=== PATIENT | female | born 1970 | race Caucasian/White ===

== ENCOUNTER 2020-05-31 12:58 | Outpatient (REF) | payer OTHER, SELFPAY ==
[2020-06-01 21:26] LABS: Follicle Stimulating Hormone 100.7 mIU/mL
== END 2020-05-31 12:59 | disposition home or self-care (01) ==
LOC: HO.LAB 12:58
PROVIDERS: PCP Internal Medicine; Visit Provider Internal Medicine
DX: Z78.0 Asymptomatic menopausal state (principal)
CPT/HCPCS: 83001

== ENCOUNTER → 2020-06-08 11:24 | Outpatient (BNVA) | payer OTHER, SELFPAY | PROVIDERS: PCP Internal Medicine; Visit Provider Physician Assistant | DX: Z76.89 Persons encountering health services in other specified circumstances (principal) ==

== ENCOUNTER 2020-06-21 12:41 | Outpatient (REF) | payer OTHER, SELFPAY ==
[2020-06-21 13:01] LABS: COVID-19 Test Negative (Negative)
== END 2020-06-21 12:42 | disposition home or self-care (01) ==
LOC: HO.LAB 12:41
PROVIDERS: Visit Provider Internal Medicine
DX: Z20.828 Contact with and (suspected) exposure to other viral communicable diseases (principal)
CPT/HCPCS: 87635

== ENCOUNTER 2020-06-22 09:46 | Emergency (ER) | payer OTHER, SELFPAY ==
[2020-06-22 10:10] VITALS: BP 112/63; PULSE 68; RESP 16; TEMP 36.6; O2SAT 97; BMI 27.6
--- NOTE | 2020-06-22 10:29 | ECG_ITS ---
Test Reason : HEADACK Blood Pressure : / mmHG Vent. Rate : 069 BPM Atrial Rate : 069 BPM P-R Int : 128 ms QRS Dur : 076 ms QT Int : 392 ms P-R-T Axes : 063 053 043 degrees QTc Int : 420 ms Normal sinus rhythm Normal ECG No significant changes seen Referred By: Huan Goldsmith Electronically Signed By:ESTHER DIAZ MD
--- NOTE | 2020-06-22 10:29 | CT_ITS ---
EXAMINATION: CT HEAD WITHOUT CONTRAST CLINICAL INFORMATION: Severe headache. History migraines. COMPARISON: Radiographs sinuses 06/21/2019 TECHNIQUE: Contiguous axial imaging was performed from the skull base to vertex without intravenous administration of contrast. This CT examination was performed using dose optimization techniques as appropriate, variously including the following: *Automated exposure control *Adjustment of mA and/or kV according to patient size (this includes techniques or standardized protocols for targeted exams where dose is matched to indication/reason for exam; i.e. extremities or head) *Use of iterative reconstruction technique DLP: 572 mGy-cm FINDINGS: There is no intracranial hemorrhage, hematoma, or extra-axial fluid collection. The ventricles are normal in size. There is no hydrocephalus, edema, or mass effect. The vega-white matter differentiation appears symmetric. There is no visible acute territorial infarct or mass lesion. The calvarium appears intact. There is no pneumocephalus or orbital emphysema. The visualized sinuses and middle ears and mastoid air cells show no significant mucosal thickening. There are no air-fluid levels. CT/CT head/brain wo con IMPRESSION: Normal study.
--- NOTE | 2020-06-22 10:35 | ED.HA ---
HPI - Headache General Chief Complaint: Headache Stated Complaint: HEADACHE Time Seen by Provider: 06/22/20 09:53 Source: patient Mode of arrival: ambulatory Limitations: no limitations History of Present Illness HPI Narrative: Patient presents to ED for headache for the past 5 days. Patient denies any recent head trauma, fever, chills, night sweats, body aches, or neck stiffness. Patient denies any eye pain, change in vision, loss of vision, slurred speech, paralysis of extemiities, or facial droop. Sharad was seen 3 days ago by her PCP and was given some sumitriptan and zforan for migraine exacerbation. Patient does states history of migraine. Patient states she felt dizzy 2 days ago, but resolved on his own. Patient states no numbness, slurred speech, loss of vision, or paralysis of extremities. Presently patient denies any dizziness. Patient denies any eye pain. Patient states no shortness of breath or chest pain Related Data Home Medications Medication Instructions Recorded Confirmed calcium citrate 315 mg-vitamin D3 1 tab PO DAILY 06/08/20 06/08/20 5 mcg (200 unit) tablet etanercept 50 mg/mL (1 mL) 50 mg SUBCUT QWEEK 06/08/20 06/08/20 subcutaneous pen injector Previous Rx's Medication Instructions Recorded pantoprazole 40 mg tablet,delayed 40 mg PO DAILY #90 tab 06/13/20 release ondansetron 4 mg disintegrating 4 mg PO Q6H PRN #20 tab 06/20/20 tablet sumatriptan succinate 25 mg tablet 25 mg PO Q2-4H PRN #30 tab 06/20/20 bczstjfxxx-ksmeyfwsrvuke-pgut 1 cap PO Q6H PRN #20 cap 06/22/20 [Fioricet] Allergies Allergy/AdvReac Type Severity Reaction Status Date / Time Sulfa (Sulfonamide Allergy Mild Rash, Verified 06/20/20 09:20 Antibiotics) hives, rash [SULFA (SULFONAMIDE ANTIBIOTICS)] amoxicillin [AMOXICILLIN] Allergy Unknown ANAPHYLAXIS Verified 06/20/20 09:20 codeine [CODEINE] Allergy Unknown ANAPHYLAXIS Verified 06/20/20 09:20 Review of Systems Review of Systems: Yes all other systems are reviewed and are negative Constitutional: Constitutional: Reports as per HPI, Reports no additional constitutional complaints, Denies anorexia, Denies body ache(s), Denies chills, Denies daytime sleepiness, Denies fever(s), Denies frequent falls, Reports headache(s), Denies increased appetite and Denies lethargy Eyes: Eyes: Reports as per HPI, Reports no additional eye complaints, Denies blind spots, Denies blurry vision, Denies exophthalmos, Denies change in vision, Denies decreased night vision, Denies eye discharge, Denies dry eyes, Denies floaters, Denies irritation, Denies itchy eyes, Denies loss of peripheral vision, Denies loss of vision and Denies other visual disturbances ENT: Reports system reviewed and no additional complaints, except as documented, Reports as per HPI, Reports Normal hearing present, Denies dysphagia, Denies vertigo, Reports dizziness ( Resolved) and Reports headache(s) Cardiovascular: Cardiovascular: Reports as per HPI, Reports no additional cardiovascular complaints, Denies Abdominal Cramping after Meds, Denies chest pain, Denies chest pain at rest, Denies chest pain with activity, Denies pedal edema, Denies edema, Denies dyspnea, Denies dyspnea on exertion, Denies orthopnea and Denies paroxysmal nocturnal dyspnea Respiratory: Respiratory: Reports as per HPI, Reports no additional respiratory complaints, Denies change in phlegm color, Denies chest congestion, Denies cough, Denies hemoptysis, Denies excessive phlegm production, Denies pain on inspiration, Denies pain with cough, Denies dyspnea, Denies dyspnea on exertion, Denies stridor and Denies wheezing Gastrointestinal: Gastrointestinal: Reports as per HPI, Reports no additional gastrointestinal complaints, Denies abdominal pain, Denies belching, Denies bloating, Denies hematochezia, Denies tenesmus, Denies change in stool character, Denies coffee ground emesis, Denies constipation, Denies GI cramping, Denies dysphagia, Denies early satiety, Denies dyspepsia, Denies heartburn, Denies fecal incontinence and Denies diarrhea Genitourinary: Genitourinary: Reports no additional female genitourinary complaints, Reports as per HPI, Denies urinary frequency, Denies difficulty voiding, Denies dysmenorrhea, Denies dysuria, Denies urinary incontinence, Denies urinary hesitancy and Denies urinary urgency Musculoskeletal: Musculoskeletal: Reports no additional musculoskeletal complaints, Reports as per HPI, Denies abnormal gait and Denies numbness Neurologic: Reports system reviewed and no additional complaints, except as documented, Reports as per HPI, Reports Normal hearing present, Reports Abnormal speech present, Denies abnormal gait, Denies behavioral changes, Denies confusion, Denies vertigo, Reports dizziness ( Resolved), Denies frequent falls, Reports headache(s), Denies lack of coordination, Denies focal weakness, Denies loss of vision, Denies memory loss and Denies numbness Psychiatric: Psychiatric: Reports no additional psychiatric complaints, Reports as per HPI, Denies anxiety, Denies behavioral changes, Denies confusion, Denies depression and Denies memory loss Allergic/Immunologic: Allergic/Immunologic: Denies itchy eyes and Denies wheezing PMFSH Past Medical History Medical History (Updated 06/22/20 @ 13:43 by OZIEL Busby) Abnormal findings on esophagogastroduodenoscopy (EGD) Ankylosing spondylitis Asthma Cellulitis Concussion Diabetes mellitus GERD (gastroesophageal reflux disease) Menopause Morbid obesity with BMI of 40.0-44.9, adult Obstructive sleep apnea Tubal ligation evaluation Surgical History (Updated 06/08/20 @ 12:17 by Lea Guzman PA-C) Gastric bypass status for obesity H/O lumpectomy History of cholecystectomy History of Krystian-en-Y gastric bypass Hx laparoscopic cholecystectomy Hx of tubal ligation Family History Family History (Updated 06/08/20 @ 11:38 by Pramod Nicole [facility]) Father COPD (chronic obstructive pulmonary disease) DM (diabetes mellitus) Ankylosing spondylitis of site in spine Mother RA (rheumatoid arthritis) Son No problems noted. Social History Social History (Updated 06/08/20 @ 11:39 by Pramod Nicole CMA) Alcohol intake: current Alcohol intake frequency: holidays/special occasions only Smoking Status: Former smoker Smoked in Last 30 Days: No Use of substances other than those prescribed or required for medical reasons: No Advance Directives: No Advance Directives Information Provided: No Physical Exam Vital Signs: Vital Signs: Vital Signs Temp Pulse Resp BP Pulse Ox 06/22/20 10:10 97.8 F 68 16 112/63 97 Body Mass Index 27.6 Const: General: cooperative, healthy appearing, comfortable, no acute distress, well developed, alert, awake and Physically active; No confusion Orientation/consciousness: oriented to person, oriented to place, oriented to time, patient oriented x3 and No confusion HENMT: Head: Yes normal to inspection, Yes No palpable skull fracture present, No abrasion, No Duarte's sign, No contusion, No hematoma, No laceration, No palpable skull fracture, No raccoon eyes, No scalp lesion, No scalp tenderness, No Temporal artery tenderness present and No periorbital ecchymosis Ears: hearing grossly normal bilaterally, external ears normal and TM's normal bilaterally Face and sinus: Yes normal facial exam Mouth: Normal oral and palatal mucosa present Eyes: General: appearance normal, both eyes and all related structures Visual Sanchez: normal visual sanchez by confrontation Alignment and Position: alignment normal Eyelids: Yes eyelids normal Conjunctivae: conjunctivae normal Sclerae: sclerae normal Pupils: Equal, round and reactive pupils present EOM: EOMs intact bilaterally Neck: Neck: Yes normal visual inspection, Yes full ROM, Yes no lymphadenopathy, Yes no meningeal signs, No positive Brudzinski's sign and No positive Kernig's sign Chest: Chest palpation & inspection: normal inspection of the chest, normal palpation of entire chest wall and no localized rib tenderness Resp: Effort & Inspection: normal respiratory effort, able to speak in complete sentences, normal respiratory pattern, no audible wheezes, no cough, respiratory effort not decreased, no grunting, not labored, no nasal flaring, no paradoxical thoraco-abdom movements, no pursed lip breathing, no respiratory distress, no retractions, no segmental paradox chest wall movement, no stridor, not tachypneic, no tracheal deviation and no tripod positioning Auscultation: clear to auscultation bilaterally, no crackles, no rales, no rhonchi and no wheezes Cardio: Jugular venous distension: no JVD Heart sounds: S1 normal heart sound present and S2 normal heart sound present GI: Inspection: Yes normal to inspection, No abdominal wall ecchymosis and No Abdominal wall edema Palpation (GI): Soft to palpation, not firm, nontender and no guarding Percussion: Yes normal to percussion Auscultation: normal bowel sounds : General: No CVA tenderness and Yes no CVA tenderness Back/Spine/Pelvis: Back: no CVA tenderness, No CVA tenderness and No back tenderness Skin: General skin exam: no rashes or lesions noted Neuro: Other: cranial nerves intact. Negative pronator drift. Motor, neuro, and vascular exam of all extremities are intact and are equal. Cerebellar exam normal. Patient able to the zgazvu-oa-drch test and rapid hand movements. Negative nystagmus General: oriented to person, oriented to place, oriented to time, patient oriented x3, gait normal, no meningeal signs, CN's II-XI intact bilaterally and No confusion Cranial nerves: Yes CN's II-XII intact bilaterally, Yes Equal, round and reactive pupils present and Yes Normal hearing present Speech: Abnormal speech present Gait exam (Neuro): Normal gait present Course Course Course Narrative: History physical exam indicate migraine exacerbation. Patient will be sent for head CT due to her stating headache for 5 days. Patient will have at least 1 troponin EKG due to her stating dizziness 2 days ago with headache. Reevaluation(s) Reevaluation #1: patient's CT scan came back negative for bleed. EKG is normal. Patient's troponin negative after 5 days of headache. Patient states headache improved after receiving migraine cocktail. Patient will be discharged. Neuro exam is intact. Patient denies any orbital pain to indicate any glaucoma. patient already have Imitrex and zofran. patient will be discharged with fiorecet. CT scan negative for bleed and troponin negative after 5 days of headache. EKG is normal Time: 13:41 MDM - Headache MDM Narrative Medical decision making narrative: migraine exacerbation. History physical exam does not indicate meningitis or stroke. No focal deficit Lab Data Result diagrams: 06/22/20 10:53 06/22/20 10:53 Labs: Lab Results 06/22/20 06/22/20 06/22/20 Range/Units 10:53 10:53 10:53 WBC 5.0 (4.8-10.8) X10*3/uL RBC 3.98 L (4.20-5.50) X10*6/uL Hgb 11.5 L (12.0-16.0) g/dl Hct 35.7 L (37-47) % MCV 89.7 (80-98) fL MCH 28.9 (27.0-33.0) pg MCHC 32.2 (31.0-35.0) g/dl RDW 12.2 (11.0-16.0) % Plt Count 162 (160-400) X10*3/uL MPV 10.2 (9.4-12.3) fL Immature Gran % (Auto) 0.2 (0.0-0.4) % Neut % (Auto) 50.8 (45-73) % Lymph % (Auto) 39.0 (20-40) % [place] % (Auto) 8.2 (2-11) % Eos % (Auto) 1.4 (0-4) % Baso % (Auto) 0.4 (0-2) % Lymph # (Auto) 2.0 (1.2-4.9) X10*3/uL [place] # (Auto) 0.4 (0.1-1.2) X10*3/uL Eos # (Auto) 0.1 (0.0-0.4) X10*3/uL Baso # (Auto) 0.0 (0.0-0.2) X10*3/uL Abs Immat Gran (auto) 0.01 (0.00-0.03) X10*3/uL Absolute Neuts (auto) 2.6 (2.0-8.3) X10*3/uL Absolute Nucleated RBC 0.000 (0.0-0.012) X10*3/uL Nucleated RBC % (auto) 0.0 (0.0-0.2) /100WBC PT 12.4 (10.8-13.0) SEC INR 1.0 (0.9-1.1) APTT 33.8 (24.1-38.0) SEC Sodium 139 (135-145) mmol/L Potassium 4.3 (3.3-5.1) mmol/l Chloride 101 (96-108) mmol/L Carbon Dioxide 30 H (22-29) mmol/L Anion Gap 12 (12-20) BUN 11 (9-16) mg/dL Creatinine 0.77 (0.5-1.4) mg/dL Estim Creat Clear Calc 89.7 Estimated GFR > 60 Random Glucose 105 (60-115) mg/dL Calcium 8.9 (8.4-10.2) mg/dL Total Bilirubin 0.7 (0.0-1.0) mg/dL AST 26 (5-31) U/L ALT 20 (0-31) U/L Alkaline Phosphatase 78 (39-117) U/L Troponin I High Sens (<3.5-17.0) ng/L Total Protein 6.5 (6.5-8.0) g/dL Albumin 4.1 (3.5-5.0) g/dL 06/22/20 Range/Units 10:53 WBC (4.8-10.8) X10*3/uL RBC (4.20-5.50) X10*6/uL Hgb (12.0-16.0) g/dl Hct (37-47) % MCV (80-98) fL MCH (27.0-33.0) pg MCHC (31.0-35.0) g/dl RDW (11.0-16.0) % Plt Count (160-400) X10*3/uL MPV (9.4-12.3) fL Immature Gran % (Auto) (0.0-0.4) % Neut % (Auto) (45-73) % Lymph % (Auto) (20-40) % [place] % (Auto) (2-11) % Eos % (Auto) (0-4) % Baso % (Auto) (0-2) % Lymph # (Auto) (1.2-4.9) X10*3/uL [place] # (Auto) (0.1-1.2) X10*3/uL Eos # (Auto) (0.0-0.4) X10*3/uL Baso # (Auto) (0.0-0.2) X10*3/uL Abs Immat Gran (auto) (0.00-0.03) X10*3/uL Absolute Neuts (auto) (2.0-8.3) X10*3/uL Absolute Nucleated RBC (0.0-0.012) X10*3/uL Nucleated RBC % (auto) (0.0-0.2) /100WBC PT (10.8-13.0) SEC INR (0.9-1.1) APTT (24.1-38.0) SEC Sodium (135-145) mmol/L Potassium (3.3-5.1) mmol/l Chloride (96-108) mmol/L Carbon Dioxide (22-29) mmol/L Anion Gap (12-20) BUN (9-16) mg/dL Creatinine (0.5-1.4) mg/dL Estim Creat Clear Calc Estimated GFR Random Glucose (60-115) mg/dL Calcium (8.4-10.2) mg/dL Total Bilirubin (0.0-1.0) mg/dL AST (5-31) U/L ALT (0-31) U/L Alkaline Phosphatase (39-117) U/L Troponin I High Sens < 3.5 (<3.5-17.0) ng/L Total Protein (6.5-8.0) g/dL Albumin (3.5-5.0) g/dL ECG Data Interpretation: EKG normal sinus rhythm. Ventricular rate 69. Pr interval 128. Normal EKG. Negative STEMI Discharge Plan Discharge Clinical Impression: Migraine Patient Disposition: Home, Self-Care Instructions: Migraine Headache (ED) Prescriptions: New aoeutrsepo-dslxukrnhcpsl-qebc [Fioricet] 50-300-40 mg capsule 1 cap PO Q6H PRN (Reason: pain) Qty: 20 RF: 0 No Action pantoprazole 40 mg tablet,delayed release (DR/EC) 40 mg PO DAILY Qty: 90 RF: 3 ondansetron 4 mg tablet,disintegrating 4 mg PO Q6H PRN (Reason: nausea and vomiting) Qty: 20 RF: 0 sumatriptan succinate [Imitrex] 25 mg tablet 25 mg PO Q2-4H PRN (Reason: migraine headache) Qty: 30 RF: 0 Enbrel SureClick 50 mg/mL (1 mL) pen injector 50 mg subcut QWEEK RF: 0 calcium citrate-vitamin D3 [Calcium Citrate + D] 315 mg-5 mcg (200 unit) tablet 1 tab PO DAILY RF: 0 Referrals: Caitlyn Conte MD [Primary Care Provider] - 2 days ( migraine exacerbation. Referred to neurologist as necessary) Stand Alone Forms: Work/School Release Interventions: ED Discharge Assessment Last Done: 06/22/20 14:19 Discharge Date/Time: 06/22/20 14:21 Print Language: Slovak
[2020-06-22] MEDS: diphenhydrAMINE HCL 50 MG/ML VIAL IVPUSH (11:03)
[2020-06-22] MEDS: Metoclopramide HCl 10 MG/2 ML VIAL IVPUSH (11:03)
[2020-06-22] MEDS: 0.9 % Sodium Chloride 1,000 ML 999 ML IVCONT (11:03)
[2020-06-22 11:04] LABS: MANUAL DIFF FLAG NO
[2020-06-22 11:06] LABS: Basophils Percent Auto 0.4 % (0-2); Eosinophils Absolute Auto 0.1 X10*3/uL (0.0-0.4); Eosinophils Percent Auto 1.4 % (0-4); Hematocrit 35.7 % (37-47); Hemoglobin 11.5 g/dl (12.0-16.0); Imm Gran Abs Auto 0.01 X10*3/uL (0.00-0.03); Imm Gran Pct Auto 0.2 % (0.0-0.4); Mean Corpuscular HGB Conc 32.2 g/dl (31.0-35.0); Mean Corpuscular Hemoglobin 28.9 pg (27.0-33.0); Mean Corpuscular Volume 89.7 fL (80-98); Mean Platelet Volume 10.2 fL (9.4-12.3); Monocytes Absolute Auto 0.4 X10*3/uL (0.1-1.2); Monocytes Percent Auto 8.2 % (2-11); Neutrophils Absolute Auto 2.6 X10*3/uL (2.0-8.3); Neutrophils Percent Auto 50.8 % (45-73); Platelet Count 162 X10*3/uL (160-400); Red Blood Count 3.98 X10*6/uL (4.20-5.50); Red Cell Distribution Width 12.2 % (11.0-16.0)
--- NOTE | 2020-06-22 11:08 | PC.NURSE ---
iv inserted, labs drawn, pt medicated per order -float nurse
[2020-06-22 11:13] LABS: Prothrombin Time 12.4 SEC (10.8-13.0)
[2020-06-22 11:15] LABS: Partial Thromboplastin Time 33.8 SEC (24.1-38.0)
[2020-06-22 11:32] LABS: Alanine Aminotransferase 20 U/L (0-31); Albumin Level 4.1 g/dL (3.5-5.0); Alkaline Phosphatase 78 U/L (39-117); Anion Gap 12 (12-20); Aspartate Amino Transferase 26 U/L (5-31); Bilirubin Total 0.7 mg/dL (0.0-1.0); Blood Urea Nitrogen 11 mg/dL (9-16); Calcium 8.9 mg/dL (8.4-10.2); Carbon Dioxide 30 mmol/L (22-29); Chloride 101 mmol/L (96-108); Creatinine Clr Calc Pharmacy 89.7; Estimated Glomerular Filt Rate > 60; Glucose Random 105 mg/dL (60-115); Potassium 4.3 mmol/l (3.3-5.1); Sodium 139 mmol/L (135-145); Total Protein 6.5 g/dL (6.5-8.0)
[2020-06-22 11:39] LABS: Troponin-I High Sensitivity < 3.5 ng/L (<3.5-17.0)
[2020-06-22] MEDS: methylPREDNISolone Sod Succ/PF 125 MG/2 ML VIAL IVPUSH (13:26)
== END 2020-06-22 14:21 | disposition home or self-care (01) ==
PROVIDERS: Physician Assistant; Emergency Provider Emergency Medicine; PCP Internal Medicine
DX: G43.909 Migraine, unspecified, not intractable, without status migrainosus (principal); Z87.891 Personal history of nicotine dependence; R42 Dizziness and giddiness; Z79.899 Other long term (current) drug therapy; Z98.84 Bariatric surgery status
CPT/HCPCS: 36415; 70450; 80053; 84484; 85025; 85610; 85730; 93005; 96361; 96374; 96375; 99284; J1200; J2765; J2930

== ENCOUNTER → 2020-06-28 08:06 | Outpatient (BNVA) | payer OTHER, SELFPAY | PROVIDERS: PCP Internal Medicine; Referring Provider Internal Medicine; Visit Provider Student in an Organized Health Care Education/Training Program | DX: Z76.89 Persons encountering health services in other specified circumstances (principal) ==

== ENCOUNTER 2020-08-01 11:24 | Outpatient (REF) | payer OTHER, SELFPAY ==
[2020-08-01 13:52] LABS: MANUAL DIFF FLAG NO
[2020-08-01 13:57] LABS: Basophils Percent Auto 0.3 % (0-2); Eosinophils Absolute Auto 0.1 X10*3/uL (0.0-0.4); Eosinophils Percent Auto 1.2 % (0-4); Hematocrit 38.9 % (37-47); Hemoglobin 12.2 g/dl (12.0-16.0); Imm Gran Abs Auto 0.04 X10*3/uL (0.00-0.03); Imm Gran Pct Auto 0.6 % (0.0-0.4); Lymphocytes Absolute Auto 2.6 X10*3/uL (1.2-4.9); Lymphocytes Percent Auto 37.3 % (20-40); Mean Corpuscular HGB Conc 31.4 g/dl (31.0-35.0); Mean Corpuscular Hemoglobin 28.7 pg (27.0-33.0); Mean Corpuscular Volume 91.5 fL (80-98); Mean Platelet Volume 10.7 fL (9.4-12.3); Monocytes Absolute Auto 0.5 X10*3/uL (0.1-1.2); Monocytes Percent Auto 6.7 % (2-11); Neutrophils Absolute Auto 3.7 X10*3/uL (2.0-8.3); Neutrophils Percent Auto 53.9 % (45-73); Platelet Count 216 X10*3/uL (160-400); Red Blood Count 4.25 X10*6/uL (4.20-5.50); Red Cell Distribution Width 12.8 % (11.0-16.0); White Blood Count 6.9 X10*3/uL (4.8-10.8)
[2020-08-01 14:37] LABS: Alanine Aminotransferase 19 U/L (0-31); Albumin Level 4.3 g/dL (3.5-5.0); Alkaline Phosphatase 85 U/L (39-117); Anion Gap 13 (12-20); Aspartate Amino Transferase 26 U/L (5-31); Bilirubin Total 0.5 mg/dL (0.0-1.0); Blood Urea Nitrogen 18 mg/dL (9-16); Carbon Dioxide 30 mmol/L (22-29); Chloride 101 mmol/L (96-108); Estimated Glomerular Filt Rate > 60; Glucose Random 77 mg/dL (60-115); Potassium 4.1 mmol/l (3.3-5.1); Sodium 140 mmol/L (135-145)
[2020-08-01 14:53] LABS: Erythrocyte Sedimentation Rate 15 MM/HR (0-20)
== END 2020-08-01 11:25 | disposition home or self-care (01) ==
LOC: HO.HMGCLDS 11:24
PROVIDERS: PCP Family Medicine; Visit Provider Student in an Organized Health Care Education/Training Program
DX: M47.819 Spondylosis without myelopathy or radiculopathy, site unspecified (principal)
CPT/HCPCS: 36415; 80053; 85025; 85652; 86140

== ENCOUNTER 2020-08-07 08:26 | Outpatient (REF) | payer OTHER, SELFPAY ==
--- NOTE | 2020-08-07 08:30 | XR_ITS ---
EXAMINATION: XR CERVICAL SPINE XR THORACIC SPINE CLINICAL INFORMATION: Spondylosis. COMPARISON: Cervical spine 06/16/2017 TECHNIQUE: Cervical spine 3 views. Thoracic spine 3 views. FINDINGS: CERVICAL SPINE: No evidence of fracture or malalignment. No prevertebral soft tissue swelling. Vertebral body heights are maintained. Disc spaces are maintained. Lung apices are clear. Mild facet degeneration in the mid cervical spine. THORACIC SPINE: Normal alignment. Mild anterior vertebral body height loss of the upper thoracic vertebral body, probably T5, which appears chronic. No acute compression deformities identified otherwise. Multilevel yxfdcqkb-ao-chmnuz disc degenerative changes. Paraspinal soft tissue appears unremarkable. Visualized lungs are clear. Surgical clips in the upper abdomen. XR/XR cervical spine 2V IMPRESSION: CERVICAL SPINE: Mild facet degeneration in the mid cervical spine. No acute findings. THORACIC SPINE: 1. Obdxvpej-aq-axcksl thoracic spondylosis. 2. Mild anterior vertebral body height loss of the upper thoracic vertebral body, probably T5. This is suspected to be chronic. Please clinically correlate. Further evaluation with MRI as clinically warranted.
--- NOTE | 2020-08-07 08:30 | XR_ITS ---
EXAMINATION: XR CERVICAL SPINE XR THORACIC SPINE CLINICAL INFORMATION: Spondylosis. COMPARISON: Cervical spine 06/16/2017 TECHNIQUE: Cervical spine 3 views. Thoracic spine 3 views. FINDINGS: CERVICAL SPINE: No evidence of fracture or malalignment. No prevertebral soft tissue swelling. Vertebral body heights are maintained. Disc spaces are maintained. Lung apices are clear. Mild facet degeneration in the mid cervical spine. THORACIC SPINE: Normal alignment. Mild anterior vertebral body height loss of the upper thoracic vertebral body, probably T5, which appears chronic. No acute compression deformities identified otherwise. Multilevel muraiffw-um-uybumd disc degenerative changes. Paraspinal soft tissue appears unremarkable. Visualized lungs are clear. Surgical clips in the upper abdomen. XR/XR thoracic spine 2V IMPRESSION: CERVICAL SPINE: Mild facet degeneration in the mid cervical spine. No acute findings. THORACIC SPINE: 1. Zoifscsc-ql-weicct thoracic spondylosis. 2. Mild anterior vertebral body height loss of the upper thoracic vertebral body, probably T5. This is suspected to be chronic. Please clinically correlate. Further evaluation with MRI as clinically warranted.
== END 2020-08-07 08:27 | disposition home or self-care (01) ==
LOC: HO.XRAY 08:26
PROVIDERS: PCP Family Medicine; Visit Provider Student in an Organized Health Care Education/Training Program
DX: M47.819 Spondylosis without myelopathy or radiculopathy, site unspecified (principal)
CPT/HCPCS: 72040; 72070

== ENCOUNTER 2020-08-11 15:40 | Outpatient (REF) | payer OTHER, SELFPAY ==
--- NOTE | 2020-08-11 15:42 | MR_ITS ---
EXAMINATION: MR THORACIC SPINE WITHOUT CONTRAST CLINICAL INFORMATION: Degenerative disc disease. COMPARISON: Thoracic spine radiographs from 08/07/2020. TECHNIQUE: MRI of the thoracic spine was obtained using routine sequences without contrast. FINDINGS: Normal anatomic alignment. Normal, homogeneous marrow signal throughout. No suspicious marrow edema. Moderate to advanced degenerative disc disease from T4-T10. Degenerative loss of T7 and T8 vertebral body heights (approximately 15% and 30% loss of height respectively). The vertebral body heights are otherwise well-maintained. Moderate dorsal epidural lipomatous tissue from T1-T9 partially effacing the thecal sac. No significant abnormalities of the thoracic spinal cord. The conus medullaris terminates at L1-L2. No significant abnormalities of the paraspinal musculature. Limited evaluation of the intrathoracic structures without significant abnormalities. The descending thoracic aorta is of normal contour and caliber. AXIAL SPINAL LEVELS: Mild posterior disc herniations from T1-T4, from T5-T7, and at T11-T12. There is mild to moderate multilevel facet arthropathy, worse in the lower thoracic spine. There is no overt neural foraminal stenosis. There is no spinal canal stenosis. MR/MR thoracic spine wo con IMPRESSION: Moderate multilevel degenerative spondyloarthropathy of the thoracic spine as described in detail above. No suspicious marrow edema to suggest acute traumatic injury. Moderately prominent dorsal epidural lipomatous tissue partially effaces the thecal sac without overt spinal canal stenosis.
== END 2020-08-11 15:41 | disposition home or self-care (01) ==
LOC: HO.MRI 15:40
PROVIDERS: Visit Provider Student in an Organized Health Care Education/Training Program
DX: M51.34 Other intervertebral disc degeneration, thoracic region (principal); R29.890 Loss of height
CPT/HCPCS: 72146

== ENCOUNTER 2020-08-14 07:46 | Outpatient (REF) | payer OTHER, SELFPAY ==
--- NOTE | 2020-08-14 07:49 | CT_ITS ---
EXAMINATION: CT ANGIOGRAM BRAIN WITH CONTRAST CLINICAL INFORMATION: Cerebral aneurysm. COMPARISON: Head CT 06/22/2020. TECHNIQUE: Initial noncontrast head CT was performed. Test bolus sequences followed by intravenous administration 80 mL of Ultravist-370. Helical imaging was performed in the axial plane from the skull base to the skull vertex. Delayed postcontrast imaging of the head was also performed. The data was processed at the systems technologist workstation for generation of MIP sequences. Angled MIPs and volume rendered reformatted images were also generated at an offline 3D workstation. DLP: 1904 mGy-cm FINDINGS: Brain: There is no intracranial hemorrhage, extra-axial collection, mass effect, or territorial infarction. The ventricles are normal in size without evidence of hydrocephalus. On the postcontrast images, no abnormal enhancement is seen. The extracranial structures appear normal. Head CTA: The bilateral ICAs appear patent. The right A1 segment is dominant and supplies both A2 segments. The left A1 segment is hypoplastic. The ACAs are patent. The MCAs are patent with symmetric collaterals. The bilateral intradural vertebral arteries and basilar artery are patent. Both alum mixer are patent. No definite aneurysm is seen. CT/CT angio head IMPRESSION: No acute intracranial abnormality. No hemorrhage or infarct. Major intracranial arteries appear patent. No stenosis or definite aneurysm is seen.
[2020-08-14] MEDS: iohexoL 350 MG/ML 100 ML INFUS..BTL 80 ML IV (08:50)
== END 2020-08-14 07:47 | disposition home or self-care (01) ==
LOC: HO.CT 07:46
PROVIDERS: PCP Family Medicine; Visit Provider Psychiatry & Neurology Neurology
DX: I67.1 Cerebral aneurysm, nonruptured (principal)
CPT/HCPCS: 70496; Q9967

== ENCOUNTER → 2020-08-31 12:42 | Outpatient (BNVA) | payer OTHER, SELFPAY | PROVIDERS: PCP Family Medicine; Visit Provider Anesthesiology | DX: Z76.89 Persons encountering health services in other specified circumstances (principal) ==

== ENCOUNTER 2020-09-19 06:26 | Outpatient (REF) | payer OTHER, SELFPAY ==
--- NOTE | 2020-09-19 07:33 | FL_ITS ---
EXAMINATION: XR FLUOROSCOPY WITH IMAGES CLINICAL INFORMATION: M51.34 - Other intervertebral disc degeneration, thoracic region COMPARISON: MR thoracic spine 08/11/2020 TECHNIQUE: Fluoroscopy performed by Brigida Fleming NP. Fluoroscopy time: 0.7 minutes DAP: 5.51 Gycm2 Images: 6 FINDINGS: There is a left paraspinal needle and 2 right paraspinal needles in region of mid thoracic spine with some contrast in the paraspinal soft tissues. No vascular communication demonstrated. FL/FL guidance in treatment room IMPRESSION: Fluoroscopy for pain management procedure.
== END 2020-09-19 06:27 | disposition home or self-care (01) ==
LOC: HO.RADIR 06:26
PROVIDERS: Visit Provider Anesthesiology
DX: M51.34 Other intervertebral disc degeneration, thoracic region (principal); M45.9 Ankylosing spondylitis of unspecified sites in spine; M54.9 Dorsalgia, unspecified
CPT/HCPCS: 64490; 64491; J3300; Q9967

== ENCOUNTER → 2020-10-25 10:42 | Outpatient (BNVA) | payer OTHER, SELFPAY | PROVIDERS: PCP Family Medicine; Visit Provider Anesthesiology ==

== ENCOUNTER → 2020-10-31 09:19 | Outpatient (BNVA) | payer OTHER, SELFPAY | PROVIDERS: PCP Family Medicine; Visit Provider Dietitian, Registered ==

== ENCOUNTER 2020-11-01 11:10 | Outpatient (REF) | payer OTHER, SELFPAY ==
--- NOTE | ~2020-11-01 | US_ITS ---
EXAMINATION: US SOFT TISSUE OF THE NECK CLINICAL INFORMATION: Ankylosing spondylitis of unspecified sites in the spine. COMPARISON: None TECHNIQUE: Linear transducer grayscale and color Doppler examination of the anterior medial subclavicular area. FINDINGS: On ultrasound imaging there is a solid echogenic avascular lesion along the left anterior neck with echogenic shadowing with an appearance of a bony protuberance or bony spur, likely from the clavicle. No free fluid. US/US soft tiss head and/or neck IMPRESSION: Ultrasound reveals a solid bone-like echogenic and shadowing avascular lesion. This may be bony protuberance or enthesophyte of the clavicle. Correlate with x-ray or CT of the clavicle.
== END 2020-11-01 11:11 | disposition home or self-care (01) ==
LOC: HO.HMGCX 11:10
PROVIDERS: PCP Family Medicine; Visit Provider Student in an Organized Health Care Education/Training Program
DX: M54.9 Dorsalgia, unspecified (principal)
CPT/HCPCS: 76536

== ENCOUNTER 2020-11-06 16:50 | Outpatient (REF) | payer OTHER, SELFPAY ==
[2020-11-08 20:57] LABS: HPV mRNA E6/E7 Not Detected (Not Detected)
== END 2020-11-06 16:51 | disposition home or self-care (01) ==
LOC: HO.LNP 16:50
PROVIDERS: Visit Provider Nurse Practitioner Adult Health
DX: Z01.419 Encounter for gynecological examination (general) (routine) without abnormal findings (principal); Z11.51 Encounter for screening for human papillomavirus (HPV)
CPT/HCPCS: 87624; 88142

== ENCOUNTER 2020-11-21 08:16 | Outpatient (REF) | payer OTHER, SELFPAY ==
--- NOTE | ~2020-11-21 | CT_ITS ---
EXAMINATION: CT SOFT TISSUE NECK WITH CONTRAST CLINICAL INFORMATION: Localized swelling, mass and lump. COMPARISON: None TECHNIQUE: Following the intravenous administration of 100 mL of Omnipaque 350 intravenous contrast, helical imaging was performed in the axial plane with generation of coronal and sagittal reformatted images. This CT examination was performed using dose optimization techniques as appropriate, variously including the following: *Automated exposure control *Adjustment of mA and/or kV according to patient size (this includes techniques or standardized protocols for targeted exams where dose is matched to indication/reason for exam; i.e. extremities or head) *Use of iterative reconstruction technique DLP: 340 mGy-cm FINDINGS: A few scattered lymph nodes are seen in the right neck. The largest right neck level 2 lymph node measures 0.8 cm and less in short dimension. The parotid glands are homogeneous in attenuation. The submandibular glands are normal. No contour abnormality or pathologic enhancement is seen within the oral cavity or pharyngeal mucosal space. The laryngeal structures are normal. The parapharyngeal fat is preserved. The carotid sheath vasculature opacify normally. No extra mucosal soft tissue mass or fluid collection is seen. No retropharyngeal fluid collection is seen. There is normal enhancement in both thyroid lobes which are slightly irregular shaped but no focal lesion seen. There is no substernal extension. The superior mediastinum is unremarkable. The lung apices are clear. The mastoid air cells and visualized portions of the paranasal sinuses are well-aerated. The temporomandibular joints are normal. No periapical disease is identified. No osseous abnormalities are seen. The imaged portions of the brain parenchyma are unremarkable. CT/CT soft tissue neck w con IMPRESSION: No mass, abnormal lymphadenopathy or mass effect seen.
== END 2020-11-21 08:17 | disposition home or self-care (01) ==
LOC: HO.CT 08:16
PROVIDERS: Visit Provider Student in an Organized Health Care Education/Training Program
DX: R22.1 Localized swelling, mass and lump, neck (principal)
CPT/HCPCS: 70491; Q9967

== ENCOUNTER 2020-11-21 19:43 | Emergency (ER) | payer OTHER, SELFPAY ==
[2020-11-21 20:39] VITALS: BP 136/81; PULSE 84; RESP 16; TEMP 36.9; O2SAT 98; BMI 31.2
[2020-11-21] MEDS: diphenhydrAMINE HCL 50 MG/ML VIAL IVPUSH (21:20)
[2020-11-21] MEDS: Famotidine/PF 20 MG/2 ML VIAL IVPUSH (21:20)
[2020-11-21] MEDS: 0.9 % Sodium Chloride 1,000 ML 999 ML IVCONT (21:20)
[2020-11-21] MEDS: methylPREDNISolone Sod Succ 125 MG/2 ML VIAL IVPUSH (21:20)
[2020-11-21 22:00] VITALS: BP 121/65; PULSE 70; RESP 16; O2SAT 99
--- NOTE | 2020-11-21 22:15 | ED_ITS ---
HPI - Allergic Reaction General Chief complaint: Allergic Reaction Stated complaint: allergic reaction Time Seen by Provider: 11/21/20 20:43 Source: patient Mode of arrival: ambulatory Limitations: no limitations History of Present Illness HPI narrative: 50-year-old female with past medical history of asthma, ankylosing spondylosis, headaches, diabetes type 2, GERD, obesity with gastric bypass, obstructive sleep apnea presents with suspected allergic reaction. States that she has been itching all over her body, it is unknown which she was exposed to. She did have CT scan with IV contrast earlier today, states this is the 1st time she has had itching after procedure. Did not have any difficulty breathing, is able to manage secretions, does not have any change in voice. She denies chest pain or pressure, palpitations, shortness of breath, adventitious breath sounds, stridor, headaches, nausea, vomiting, abdominal pain, abdominal distention, dysuria, hematuria, or edema. MD complaint: allergic reaction and hives Onset (ago): hour(s) (Several hours prior to arrival) Exposure: unknown Symptoms: rash and itching Severity: moderate Treatment prior to arrival: none Previous Allergic Reaction History: prior ED visit(s) and anaphylaxis Related Data Home Medications Medication Instructions Recorded Confirmed calcium citrate 315 mg-vitamin D3 1 tab PO DAILY 06/08/20 06/08/20 5 mcg (200 unit) tablet etanercept 50 mg/mL (1 mL) 50 mg SUBCUT QWEEK 06/08/20 06/08/20 subcutaneous pen injector levonorgestrel 20 mcg/24 hours (6 INTRAUTERINE 06/28/20 yrs) 52 mg intrauterine device gabapentin 300 mg capsule 300 mg PO TID 09/25/20 Previous Rx's Medication Instructions Recorded pantoprazole 40 mg tablet,delayed 40 mg PO DAILY #90 tab 06/13/20 release sumatriptan succinate 25 mg tablet 25 mg PO Q2-4H PRN #30 tab 06/20/20 xxbvieggdu-hxnbrmhjmsrhp-sokh 1 cap PO Q6H PRN #20 cap 06/22/20 [Fioricet] diclofenac sodium 1 % topical gel 2 g TOPICAL BID #100 g 06/28/20 gabapentin 600 mg tablet 600 mg PO TID 30 Days #90 tab 08/31/20 epinephrine [EpiPen 2-Juan Luis] 0.3 mg IM Q10M PRN #2 ea 11/21/20 Allergies Allergy/AdvReac Type Severity Reaction Status Date / Time Sulfa (Sulfonamide Allergy Mild Rash, Verified 11/21/20 20:38 Antibiotics) hives, rash [SULFA (SULFONAMIDE ANTIBIOTICS)] amoxicillin [AMOXICILLIN] Allergy Unknown ANAPHYLAXIS Verified 11/21/20 20:38 codeine [CODEINE] Allergy Unknown ANAPHYLAXIS Verified 11/21/20 20:38 Review of Systems Review of Systems: Constitutional: No Fever, No Chills ENT/Mouth: positive facial redness without swelling, No Hoarseness, No Swallowing Difficulty Eyes: No Eye Pain, No Swelling, No Redness Cardiovascular: No Chest Pain, No SOB Respiratory: No Cough, No Sputum, No Wheezing, No Smoke Exposure, No Dyspnea Gastrointestinal: No Nausea, No Vomiting, No Diarrhea, No abdominal Pain Genitourinary: No Dysuria, No Urinary Frequency, No Hematuria Musculoskeletal: No joint pain, No Myalgias, No Joint Swelling Skin: No Skin Lesions, positive rash Neuro: No Weakness, No Numbness, No Headache Psych: No Anxiety/Panic, No Depression Heme/Lymph: No Bruising, No Lymphadenopathy Endocrine: No Polyuria, No Polydipsia Yes all other systems are reviewed and are negative [facility] Past Medical History Attestation statement: The following information was validated with the patient. Source: old records reviewed Medical History Abnormal findings on esophagogastroduodenoscopy (EGD) Ankylosing spondylitis Ankylosing spondylitis Asthma Cellulitis Chronic headaches Concussion Diabetes mellitus GERD (gastroesophageal reflux disease) Menopause Morbid obesity with BMI of 40.0-44.9, adult Obstructive sleep apnea Tubal ligation evaluation Surgical History Gastric bypass status for obesity H/O lumpectomy History of cholecystectomy History of Krystian-en-Y gastric bypass Hx laparoscopic cholecystectomy Hx of tubal ligation Family History Family History Father COPD (chronic obstructive pulmonary disease) DM (diabetes mellitus) Ankylosing spondylitis of site in spine Alzheimer disease Mother RA (rheumatoid arthritis) Son No problems noted. Social History Social History Alcohol intake: current Alcohol intake frequency: holidays/special occasions only Smoking Status: Former smoker Advance Directives: No Advance Directives Information Provided: Yes Physical Exam Vital Signs: Vital Signs: Last Vital Signs Temp 98.4 F 11/21/20 20:39 Pulse 70 11/21/20 22:00 Resp 16 11/21/20 22:00 BP 121/65 11/21/20 22:00 Pulse Ox 99 11/21/20 22:00 Body Mass Index 31.2 Appearance: Alert. Oriented X3. Mild distress. Head: Normal external exam. Normocephalic. Atraumatic. No Duarte signs noted. No raccoon eyes noted Eyes: PERRLA. EOMI. Conjunctiva and sclera normal. Eyelids normal. ENT: TM's Normal. Pharynx normal. Uvula midline. Moist mucous membranes. No trismus noted. No drooling noted. No muffled voice noted. Neck: Normal inspection. Neck supple. No adenopathy. Thyroid Normal. No meningeal signs. No neck mass noted. CVS: Normal heart rate and rhythm. Heart sound normal. No murmurs noted. Pulses equal to all extremities. Respiratory: No respiratory distress. Painless inspiration. Breath sounds normal. No wheezes/rales/rhonchi noted. Chest nontender. No accessory muscle usage noted or decreased air movement noted. Abdomen: Soft and nontender. Bowel sounds normal in all 4 quadrants. No distention noted. No organomegaly noted. No visible injury noted. Back: No CVA tenderness. Full range of motion noted. Skin: Redness to face, arms, chest and neck, Skin warm and dry. Normal skin color. Normal skin turgor. Extremities: No lower extremity edema. Extremities exhibit normal range of motion. Extremities nontender. Neuro: cranial nerves 2-12 intact, no focal neural deficits, strength 5/5 to all extremities, No motor deficit. No sensory deficit. Reflexes normal. Course Course Course Narrative: 50-year-old female presents with itching and redness to face arms neck and chest after an unknown exposure. She did have IV contrast earlier today. She does have a history of anaphylaxis. We will give IV Solu-Medrol, Benadryl, Pepcid and a L of fluid. We will monitor for approximately an hour. Patient is managing her secretions, no stridor, or adventitious lung sounds, no cough, abdominal pain, nausea or vomiting. O2 sats at 99% on room air, even unlabored respirations. Approximately an hour and half after medication administration, patient states to feel much better, no longer redness visible to her face neck and arms. States to have some mild itching but nothing like before. Patient is advised to take Benadryl 50 mg every 6 hours and Pepcid 20 mg twice a day for the next 3 days. She does understand these instructions and agrees to follow them. She does understand if symptoms get worse that she should return to the emergency department or utilized EpiPen if she has any airway involvement. At this time patient's vital signs are within normal limits and stable, lung sounds clear to auscultation all lobes, no focal neural deficits, no tracheal stridor, no difficulty managing secretions. MDM - Allergic Reaction Differential Diagnosis Differential diagnosis: Likely allergic reaction, adverse reaction to drug, viral enanthem and urticaria Medical Records Attestation: I reviewed the patient's medical records. Lab Data Attestation: I reviewed the patient's lab results. Discharge Plan Discharge Clinical Impression: Allergic reaction Patient Disposition: Home, Self-Care Instructions: General Allergic Reaction (ED) Additional Instructions: You were evaluated for allergic reaction to an unknown substance. We gave you IV Solu-Medrol, Benadryl, and Pepcid which seemed to alleviate her symptoms. Please continue to take Benadryl 50 mg every 6 hours for the next 3 days and Pepcid 20 mg twice a day for the next 3 days. I prescribed an EpiPen for you. Please follow-up with an machine shop repair technician testing Thank you for choosing this emergency department for evaluation. Please follow-up with primary care physician as needed. Return to the emergency department for any new, concerning, or worsening symptoms. Prescriptions: New epinephrine [EpiPen 2-Juan Luis] 0.3 mg/0.3 mL auto-injector 0.3 mg IM Q10M PRN (Reason: anaphylaxis) Qty: 2 RF: 0 No Action pantoprazole 40 mg tablet,delayed release (DR/EC) 40 mg PO DAILY Qty: 90 RF: 3 gabapentin 300 mg capsule 300 mg PO TID RF: 0 mnafutqtgv-encnrenehrwlv-uojt [Fioricet] 50-300-40 mg capsule 1 cap PO Q6H PRN (Reason: pain) Qty: 20 RF: 0 sumatriptan succinate [Imitrex] 25 mg tablet 25 mg PO Q2-4H PRN (Reason: migraine headache) Qty: 30 RF: 0 Mirena 20 mcg/24 hours (5 yrs) 52 mg intrauterine device intrauterine RF: 0 diclofenac sodium [Voltaren] 1 % gel 2 g topical BID Qty: 100 RF: 3 gabapentin 600 mg tablet 600 mg PO TID 30 Days Qty: 90 RF: 8 Enbrel SureClick 50 mg/mL (1 mL) pen injector 50 mg subcut QWEEK RF: 0 calcium citrate-vitamin D3 [Calcium Citrate + D] 315 mg-5 mcg (200 unit) tablet 1 tab PO DAILY RF: 0 Interventions: ED Discharge Assessment Last Done: 11/21/20 23:00 Discharge Date/Time: 11/21/20 23:01
== END 2020-11-21 23:01 | disposition home or self-care (01) ==
PROVIDERS: Emergency Provider Emergency Medicine Emergency Medical Services; PCP Family Medicine
DX: L50.0 Allergic urticaria (principal); Z87.891 Personal history of nicotine dependence; Z79.899 Other long term (current) drug therapy; Z98.84 Bariatric surgery status
CPT/HCPCS: 96365; 96375; 99284; J1200; J2930

== ENCOUNTER → 2020-12-07 13:44 | Outpatient (BNVA) | payer OTHER, SELFPAY | PROVIDERS: PCP Family Medicine; Visit Provider Physician Assistant ==

== ENCOUNTER → 2020-12-14 08:15 | Outpatient (BNVA) | payer OTHER, SELFPAY | PROVIDERS: PCP Family Medicine; Visit Provider Dietitian, Registered | DX: E66.9 Obesity, unspecified (principal); Z68.32 Body mass index [BMI] 32.0-32.9, adult | CPT/HCPCS: 97803 ==

== ENCOUNTER 2020-12-21 07:26 | Outpatient (REF) | payer OTHER, SELFPAY ==
[2020-12-21 11:15] LABS: MANUAL DIFF FLAG NO
[2020-12-21 12:05] LABS: Basophils Percent Auto 0.3 % (0-2); Eosinophils Absolute Auto 0.1 X10*3/uL (0.0-0.4); Eosinophils Percent Auto 1.5 % (0-4); Hematocrit 38.2 % (37-47); Imm Gran Abs Auto 0.01 X10*3/uL (0.00-0.03); Imm Gran Pct Auto 0.2 % (0.0-0.4); Lymphocytes Absolute Auto 2.8 X10*3/uL (1.2-4.9); Lymphocytes Percent Auto 43.4 % (20-40); Mean Corpuscular HGB Conc 31.4 g/dl (31.0-35.0); Mean Corpuscular Hemoglobin 27.8 pg (27.0-33.0); Mean Corpuscular Volume 88.6 fL (80-98); Mean Platelet Volume 11.5 fL (9.4-12.3); Monocytes Absolute Auto 0.4 X10*3/uL (0.1-1.2); Monocytes Percent Auto 6.8 % (2-11); Neutrophils Absolute Auto 3.1 X10*3/uL (2.0-8.3); Neutrophils Percent Auto 47.8 % (45-73); Platelet Count 214 X10*3/uL (160-400); Red Blood Count 4.31 X10*6/uL (4.20-5.50); Red Cell Distribution Width 12.8 % (11.0-16.0); White Blood Count 6.5 X10*3/uL (4.8-10.8)
[2020-12-21 12:16] LABS: Alanine Aminotransferase 16 U/L (0-31); Albumin Level 4.2 g/dL (3.5-5.0); Alkaline Phosphatase 105 U/L (39-117); Anion Gap 12 (12-20); Aspartate Amino Transferase 20 U/L (5-31); Bilirubin Total 0.6 mg/dL (0.0-1.0); Blood Urea Nitrogen 15 mg/dL (9-16); Calcium 9.3 mg/dL (8.4-10.2); Carbon Dioxide 28 mmol/L (22-29); Chloride 106 mmol/L (96-108); Cholesterol 152 mg/dL; Estimated Glomerular Filt Rate > 60; Glucose Fasting 110 mg/dL (60-99); HDL Cholesterol 59 mg/dL; LDL Cholesterol Calculated 79 mg/dl; Potassium 4.1 mmol/L (3.3-5.1); Sodium 142 mmol/L (135-145); Total Protein 6.8 g/dL (6.5-8.0); Triglycerides 71 mg/dL
[2020-12-21 12:31] LABS: TSH reflex Free T4 2.99 uIU/mL (0.32-4.0)
[2020-12-21 13:35] LABS: Erythrocyte Sedimentation Rate 22 MM/HR (0-20)
== END 2020-12-21 07:27 | disposition home or self-care (01) ==
LOC: HO.HMGCLDS 07:26
PROVIDERS: PCP Family Medicine; Visit Provider Student in an Organized Health Care Education/Training Program
DX: Z00.00 Encounter for general adult medical examination without abnormal findings (principal); M47.819 Spondylosis without myelopathy or radiculopathy, site unspecified
CPT/HCPCS: 36415; 80053; 80061; 84443; 85025; 85652; 86140

== ENCOUNTER → 2021-01-31 12:40 | Outpatient (BNVA) | payer OTHER, SELFPAY | PROVIDERS: PCP Family Medicine; Visit Provider Student in an Organized Health Care Education/Training Program ==

== ENCOUNTER 2021-03-02 06:07 | Day surgery (SDC) | payer OTHER, SELFPAY ==
--- NOTE | 2021-02-28 12:35 | HO.ANESPROP2 ---
Documented by User: Lauren Cavazosney 02/28/21 12:36 HPI - Anesthesia Eval Consult details Narrative: 50yo F for Spinal Cord Simulation Trial PMFSH Active Problems Active Problems: All Active Problems (Updated 12/29/20 @ 09:38 by Ron Morales MD) Screening for cervical cancer (Acute) Breast cancer screening by mammogram (Acute) Screening for colon cancer (Acute) Elevated fasting blood sugar (Acute) Annual physical exam (Acute) Obesity (BMI 30-39.9) (Acute) Laboratory examination ordered as part of a routine general medical examination (Acute) Allergic reaction (Acute) Binge eating disorder (Acute) Adjustment disorder, unspecified (Acute) Neck mass (Acute) Ankylosing spondylitis (Acute) Thoracic degenerative disc disease (Acute) Vertigo (Acute) Upper back pain (Acute) Cervicalgia (Acute) Chronic headaches (Acute) Tendinopathy of right rotator cuff (Acute) Tendinopathy of left rotator cuff (Acute) Chest pain (Acute) Spondyloarthropathy (Acute) Nausea (Acute) Migraine (Acute) Overweight (BMI 25.0-29.9) (Acute) Ankylosing spondylitis (Acute) Asthma (Acute) Menopause (Acute) Past Medical History Medical History (Updated 03/02/21 @ 07:43 by Monika Gaspar) Abnormal findings on esophagogastroduodenoscopy (EGD) Ankylosing spondylitis Asthma Cellulitis Chronic headaches Concussion Diabetes mellitus GERD (gastroesophageal reflux disease) Menopause Morbid obesity with BMI of 40.0-44.9, adult Obstructive sleep apnea Tubal ligation evaluation Family History Family History Father COPD (chronic obstructive pulmonary disease) DM (diabetes mellitus) Ankylosing spondylitis of site in spine Alzheimer disease Mother RA (rheumatoid arthritis) Son No problems noted. Surgical History Surgical History (Updated 03/02/21 @ 07:32 by Monika Gaspar) Gastric bypass status for obesity H/O lumpectomy History of cholecystectomy History of Krystian-en-Y gastric bypass Hx laparoscopic cholecystectomy Hx of tubal ligation Social History Social History Housing: House Alcohol intake: current Alcohol intake frequency: holidays/special occasions only Patient Tobacco Use Status: Former Tobacco user Tobacco use type: Cigarette Cigarettes Per Day: 10 Years Smoked: 1 e-Cigarette/Vaping Use: Never Used Second Hand Smoke Exposure: No Are you DNR?: No Advance Directives: No Advance Directives Information Provided: No Advance Directives on File: No Current occupational status: previously employed Meds Allergies Allergy/AdvReac Type Severity Reaction Status Date / Time amoxicillin [AMOXICILLIN] Allergy Severe ANAPHYLAXIS Verified 02/16/21 13:09 codeine [CODEINE] Allergy Severe ANAPHYLAXIS Verified 02/16/21 13:09 Sulfa (Sulfonamide Allergy Mild Rash, Verified 02/16/21 13:09 Antibiotics) hives, rash [SULFA (SULFONAMIDE ANTIBIOTICS)] Home Medications Medication Instructions Recorded Confirmed Last Taken Type calcium citrate 315 mg-vitamin D3 1 tab PO DAILY 06/08/20 01/31/21 Unknown History 5 mcg (200 unit) tablet etanercept 50 mg/mL (1 mL) 50 mg SUBCUT QWEEK 06/08/20 01/31/21 Unknown History subcutaneous pen injector levonorgestrel 20 mcg/24 hours (6 INTRAUTERINE 06/28/20 01/31/21 Unknown History yrs) 52 mg intrauterine device multivitamin combination no.55 tab PO 12/01/20 01/31/21 Unknown History Exam Exam Date and Time: February 28, 2021 1235 Pertinent Lab Results Pertinent Lab Results: Laboratory Tests 12/21/20 12/21/20 07:35 07:35 WBC 6.5 Hgb 12.0 Hct 38.2 Plt Count 214 Sodium 142 Potassium 4.1 Chloride 106 Carbon Dioxide 28 BUN 15 Creatinine 0.77 Narrative Narrative: EKG 05/2020 Vent. Rate : 069 BPM Atrial Rate : 069 BPM P-R Int : 128 ms QRS Dur : 076 ms QT Int : 392 ms P-R-T Axes : 063 053 043 degrees QTc Int : 420 ms Normal sinus rhythm Normal ECG No significant changes seen Assessment and Plan Assessment Anesthesia Assessment: Chart Reviewed Documented by User: Monika Gaspar 03/02/21 07:43 PMFSH Past Medical History Medical History (Updated 03/02/21 @ 07:43 by Monika Gaspar) Abnormal findings on esophagogastroduodenoscopy (EGD) Ankylosing spondylitis Asthma Cellulitis Chronic headaches Concussion Diabetes mellitus GERD (gastroesophageal reflux disease) Menopause Morbid obesity with BMI of 40.0-44.9, adult Obstructive sleep apnea Tubal ligation evaluation Family History Family History Father COPD (chronic obstructive pulmonary disease) DM (diabetes mellitus) Ankylosing spondylitis of site in spine Alzheimer disease Mother RA (rheumatoid arthritis) Son No problems noted. Surgical History Surgical History (Updated 03/02/21 @ 07:32 by Monika Gaspar) Gastric bypass status for obesity H/O lumpectomy History of cholecystectomy History of Krystian-en-Y gastric bypass Hx laparoscopic cholecystectomy Hx of tubal ligation Social History Social History Housing: House Alcohol intake: current Alcohol intake frequency: holidays/special occasions only Patient Tobacco Use Status: Former Tobacco user Tobacco use type: Cigarette Cigarettes Per Day: 10 Years Smoked: 1 e-Cigarette/Vaping Use: Never Used Second Hand Smoke Exposure: No Are you DNR?: No Advance Directives: No Advance Directives Information Provided: No Advance Directives on File: No Current occupational status: previously employed Meds Allergies Allergy/AdvReac Type Severity Reaction Status Date / Time amoxicillin [AMOXICILLIN] Allergy Severe ANAPHYLAXIS Verified 02/16/21 13:09 codeine [CODEINE] Allergy Severe ANAPHYLAXIS Verified 02/16/21 13:09 Sulfa (Sulfonamide Allergy Mild Rash, Verified 02/16/21 13:09 Antibiotics) hives, rash [SULFA (SULFONAMIDE ANTIBIOTICS)] Home Medications Medication Instructions Recorded Confirmed Last Taken Type calcium citrate 315 mg-vitamin D3 1 tab PO DAILY 06/08/20 01/31/21 Unknown History 5 mcg (200 unit) tablet etanercept 50 mg/mL (1 mL) 50 mg SUBCUT QWEEK 06/08/20 01/31/21 Unknown History subcutaneous pen injector levonorgestrel 20 mcg/24 hours (6 INTRAUTERINE 06/28/20 01/31/21 Unknown History yrs) 52 mg intrauterine device multivitamin combination no.55 tab PO 12/01/20 01/31/21 Unknown History Exam Height,Weight and Vital Signs: Vital Signs Temp Pulse Resp BP Pulse Ox 03/02/21 06:32 97.7 F 71 18 111/60 99 Airway Mallampati Class: III (Small mouth) TM Dist: >3cm Neck ROM: Limited Loose/Missing/Broken Teeth: Yes (Some missing) Heart: RRR Lungs: CTAB Assessment and Plan Assessment Anesthesia Assessment: Anesthesia Plan Discussed and Chart Reviewed Final Anesthetic Review NPO: Yes ASA Class: III Final Preanesthetic Review: No Changes in Pt Med Stat, Meds/Allgs Chart Reviewed, Consent Obtained/Reviewed and Anes Risks/Benef Reviewed Patient Risk: Intermediate Procedure Risk: Low Assessment/Block/Sedation in SS: Assess/Block/Sedation-SS Anesthetic Plan Anesthetic Plan: MAC: Disposition: Standard PACU
--- NOTE | ~2021-03-02 | FL_ITS ---
EXAMINATION: XR FLUOROSCOPY WITH IMAGES CLINICAL INFORMATION: Spinal stimulator trial. COMPARISON: Spinal stimulator trial TECHNIQUE: Fluoroscopy performed by Dr. Liam Rosario. Fluoroscopy time: 10 Minutes DAP: 51.6 mGycm2 Images: 2 FINDINGS: 2 lateral views of cervical and thoracic spine were obtained. There is a posterior stimulator in the cervical spine from C2 to C6 vertebra and a thoracic stimulator in the upper mid dorsal spine. The exact levels are not known. FL/FL guidance in OR IMPRESSION: Was provided to Dr. Rosario spinal stimulator insertion.
[2021-03-02 06:24] VITALS: BMI 32.9
[2021-03-02 06:32] VITALS: BP 111/60; PULSE 71; RESP 18; TEMP 36.5; O2SAT 99
[2021-03-02] MEDS: Clindamycin Phosphate/D5W 900 MG/50 ML PIGGYBACK 50 MG IV (06:42)
[2021-03-02] MEDS: Lactated Ringers 1,000 ML 100 ML IVCONT (06:42)
--- NOTE | 2021-03-02 07:21 | MHC.SHP ---
Pre-Procedural Eval Section A Date of Service: 03/02/21 The patient is an INPATIENT: No Changes since office visit: Yes Patient answered all questions The History & Physical has been completed within 30 days and I have reviewed it.: No Section B Chief Complaint: Ankylosing Spondyliyis, Degenerative disc disease Details of Present Illness: as above Relevant Family History (Specify if Yes): No Relevant Social History: None Present Medications: None Medical History: Significant History History of Previous Operations: No relevant previous surgery Allergies: Allergies Allergy/AdvReac Type Severity Reaction Status Date / Time amoxicillin [AMOXICILLIN] Allergy Severe ANAPHYLAXIS Verified 02/16/21 13:09 codeine [CODEINE] Allergy Severe ANAPHYLAXIS Verified 02/16/21 13:09 Sulfa (Sulfonamide Allergy Mild Rash, Verified 02/16/21 13:09 Antibiotics) hives, rash [SULFA (SULFONAMIDE ANTIBIOTICS)] Review of Systems Sugical H&P ROS: Negative: Constitution, Cardiovascular, Respiratory, Neurological, Psychiatric, Hem-Onc, Allergic/Immunologic, Gastrointestinal, Genitourinary, Integumentary, Endocrine and Eyes/Ears/Nose/Throat and Yes, Specify: Musculoskeletal (ankylosing spondylitis) Exam Surgical H&P Exam: Normal: HEENT, Normal: Heart, Normal: Lungs, Normal: Extremities, Normal: Abdomen, Normal: Skin and Normal: Neurological Plan Diagnosis/Plan: Unchanged I have reviewed the history and physical and performed a pertinent physical examination on my patient. No changes have occurred unless specified.
[2021-03-02 09:30] VITALS: BP 113/67; PULSE 70; RESP 12; TEMP 36.7; O2SAT 98
--- NOTE | 2021-03-02 09:33 | P.BOP_ITS ---
Brief Operative Note Date of Service: 03/02/21 Pre-op diagnosis: ankylosing spondylitis, cervicalgia, thoracic spine pain. Post-op diagnosis: same Procedure: Trial of Nevro spinal cord stimulator. Position of the leads cervical and upper thoracic spine. Implants: None permanent Surgeon: Liam Rosario MD Anesthesia: MAC Was an Custodial Maintenance Worker used for this Procedure?: No Estimated blood loss (mL): 2 Condition: stable Disposition: PACU
--- NOTE | 2021-03-02 09:35 | P.OP_ITS ---
Operative Note Operative Note Date of Service: 03/02/21 Narrative: Ms. Calderon is very pleasant 58 years old lady who came today into the operating room for trial of spinal cord stimulator for the treatment of Ankylosing spondylitis resulting in the cervical and thoracic pain. Preoperati vely patient received Clindamycin 900 mg approximately 20 minutes before the procedure. After obtaining informed consent patient was brought to the operating room, SHE was positioned supine on the stretcher [employer] monitors were applied and patient was administered with general endotracheal anesthesia. Time-out was performed delineating correct site, side, the nature of the procedure, patient's allergy, preoperative antibiotic if needed. All operating room staff was participating in OR time-out procedure. Patient's entire back was prepped with ChloraPrep twice and draped with full body fenestrated drape. Sterilely draped C-arm was brought over operating field and sqare picture of T11-T12 L1 L2 vertebrae as were demonstrated on the screen. Attention FIRST was concentrated on the T12-L1 epidural interspace. The location of the projection of the right pedicle center of the L2 vertebra was found on the skin using C-arm. This location was injected with mixture of lidocaine 2% and Marcaine 0.5% 5 cc. After that 11 blade was used to make a ruddy on the skin. Ten cm 14 gauge straight introducer epidural needle was inserted through the ruddy and advanced to T12-L1 epidural interspace. The advancement of the needle was performed on anterior posterior and lateral views. Guitar wire and loss of resistance technique were used to locate epidural space. When guitar wire was spread in the epidural fashion, epidural lead was inserted through the skin and it was advanced to C2 position slightly right to the midline. significant technical difficulties were encountered due to adhesions in the epidural space. In the middle of advancement the needle was withdrawn and blue sheath introducer was reinserted over the body of the epidural lead and was helping me to advance the epidural lead further into the cervical spine. The final point of location is between C2 and C3 vertebra. On the lateral view the lead appeared to be in the posterior epidural space. After that location of the projection of the LEFT pedicle center of the L2 vertebra was found on the skin using C-arm. This location was injected with mixture of lidocaine 2% and Marcaine 0.5% 5 cc. After that 11 blade was used to make a ruddy on the skin. Ten cm 14 gauge straight introducer epidural needle was inserted through the ruddy and advanced to T12-L1 epidural interspace. The advancement of the needle was performed on anterior posterior and lateral views. Guitar wire and loss of resistance technique were used to locate epidural space. When guitar wire was spread in the epidural fashion, epidural lead was inserted through the needle and advanced to the T1 level vertebra slightly left to the midline and certainly to to the left of the already inserted cervic al electrode. Again significant adhesions were felt with advancement and again blue sheath introducer was used to avoid bending of the epidural lead begins the adhesions. After satisfactory position of the leads were established the needles were withdrawn, the stylette wires were removed from the epidural leads. The anchoring devices were dislodged on the leads and advanced to the level of the skin. The anchoring devices were sutured with two 0-0 silk sutures to the skin of the patient. The leads were connected to testing device. Bacitracin ointment was applied to the entrance point of bilateral needles. Sterile dressing was applied to the patient's back. The testing device was also taped to the patient's back. The patient tolerated the procedure very well. She went to the PACU where she recovered uneventfully.
[2021-03-02 09:45] VITALS: BP 136/66; PULSE 65; RESP 16; O2SAT 98
[2021-03-02 10:00] VITALS: BP 132/72; PULSE 67; RESP 16; O2SAT 98
[2021-03-02 10:29] VITALS: BP 143/92; PULSE 76; RESP 16; TEMP 36.7; O2SAT 99
== END 2021-03-02 11:06 | disposition home or self-care (01) ==
PROVIDERS: PCP Family Medicine; Visit Provider Anesthesiology
PROC: (CPT 63650; principal; 2021-03-02 07:30)
DX: M47.813 Spondylosis without myelopathy or radiculopathy, cervicothoracic region (principal); M51.34 Other intervertebral disc degeneration, thoracic region; M54.9 Dorsalgia, unspecified; Z79.899 Other long term (current) drug therapy; Z88.0 Allergy status to penicillin; Z88.2 Allergy status to sulfonamides; Z88.8 Allergy status to other drugs, medicaments and biological substances; Z98.84 Bariatric surgery status; Z90.49 Acquired absence of other specified parts of digestive tract; Z87.891 Personal history of nicotine dependence
CPT/HCPCS: 63650 ×2; C1713; C1778; J2250; J3010

== ENCOUNTER → 2021-03-08 10:24 | Outpatient (BNVA) | payer OTHER, SELFPAY | PROVIDERS: PCP Family Medicine; Visit Provider Anesthesiology | DX: M45.9 Ankylosing spondylitis of unspecified sites in spine (principal); M54.9 Dorsalgia, unspecified; M51.35 Other intervertebral disc degeneration, thoracolumbar region; Z79.899 Other long term (current) drug therapy | CPT/HCPCS: 99212 ==

== ENCOUNTER 2021-05-21 10:19 | Outpatient (REF) | payer OTHER, SELFPAY ==
--- NOTE | ~2021-05-21 | XR_ITS ---
EXAMINATION: XR KNEE, RIGHT CLINICAL INFORMATION: Pain COMPARISON: None TECHNIQUE: Four views of the right knee. FINDINGS: Bone alignment is normal. No fracture or dislocation is seen. There are small osteophytes at the patellofemoral joint. Joint spaces are otherwise normal. There is a small osteophyte projecting off the inferior surface of the patella at the patellar tendon origin. There is a small joint effusion. XR/XR knee RT 4V IMPRESSION: Mild degenerative changes and small joint effusion.
[2021-05-21 11:17] LABS: MANUAL DIFF FLAG NO
[2021-05-21 11:29] LABS: Basophils Percent Auto 0.6 % (0-2); Eosinophils Absolute Auto 0.1 X10*3/uL (0.0-0.4); Eosinophils Percent Auto 1.3 % (0-4); Hematocrit 36.1 % (37-47); Hemoglobin 10.9 g/dl (12.0-16.0); Imm Gran Abs Auto 0.01 X10*3/uL (0.00-0.03); Imm Gran Pct Auto 0.2 % (0.0-0.4); Lymphocytes Absolute Auto 1.9 X10*3/uL (1.2-4.9); Lymphocytes Percent Auto 34.8 % (20-40); Mean Corpuscular HGB Conc 30.2 g/dl (31.0-35.0); Mean Corpuscular Hemoglobin 26.5 pg (27.0-33.0); Mean Corpuscular Volume 87.8 fL (80-98); Mean Platelet Volume 11.4 fL (9.4-12.3); Monocytes Absolute Auto 0.5 X10*3/uL (0.1-1.2); Monocytes Percent Auto 8.6 % (2-11); Neutrophils Absolute Auto 2.9 X10*3/uL (2.0-8.3); Neutrophils Percent Auto 54.5 % (45-73); Platelet Count 211 X10*3/uL (160-400); Red Blood Count 4.11 X10*6/uL (4.20-5.50); Red Cell Distribution Width 13.6 % (11.0-16.0); White Blood Count 5.4 X10*3/uL (4.8-10.8)
[2021-05-21 12:01] LABS: Alanine Aminotransferase 10 U/L (0-31); Albumin Level 3.8 g/dL (3.5-5.0); Alkaline Phosphatase 99 U/L (39-117); Anion Gap 10 (12-20); Aspartate Amino Transferase 18 U/L (5-31); Bilirubin Total 0.7 mg/dL (0.0-1.0); Blood Urea Nitrogen 9 mg/dL (9-16); C Reactive Protein 1.09 mg/dL (< or = 0.50); Calcium 8.8 mg/dL (8.4-10.2); Carbon Dioxide 28 mmol/L (22-29); Chloride 107 mmol/L (96-108); Estimated Glomerular Filt Rate > 60; Glucose Random 122 mg/dL (60-115); Potassium 4.5 mmol/L (3.3-5.1); Sodium 140 mmol/L (135-145); Total Protein 6.3 g/dL (6.5-8.0)
[2021-05-21 12:09] LABS: Erythrocyte Sedimentation Rate 20 MM/HR (0-20)
[2021-05-22 09:20] LABS: Iron 116 mcg/dL (30-160); Percent Iron Saturation 31 % (15-50); Total Iron Binding Capacity 375 mcg/dL (228-428); Unsaturated Iron Binding 259 ug/dL
[2021-05-22 09:39] LABS: Ferritin 8 ng/mL (10-250)
== END 2021-05-21 10:20 | disposition home or self-care (01) ==
LOC: HO.HMGCX 10:19
PROVIDERS: PCP Family Medicine; Referring Provider Student in an Organized Health Care Education/Training Program; Visit Provider Physician Assistant
DX: M25.561 Pain in right knee (principal); M54.9 Dorsalgia, unspecified
CPT/HCPCS: 36415; 73564; 80053; 82728; 83540; 85025; 85652; 86140

== ENCOUNTER → 2021-05-28 08:44 | Outpatient (BNVA) | payer OTHER, SELFPAY | PROVIDERS: PCP Family Medicine; Visit Provider Nurse Practitioner Family | DX: M45.9 Ankylosing spondylitis of unspecified sites in spine (principal); M47.819 Spondylosis without myelopathy or radiculopathy, site unspecified; D64.9 Anemia, unspecified | CPT/HCPCS: 99212 ==

== ENCOUNTER → 2021-05-30 08:15 | Outpatient (BNVA) | payer OTHER, SELFPAY | PROVIDERS: PCP Family Medicine; Referring Provider Family Medicine; Visit Provider Physician Assistant Surgical | DX: E66.9 Obesity, unspecified (principal); Z68.34 Body mass index [BMI] 34.0-34.9, adult | CPT/HCPCS: 99212 ==

== ENCOUNTER 2021-06-01 10:16 | Day surgery (SDC) | payer OTHER, SELFPAY ==
[2021-05-28 14:50] VITALS: BMI 33.9
--- NOTE | 2021-05-31 10:11 | HO.ANESPROP2 ---
Documented by User: Lauren Martinez NP 05/31/21 10:13 HPI - Anesthesia Eval Consult details Narrative: 51yo F for Cervical Spinal Cord Stimulation Implant s/p Trial 02/2021 with [facility] Active Problems Active Problems: All Active Problems (Updated 05/30/21 @ 09:13 by OZIEL Zamora) GERD (gastroesophageal reflux disease) (Acute) Obesity (BMI 30-39.9) (Acute) Overweight (BMI 25.0-29.9) (Acute) Migraine (Acute) Nausea (Acute) Spondyloarthropathy (Acute) Chest pain (Acute) Tendinopathy of left rotator cuff (Acute) Tendinopathy of right rotator cuff (Acute) Cervicalgia (Acute) Upper back pain (Acute) Vertigo (Acute) Thoracic degenerative disc disease (Acute) Ankylosing spondylitis (Acute) Neck mass (Acute) Adjustment disorder, unspecified (Acute) Binge eating disorder (Acute) Allergic reaction (Acute) Laboratory examination ordered as part of a routine general medical examination (Acute) Obesity (BMI 30-39.9) (Acute) Annual physical exam (Acute) Elevated fasting blood sugar (Acute) Screening for colon cancer (Acute) Breast cancer screening by mammogram (Acute) Screening for cervical cancer (Acute) Anemia (Acute) Knee pain, right (Acute) Chronic headaches (Acute) Ankylosing spondylitis (Acute) Asthma (Acute) Menopause (Acute) Past Medical History Medical History Abnormal findings on esophagogastroduodenoscopy (EGD) Ankylosing spondylitis Asthma Cellulitis Chronic headaches Concussion Diabetes mellitus GERD (gastroesophageal reflux disease) Knee pain, right Menopause Morbid obesity with BMI of 40.0-44.9, adult Obstructive sleep apnea Status post insertion of nerve stimulator Tubal ligation evaluation Family History Family History Father COPD (chronic obstructive pulmonary disease) DM (diabetes mellitus) Ankylosing spondylitis of site in spine Alzheimer disease Mother RA (rheumatoid arthritis) Son No problems noted. Surgical History Surgical History Gastric bypass status for obesity H/O lumpectomy History of cholecystectomy History of Krystian-en-Y gastric bypass Hx laparoscopic cholecystectomy Hx of tubal ligation Social History Social History Housing: House Alcohol intake: current Alcohol intake frequency: holidays/special occasions only Patient Tobacco Use Status: Former Tobacco user Quit Date: 2010 Tobacco use type: Cigarette and Cigar Cigarettes Per Day: 10 Years Smoked: 4 Smoked in Last 30 Days: No e-Cigarette/Vaping Use: Never Used Second Hand Smoke Exposure: No Use of substances other than those prescribed or required for medical reasons: No Are you DNR?: No Advance Directives: No Advance Directives Information Provided: Yes Current occupational status: previously employed Meds Allergies Allergy/AdvReac Type Severity Reaction Status Date / Time amoxicillin [AMOXICILLIN] Allergy Severe ANAPHYLAXIS Verified 06/01/21 10: codeine [CODEINE] Allergy Severe ANAPHYLAXIS Verified 06/01/21 10: Sulfa (Sulfonamide Allergy Mild Rash, Verified 06/01/21 10: Antibiotics) hives, rash [SULFA (SULFONAMIDE ANTIBIOTICS)] Home Medications Medication Instructions Recorded Confirmed Last Taken Type calcium citrate 315 mg-vitamin D3 1 tab PO DAILY 06/08/20 05/30/21 Unknown History 5 mcg (200 unit) tablet (Calcium Citrate + D) levonorgestrel 20 mcg/24 hours (7 INTRAUTERINE 06/28/20 05/30/21 Unknown History yrs) 52 mg intrauterine device (Mirena) multivitamin combination no.55 tab PO 12/01/20 05/30/21 Unknown History Exam Exam Date and Time: May 31, 2021 1011 Height,Weight and Vital Signs: Height 5 ft 5 in Weight 92.533 kg Pertinent Lab Results Pertinent Lab Results: Laboratory Tests 05/21/21 05/21/21 10:25 10:25 WBC 5.4 Hgb 10.9 L Hct 36.1 L Plt Count 211 Sodium 140 Potassium 4.5 Chloride 107 Carbon Dioxide 28 BUN 9 Creatinine 0.76 Narrative Narrative: ?EKG 05/2020 Vent. Rate : 069 BPM ? ? Atrial Rate : 069 BPM ?? P-R Int : 128 ms? QRS Dur : 076 ms ? ? QT Int : 392 ms ? ? ? P-R-T Axes : 063 053 043 degrees ?? QTc Int : 420 ms ? Normal sinus rhythm Normal ECG No significant changes seen Assessment and Plan Assessment Anesthesia Assessment: Chart Reviewed Documented by User: Misty Raphael MD 06/01/21 11:03 [facility] Past Medical History Medical History Abnormal findings on esophagogastroduodenoscopy (EGD) Ankylosing spondylitis Asthma Cellulitis Chronic headaches Concussion Diabetes mellitus GERD (gastroesophageal reflux disease) Knee pain, right Menopause Morbid obesity with BMI of 40.0-44.9, adult Obstructive sleep apnea Status post insertion of nerve stimulator Tubal ligation evaluation Family History Family History Father COPD (chronic obstructive pulmonary disease) DM (diabetes mellitus) Ankylosing spondylitis of site in spine Alzheimer disease Mother RA (rheumatoid arthritis) Son No problems noted. Family history of problems with anesthesia: No Surgical History Surgical History Gastric bypass status for obesity H/O lumpectomy History of cholecystectomy History of Krystian-en-Y gastric bypass Hx laparoscopic cholecystectomy Hx of tubal ligation History of Problems with Anesthesia: No Social History Social History Housing: House Alcohol intake: current Alcohol intake frequency: holidays/special occasions only Patient Tobacco Use Status: Former Tobacco user Quit Date: 2010 Tobacco use type: Cigarette and Cigar Cigarettes Per Day: 10 Years Smoked: 4 Smoked in Last 30 Days: No e-Cigarette/Vaping Use: Never Used Second Hand Smoke Exposure: No Use of substances other than those prescribed or required for medical reasons: No Are you DNR?: No Advance Directives: No Advance Directives Information Provided: Yes Current occupational status: previously employed Meds Allergies Allergy/AdvReac Type Severity Reaction Status Date / Time amoxicillin [AMOXICILLIN] Allergy Severe ANAPHYLAXIS Verified 06/01/21 10:21 codeine [CODEINE] Allergy Severe ANAPHYLAXIS Verified 06/01/21 10:21 Sulfa (Sulfonamide Allergy Mild Rash, Verified 06/01/21 10:21 Antibiotics) hives, rash [SULFA (SULFONAMIDE ANTIBIOTICS)] Home Medications Medication Instructions Recorded Confirmed Last Taken Type calcium citrate 315 mg-vitamin D3 1 tab PO DAILY 06/08/20 05/30/21 Unknown History 5 mcg (200 unit) tablet (Calcium Citrate + D) levonorgestrel 20 mcg/24 hours (7 INTRAUTERINE 06/28/20 05/30/21 Unknown History yrs) 52 mg intrauterine device (Mirena) multivitamin combination no.55 tab PO 12/01/20 05/30/21 Unknown History Exam Airway Mallampati Class: II TM Dist: >3cm Neck ROM: Full Assessment and Plan Assessment Anesthesia Assessment: Anesthesia Plan Discussed Final Anesthetic Review Family History of Problems with Anesthesia: No History of Problems with Anesthesia: No NPO: Yes ASA Class: III Final Preanesthetic Review: No Changes in Pt Med Stat, Meds/Allgs Chart Reviewed, Consent Obtained/Reviewed and Anes Risks/Benef Reviewed Patient Risk: Intermediate Procedure Risk: Low Assessment/Block/Sedation in SS: Assess/Block/Sedation-SS Anesthetic Plan Anesthetic Plan: MAC: Disposition: Standard PACU
--- NOTE | 2021-05-31 11:58 | P.OP_ITS ---
Operative Note Operative Note Date of Service: 06/01/21 Narrative: Cary is very pleasant 51 years old female who? came today into the operating room for implantation of spinal cord stimulator for the treatment of pain related to degenerative disc disease and spondylosis of the cervical sp ine. ? She had successful trial of spinal cord stimulation.? Preoperatively patient received?900 mg of gentamicin approximately 30 minutes before the procedure. After obtaining informed consent patient was brought to the operating room,? she was positioned prone on operating table, [place] [employer] monitors were applied and patient was deeply sedated. ?? Time-out was performed delineating correct site, side, the nature of the procedure, patient's allergy, preoperative antibiotic.? All operating room staff was participating in OR time-out procedure. Patient's posterior neck and upper back was prepped with DuraPrep twice and draped with full body drape including Ioban film.? Sterilely draped C-arm was brought over operating field and square picture of T10-T11 T12 vertebrae were demonstrated on the screen.? THE PROJECTION OF T10-T11 SPINAL PROCESSES TO THE SKIN WERE INFILTRATED WITH LIDOCAINE 2% MIXED WITH BUPIVACAINE 0.5%.? 7 CM LONG VERTICAL INCISION using 10 blade scalpel WAS PERFORMED IN STRICT MIDLINE VERTICAL FASHION.? THOROUGH HEMOSTASIS WAS PERFORMED using electrocautery.? ?Thorough tissue dissections was performed until prevertebral fascia was freed from overlying tissues.? Attention FIRST? was concentrated on the RIGHT? T12-T11 epidural interspace.? The location of the projection of the right pedicle center of the L1 vertebra was found on the prevertebral fascia using C-arm.? This location was injected with mixture of lidocaine 2% and Marcaine 0.5% 5 cc in approximate direction of needle advancement..? After that ? 10 cm 14 gauge curved introducer epidural needle was inserted through the fascia and advanced toward T12-T11 epidural interspace.? The advancement of the needle was performed on anterior posterior and lateral views.? Guitar wire and loss of resistance technique were used to locate epidural space.? When guitar wire was spread in the epidural fashion, epidural lead was inserted through needle and started to advance in posterior epidural space heights position in the cervical spine C2 position POSTERIOR EPIDURAL SPACE slightly left TO THE MIDLINE.? During the epidural lead advancement difficulty was encountered at navigating the epidural lead in the projection of upper thoracic epidural space. The epidural needle was withdrawn and blue sheath introducer was inserted replacing the needle. After that the advancement of the epidural lead went uneventful and reached above-mentioned position. After that location of the projection of the LEFT pedicle center of the?L1 vertebra was found -using C-arm.? This location was injected with mixture of lidocaine 2% and Marcaine 0.5% 5 cc.. .? I 10 cm 14 gauge curved introducer epidural needle was inserted through the fascia and advanced to T12-T11 epidural interspace.? The advancement was made using loss of resistance to air technique.? The advancement of the needle was performed on anterior posterior and lateral views.? Guitar wire and loss of resistance technique were used to locate epidural space.? When guitar wire was spread in the epidural fashion, epidural lead was inserted through the needle and advanced to the?mid T1 POSTERIOR EPIDURAL SPACE SLIGHTLY left TO THE MIDLINE.? THE LOCATION OF BOTH LEADS WAS VERIFIED ON ANTERIOR POSTERIOR AND LATERAL VIEWS. At this moment impedance was checked and it was found to be satisfactory. After satisfactory position of the leads were established the needles were withdrawn, the stylette wires were removed from the epidural leads.? The anchoring devices were dislodged on the leads and advanced to the level of the skin.? The anchoring devices were advanced along the epidural leads and dislodged and epidural leads at the level of prevertebral fascia.? They were sutured to prevertebral fascia with 2 separate? Tycron 1.0 sutures per each anchoring device.? anchoring screw was tight until 3 clicks were heard on each anchoring device.After that the wound was irrigated with copious amount of Vancomycin containing normal saline and packed with Vancomycin soaked 4 x 4. After that attention was concentrated on the right upper buttock of the patient where the patient had her battery to be implanted.? 6 cm long horizontal incision was performed 3 cm below the TOP right iliac crest.? Thorough hemostasis was obtained.? The wound was dissected caudally to create a pocket for the battery the depth of the wound was no more than 2 cm. The wound was irrigated with copious amount of Vancomycin contained normal saline.? Tunneling device was used to connect the 2 wounds and epidural leads were dislodged into side wound.? They were connected to the Nevro battery and locked with a locking screwdriver device. After that the anchoring sutures Tycron were applied in the most superior medial and most superior lateral corners of the wound.? After that they were connected to the anchoring holes on the body of the battery, the epidural leads were gathered? behind the body of the battery, the battery and the leads were inserted into the pocket wound and after that the anchoring 2 sutures were tied.? The wounds were irrigated again with Vancomycin containing normal saline, thorough hemostasis was checked, and after that the wounds were closed using 0 Vicryl.? After that the skin edges wore approximated using 2 0 Vicryl, cresencio were applied to the wounds at the level of the skin.? Bacitracin ointment was applies to the level of the cresencio and sterile dressings were applied to the staple lines. ? MediPort tape was used to hold the dressing to the patient's skin.? Abdominal binder to wear was provided to the patient.? At this moment patient was awaken and transferred to the bed.? SHE was recovering uneventfully in PACU.? ?
--- NOTE | ~2021-06-01 | FL_ITS ---
EXAMINATION: XR FLUOROSCOPY WITH IMAGES CLINICAL INFORMATION: Spinal implant COMPARISON: None. TECHNIQUE: Fluoroscopy performed by Dr. Liam Rosario. Fluoroscopy time: 5.5 minutes DAP: 36.8 mGycm2 Images: 3 FINDINGS: There are 2 spinal stimulators. The lower spinal stimulator is in upper dorsal epidural space and the higher stimulator in the upper cervical epidural space. FL/FL guidance in OR IMPRESSION: 2 spinal stimulators visualized in the upper cervical and upper dorsal spine. Fluoroscopy was provided to referring physician during stimulator implant.
[2021-06-01 10:29] VITALS: BMI 34.6
[2021-06-01 10:31] VITALS: BP 128/60; PULSE 68; RESP 16; TEMP 36.6; O2SAT 100
--- NOTE | 2021-06-01 10:35 | P.HPSUR_ITS ---
Pre-Procedural Eval Section A Date of Service: 06/01/21 Section B Chief Complaint: Ankylosing Spondylitis Details of Present Illness: as above Relevant Family History (Specify if Yes): No Relevant Social History: None Present Medications: see Short Stay Collaborative assessment Medical History: Significant History History of Previous Operations: No relevant previous surgery Allergies: Allergies Allergy/AdvReac Type Severity Reaction Status Date / Time amoxicillin [AMOXICILLIN] Allergy Severe ANAPHYLAXIS Verified 06/01/21 10:21 codeine [CODEINE] Allergy Severe ANAPHYLAXIS Verified 06/01/21 10:21 Sulfa (Sulfonamide Allergy Mild Rash, Verified 06/01/21 10:21 Antibiotics) hives, rash [SULFA (SULFONAMIDE ANTIBIOTICS)] Review of Systems Sugical H&P ROS: Negative: Constitution, Cardiovascular, Respiratory, Neurol ogical, Psychiatric, Hem-Onc, Allergic/Immunologic, Gastrointestinal, Genitourinary, Integumentary, Endocrine and Eyes/Ears/Nose/Throat and Yes, Specify: Musculoskeletal (Ankylosing spondylitis) Exam Surgical H&P Exam: Normal: HEENT, Normal: Heart, Normal: Lungs, Normal: Extremities, Normal: Abdomen, Normal: Skin and Normal: Neurological Plan Diagnosis/Plan: Unchanged I have reviewed the history and physical and performed a pertinent physical examination on my patient. No changes have occurred unless specified.
[2021-06-01] MEDS: Lactated Ringers 1,000 ML 100 ML IVCONT (10:40)
--- NOTE | 2021-06-01 14:23 | PM.OP ---
Brief Operative Note Date of Service: 06/01/21 Pre-op diagnosis: Ankylosing spondylitis, cervicalgia and dorsalgia Post-op diagnosis: same Procedure: Implantation of Nevro spinal cord stimulator cervical position Implants: Nevro spinal cord stimulator battery and 2 epidural leads. Surgeon: Liam Rosario MD Anesthesia: MAC Was an [employer] Polisher Operator used for this Procedure?: No Estimated blood loss (mL): 30 Pathology: none sent Condition: stable Disposition: PACU
[2021-06-01 14:25] VITALS: BP 116/54; PULSE 71; RESP 14; TEMP 36.4; O2SAT 100
[2021-06-01 14:40] VITALS: BP 122/64; PULSE 60; RESP 18; O2SAT 100
[2021-06-01 14:55] VITALS: BP 117/68; PULSE 60; RESP 18; O2SAT 99
== END 2021-06-01 15:45 | disposition home or self-care (01) ==
PROVIDERS: PCP Family Medicine; Visit Provider Anesthesiology
PROC: (CPT 63685; principal; 2021-06-01 11:30)
DX: M45.2 Ankylosing spondylitis of cervical region (principal); M47.812 Spondylosis without myelopathy or radiculopathy, cervical region; M50.30 Other cervical disc degeneration, unspecified cervical region; M54.2 Cervicalgia; M54.9 Dorsalgia, unspecified; M51.34 Other intervertebral disc degeneration, thoracic region; E11.9 Type 2 diabetes mellitus without complications; J45.909 Unspecified asthma, uncomplicated; Z88.0 Allergy status to penicillin; Z88.2 Allergy status to sulfonamides; Z88.5 Allergy status to narcotic agent
CPT/HCPCS: 63685; 63650 ×2; C1713; C1778; C1787; C1816; C1820; J2370; J3010; J3370

== ENCOUNTER → 2021-06-07 09:45 | Outpatient (BNVA) | payer OTHER, SELFPAY | PROVIDERS: PCP Family Medicine; Visit Provider Anesthesiology | DX: M45.9 Ankylosing spondylitis of unspecified sites in spine (principal); M51.34 Other intervertebral disc degeneration, thoracic region; M54.9 Dorsalgia, unspecified | CPT/HCPCS: 99212 ==

== ENCOUNTER → 2021-06-14 09:48 | Outpatient (BNVA) | payer OTHER, SELFPAY | PROVIDERS: PCP Family Medicine; Visit Provider Anesthesiology | DX: M45.9 Ankylosing spondylitis of unspecified sites in spine (principal); M51.34 Other intervertebral disc degeneration, thoracic region; M54.9 Dorsalgia, unspecified | CPT/HCPCS: 99212 ==

== ENCOUNTER 2021-07-03 10:35 | Outpatient (REF) | payer OTHER, SELFPAY ==
[2021-07-03 11:48] LABS: MANUAL DIFF FLAG NO
[2021-07-03 11:59] LABS: Basophils Percent Auto 0.7 % (0-2); Eosinophils Absolute Auto 0.2 X10*3/uL (0.0-0.4); Eosinophils Percent Auto 2.8 % (0-4); Hematocrit 36.3 % (37.0-47.0); Imm Gran Abs Auto 0.02 X10*3/uL (0.00-0.03); Imm Gran Pct Auto 0.3 % (0.0-0.4); Lymphocytes Absolute Auto 2.1 X10*3/uL (1.2-4.9); Lymphocytes Percent Auto 36.7 % (20-40); Mean Corpuscular HGB Conc 30.3 g/dl (31.0-35.0); Mean Corpuscular Hemoglobin 26.2 pg (27.0-33.0); Mean Corpuscular Volume 86.4 fL (80.0-98.0); Mean Platelet Volume 11.7 fL (9.4-12.3); Monocytes Absolute Auto 0.4 X10*3/uL (0.1-1.2); Monocytes Percent Auto 7.5 % (2-11); Platelet Count 191 X10*3/uL (160-400); Red Cell Distribution Width 13.6 % (11.0-16.0); White Blood Count 5.8 X10*3/uL (4.8-10.8)
[2021-07-03 12:13] LABS: Alanine Aminotransferase 15 U/L (0-31); Alkaline Phosphatase 95 U/L (39-117); Anion Gap 10 (12-20); Aspartate Amino Transferase 21 U/L (5-31); Bilirubin Total 0.5 mg/dL (0.0-1.0); Blood Urea Nitrogen 10 mg/dL (9-16); C Reactive Protein 0.96 mg/dL (< or = 0.50); Calcium 9.3 mg/dL (8.4-10.2); Carbon Dioxide 30 mmol/L (22-29); Chloride 105 mmol/L (96-108); Estimated Glomerular Filt Rate > 60; Glucose Random 105 mg/dL (60-115); Iron 66 mcg/dL (30-160); Percent Iron Saturation 16 % (15-50); Potassium 4.5 mmol/L (3.3-5.1); Sodium 140 mmol/L (135-145); Total Iron Binding Capacity 401 mcg/dL (228-428); Total Protein 6.5 g/dL (6.5-8.0); Unsaturated Iron Binding 335 ug/dL
[2021-07-03 12:30] LABS: Ferritin 9 ng/mL (10-250)
[2021-07-03 12:43] LABS: Erythrocyte Sedimentation Rate 19 MM/HR (0-20)
== END 2021-07-03 10:36 | disposition home or self-care (01) ==
LOC: HO.HMGCLDS 10:35
PROVIDERS: PCP Family Medicine; Referring Provider Nurse Practitioner Family; Visit Provider Student in an Organized Health Care Education/Training Program
DX: M45.9 Ankylosing spondylitis of unspecified sites in spine (principal)
CPT/HCPCS: 36415; 80053; 82728; 83540; 85025; 85652; 86140

== ENCOUNTER 2021-08-06 13:00 | Outpatient (REF) | payer OTHER, SELFPAY | END 2021-08-06 13:01 | disposition home or self-care (01) | LOC: HO.HMGCLDS 13:00 | PROVIDERS: PCP Family Medicine; Visit Provider Internal Medicine | DX: Z20.822 Contact with and (suspected) exposure to COVID-19 (principal) | CPT/HCPCS: C9803; U0003; U0005 ==

== ENCOUNTER 2021-09-12 06:57 | Outpatient (REF) | payer OTHER, SELFPAY ==
[2021-09-12 07:17] LABS: MANUAL DIFF FLAG NO
[2021-09-12 07:32] LABS: Basophils Percent Auto 0.5 % (0-2); Eosinophils Absolute Auto 0.2 X10*3/uL (0.0-0.4); Eosinophils Percent Auto 1.8 % (0-4); Hemoglobin 11.5 g/dl (12.0-16.0); Imm Gran Abs Auto 0.02 X10*3/uL (0.00-0.03); Imm Gran Pct Auto 0.2 % (0.0-0.4); Lymphocytes Absolute Auto 3.1 X10*3/uL (1.2-4.9); Lymphocytes Percent Auto 36.5 % (20-40); Mean Corpuscular HGB Conc 31.1 g/dl (31.0-35.0); Mean Corpuscular Hemoglobin 26.9 pg (27.0-33.0); Mean Corpuscular Volume 86.7 fL (80.0-98.0); Mean Platelet Volume 10.3 fL (9.4-12.3); Monocytes Absolute Auto 0.6 X10*3/uL (0.1-1.2); Monocytes Percent Auto 6.8 % (2-11); Neutrophils Absolute Auto 4.7 x10*3/uL (2.0-8.3); Neutrophils Percent Auto 54.2 % (45-73); Platelet Count 224 X10*3/uL (160-400); Red Blood Count 4.27 X10*6/uL (4.20-5.50); Red Cell Distribution Width 13.9 % (11.0-16.0); White Blood Count 8.6 X10*3/uL (4.8-10.8)
[2021-09-12 08:00] LABS: Alanine Aminotransferase 13 U/L (0-31); Alkaline Phosphatase 100 U/L (39-117); Anion Gap 12 (12-20); Aspartate Amino Transferase 20 U/L (5-31); Bilirubin Total 0.5 mg/dL (0.0-1.0); Blood Urea Nitrogen 9 mg/dL (9-16); C Reactive Protein 1.84 mg/dL (< or = 0.50); Calcium 9.5 mg/dL (8.4-10.2); Carbon Dioxide 30 mmol/L (22-29); Chloride 105 mmol/L (96-108); Cholesterol 176 mg/dL; Estimated Glomerular Filt Rate > 60; Glucose Fasting 125 mg/dL (60-99); HDL Cholesterol 66 mg/dL; LDL Cholesterol Calculated 96 mg/dl; Potassium 4.5 mmol/L (3.3-5.1); Sodium 142 mmol/L (135-145); Total Protein 6.8 g/dL (6.5-8.0); Triglycerides 71 mg/dL
[2021-09-12 08:15] LABS: Erythrocyte Sedimentation Rate 25 MM/HR (0-20)
[2021-09-12 08:21] LABS: TSH reflex Free T4 4.12 uIU/mL (0.32-4.0)
[2021-09-12 08:55] LABS: Free T4 (Free Thyroxine) 0.87 ng/dL (0.71-1.85)
== END 2021-09-12 06:58 | disposition home or self-care (01) ==
LOC: HO.LAB 06:57
PROVIDERS: Student in an Organized Health Care Education/Training Program; Absent Provider Nurse Practitioner Family; PCP Family Medicine; Visit Provider Family Medicine
DX: M47.819 Spondylosis without myelopathy or radiculopathy, site unspecified (principal); D64.9 Anemia, unspecified; M79.641 Pain in right hand; M79.642 Pain in left hand; M45.9 Ankylosing spondylitis of unspecified sites in spine
CPT/HCPCS: 36415; 80053; 80061; 84439; 84443; 85025; 85652; 86140; 99212

== ENCOUNTER 2021-09-13 13:43 | Outpatient (REF) | payer OTHER, SELFPAY ==
--- NOTE | ~2021-09-13 | XR_ITS ---
EXAMINATION: XR HAND, BILATERAL INDICATION: Pain. COMPARISON: 03/13/2017 TECHNIQUE: 3 views of the right hand. 3 views of the left hand FINDINGS: 3 views of the right hand does not demonstrate acute finding. No bony erosion or osteopenia. No significant degenerative changes. Some minimal early joint space loss in the DIP joints. 3 views of the left hand again show no significant degeneration. No bony erosion or osteopenia. No soft tissue calcification. Some mild early degenerative changes with joint space loss in the DIPs. XR/XR hand LT min 3V IMPRESSION: No acute finding. No significant degeneration.
--- NOTE | ~2021-09-13 | XR_ITS ---
EXAMINATION: XR HAND, BILATERAL INDICATION: Pain. COMPARISON: 03/13/2017 TECHNIQUE: 3 views of the right hand. 3 views of the left hand FINDINGS: 3 views of the right hand does not demonstrate acute finding. No bony erosion or osteopenia. No significant degenerative changes. Some minimal early joint space loss in the DIP joints. 3 views of the left hand again show no significant degeneration. No bony erosion or osteopenia. No soft tissue calcification. Some mild early degenerative changes with joint space loss in the DIPs. XR/XR hand RT min 3V IMPRESSION: No acute finding. No significant degeneration.
== END 2021-09-13 13:44 | disposition home or self-care (01) ==
LOC: HO.HMGCLDS 13:43
PROVIDERS: Visit Provider Nurse Practitioner Family
DX: M79.641 Pain in right hand (principal); M79.642 Pain in left hand
CPT/HCPCS: 73130

== ENCOUNTER 2021-10-03 11:00 | Outpatient (RCR) | payer OTHER, SELFPAY ==
--- NOTE | 2021-09-17 12:11 | MHC.OT.OEV ---
[address] [phone] F: [phone] Occupational Therapy Evaluation Diagnosis: B/L hand pain Date of Onset: 08/25/11 Attending Provider: RANDY Francois Prescribed Treatment: Eval and Treat History of Current Condition: 51 yo female presents w/ persistent pain in both hands, first noted pain about ten years ago. She has hx of arthritis in back and ankles and has spinal stiumaltor in c-spine for pain relief. She has been referred to OT for conservative management of OA. Hand x-rays 09/13/21 shows no significant acute finding Significant Medical History: ankle and back arthritis Patient Goals: Reduce pain, particularly when knocking on doors. Hand Dominance: Right Observations: left 4th digit edema QuickDASH Score: 20 Prior Level of Function and Occupation Self Care, Employment, Leisure: Ind with ADLs, IADLS, drives Living Situation, Family and/or Social Support: Lives with . 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 Difficulty opening jars, knocking on doors. Hurts with movement and gripping Sleep: Reports no trouble sleeping. Driving: No pain while driving. Pain Assessment Pain Score: 3 Pain Scale Used: Numeric (0 - 10) Pain Location and Description: B/L hand pain PIP and MCPS of D2-D4 Pain level at rest is 3/10 Pain level when knocking on doors or hit something 10/10 Aggravating Factors: Hard movements such as knocking or gripping. Pain worse in morning. Alleviating Factors: Has not tried specific relief techniques Skin and Soft Tissue Assessment Skin and Soft Tissue: Swelling Comments: Palpable nodules in DIPs B/L'ly Nerve assessment Ulnar Nerve: WNL Median Nerve: WNL Radial Nerve: WNL Sensory Assessment Light Touch: WNL Edema Assessment Upper Extremity: Left Impaired Lower Extremity: Comments: Left D4 edema between MCP and PIP. L edema 7cm R edema 6.3cm. Dexterity Assessment Dexterity: WNL AROM(PROM) Strength Cervical Cervical Flexion: Cervical Extension: Cervical Lateral Flexion: Cervical Rotation: Comments: Decreased end range with movement. Stimulater placed in cervical spine in May 2021. Shoulder Flexion: Extension: Abduction: Internal Rotation: External Rotation: Comments: WNL Flexion: Extension: Abduction: Internal Rotation: External Rotation: Comments: Elbow Flexion: Extension: Pronation: Supination: Comments: WFL Flexion: Extension: Pronation: Supination: Comments: Wrist Flexion: R 60 L 60 Extension: R 50 L 54 Ulnar Deviation: Radial Deviation: Comments: Flexion: Extension: Ulnar Deviation: Radial Deviation: Comments: Thumb Thumb CMC Flexion: Thumb MCP Flexion: Thumb IP Flexion: Radial Abduction: Palmar Abduction: [place] (Kapandji 0-10): Comments: WNL Digits Index MCP: PIP: DIP: Long MCP: PIP: DIP: Ring MCP: PIP: DIP: Small MCP: PIP: DIP: Comments: Dislocated R D5 about 20 years ago, with slight limited ROM, otherwise digits WFL Gross Grasp: R 43 lbs L 50lbs Lateral Pinch: R16 lbs L 13 lbs Two-Point Pinch: R 6 lbs L 1lb Three-Jaw Peter: R 9 lbs L 7lbs Comments: Patient Education Primary Language: [place] Stock Handler Required: No Current Knowledge: Understands information with skills for self-management Teaching Method: Demonstration Handouts Verbal Education Needs Identified on Evaluation: ADL's Disease Information Equipment Use Exercise Pain Safety How did patient/family demonstrate learning? Patient demonstrates Patient verbalizes Barriers to Learning: None Readiness for Learning: Accepting Who was educated? Patient Comments: Plan of Care Assessment: 51 yo female who presents with B/L hand pain, specifically D2-D4 PIPs/DIPs, and thumb MCP. PLF, pt ind with ADLs and IADLs. Currently, pt has difficulty opening jars, knocking on doors and gripping. Pt reports high level of pain during these aggravating tasks (10/10). At rest pt reports pain 3/10. Pt has good ROM in the hands and digits. Pt will benefit from OT services for pain management, activity modification and learn adaptive techniques. STG Duration: 3 week Short Term Goals: Pt will decrease pain to 1/10 resting and 4/10 with activity. Pt will demo/verbalize activity modifications. Pt will be Ind with use of hot and cold modalities for pain relief. Pt will be Ind with isometric hand exercises to support strength and stability in daily activities. LTG Duration: [facility] Goals: Same as Above Frequency and Duration: The patient will be seen 1-2x per week for 3 weeks Treatment Plan: Therapeutic Exercise Therapeutic Activity Home Exercise Program Patient Education Edema Control ADL Training Paraffin Fluidotherapy MHP Cold Packs Joint Mobilization Soft Tissue Mobilization Kinesiotaping Electronically Signed By: Catrina Lombardi OT/s Reviewed/agree with student documentation: Yes Therapist: Kelly Del Rio OTR/L Please sign and return to therapist, Thank you for your referral.
--- NOTE | 2021-10-03 11:33 | MHC.OT.DC ---
[address] [phone] F: [phone] Occupational Therapy Discharge Note Provider: RANDY Francois Diagnosis: B/L hand pain Date of Surgery: Date of Evaluation: 09/17/21 Date of Discharge: 10/03/2021 Treatments to Date: 5 Discharge Status: Achieved Goals Improved Function Independent with HEP Discharge Summary: Cary was seen for B/L hand pain relative to OA. She has made good progress with joint protection techniques and modifications. She has had good follow through with her HEP and functional ROM. Cary has met her goals and improved overall function. Electronically Signed By: Catrina Lombardi OT/s Reviewed/agree with student documentation: Yes Therapist: Kelly Del Rio OTR/L Please Sign and return to therapist, thank you for your referral.
== END 2021-10-11 14:17 | disposition home or self-care (01) ==
LOC: HO.OT 11:00
PROVIDERS: PCP Family Medicine; Visit Provider Nurse Practitioner Family
DX: M79.641 Pain in right hand (principal); M79.642 Pain in left hand
CPT/HCPCS: 97110; 97140; 97165

== ENCOUNTER 2021-12-13 07:45 | Outpatient (REF) | payer OTHER, SELFPAY ==
--- NOTE | ~2021-12-13 | MM_ITS ---
EXAMINATION: MM SCREENING DIGITAL BREAST TOMOSYNTHESIS, BILATERAL CLINICAL INFORMATION: Screening. Asymptomatic. The lifetime risk of breast cancer based on the Tyrer-Cuzick Model is 9.4%. COMPARISON: Mammography: March 25, 2018 and studies dating back to June 16, 2014 TECHNIQUE: Digital breast tomosynthesis is performed in both the craniocaudal and mediolateral oblique views along with computer-aided detection (CAD). Synthesized 2D images are generated from the tomosynthesis. FINDINGS: There are scattered areas of fibroglandular density (ACR BI-RADS breast composition Category b). There are no significant masses, abnormal calcifications, or other abnormalities. MM/MM tomosynthesis screening BI IMPRESSION: There are no significant changes from prior study. ASSESSMENT: BI-RADS 1: Negative RECOMMENDATION: Routine annual mammography screening. This patient's information was entered into a reminder system with a target due date for their next mammogram.
== END 2021-12-13 07:46 | disposition home or self-care (01) ==
LOC: HO.MAMMO 07:45
PROVIDERS: PCP Family Medicine; Visit Provider Family Medicine
DX: Z12.31 Encounter for screening mammogram for malignant neoplasm of breast (principal)
CPT/HCPCS: 77063; 77067

== ENCOUNTER 2021-12-24 10:36 | Outpatient (REF) | payer OTHER, SELFPAY ==
[2021-12-24 11:23] LABS: MANUAL DIFF FLAG NO
[2021-12-24 12:09] LABS: Alanine Aminotransferase 11 U/L (0-31); Albumin Level 3.9 g/dL (3.5-5.0); Alkaline Phosphatase 103 U/L (39-117); Anion Gap 12 (12-20); Aspartate Amino Transferase 19 U/L (5-31); Bilirubin Total 0.6 mg/dL (0.0-1.0); Blood Urea Nitrogen 9 mg/dL (9-16); C Reactive Protein 2.23 mg/dL (< or = 0.50); Calcium 9.2 mg/dL (8.4-10.2); Carbon Dioxide 26 mmol/L (22-29); Chloride 103 mmol/L (96-108); Estimated Glomerular Filt Rate > 60; Glucose Random 239 mg/dL (60-115); Potassium 4.4 mmol/L (3.3-5.1); Sodium 137 mmol/L (135-145); Total Protein 6.8 g/dL (6.5-8.0)
[2021-12-24 12:12] LABS: Basophils Percent Auto 0.6 % (0-2); Eosinophils Absolute Auto 0.1 X10*3/uL (0.0-0.4); Eosinophils Percent Auto 1.5 % (0-4); Hematocrit 35.8 % (37.0-47.0); Hemoglobin 10.8 g/dl (12.0-16.0); Imm Gran Abs Auto 0.03 X10*3/uL (0.00-0.03); Imm Gran Pct Auto 0.4 % (0.0-0.4); Lymphocytes Percent Auto 28.4 % (20-40); Mean Corpuscular HGB Conc 30.2 g/dl (31.0-35.0); Mean Corpuscular Hemoglobin 25.5 pg (27.0-33.0); Mean Corpuscular Volume 84.4 fL (80.0-98.0); Mean Platelet Volume 11.1 fL (9.4-12.3); Monocytes Absolute Auto 0.4 X10*3/uL (0.1-1.2); Monocytes Percent Auto 6.1 % (2-11); Neutrophils Absolute Auto 4.5 x10*3/uL (2.0-8.3); Platelet Count 225 X10*3/uL (160-400); Red Blood Count 4.24 X10*6/uL (4.20-5.50); Red Cell Distribution Width 13.8 % (11.0-16.0); White Blood Count 7.2 X10*3/uL (4.8-10.8)
[2021-12-24 12:53] LABS: Erythrocyte Sedimentation Rate 26 MM/HR (0-20)
== END 2021-12-24 10:37 | disposition home or self-care (01) ==
LOC: HO.HMGCLDS 10:36
PROVIDERS: PCP Family Medicine; Visit Provider Nurse Practitioner Family
DX: M45.9 Ankylosing spondylitis of unspecified sites in spine (principal)
CPT/HCPCS: 36415; 80053; 85025; 85652; 86140

== ENCOUNTER → 2021-12-25 09:50 | Outpatient (BNVA) | payer OTHER, SELFPAY | PROVIDERS: PCP Family Medicine; Visit Provider Nurse Practitioner Family | DX: M47.819 Spondylosis without myelopathy or radiculopathy, site unspecified (principal); D64.9 Anemia, unspecified | CPT/HCPCS: 99212 ==

== ENCOUNTER → 2022-01-17 09:13 | Outpatient (BNVA) | payer OTHER, SELFPAY | PROVIDERS: PCP Family Medicine; Visit Provider Surgery Vascular Surgery | DX: I83.11 Varicose veins of right lower extremity with inflammation (principal) | CPT/HCPCS: 99212 ==

== ENCOUNTER 2022-02-04 07:33 | Outpatient (REF) | payer OTHER, SELFPAY ==
[2022-02-04 12:46] LABS: MANUAL DIFF FLAG NO
[2022-02-04 12:59] LABS: Basophils Percent Auto 0.6 % (0-2); Eosinophils Absolute Auto 0.1 X10*3/uL (0.0-0.4); Eosinophils Percent Auto 1.8 % (0-4); Hematocrit 35.6 % (37.0-47.0); Hemoglobin 10.6 g/dl (12.0-16.0); Imm Gran Abs Auto 0.02 X10*3/uL (0.00-0.03); Imm Gran Pct Auto 0.3 % (0.0-0.4); Lymphocytes Absolute Auto 2.8 X10*3/uL (1.2-4.9); Mean Corpuscular HGB Conc 29.8 g/dl (31.0-35.0); Mean Corpuscular Hemoglobin 25.4 pg (27.0-33.0); Mean Corpuscular Volume 85.4 fL (80.0-98.0); Mean Platelet Volume 10.9 fL (9.4-12.3); Monocytes Absolute Auto 0.5 X10*3/uL (0.1-1.2); Monocytes Percent Auto 7.2 % (2-11); Neutrophils Absolute Auto 3.4 x10*3/uL (2.0-8.3); Neutrophils Percent Auto 49.1 % (45-73); Platelet Count 223 X10*3/uL (160-400); Red Blood Count 4.17 X10*6/uL (4.20-5.50); Red Cell Distribution Width 15.3 % (11.0-16.0); White Blood Count 6.8 X10*3/uL (4.8-10.8)
[2022-02-04 13:15] LABS: Alanine Aminotransferase 12 U/L (0-31); Albumin Level 3.8 g/dL (3.5-5.0); Alkaline Phosphatase 91 U/L (39-117); Anion Gap 12 (12-20); Aspartate Amino Transferase 15 U/L (5-31); Bilirubin Total 0.6 mg/dL (0.0-1.0); Blood Urea Nitrogen 8 mg/dL (9-16); C Reactive Protein 1.44 mg/dL (< or = 0.50); Carbon Dioxide 29 mmol/L (22-29); Chloride 104 mmol/L (96-108); Estimated Glomerular Filt Rate > 60; Glucose Fasting 116 mg/dL (60-99); Potassium 4.3 mmol/L (3.3-5.1); Sodium 141 mmol/L (135-145); Total Protein 6.4 g/dL (6.5-8.0)
[2022-02-04 13:16] LABS: Estimated Average Glucose 151 mg/dL; Hemoglobin A1C 152.4861 umol/L; Hemoglobin A1c % 6.9 %
[2022-02-04 14:31] LABS: Erythrocyte Sedimentation Rate 25 MM/HR (0-20)
== END 2022-02-04 07:34 | disposition home or self-care (01) ==
LOC: HO.HMGCLDS 07:33
PROVIDERS: PCP Family Medicine; Visit Provider Nurse Practitioner Family
DX: Z00.00 Encounter for general adult medical examination without abnormal findings (principal); R73.01 Impaired fasting glucose; M45.9 Ankylosing spondylitis of unspecified sites in spine
CPT/HCPCS: 36415; 80053; 83036; 84443; 85025; 85652; 86140

== ENCOUNTER 2022-02-28 07:46 | Outpatient (REF) | payer OTHER, SELFPAY ==
--- NOTE | ~2022-02-28 | US_ITS ---
EXAMINATION: US BILATERAL LOWER EXTREMITY VENOUS ULTRASOUND (REFLUX EXAM) CLINICAL INDICATION: Lower extremity varicose veins. COMPARISON: None TECHNIQUE: Color flow triplex imaging and compression Doppler was performed to evaluate both the deep and the superficial systems bilaterally. To evaluate the superficial system, the examination was performed in the upright position. Color-flow Doppler ultrasound and compression ultrasound were utilized. In addition, maneuvers were utilized to demonstrate reflux. FINDINGS: SUPERFICIAL ULTRASOUND WITH DOPPLER OF RIGHT LOWER EXTREMITY GREAT SAPHENOUS VEIN: Saphenofemoral junction: 8 mm Max diameter: 8 mm Min diameter: 1 mm Reflux: There is greater than 8 ms of reflux at the ankle. DUPLICATED MEDIAL GREAT SAPHENOUS VEIN: Max Diameter: None imaged. Reflux: NA DUPLICATED LATERAL GREAT SAPHENOUS VEIN: Diameter: 3 mm at the junction. Reflux: None SMALL SAPHENOUS VEIN: Proximal Calf: 4 mm Distal Calf: 1 mm Reflux: No evidence of reflux. VEIN OF GIACOMINI: None imaged. PERFORATORS: Location: Mid thigh, distal thigh and distal calf measuring between 2 and 3 mm. Reflux: None VARICOSITIES: Location: Proximal thigh measuring 3 mm. Reflux: None DEEP VENOUS ULTRASOUND OF THE RIGHT LOWER EXTREMITY: Common Femoral Vein: Compressible, normal respiratory variation and augmented flow. Femoral vein: Compressible, normal color flow and augmentation. Popliteal Vein: Compressible, normal augmentation. Deep Reflux: There is no evidence of reflux in the deep system in either the common femoral vein or the popliteal vein. Lazo's Cyst: There is no evidence of a Lazo's cyst. SUPERFICIAL ULTRASOUND WITH DOPPLER OF LEFT LOWER EXTREMITY GREAT SAPHENOUS VEIN: Saphenofemoral junction: 7 mm Max diameter: 7 mm Min diameter: 1 mm Reflux: No evidence of reflux. DUPLICATED MEDIAL GREAT SAPHENOUS VEIN: Max Diameter: None imaged. Reflux: NA DUPLICATED LATERAL GREAT SAPHENOUS VEIN: Diameter: 3 mm at the saphenofemoral junction. Reflux: None SMALL SAPHENOUS VEIN: Proximal Calf: 2 mm Distal Calf: 2 mm Reflux: No evidence of reflux. VEIN OF GIACOMINI: None Imaged. PERFORATORS: Location: Mid calf measuring 2 mm. Reflux: NA VARICOSITIES: Location: None imaged greater than 3 mm. Reflux: NA DEEP VENOUS ULTRASOUND OF THE LEFT LOWER EXTREMITY: Common Femoral Vein: Compressible, normal respiratory variation and augmented flow. Femoral vein: Compressible, normal color flow and augmentation. Popliteal Vein: Compressible, normal augmentation. Deep Reflux: There is no evidence of reflux in the deep system in either the common femoral vein or the popliteal vein. Lazo's Cyst: There is no evidence of a Lazo's cyst. US/US venous duplex LE BI IMPRESSION: 1. Segmental right great saphenous venous insufficiency at the ankle. 2. No evidence of left great saphenous venous insufficiency. 3. No evidence of DVT or deep venous insufficiency.
== END 2022-02-28 07:47 | disposition home or self-care (01) ==
LOC: HO.US 07:46
PROVIDERS: Visit Provider Surgery Vascular Surgery
DX: I83.11 Varicose veins of right lower extremity with inflammation (principal)
CPT/HCPCS: 93970

== ENCOUNTER → 2022-03-07 09:47 | Outpatient (BNVA) | payer OTHER, SELFPAY | PROVIDERS: PCP Family Medicine; Visit Provider Surgery Vascular Surgery | DX: I89.0 Lymphedema, not elsewhere classified (principal) | CPT/HCPCS: 99212 ==

== ENCOUNTER → 2022-03-25 16:03 | Outpatient (BNVA) | payer OTHER, SELFPAY | PROVIDERS: PCP Family Medicine; Visit Provider Anesthesiology | DX: M45.9 Ankylosing spondylitis of unspecified sites in spine (principal); M51.34 Other intervertebral disc degeneration, thoracic region; M54.9 Dorsalgia, unspecified; Z98.890 Other specified postprocedural states | CPT/HCPCS: 99212 ==

== ENCOUNTER → 2022-03-28 08:45 | Outpatient (BNVA) | payer OTHER, SELFPAY | PROVIDERS: PCP Family Medicine; Visit Provider Nurse Practitioner Family | DX: M47.819 Spondylosis without myelopathy or radiculopathy, site unspecified (principal); D64.9 Anemia, unspecified | CPT/HCPCS: 99212 ==

== ENCOUNTER 2022-05-22 08:02 | Day surgery (SDC) | payer BC, OTHER, SELFPAY ==
[2022-05-17 12:28] VITALS: BMI 36.6
--- NOTE | 2022-05-21 11:41 | HO.ANESPROP2 ---
Documented by User: Lauren Martinez NP 05/21/22 11:43 HPI - Anesthesia Eval Consult details Narrative: 52yo F for Upper Endoscopy and Colonoscopy Cervical spine nerve stim in situ (implanted 05/2021) PMF Active Problems Active Problems: All Active Problems (Updated 05/17/22 @ 12:24 by Danette Fonseca RN) Overweight (BMI 25.0-29.9) (Acute) Migraine (Acute) Nausea (Acute) Spondyloarthropathy (Acute) Chest pain (Acute) Tendinopathy of left rotator cuff (Acute) Tendinopathy of right rotator cuff (Acute) Cervicalgia (Acute) Upper back pain (Acute) Vertigo (Acute) Thoracic degenerative disc disease (Acute) Ankylosing spondylitis (Acute) Neck mass (Acute) Adjustment disorder, unspecified (Acute) Binge eating disorder (Acute) Allergic reaction (Acute) Laboratory examination ordered as part of a routine general medical examination (Acute) Obesity (BMI 30-39.9) (Acute) Annual physical exam (Acute) Elevated fasting blood sugar (Acute) Screening for colon cancer (Acute) Breast cancer screening by mammogram (Acute) Screening for cervical cancer (Acute) Anemia (Acute) Obesity (BMI 30-39.9) (Acute) Mild anemia (Acute) Elevated TSH (Acute) Elevated erythrocyte sedimentation rate (Acute) Right anterior knee pain (Acute) Fluid in right knee joint (Acute) Varicose veins of right lower extremity with inflammation (Acute) Lymphedema (Acute) Adult general medical exam (Acute) Diabetes (Acute) Anxiety (Acute) GERD (gastroesophageal reflux disease) (Acute) Knee pain, right (Acute) Chronic headaches (Acute) Ankylosing spondylitis (Acute) Asthma (Acute) Menopause (Acute) Past Medical History Medical History (Updated 05/17/22 @ 12:24 by Danette Fonseca RN) Abnormal findings on esophagogastroduodenoscopy (EGD) Ankylosing spondylitis Asthma Cellulitis Chronic headaches Concussion Diabetes mellitus GERD (gastroesophageal reflux disease) History of COVID-19 Knee pain, right Menopause Morbid obesity with BMI of 40.0-44.9, adult Obstructive sleep apnea Status post insertion of nerve stimulator Tubal ligation evaluation Family History Family History Father COPD (chronic obstructive pulmonary disease) DM (diabetes mellitus) Ankylosing spondylitis of site in spine Alzheimer disease Mother RA (rheumatoid arthritis) Son No problems noted. Family history of problems with anesthesia: No Surgical History Surgical History Gastric bypass status for obesity H/O lumpectomy History of cholecystectomy History of Krystian-en-Y gastric bypass Hx laparoscopic cholecystectomy Hx of tubal ligation History of Problems with Anesthesia: No Social History Social History Housing: House Alcohol intake: current Alcohol intake frequency: holidays/special occasions only Patient Tobacco Use Status: Former Tobacco user Quit Date: 1987 Tobacco use type: Cigarette and Cigar Cigarettes Per Day: 10 Years Smoked: 4 e-Cigarette/Vaping Use: Never Used Second Hand Smoke Exposure: No Use of substances other than those prescribed or required for medical reasons: No Are you DNR?: No Advance Directives: No Advance Directives Information Provided: Yes service: No Current occupational status: previously employed Current occupational exposures/hazards: No Cognitive needs: No Hearing needs: No Vision needs: No Meds Allergies Allergy/AdvReac Type Severity Reaction Status Date / Time amoxicillin [AMOXICILLIN] Allergy Severe ANAPHYLAXIS Verified 05/13/22 16:04 codeine [CODEINE] Allergy Severe ANAPHYLAXIS Verified 05/13/22 16:04 Sulfa (Sulfonamide Allergy Mild Rash, Verified 05/13/22 16:04 Antibiotics) hives, rash [SULFA (SULFONAMIDE ANTIBIOTICS)] Home Medications Medication Instructions Recorded Confirmed Last Taken Type calcium citrate 315 mg-vitamin D3 1 tab PO DAILY 06/08/20 12/03/21 Unknown History 5 mcg (200 unit) tablet (Calcium Citrate + D) levonorgestrel 20 mcg/24 hours (7 intrauterine 06/28/20 12/03/21 Unknown History yrs) 52 mg intrauterine device (Mirena) multivitamin combination no.55 tab PO 12/01/20 12/03/21 Unknown History diclofenac sodium 1 % topical gel 2 g topical QID PRN 03/28/22 Unknown History (Voltaren Arthritis Pain) Exam Exam Date and Time: May 21, 2022 1141 Height,Weight and Vital Signs: Height 5 ft 5 in Weight 99.79 kg Pertinent Lab Results Pertinent Lab Results: Laboratory Tests 02/04/22 02/04/22 07:41 07:41 WBC 6.8 Hgb 10.6 L Hct 35.6 L Plt Count 223 Sodium 141 Potassium 4.3 Chloride 104 Carbon Dioxide 29 BUN 8 L Creatinine 0.83 Assessment and Plan Assessment Anesthesia Assessment: Chart Reviewed Final Anesthetic Review Family History of Problems with Anesthesia: No History of Problems with Anesthesia: No Documented by User: Tayla Chamberlain MD 05/22/22 10:07 [facility] Past Medical History Medical History (Updated 05/17/22 @ 12:24 by Danette Fonseca RN) Abnormal findings on esophagogastroduodenoscopy (EGD) Ankylosing spondylitis Asthma Cellulitis Chronic headaches Concussion Diabetes mellitus GERD (gastroesophageal reflux disease) History of COVID-19 Knee pain, right Menopause Morbid obesity with BMI of 40.0-44.9, adult Obstructive sleep apnea Status post insertion of nerve stimulator Tubal ligation evaluation Family History Family History Father COPD (chronic obstructive pulmonary disease) DM (diabetes mellitus) Ankylosing spondylitis of site in spine Alzheimer disease Mother RA (rheumatoid arthritis) Son No problems noted. Surgical History Surgical History Gastric bypass status for obesity H/O lumpectomy History of cholecystectomy History of Krystian-en-Y gastric bypass Hx laparoscopic cholecystectomy Hx of tubal ligation Social History Social History Housing: House Alcohol intake: current Alcohol intake frequency: holidays/special occasions only Patient Tobacco Use Status: Former Tobacco user Quit Date: 1987 Tobacco use type: Cigarette and Cigar Cigarettes Per Day: 10 Years Smoked: 4 e-Cigarette/Vaping Use: Never Used Second Hand Smoke Exposure: No Use of substances other than those prescribed or required for medical reasons: No Are you DNR?: No Advance Directives: No Advance Directives Information Provided: Yes service: No Current occupational status: previously employed Current occupational exposures/hazards: No Cognitive needs: No Hearing needs: No Vision needs: No Meds Allergies Allergy/AdvReac Type Severity Reaction Status Date / Time amoxicillin [AMOXICILLIN] Allergy Severe ANAPHYLAXIS Verified 05/13/22 16:04 codeine [CODEINE] Allergy Severe ANAPHYLAXIS Verified 05/13/22 16:04 Sulfa (Sulfonamide Allergy Mild Rash, Verified 05/13/22 16:04 Antibiotics) hives, rash [SULFA (SULFONAMIDE ANTIBIOTICS)] Home Medications Medication Instructions Recorded Confirmed Last Taken Type calcium citrate 315 mg-vitamin D3 1 tab PO DAILY 06/08/20 12/03/21 Unknown History 5 mcg (200 unit) tablet (Calcium Citrate + D) levonorgestrel 20 mcg/24 hours (7 intrauterine 06/28/20 12/03/21 Unknown History yrs) 52 mg intrauterine device (Mirena) multivitamin combination no.55 tab PO 12/01/20 12/03/21 Unknown History diclofenac sodium 1 % topical gel 2 g topical QID PRN 03/28/22 Unknown History (Voltaren Arthritis Pain) Exam Airway Mallampati Class: III TM Dist: >3cm Neck ROM: Full Assessment and Plan Assessment Anesthesia Assessment: Anesthesia Plan Discussed Final Anesthetic Review NPO: Yes ASA Class: III Final Preanesthetic Review: No Changes in Pt Med Stat, Meds/Allgs Chart Reviewed, Consent Obtained/Reviewed and Anes Risks/Benef Reviewed Patient Risk: Intermediate Procedure Risk: Low Anesthetic Plan Anesthetic Plan: MAC: Disposition: Standard PACU
[2022-05-22 08:32] VITALS: BP 118/56; PULSE 78; RESP 18; TEMP 36.6; O2SAT 96
[2022-05-22] MEDS: Lactated Ringers 1,000 ML 100 ML IVCONT (08:57)
--- NOTE | 2022-05-22 09:04 | MHC.SHP ---
Pre-Procedural Eval Section A Date of Service: 05/22/22 Section B Chief Complaint: screening,reflux Relevant Family History (Specify if Yes): No Relevant Social History: None Present Medications: see Short Stay Collaborative assessment Medical History: Significant History (Abnormal findings on esophagogastroduodenoscopy (EGD) Ankylosing spondylitis Asthma Cellulitis Chronic headaches Concussion Diabetes mellitus GERD (gastroesophageal reflux disease) History of COVID-19 Knee pain, right Menopause Morbid obesity with BMI of 40.0-44.9, adult Obstructive sleep apnea Stat) History of Previous Operations: Relevant previous surgery/procedure and date(s) (Gastric bypass status for obesity H/O lumpectomy History of cholecystectomy History of Krystian-en-Y gastric bypass Hx laparoscopic cholecystectomy Hx of tubal ligation) Allergies: Allergies Allergy/AdvReac Type Severity Reaction Status Date / Time amoxicillin [AMOXICILLIN] Allergy Severe ANAPHYLAXIS Verified 05/13/22 16:04 codeine [CODEINE] Allergy Severe ANAPHYLAXIS Verified 05/13/22 16:04 Sulfa (Sulfonamide Allergy Mild Rash, Verified 05/13/22 16:04 Antibiotics) hives, rash [SULFA (SULFONAMIDE ANTIBIOTICS)] Review of Systems Sugical H&P ROS: Negative: Constitution, Cardiovascular, Respiratory, Neurological, Psychiatric, Hem-Onc, Allergic/Immunologic, Gastrointestinal, Genitourinary, Musculoskeletal, Integumentary, Endocrine and Eyes/Ears/Nose/Throat Exam Surgical H&P Exam: Normal: HEENT, Normal: Heart, Normal: Lungs, Normal: Extremities, Normal: Abdomen, Normal: Skin and Normal: Neurological Plan Diagnosis/Plan: Unchanged I have reviewed the history and physical and performed a pertinent physical examination on my patient. No changes have occurred unless specified.
--- NOTE | 2022-05-22 09:06 | W.PM.OPN ---
Operative Note Operative Note Date of Service: 05/22/22 Narrative: Operative Information Procedure Description: EGD, Colonoscopy Indication: epigastric pain and screening colonoscopy Anesthesia: MAC FLEXIBLE TRANSORAL UPPER GASTROINTESTINAL ENDOSCOPY AND COLONOSCOPY PROCEDURE NOTE UPPER ENDOSCOPY Consent: Indications for the procedure and potential complications of bleeding, perforation, reaction to medications and missed diagnosis were discussed with the patient and informed consent was obtained. Instrument: Olympus GIF H 190 J mid size upper endoscope Monitoring: Vital signs and clinical assessment, continuous EKG monitoring, Pulse oximetry, Carbon Dioxide monitoring and blood pressure monitoring were done throughout the procedure. Procedure: The patient was placed in the left lateral decubitis position and pre-procedure medications were administered and a bite block was placed. The endoscope was inserted into the mouth and advanced under direct vision to the third part of duodenum. A careful inspection was made as the upper endoscope was withdrawn including a retroflexed examination of the proximal stomach; Findings and interventions are described below. Findings: Larynx:normal Esophagus: GE junction at 34 cm, diaphragm hiatus at 36 cm, consistent with 2 cm sliding hiatal hernia. Partial schatzki ring seen, irregular Z line so bx taken from GEJ and distal esophagus Stomach pouch: Normal mucosa. Biopsies were obtained. Grade 2 flap valve on retroflexed examination of the cardia. bx taken, also few cresencio protruding out that were removed with forceps jejunum: bx taken, looks normal Intervention: Biopsies as noted above, removal of cresencio COLONOSCOPY Instrument: Olympus variable stiffness pediatric scope 190L Colonoscopy Monitoring: Vital signs and clinical assessment, continuous EKG monitoring, Pulse oximetry, Carbon Dioxide monitoring and blood pressure monitoring were done throughout the procedure. Colon withdrawal time was 15 minutes. Procedure: The patient was placed in the left lateral decubitis position and pre-procedure medications were administered. After a digital rectal examination of the ano-rectum, the video colonoscope was inserted into the rectum and advanced through the colon to the cecum/TI. The colonoscope was slowly withdrawn in a retrograde panoramic fashion and the colon mucosa was carefully examined including a retroflexed view of the rectum. Findings and interventions are described below. Procedure Difficulty: Findings: Terminal Ileum- few erosions noted, bx taken Cecum:normal Ascending Colon: normal random bx taken from right colon Transverse Colon -normal Descending Colon:normal Sigmoid Colon: normal Rectum: Retroflexion with small internal hemorrhoids, grade I Anorectum - normal Colon preparation: [place] Bowel Preparation Scale Right colon; 2 Transverse colon: 3 Left colon; 3 (0 = Unprepared colon segment with mucosa not seen due to solid stool that cannot be cleared. 1 = Portion of mucosa of the colon segment seen, but other areas of the colon segment not well seen due to staining, residual stool and/or opaque liquid. 2 = Minor amount of residual staining, small fragments of stool and/or opaque liquid, but mucosa of colon segment seen well. 3 = Entire mucosa of colon segment seen well with no residual staining, small fragments of stool or opaque liquid) Impression and Post Procedure Diagnosis: Endoscopy Findings: hiatal hernia schatzki ring foreign body removal Colonoscopy Findings: erosive ileitis internal hemorrhoids Plan: Await Pathology results Repeat Colonoscopy in 10 years or earlier if clinically indicated High fiber diet leaflet avoid straining at stool, epsom salts and sitz bath, anusol supps or cream check nsaid use may need CTe or capsule endoscopy Above findings were reviewed with the patient and relevant handouts were provided if indicated.
[2022-05-22 10:06] VITALS: BP 103/52; PULSE 75; RESP 16; TEMP 36.4; O2SAT 99
[2022-05-22 10:21] VITALS: BP 118/67; PULSE 65; RESP 14; TEMP 36.2; O2SAT 97
[2022-05-22 13:03] LABS: Glucose, Whole Blood 132 mg/dL (60-115)
== END 2022-05-22 10:52 ==
LOC: HO.SSS 08:02
PROVIDERS: PCP Family Medicine; Visit Provider Internal Medicine Gastroenterology
PROC: (CPT 45380; principal; 2022-05-22 12:40)
DX: Z12.11 Encounter for screening for malignant neoplasm of colon (principal); K64.0 First degree hemorrhoids; K52.89 Other specified noninfective gastroenteritis and colitis; K21.9 Gastro-esophageal reflux disease without esophagitis; R10.13 Epigastric pain; K22.2 Esophageal obstruction; Z18.89 Other specified retained foreign body fragments; K44.9 Diaphragmatic hernia without obstruction or gangrene; G47.33 Obstructive sleep apnea (adult) (pediatric); E11.9 Type 2 diabetes mellitus without complications; E66.01 Morbid (severe) obesity due to excess calories; Z68.41 Body mass index [BMI] 40.0-44.9, adult; J45.909 Unspecified asthma, uncomplicated; R51.9 Headache, unspecified; Z79.899 Other long term (current) drug therapy; Z88.1 Allergy status to other antibiotic agents; Z88.2 Allergy status to sulfonamides; Z88.8 Allergy status to other drugs, medicaments and biological substances; Z98.84 Bariatric surgery status; Z90.49 Acquired absence of other specified parts of digestive tract; Z87.891 Personal history of nicotine dependence; Z86.16 Personal history of COVID-19
CPT/HCPCS: 45380; 43247; 43239; 82947; 88305; 88342; J2250

== ENCOUNTER 2022-06-05 09:27 | Outpatient (REF) | payer BC, SELFPAY ==
[2022-06-05 11:19] LABS: MANUAL DIFF FLAG NO
[2022-06-05 11:25] LABS: Basophils Percent Auto 0.5 % (0-2); Eosinophils Absolute Auto 0.1 X10*3/uL (0.0-0.4); Eosinophils Percent Auto 1.2 % (0-4); Hematocrit 35.8 % (37.0-47.0); Hemoglobin 10.8 g/dl (12.0-16.0); Imm Gran Abs Auto 0.02 X10*3/uL (0.00-0.03); Imm Gran Pct Auto 0.3 % (0.0-0.4); Lymphocytes Absolute Auto 1.9 X10*3/uL (1.2-4.9); Lymphocytes Percent Auto 23.7 % (20-40); Mean Corpuscular HGB Conc 30.2 g/dl (31.0-35.0); Mean Corpuscular Hemoglobin 24.8 pg (27.0-33.0); Mean Corpuscular Volume 82.1 fL (80.0-98.0); Monocytes Absolute Auto 0.5 X10*3/uL (0.1-1.2); Monocytes Percent Auto 6.9 % (2-11); Neutrophils Absolute Auto 5.3 x10*3/uL (2.0-8.3); Neutrophils Percent Auto 67.4 % (45-73); Platelet Count 248 X10*3/uL (160-400); Red Blood Count 4.36 X10*6/uL (4.20-5.50); Red Cell Distribution Width 14.5 % (11.0-16.0); White Blood Count 7.8 X10*3/uL (4.8-10.8)
[2022-06-05 11:51] LABS: Alanine Aminotransferase 10 U/L (0-31); Albumin Level 4.1 g/dL (3.5-5.0); Alkaline Phosphatase 100 U/L (39-117); Anion Gap 14 (12-20); Aspartate Amino Transferase 17 U/L (5-31); Bilirubin Total 0.5 mg/dL (0.0-1.0); Blood Urea Nitrogen 11 mg/dL (9-16); C Reactive Protein 1.84 mg/dL (< or = 0.50); Calcium 9.4 mg/dL (8.4-10.2); Carbon Dioxide 27 mmol/L (22-29); Chloride 106 mmol/L (96-108); Estimated Glomerular Filt Rate > 60; Glucose Random 143 mg/dL (60-115); Iron 45 mcg/dL (30-160); Percent Iron Saturation 11 % (15-50); Potassium 4.6 mmol/L (3.3-5.1); Sodium 142 mmol/L (135-145); Total Iron Binding Capacity 406 mcg/dL (228-428); Total Protein 6.8 g/dL (6.5-8.0); Unsaturated Iron Binding 361 ug/dL
[2022-06-05 11:56] LABS: Ferritin 7 ng/mL (10-250)
[2022-06-05 12:18] LABS: Erythrocyte Sedimentation Rate 25 MM/HR (0-20)
== END 2022-06-05 09:28 | disposition home or self-care (01) ==
LOC: HO.HMGCLDS 09:27
PROVIDERS: PCP Family Medicine; Visit Provider Nurse Practitioner Family
DX: K21.9 Gastro-esophageal reflux disease without esophagitis (principal); K58.0 Irritable bowel syndrome with diarrhea; D64.9 Anemia, unspecified; M47.819 Spondylosis without myelopathy or radiculopathy, site unspecified; R10.10 Upper abdominal pain, unspecified; E55.9 Vitamin D deficiency, unspecified; R13.10 Dysphagia, unspecified; Z71.2 Person consulting for explanation of examination or test findings
CPT/HCPCS: 36415; 80053; 82728; 83540; 85025; 85652; 86140; 99212

== ENCOUNTER 2022-06-28 09:07 | Outpatient (REF) | payer BC, SELFPAY ==
[2022-06-28 12:51] LABS: Blood Urea Nitrogen 11 mg/dL (9-16); Estimated Glomerular Filt Rate > 60
[2022-07-01 21:02] LABS: Transglutaminase Ab IgG <1.0 U/mL; Transglutaminase IgA <1.0 U/mL
== END 2022-06-28 09:08 | disposition home or self-care (01) ==
LOC: HO.HMGCLDS 09:07
PROVIDERS: PCP Family Medicine; Visit Provider Nurse Practitioner Family
DX: R10.11 Right upper quadrant pain (principal)
CPT/HCPCS: 36415; 82565; 84520; 86364

== ENCOUNTER 2022-07-01 13:43 | Outpatient (REF) | payer BC, SELFPAY ==
--- NOTE | ~2022-07-01 | CT_ITS ---
EXAMINATION: CT ENTEROGRAPHY ABDOMEN AND PELVIS WITH CONTRAST CLINICAL INFORMATION: Abdominal pain COMPARISON: Previous CT of the abdomen and pelvis November 2017 TECHNIQUE: Study performed with oral VoLumen (1350 mL) and 480 mL of water to distend the abdomen. The patient was injected with 85 mL Omnipaque 350 intravenous contrast which was administered without adverse effect. Coronal and sagittal reformatted images were obtained at the technologist's workstation. This CT examination was performed using dose optimization techniques as appropriate, variously including the following: *Automated exposure control *Adjustment of mA and/or kV according to patient size (this includes techniques or standardized protocols for targeted exams where dose is matched to indication/reason for exam; i.e. extremities or head) *Use of iterative reconstruction technique DLP: 687 mGy-cm FINDINGS: GASTROINTESTINAL FINDINGS: Stomach: Postsurgical changes from gastric bypass, otherwise normal. Small Intestine: Postsurgical changes from gastric bypass with focal dilatation at the small bowel anastomosis. The small bowel is otherwise normal. Large Intestine: Well-distended. Question constipation. Otherwise normal in appearance. No perirectal changes demonstrated. The appendix is normal. Additional Findings: No abnormal enhancement of the vasa recta or significant mesenteric or retroperitoneal lymphadenopathy is seen. No abdominal abscess or fistulous tract demonstrated. ABDOMINAL AND PELVIC CT FINDINGS: Liver, Gallbladder, Biliary Tract: The liver is normal. The gallbladder has been removed. No biliary duct dilatation. Pancreas: Normal Spleen: Normal Adrenal Glands And Kidneys: Normal adrenal glands. Small stone in the lower pole of the right kidney. Small left renal cyst. No imaging follow-up needed. Ureters And Bladder: Normal Lymphovascular Structures: Normal Bones: Mild scoliosis and degenerative changes of the spine. Question T8 vertebral body old compression fracture versus a congenital variant. Spinal stimulator in the lower thoracic spinal canal. 8 mm lucent lesion in the T8 vertebral body. This is stable from 2018 exam and therefore probably benign. Lung Bases: Normal IUD in the uterus in satisfactory position. CT/CT enterography IMPRESSION: Postoperative changes from gastric bypass. Question constipation. Small right renal stone. Small left renal cyst. IUD in the uterus in satisfactory position.
[2022-07-01] MEDS: iohexoL 350 MG/ML 100 ML INFUS..BTL IV (15:55)
== END 2022-07-01 13:44 | disposition home or self-care (01) ==
LOC: HO.US 13:43
PROVIDERS: Visit Provider Nurse Practitioner Family
DX: R10.9 Unspecified abdominal pain (principal)
CPT/HCPCS: 74177; Q9967

== ENCOUNTER 2022-07-05 07:07 | Outpatient (REF) | payer BC, SELFPAY ==
[2022-07-14 21:42] LABS: Calprotectin, Fecal 94 mcg/g
== END 2022-07-05 07:08 | disposition home or self-care (01) ==
LOC: HO.HMGCLDS 07:07
PROVIDERS: PCP Family Medicine; Visit Provider Nurse Practitioner Family
DX: R10.9 Unspecified abdominal pain (principal)
CPT/HCPCS: 83993

== ENCOUNTER 2022-08-26 14:10 | Emergency (ER) | payer BC, SELFPAY ==
--- NOTE | ~2022-08-26 | XR_ITS ---
EXAMINATION: XR chest 2V CLINICAL INFORMATION: Reason for Exam cough.congestion COMPARISON: Prior chest x-ray 2019 TECHNIQUE: XR chest 2V Lungs and Josette: Both lungs are clear. Pleura: Normal. Costophrenic angles are sharp. No pneumothorax. Heart: The heart is normal in size. Mediastinum: The mediastinum is within normal limits.. Bones: Intrathecal catheter in the spinal central canal, skeletal structures otherwise intact. XR/XR chest 2V IMPRESSION: No radiographic evidence of acute cardiopulmonary disease.
--- NOTE | 2022-08-26 16:11 | ED_ITS ---
HPI - General Adult General Chief complaint: Upper Respiratory Symptoms Stated complaint: chest pain diff breathing Time Seen by Provider: 08/26/22 20:04 Source: patient Mode of arrival: ambulatory Limitations: no limitations History of Present Illness HPI narrative: 52yo presenting to the ED c c/o generalized fatigue/malaise, chills, nasal congestion, sweats, cough, chest congestion, SOB, fatigue since [place] worse today. 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 Denies recent travel. Denies any other symptoms complaints or concerns at this time. MD complaint: URI complaints Onset (ago): day(s) (9) Related Data Home Medications Medication Instructions Recorded Confirmed calcium citrate 315 mg-vitamin D3 1 tab PO DAILY 06/08/20 12/03/21 5 mcg (200 unit) tablet (Calcium Citrate + D) levonorgestrel 20 mcg/24 hours (8 intrauterine 06/28/20 12/03/21 yrs) 52 mg intrauterine device (Mirena) multivitamin combination no.55 tab PO 12/01/20 12/03/21 diclofenac sodium 1 % topical gel 2 g topical QID PRN 03/28/22 (Voltaren Arthritis Pain) Previous Rx's Medication Instructions Recorded epinephrine 0.3 mg/0.3 mL 0.3 mg (0.3 mL) IM Q10M PRN 11/21/20 injection, auto-injector (EpiPen anaphylaxis #2 ea 2-Juan Luis) pantoprazole 40 mg tablet,delayed 40 mg PO DAILY #90 tabs 02/08/22 release gabapentin 600 mg tablet 600 mg PO TID 30 days #90 tabs 03/27/22 etanercept 50 mg/mL (1 mL) 50 mg subcut QWEEK #4 mL 06/10/22 subcutaneous pen injector (Enbrel SureClick) cyclobenzaprine 10 mg tablet 10 mg PO BEDTIME #14 tabs 06/19/22 metformin 500 mg tablet,extended 250 mg PO DAILY 30 days #15 tabs 08/13/22 release 24 hr albuterol sulfate 90 mcg/actuation 1 inh inhalation QID PRN shortness 08/26/22 aerosol inhaler of breath or wheezing #8.5 grams azithromycin 250 mg tablet See Rx Instructions PO .COMPLEX #6 08/26/22 tabs prednisone 20 mg tablet 40 mg PO DAILY inflammation 5 days 08/26/22 #10 tabs Allergies Allergy/AdvReac Type Severity Reaction Status Date / Time amoxicillin [AMOXICILLIN] Allergy Severe ANAPHYLAXIS Verified 06/19/22 13:17 codeine [CODEINE] Allergy Severe ANAPHYLAXIS Verified 06/19/22 13:17 Sulfa (Sulfonamide Allergy Mild Rash, Verified 06/19/22 13:17 Antibiotics) hives, rash [SULFA (SULFONAMIDE ANTIBIOTICS)] Review of Systems Review of Systems: Constitutional : No Weight loss, No Fever, + Chills, + Night Sweats, + Fatigue, + Malaise ENT/Mouth : No Hearing loss, No Ear Pain, No Nasal Congestion, No Sinus Pain, No Hoarseness, No sore throat, + Rhinorrhea, No Swallowing Difficulty Eyes: No Eye Pain, No Swelling, No Redness, No Foreign Body, No Discharge, No Vision Changes Cardiovascular : + Chest Pain, + SOB, No Dyspnea on Exertion, No Orthopnea, No Edema, No Palpitations Respiratory : + Cough, + Sputum, No Wheezing, No Smoke Exposure, No Dyspnea Gastrointestinal : No Nausea, No Vomiting, No Diarrhea, No Constipation, No abdominal Pain, No Hematochezia, No Melena Genitourinary : no irregular bleeding, No Dysuria, No Urinary Frequency, No Hematuria, No Urinary Incontinence, No Urgency, No Flank Pain, No Urinary Flow Changes, No Hesitancy Musculoskeletal : No joint pain, + Myalgias, No Joint Swelling Skin : No Skin Lesions, No rash Neuro : No Weakness, No Numbness, No Paresthesias, No Loss of Consciousness, No Dizziness, No Headache Psych : No Anxiety/Panic, No Depression, No SI/HI/AH/VH, No Social Issues, Heme/Lymph: No Bruising, No Bleeding,No Lymphadenopathy Endocrine : No Polyuria, No Polydipsia, No Temperature Intolerance Yes all other systems are reviewed and are negative FOR[facility]LY [facility] Past Medical History Attestation statement: The following information was validated with the patient. Source: old records reviewed and nursing notes reviewed Medical History Abnormal findings on esophagogastroduodenoscopy (EGD) Ankylosing spondylitis Asthma Cellulitis Chronic headaches Concussion Diabetes mellitus GERD (gastroesophageal reflux disease) History of COVID-19 Knee pain, right Menopause Morbid obesity with BMI of 40.0-44.9, adult Obstructive sleep apnea Status post insertion of nerve stimulator Tubal ligation evaluation Surgical History Gastric bypass status for obesity H/O lumpectomy History of cholecystectomy History of esophagogastroduodenoscopy (EGD) History of Krystian-en-Y gastric bypass Hx laparoscopic cholecystectomy Hx of colonoscopy Hx of tubal ligation Family History Family History Father COPD (chronic obstructive pulmonary disease) DM (diabetes mellitus) Ankylosing spondylitis of site in spine Alzheimer disease Mother RA (rheumatoid arthritis) Son No problems noted. Social History Social History Housing: House Alcohol intake: current Alcohol intake frequency: holidays/special occasions only Patient Tobacco Use Status: Former Tobacco user Quit Date: 1987 Tobacco use type: Cigarette and Cigar Cigarettes Per Day: 10 Years Smoked: 4 e-Cigarette/Vaping Use: Never Used Second Hand Smoke Exposure: No Advance Directives: No Advance Directives Information Provided: No service: No Current occupational status: previously employed Current occupational exposures/hazards: No Cognitive needs: No Hearing needs: No Vision needs: No Physical Exam ED Vital Signs: Vital Signs - 24 hr 08/26/22 16:12 08/26/22 20:00 Temperature 97.7 F 98.6 F Pulse Rate 74 65 Respiratory Rate 18 18 Blood Pressure 158/90 H 140/72 H Pulse Oximetry 98 99 Oxygen Delivery Method Room Air Room Air BMI result Body Mass Index 38.2 vital signs have been reviewed as normal and appeared to be correct. Blood pressure 158/90. Heart rate normal. Respiration rate normal. Temperature normal. Oxygen saturation normal. Appearance: Alert. Oriented X3. No acute distress. Head: Normal external exam. Normocephalic. Atraumatic. Eyes: PERRLA. EOMI. Conjunctiva and sclera normal. Eyelids normal. ENT: EAC normal. TM's Normal. Pharynx normal. Uvula midline. Moist mucous membranes. No lesions/ulcerations or masses noted on the tongue. Normal voice. No trismus noted. No drooling noted. No muffled voice noted. Neck: Normal inspection. Neck supple. FROM. No adenopathy. Thyroid Normal. No tracheal deviation noted. No crepitus is noted. No meningeal signs. No neck mass noted. No signs of trauma noted. CVS: Normal heart rate and rhythm. Heart sound normal. Pulses normal throughout. No murmurs/rales/gallops. Respiratory: No respiratory distress. Painless inspiration. Breath sounds norm al. No wheezes/rales/rhonchi noted. Chest nontender. No crepitus is noted. No signs of trauma noted. No accessory muscle usage noted or decreased air movement noted. No signs of trauma. Abdomen: Soft and nontender. Bowel sounds normal in all 4 quadrants. No distention noted. No organomegaly noted. No visible injury noted. Back: No CVA tenderness. Full range of motion noted. Nontender. No signs of trauma. Patient neuro intact bilaterally and distally on all 4 extremities. Patient's reflexes intact bilaterally and distally on all 4 extremities. No rashes/lesion/induration/fluctuance or signs of infection noted. Skin: Skin warm and dry. Normal skin color. Normal skin turgor. No r ashes/lesions/lacerations noted. Extremities: No lower extremity edema. No calf tenderness is noted. Extremities exhibit normal range of motion and nontender. Neuro: Oriented X 3. No motor deficit. No sensory deficit. Reflexes normal. Normal steady gait. No focal neuro deficits noted. CN's II-XII intact bilaterally? Vascular: + radial pulses/+ 2 distal pedal pulses/+2 dorsalis pedis b/l. Normal cap refill. No cyanosis noted to upper extremity nails and lower extremity toes nails. Course Course Course Narrative: RME-16:12PM - 52yo presenting to the ED c c/o generalized fatigue/malaise, chills, nasal congestion, sweats, cough, chest congestion, SOB, fatigue since [place] worse today. 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 Denies recent travel. Denies any other symptoms complaints or concerns at this time. Plan: EKG, chest x-ray, COVID/RSV/flu swab. Patient is stable to go back to the waiting room to be evaluated in EM. Reevaluation(s) Reevaluation #1: Labs obtained and reviewed patient mild anemia with an H&H of 10.6/34.9. Which is similar compared to prior this is chronic BUN 6. Otherwise all other labs are within normal limits patient negative for COVID/RSV/flu. Chest x-ray within normal limits. Therefore at this time patient most likely bronchitis. Will DC home with antibiotics and symptomatic treatment instructions return if any new or worsening symptoms follow up with primary care provider. Patient understands agrees with this plan. Time: 21:47 Medical Decision Making Lab Data [facility] Lab Attestation statement: I reviewed the patient's lab results. Result Diagrams: 08/26/22 21:07 08/26/22 21:07 Labs: Lab Results 08/26/22 08/26/22 08/26/22 Range/Units 16:42 21:07 21:07 WBC 8.6 (4.8-10.8) X10*3/uL RBC 4.33 (4.20-5.50) X10*6/uL Hgb 10.6 L (12.0-16.0) g/dl Hct 34.9 L (37.0-47.0) % MCV 80.6 (80.0-98.0) fL MCH 24.5 L (27.0-33.0) pg MCHC 30.4 L (31.0-35.0) g/dl RDW 14.6 (11.0-16.0) % Plt Count 284 (160-400) X10*3/uL MPV 9.9 (9.4-12.3) fL Immature Gran % (Auto) 0.2 (0.0-0.4) % Neut % (Auto) 48.8 (45-73) % Lymph % (Auto) 40.7 H (20-40) % Spencer % (Auto) 8.7 (2-11) % Eos % (Auto) 1.0 (0-4) % Baso % (Auto) 0.6 (0-2) % Lymph # (Auto) 3.5 (1.2-4.9) X10*3/uL Spencer # (Auto) 0.8 (0.1-1.2) X10*3/uL Eos # (Auto) 0.1 (0.0-0.4) X10*3/uL Baso # (Auto) 0.1 (0.0-0.2) X10*3/uL Abs Immat Gran (auto) 0.02 (0.00-0.03) X10*3/uL Absolute Neuts (auto) 4.2 (2.0-8.3) x10*3/uL Absolute Nucleated RBC 0.000 (0.0-0.012) X10*3/uL Nucleated RBC % (auto) 0.0 (0.0-0.2) /100WBC PT 12.5 (10.0-13.1) SEC INR 1.1 (0.9-1.1) Sodium (135-145) mmol/L Potassium (3.3-5.1) mmol/L Chloride (96-108) mmol/L Carbon Dioxide (22-29) mmol/L Anion Gap (12-20) BUN (9-16) mg/dL Creatinine (0.5-1.4) mg/dL Estim Creat Clear Calc Estimated GFR Random Glucose (60-115) mg/dL Calcium (8.4-10.2) mg/dL Magnesium (1.6-2.6) mg/dL Total Bilirubin (0.0-1.0) mg/dL AST (5-31) U/L ALT (0-31) U/L Alkaline Phosphatase (39-117) U/L Troponin I High Sens (<3.5-17.0) ng/L B-Natriuretic Peptide (<100) pg/mL Total Protein (6.5-8.0) g/dL Albumin (3.5-5.0) g/dL Influenza Type A (PCR) NEGATIVE (Negative) Influenza Type B (PCR) NEGATIVE (Negative) RSV RNA Qual (PCR) NEGATIVE (Negative) SARS-CoV-2 RNA (RT-PCR) NEGATIVE (Negative) 08/26/22 08/26/22 08/26/22 Range/Units 21:07 21:07 21:07 WBC (4.8-10.8) X10*3/uL RBC (4.20-5.50) X10*6/uL Hgb (12.0-16.0) g/dl Hct (37.0-47.0) % MCV (80.0-98.0) fL MCH (27.0-33.0) pg MCHC (31.0-35.0) g/dl RDW (11.0-16.0) % Plt Count (160-400) X10*3/uL MPV (9.4-12.3) fL Immature Gran % (Auto) (0.0-0.4) % Neut % (Auto) (45-73) % Lymph % (Auto) (20-40) % Spencer % (Auto) (2-11) % Eos % (Auto) (0-4) % Baso % (Auto) (0-2) % Lymph # (Auto) (1.2-4.9) X10*3/uL Spencer # (Auto) (0.1-1.2) X10*3/uL Eos # (Auto) (0.0-0.4) X10*3/uL Baso # (Auto) (0.0-0.2) X10*3/uL Abs Immat Gran (auto) (0.00-0.03) X10*3/uL Absolute Neuts (auto) (2.0-8.3) x10*3/uL Absolute Nucleated RBC (0.0-0.012) X10*3/uL Nucleated RBC % (auto) (0.0-0.2) /100WBC PT (10.0-13.1) SEC INR (0.9-1.1) Sodium 141 (135-145) mmol/L Potassium 4.6 (3.3-5.1) mmol/L Chloride 102 (96-108) mmol/L Carbon Dioxide 29 (22-29) mmol/L Anion Gap 15 (12-20) BUN 6 L (9-16) mg/dL Creatinine 0.77 (0.5-1.4) mg/dL Estim Creat Clear Calc 103.5 Estimated GFR > 60 Random Glucose 114 (60-115) mg/dL Calcium 9.7 (8.4-10.2) mg/dL Magnesium 2.1 (1.6-2.6) mg/dL Total Bilirubin 0.5 (0.0-1.0) mg/dL AST 17 (5-31) U/L ALT 12 (0-31) U/L Alkaline Phosphatase 106 (39-117) U/L Troponin I High Sens < 3.5 (<3.5-17.0) ng/L B-Natriuretic Peptide 18 (<100) pg/mL Total Protein 7.0 (6.5-8.0) g/dL Albumin 4.2 (3.5-5.0) g/dL Influenza Type A (PCR) (Negative) Influenza Type B (PCR) (Negative) RSV RNA Qual (PCR) (Negative) SARS-CoV-2 RNA (RT-PCR) (Negative) Independent Interpretation I performed an independent interpretation of an: Plain X-Ray Interpretation: Chest x-ray TECHNIQUE: XR chest 2V Lungs and Josette: Both lungs are clear. Pleura: Normal. Costophrenic angles are sharp. No pneumothorax. Heart: The heart is normal in size. Mediastinum: The mediastinum is within normal limits.. Bones: Intrathecal catheter in the spinal central canal, skeletal structures otherwise intact. XR/XR chest 2V IMPRESSION: ? No radiographic evidence of acute cardiopulmonary disease. Radiology Impression Discussion of test interpretation with radiology: I have reviewed the radiologist's reading. Discharge Plan Discharge Clinical Impression: Bronchitis Patient Disposition: Home, Self-Care Instructions: Acute Bronchitis (ED) Prescriptions: New azithromycin 250 mg tablet See Rx Instructions .ROUTE .COMPLEX Qty: 6 0RF Rx Instructions: For 250 mg dose pack: take 500 mg today (day 1), then 250 mg for 4 days (days 2-5) albuterol sulfate 90 mcg/actuation HFA aerosol inhaler 1 inh inhalation QID PRN (Reason: shortness of breath or wheezing) Qty: 8.5 0RF prednisone 20 mg tablet 40 mg PO DAILY 5 Days Qty: 10 0RF No Action gabapentin 600 mg tablet 600 mg PO TID 30 Days Qty: 90 8RF Enbrel SureClick 50 mg/mL (1 mL) pen injector 50 mg subcut QWEEK Qty: 4 2RF metformin 500 mg tablet extended release 24 hr 250 mg PO DAILY 30 Days Qty: 15 0RF epinephrine [EpiPen 2-Juan Luis] 0.3 mg/0.3 mL auto-injector 0.3 mg IM Q10M PRN (Reason: anaphylaxis) Qty: 2 0RF Rx Instructions: for 2 doses multivitamin combination no.55 Tablet,Chewable PO cyclobenzaprine 10 mg tablet 10 mg PO BEDTIME Qty: 14 0RF Mirena 20 mcg/24 hours (5 yrs) 52 mg intrauterine device intrauterine calcium citrate-vitamin D3 [Calcium Citrate + D] 315 mg-5 mcg (200 unit) tablet 1 tab PO DAILY diclofenac sodium [Voltaren Arthritis Pain] 1 % gel 2 g topical QID PRN Rx Instructions: apply to single elbow, wrist or hand; for hand includes palm/fingers/back of hand pantoprazole 40 mg tablet,delayed release (DR/EC) 40 mg PO DAILY Qty: 90 3RF Referrals: Ron Morales MD [Primary Care Provider] - 2 days Print Language: Marshallese
[2022-08-26 16:12] VITALS: BP 158/90; PULSE 74; RESP 18; TEMP 36.5; O2SAT 98; BMI 38.2
--- NOTE | 2022-08-26 16:13 | ECG_ITS ---
Test Reason : cp Blood Pressure : / mmHG Vent. Rate : 061 BPM Atrial Rate : 061 BPM P-R Int : 132 ms QRS Dur : 072 ms QT Int : 396 ms P-R-T Axes : 039 026 009 degrees QTc Int : 398 ms Normal sinus rhythm Normal ECG When compared with ECG of 22-JUN-2020 10:49, No significant change was found Referred By: Annalisa Alcala Electronically Signed By:SHERRY LO
[2022-08-26 17:23] LABS: Influenza A PCR NEGATIVE (Negative); Influenza B PCR NEGATIVE (Negative); Resp Syncy Virus RNA Qual PCR NEGATIVE (Negative); SARS COV2 PCR INHOUSE NEGATIVE (Negative)
[2022-08-26 20:00] VITALS: BP 140/72; PULSE 65; RESP 18; TEMP 37; O2SAT 99
[2022-08-26 21:21] LABS: MANUAL DIFF FLAG NO
[2022-08-26 21:24] LABS: Basophils Absolute Auto 0.1 X10*3/uL (0.0-0.2); Basophils Percent Auto 0.6 % (0-2); Eosinophils Absolute Auto 0.1 X10*3/uL (0.0-0.4); Hematocrit 34.9 % (37.0-47.0); Hemoglobin 10.6 g/dl (12.0-16.0); Imm Gran Abs Auto 0.02 X10*3/uL (0.00-0.03); Imm Gran Pct Auto 0.2 % (0.0-0.4); Lymphocytes Absolute Auto 3.5 X10*3/uL (1.2-4.9); Lymphocytes Percent Auto 40.7 % (20-40); Mean Corpuscular HGB Conc 30.4 g/dl (31.0-35.0); Mean Corpuscular Hemoglobin 24.5 pg (27.0-33.0); Mean Corpuscular Volume 80.6 fL (80.0-98.0); Mean Platelet Volume 9.9 fL (9.4-12.3); Monocytes Absolute Auto 0.8 X10*3/uL (0.1-1.2); Monocytes Percent Auto 8.7 % (2-11); Neutrophils Absolute Auto 4.2 x10*3/uL (2.0-8.3); Neutrophils Percent Auto 48.8 % (45-73); Platelet Count 284 X10*3/uL (160-400); Red Blood Count 4.33 X10*6/uL (4.20-5.50); Red Cell Distribution Width 14.6 % (11.0-16.0); White Blood Count 8.6 X10*3/uL (4.8-10.8)
[2022-08-26 21:33] LABS: INTERNATIONAL NORM RATIO 1.1 (0.9-1.1); Prothrombin Time 12.5 SEC (10.0-13.1)
[2022-08-26 21:36] LABS: Alanine Aminotransferase 12 U/L (0-31); Albumin Level 4.2 g/dL (3.5-5.0); Alkaline Phosphatase 106 U/L (39-117); Anion Gap 15 (12-20); Aspartate Amino Transferase 17 U/L (5-31); Bilirubin Total 0.5 mg/dL (0.0-1.0); Blood Urea Nitrogen 6 mg/dL (9-16); Calcium 9.7 mg/dL (8.4-10.2); Carbon Dioxide 29 mmol/L (22-29); Chloride 102 mmol/L (96-108); Creatinine Clr Calc Pharmacy 103.5; Estimated Glomerular Filt Rate > 60; Glucose Random 114 mg/dL (60-115); Magnesium 2.1 mg/dL (1.6-2.6); Potassium 4.6 mmol/L (3.3-5.1); Sodium 141 mmol/L (135-145)
[2022-08-26 21:44] LABS: Troponin-I High Sensitivity < 3.5 ng/L (<3.5-17.0)
[2022-08-26 22:07] LABS: B Type Natriuretic Peptide 18 pg/mL (<100)
== END 2022-08-26 22:27 | disposition home or self-care (01) ==
PROVIDERS: Physician Assistant Medical; Emergency Provider Internal Medicine; PCP Family Medicine
DX: J40 Bronchitis, not specified as acute or chronic (principal); R06.02 Shortness of breath; Z20.828 Contact with and (suspected) exposure to other viral communicable diseases; E11.9 Type 2 diabetes mellitus without complications; E66.9 Obesity, unspecified; Z68.38 Body mass index [BMI] 38.0-38.9, adult; Z98.84 Bariatric surgery status; Z87.891 Personal history of nicotine dependence; Z79.84 Long term (current) use of oral hypoglycemic drugs; Z79.899 Other long term (current) drug therapy
CPT/HCPCS: 0241U; 36415; 71046; 80053; 83735; 83880; 84484; 85025; 85610; 93005; 99283

== ENCOUNTER 2022-09-04 07:50 | Outpatient (REF) | payer BC, SELFPAY ==
[2022-09-04 12:17] LABS: Iron 62 mcg/dL (30-160); Percent Iron Saturation 18 % (15-50); Total Iron Binding Capacity 343 mcg/dL (228-428); Unsaturated Iron Binding 281 ug/dL
[2022-09-04 12:23] LABS: Ferritin 16 ng/mL (10-250)
[2022-09-04 13:48] LABS: Folate 18.2 ng/mL (> or = 4.0); Vitamin B12 880 pg/mL (200-900)
[2022-09-09 07:53] LABS: Transglutaminase Ab IgG <1.0 U/mL; Transglutaminase IgA <1.0 U/mL
[2022-09-09 16:10] LABS: Vitamin D 25-OH, D2 <4 ng/mL; Vitamin D 25-OH, D3 35 ng/mL; Vitamin D 25-OH, Total 35 ng/mL (30-100)
== END 2022-09-04 07:51 | disposition home or self-care (01) ==
LOC: HO.HMGCLDS 07:50
PROVIDERS: PCP Family Medicine; Referring Provider Family Medicine; Visit Provider Nurse Practitioner Family
DX: K92.2 Gastrointestinal hemorrhage, unspecified (principal); R19.7 Diarrhea, unspecified; R74.8 Abnormal levels of other serum enzymes; R10.9 Unspecified abdominal pain; E55.9 Vitamin D deficiency, unspecified; D64.9 Anemia, unspecified; K21.9 Gastro-esophageal reflux disease without esophagitis; R10.13 Epigastric pain
CPT/HCPCS: 36415; 82306; 82607; 82728; 82746; 83540; 86364

== ENCOUNTER 2022-09-07 12:37 | Outpatient (REF) | payer BC, SELFPAY ==
[2022-09-14 17:23] LABS: Pancreatic Elastase-1 204 mcg/g
== END 2022-09-07 12:38 | disposition home or self-care (01) ==
LOC: HO.HMGCLNP 12:37
PROVIDERS: Visit Provider Nurse Practitioner Family
DX: R10.9 Unspecified abdominal pain (principal)
CPT/HCPCS: 82656

== ENCOUNTER → 2022-09-16 15:06 | Outpatient (BNV) | payer BC, OTHER, SELFPAY | PROVIDERS: Visit Provider Internal Medicine Medical Oncology | DX: D64.9 Anemia, unspecified (principal) | CPT/HCPCS: 99204; 99213 ==

== ENCOUNTER 2022-10-01 14:06 | Outpatient (REF) | payer BC, SELFPAY ==
[2022-10-01 15:07] LABS: Influenza A PCR NEGATIVE (Negative); Influenza B PCR NEGATIVE (Negative); Resp Syncy Virus RNA Qual PCR NEGATIVE (Negative); SARS COV2 PCR INHOUSE NEGATIVE (Negative)
== END 2022-10-01 14:07 | disposition home or self-care (01) ==
LOC: HO.LNP 14:06
PROVIDERS: Visit Provider Nurse Practitioner Family
DX: R09.89 Other specified symptoms and signs involving the circulatory and respiratory systems (principal); Z20.822 Contact with and (suspected) exposure to COVID-19
CPT/HCPCS: 0241U

== ENCOUNTER 2022-10-16 14:19 | Outpatient (REF) | payer BC, SELFPAY | END 2022-10-16 14:20 | disposition home or self-care (01) | LOC: HO.MDS 14:19 | PROVIDERS: Visit Provider Internal Medicine Medical Oncology | DX: D50.9 Iron deficiency anemia, unspecified (principal) | CPT/HCPCS: 96365; J1756 ==

== ENCOUNTER 2022-10-23 14:14 | Outpatient (REF) | payer BC, SELFPAY | END 2022-10-23 14:15 | disposition home or self-care (01) | LOC: HO.MDS 14:14 | PROVIDERS: Visit Provider Internal Medicine Medical Oncology | DX: D50.9 Iron deficiency anemia, unspecified (principal) | CPT/HCPCS: 96365; J1756 ==

== ENCOUNTER 2022-10-30 14:08 | Outpatient (REF) | payer BC, SELFPAY | END 2022-10-30 14:09 | disposition home or self-care (01) | LOC: HO.MDS 14:08 | PROVIDERS: Visit Provider Internal Medicine Medical Oncology | DX: D50.9 Iron deficiency anemia, unspecified (principal) | CPT/HCPCS: 96365; J1756 ==

== ENCOUNTER → 2022-10-31 15:32 | Outpatient (BNVA) | payer BC, SELFPAY | PROVIDERS: PCP Family Medicine; Visit Provider Nurse Practitioner Family | DX: Z13.89 Encounter for screening for other disorder (principal) ==

== ENCOUNTER 2022-11-06 14:15 | Outpatient (REF) | payer BC, SELFPAY ==
[2022-11-06 15:12] LABS: Basophils Absolute Auto 0.1 X10*3/uL (0.0-0.2); Basophils Percent Auto 0.7 % (0-2); Eosinophils Absolute Auto 0.1 X10*3/uL (0.0-0.4); Eosinophils Percent Auto 1.2 % (0-4); Hematocrit 34.4 % (37.0-47.0); Hemoglobin 10.7 g/dl (12.0-16.0); Imm Gran Abs Auto 0.03 X10*3/uL (0.00-0.03); Imm Gran Pct Auto 0.4 % (0.0-0.4); Lymphocytes Absolute Auto 3.3 X10*3/uL (1.2-4.9); MANUAL DIFF FLAG NO; Mean Corpuscular HGB Conc 31.1 g/dl (31.0-35.0); Mean Corpuscular Hemoglobin 26.2 pg (27.0-33.0); Mean Corpuscular Volume 84.1 fL (80.0-98.0); Mean Platelet Volume 10.6 fL (9.4-12.3); Monocytes Absolute Auto 0.6 X10*3/uL (0.1-1.2); Monocytes Percent Auto 6.6 % (2-11); Neutrophils Absolute Auto 4.4 x10*3/uL (2.0-8.3); Neutrophils Percent Auto 52.1 % (45-73); Platelet Count 213 X10*3/uL (160-400); Red Blood Count 4.09 X10*6/uL (4.20-5.50); Red Cell Distribution Width 17.3 % (11.0-16.0); White Blood Count 8.4 X10*3/uL (4.8-10.8)
== END 2022-11-06 14:16 | disposition home or self-care (01) ==
LOC: HO.MDS 14:15
PROVIDERS: Visit Provider Internal Medicine Medical Oncology
DX: D50.9 Iron deficiency anemia, unspecified (principal)
CPT/HCPCS: 36415; 85025; 96365; J1756

== ENCOUNTER 2022-11-13 14:09 | Outpatient (REF) | payer BC, SELFPAY | END 2022-11-13 14:10 | disposition home or self-care (01) | LOC: HO.MDS 14:09 | PROVIDERS: Visit Provider Internal Medicine Medical Oncology | DX: D50.9 Iron deficiency anemia, unspecified (principal) | CPT/HCPCS: 96365; J1756 ==

== ENCOUNTER 2022-11-22 14:18 | Outpatient (REF) | payer BC, SELFPAY | END 2022-11-22 14:19 | disposition home or self-care (01) | LOC: HO.MDS 14:18 | PROVIDERS: Visit Provider Internal Medicine Medical Oncology | DX: D50.9 Iron deficiency anemia, unspecified (principal) | CPT/HCPCS: 96365; J1756 ==

== ENCOUNTER 2022-11-27 14:19 | Outpatient (REF) | payer BC, SELFPAY | END 2022-11-27 14:20 | disposition home or self-care (01) | LOC: HO.MDS 14:19 | PROVIDERS: Visit Provider Internal Medicine Medical Oncology | DX: D50.9 Iron deficiency anemia, unspecified (principal) | CPT/HCPCS: 96365; J1756 ==

== ENCOUNTER 2022-12-04 14:16 | Outpatient (REF) | payer BC, SELFPAY ==
[2022-12-04 15:16] LABS: MANUAL DIFF FLAG NO
[2022-12-04 15:20] LABS: Basophils Percent Auto 0.4 % (0-2); Eosinophils Absolute Auto 0.1 X10*3/uL (0.0-0.4); Eosinophils Percent Auto 1.1 % (0-4); Hematocrit 37.2 % (37.0-47.0); Hemoglobin 11.9 g/dl (12.0-16.0); Imm Gran Abs Auto 0.03 X10*3/uL (0.00-0.03); Imm Gran Pct Auto 0.3 % (0.0-0.4); Lymphocytes Absolute Auto 3.5 X10*3/uL (1.2-4.9); Lymphocytes Percent Auto 38.7 % (20-40); Mean Corpuscular Hemoglobin 27.9 pg (27.0-33.0); Mean Corpuscular Volume 87.1 fL (80.0-98.0); Mean Platelet Volume 10.8 fL (9.4-12.3); Monocytes Absolute Auto 0.4 X10*3/uL (0.1-1.2); Monocytes Percent Auto 4.7 % (2-11); Neutrophils Absolute Auto 4.9 x10*3/uL (2.0-8.3); Neutrophils Percent Auto 54.8 % (45-73); Platelet Count 199 X10*3/uL (160-400); Red Blood Count 4.27 X10*6/uL (4.20-5.50); Red Cell Distribution Width 17.8 % (11.0-16.0)
== END 2022-12-04 14:17 | disposition home or self-care (01) ==
LOC: HO.MDS 14:16
PROVIDERS: Visit Provider Internal Medicine Medical Oncology
DX: D50.9 Iron deficiency anemia, unspecified (principal)
CPT/HCPCS: 36415; 85025; 96365; J1756

== ENCOUNTER 2022-12-27 10:17 | Emergency (ER) | payer BC, SELFPAY ==
--- NOTE | ~2022-12-27 | XR_ITS ---
EXAMINATION: XR CHEST CLINICAL INFORMATION: Right chest COMPARISON: 08/26/2022 TECHNIQUE: 2 views of the chest were obtained. FINDINGS: No significant abnormality is noted involving the heart, lungs, mediastinum, bony thorax or soft tissues. Intrathecal catheter is again evident. No rib fracture or pneumothorax is detected. XR/XR chest 2V IMPRESSION: No acute disease or interval change.
--- NOTE | 2022-12-27 10:20 | ECG_ITS ---
Test Reason : cp Blood Pressure : / mmHG Vent. Rate : 068 BPM Atrial Rate : 068 BPM P-R Int : 126 ms QRS Dur : 068 ms QT Int : 356 ms P-R-T Axes : 007 019 009 degrees QTc Int : 378 ms Normal sinus rhythm Normal ECG When compared with ECG of 26-AUG-2022 16:37, No significant change was found Referred By: Generic ED Physician Electronically Signed By:AMBER CABAN MD
[2022-12-27 10:22] VITALS: BP 150/74; PULSE 72; RESP 18; TEMP 36.7; O2SAT 98; BMI 36.6
--- NOTE | 2022-12-27 12:06 | ED_ITS ---
HPI - Chest Pain General Chief Complaint: Chest Pain Stated Complaint: r shoulder pain into chest around back Time Seen by Provider: 12/27/22 11:48 Source: patient Mode of arrival: ambulatory Limitations: no limitations History of Present Illness HPI narrative: This is 52 years old female with history of ankylosing spondylitis presented emergency department complaining of right-sided chest pain. She states she has been sick for about 4 weeks she had a course of a Z-Juan Luis then clindamycin by the urgent care day she came here because she has progressive right chest wall pain. MD complaint: chest pain Onset (ago): week(s) Timing of current episode: constant Pain location: right chest Pain radiation: back Severity: moderate Exacerbating factors: movement Risk Factors Coronary artery disease risk factors: none Related Data Home Medications Medication Instructions Recorded Confirmed calcium citrate 315 mg-vitamin D3 1 tab PO DAILY 06/08/20 12/19/22 5 mcg (200 unit) tablet (Calcium Citrate + D) levonorgestrel 21 mcg/24 hours (8 1 device intrauterine DAILY 06/28/20 12/19/22 yrs) 52 mg intrauterine device (Mirena) diclofenac sodium 1 % topical gel 2 g topical QID PRN Pain 03/28/22 12/19/22 (Voltaren Arthritis Pain) multivitamin 1 tab PO DAILY 09/16/22 12/19/22 Previous Rx's Medication Instructions Recorded epinephrine 0.3 mg/0.3 mL 0.3 mg (0.3 mL) IM Q10M PRN 11/21/20 injection, auto-injector (EpiPen anaphylaxis #2 ea 2-Juan Luis) gabapentin 600 mg tablet 600 mg PO TID 30 days #90 tabs 03/27/22 albuterol sulfate 90 mcg/actuation 1 inh inhalation QID PRN shortness 08/26/22 aerosol inhaler of breath or wheezing #8.5 grams polyethylene glycol 3350 17 17 g PO DAILY #510 grams 09/04/22 gram/dose oral powder (Miralax) omeprazole 40 mg capsule,delayed 40 mg PO DAILY #30 caps 10/17/22 release etanercept 50 mg/mL (1 mL) 50 mg subcut QWEEK #4 mL 10/22/22 subcutaneous pen injector (Enbrel SureHawkick) budesonide-formoterol HFA 160 1 puff inhalation BID 30 days 11/04/22 mcg-4.5 mcg/actuation aerosol #10.2 grams inhaler (Symbicort) metformin 500 mg tablet,extended 250 mg PO BID #90 tabs 12/17/22 release 24 hr clindamycin HCl 300 mg capsule 300 mg PO Q8H 7 days #21 caps 12/24/22 oxycodone 5 mg capsule 5 mg PO Q8H PRN pain #12 caps 12/27/22 Allergies Allergy/AdvReac Type Severity Reaction Status Date / Time amoxicillin [AMOXICILLIN] Allergy Severe ANAPHYLAXIS Verified 12/27/22 10:26 codeine [CODEINE] Allergy Severe ANAPHYLAXIS Verified 12/27/22 10:26 Sulfa (Sulfonamide Allergy Mild Rash, Verified 12/27/22 10:26 Antibiotics) hives, rash [SULFA (SULFONAMIDE ANTIBIOTICS)] Review of Systems Constitutional: Constitutional: Reports no additional constitutional complaints Eyes: Eyes: Reports no additional eye complaints Cardiovascular: Cardiovascular: Reports no additional cardiovascular complaints Gastrointestinal: Gastrointestinal: Reports no additional gastrointestinal complaints Neurologic: Reports system reviewed and no additional complaints, except as documented PMF Past Medical History Medical History Abnormal findings on esophagogastroduodenoscopy (EGD) Ankylosing spondylitis Asthma Bronchitis Cellulitis Chronic headaches Concussion Diabetes mellitus GERD (gastroesophageal reflux disease) History of COVID-19 Knee pain, right Menopause Morbid obesity with BMI of 40.0-44.9, adult Obstructive sleep apnea Tubal ligation evaluation Surgical History Gastric bypass status for obesity H/O lumpectomy History of cholecystectomy History of esophagogastroduodenoscopy (EGD) History of Krystian-en-Y gastric bypass Hx laparoscopic cholecystectomy Hx of colonoscopy Hx of tubal ligation Status post insertion of nerve stimulator Family History Family History Father Ankylosing spondylitis of site in spine DM (diabetes mellitus) Alzheimer disease COPD (chronic obstructive pulmonary disease) Skin cancer Mother RA (rheumatoid arthritis) Son No problems noted. Maternal Grandfather Prostate cancer Bone cancer Social History Social History Household Members: Spouse Housing: House Are you a primary intensive care unit nurse to a significant other at home: No Do you presently have visiting nurse or other home services: No Alcohol intake: current Alcohol intake frequency: holidays/special occasions only Patient Tobacco Use Status: Former Tobacco user Quit Date: 1987 Tobacco use type: Cigarette and Cigar Years Smoked: 4 e-Cigarette/Vaping Use: Never Used Second Hand Smoke Exposure: No Substance Use Type: Marijuana Advance Directives: No Advance Directives Information Provided: Yes service: No Current occupational status: employed Current occupational exposures/hazards: No Cognitive needs: No Hearing needs: No Vision needs: No Physical Exam Vital Signs: Vital Signs: Last Vital Signs Temp 98 F 12/27/22 15:12 Pulse 64 12/27/22 15:12 Resp 18 12/27/22 15:12 BP 114/68 12/27/22 15:12 Pulse Ox 98 12/27/22 15:12 O2 Del Method Room Air 12/27/22 15:12 BMI result Body Mass Index 36.6 Const: General: cooperative Nutritional Appearance: well nourished Orientation/consciousness: patient oriented x3 Limitations: no limitations HEENT: Head: Yes normal to inspection Face and sinus: Yes normal facial exam Mouth: Normal oral and palatal mucosa present Teeth and gingiva: dentition normal Neck: Neck: Yes normal visual inspection and Yes full ROM Chest: Chest palpation & inspection: normal inspection of the chest Breast/axilla inspection: normal inspection of the breasts Resp: Effort & Inspection: normal respiratory effort Auscultation: clear to auscultation bilaterally Cardio: Jugular venous distension: no JVD Rate: regular rate Rhythm: regular rhythm GI: Inspection: Yes normal to inspection Palpation (GI): Soft to palpation, not firm, nontender and no guarding Skin: General skin exam: no rashes or lesions noted Neuro: General: patient oriented x3 Course Reevaluation(s) Reevaluation #1: I re-examined the patient at 14:55 she is feeling better ; workup is negativive she had a normal chest x-ray, a negative D-dimer and normal troponin I antic ipate discharge, chest pain is not cardiac . Time: 15:00 Medical Decision Making Medical Decision Making MDM Narrative: Patient presented with right chest wall pain worse with movement, negative troponin negative D-dimer normal chest x-ray think she can be discharged home Differential Diagnosis Differential Diagnoses: The differential diagnosis associated with the presentation includes Pneumonia/pneumothorax/atypical chest pain Admission/Observation Consideration of admission/observation: Escalation of care including admission/observation considered Lab Data MDM Lab Attestation statement: I reviewed the patient's lab results. Normal labs including D-dimer and troponin 12/27/22 12:42 12/27/22 12:42 Labs: Lab Results 12/27/22 12/27/22 12/27/22 Range/Units 12:42 12:42 12:42 WBC 7.9 (4.8-10.8) X10*3/uL RBC 4.68 (4.20-5.50) X10*6/uL Hgb 13.3 (12.0-16.0) g/dl Hct 41.5 (37.0-47.0) % MCV 88.7 (80.0-98.0) fL MCH 28.4 (27.0-33.0) pg MCHC 32.0 (31.0-35.0) g/dl RDW 16.1 H (11.0-16.0) % Plt Count 200 (160-400) X10*3/uL MPV 10.5 (9.4-12.3) fL Immature Gran % (Auto) 0.3 (0.0-0.4) % Neut % (Auto) 55.2 (45-73) % Lymph % (Auto) 36.7 (20-40) % [place] % (Auto) 6.3 (2-11) % Eos % (Auto) 1.0 (0-4) % Baso % (Auto) 0.5 (0-2) % Lymph # (Auto) 2.9 (1.2-4.9) X10*3/uL [place] # (Auto) 0.5 (0.1-1.2) X10*3/uL Eos # (Auto) 0.1 (0.0-0.4) X10*3/uL Baso # (Auto) 0.0 (0.0-0.2) X10*3/uL Abs Immat Gran (auto) 0.02 (0.00-0.03) X10*3/uL Absolute Neuts (auto) 4.4 (2.0-8.3) x10*3/uL Absolute Nucleated RBC 0.000 (0.0-0.012) X10*3/uL Nucleated RBC % (auto) 0.0 (0.0-0.2) /100WBC D-Dimer High Sensitivty < 150 NG/ML Sodium 141 (135-145) mmol/L Potassium 4.6 (3.3-5.1) mmol/L Chloride 105 (96-108) mmol/L Carbon Dioxide 27 (22-29) mmol/L Anion Gap 14 (12-20) BUN 7 L (9-16) mg/dL Creatinine 0.76 (0.5-1.4) mg/dL Estim Creat Clear Calc 102.4 Estimated GFR > 60 Random Glucose 94 (60-115) mg/dL Calcium 9.6 (8.4-10.2) mg/dL Total Bilirubin 0.4 (0.0-1.0) mg/dL AST 23 (5-31) U/L ALT 19 (0-31) U/L Alkaline Phosphatase 88 (39-117) U/L Troponin I High Sens (<3.5-17.0) ng/L Total Protein 6.5 (6.5-8.0) g/dL Albumin 4.1 (3.5-5.0) g/dL /01/14 Range/Units 12:42 WBC (4.8-10.8) X10*3/uL RBC (4.20-5.50) X10*6/uL Hgb (12.0-16.0) g/dl Hct (37.0-47.0) % MCV (80.0-98.0) fL MCH (27.0-33.0) pg MCHC (31.0-35.0) g/dl RDW (11.0-16.0) % Plt Count (160-400) X10*3/uL MPV (9.4-12.3) fL Immature Gran % (Auto) (0.0-0.4) % Neut % (Auto) (45-73) % Lymph % (Auto) (20-40) % [place] % (Auto) (2-11) % Eos % (Auto) (0-4) % Baso % (Auto) (0-2) % Lymph # (Auto) (1.2-4.9) X10*3/uL [place] # (Auto) (0.1-1.2) X10*3/uL Eos # (Auto) (0.0-0.4) X10*3/uL Baso # (Auto) (0.0-0.2) X10*3/uL Abs Immat Gran (auto) (0.00-0.03) X10*3/uL Absolute Neuts (auto) (2.0-8.3) x10*3/uL Absolute Nucleated RBC (0.0-0.012) X10*3/uL Nucleated RBC % (auto) (0.0-0.2) /100WBC D-Dimer High Sensitivty NG/ML Sodium (135-145) mmol/L Potassium (3.3-5.1) mmol/L Chloride (96-108) mmol/L Carbon Dioxide (22-29) mmol/L Anion Gap (12-20) BUN (9-16) mg/dL Creatinine (0.5-1.4) mg/dL Estim Creat Clear Calc Estimated GFR Random Glucose (60-115) mg/dL Calcium (8.4-10.2) mg/dL Total Bilirubin (0.0-1.0) mg/dL AST (5-31) U/L ALT (0-31) U/L Alkaline Phosphatase (39-117) U/L Troponin I High Sens < 2.7 (<3.5-17.0) ng/L Total Protein (6.5-8.0) g/dL Albumin (3.5-5.0) g/dL Independent Interpretation I performed an independent interpretation of an: EKG and Plain X-Ray Interpretation: Normal chest,Ekg nsr no st-t changes Radiology Impression Discussion of test interpretation with radiology: I have reviewed the radiologist's reading. Radiologist Impression: CLINICAL INFORMATION: Right chest COMPARISON: 08/26/2022 TECHNIQUE: 2 views of the chest were obtained. FINDINGS: No significant abnormality is noted involving the heart, lungs, mediastinum, bony thorax or soft tissues. Intrathecal catheter is again evident. No rib fracture or pneumothorax is detected. XR/XR chest 2V IMPRESSION: No acute disease or interval change. Prescription Management I considered prescription management with: Pain Medication Discharge Plan Discharge Clinical Impression: Chest pain Patient Disposition: Home, Self-Care Instructions: Chest Pain (DC) Prescriptions: New oxycodone 5 mg capsule 5 mg PO Q8H PRN (Reason: pain) Qty: 12 0RF Rx Instructions: Partial Fill upon patient request. No Action gabapentin 600 mg tablet 600 mg PO TID 30 Days Qty: 90 8RF omeprazole 40 mg capsule,delayed release(DR/EC) 40 mg PO DAILY Qty: 30 3RF Enbrel SureClick 50 mg/mL (1 mL) pen injector 50 mg subcut QWEEK Qty: 4 2RF budesonide-formoterol [Symbicort] 160-4.5 mcg/actuation HFA aerosol inhaler 1 puff inhalation BID 30 Days Qty: 10.2 3RF metformin 500 mg tablet extended release 24 hr 250 mg PO BID Qty: 90 0RF epinephrine [EpiPen 2-Juan Luis] 0.3 mg/0.3 mL auto-injector 0.3 mg IM Q10M PRN (Reason: anaphylaxis) Qty: 2 0RF Rx Instructions: for 2 doses albuterol sulfate 90 mcg/actuation HFA aerosol inhaler 1 inh inhalation QID PRN (Reason: shortness of breath or wheezing) Qty: 8.5 0RF multivitamin Tablet 1 tab PO DAILY clindamycin HCl 300 mg capsule 300 mg PO Q8H 7 Days Qty: 21 0RF Mirena 20 mcg/24 hours (5 yrs) 52 mg intrauterine device 1 device intrauterine DAILY calcium citrate-vitamin D3 [Calcium Citrate + D] 315 mg-5 mcg (200 unit) tablet 1 tab PO DAILY polyethylene glycol 3350 [Miralax] 17 gram/dose powder 17 g PO DAILY Qty: 510 2RF diclofenac sodium [Voltaren Arthritis Pain] 1 % gel 2 g topical QID PRN (Reason: Pain) Rx Instructions: apply to single elbow, wrist or hand; for hand includes palm/fingers/back of hand Referrals: Ron Morales MD [Primary Care Provider] - 2 days Interventions: ED Discharge Assessment Last Done: 12/27/22 15:20
[2022-12-27 12:42] VITALS: BP 103/63; PULSE 63; RESP 18; TEMP 36.6; O2SAT 97
[2022-12-27 13:00] LABS: MANUAL DIFF FLAG NO
[2022-12-27 13:01] LABS: Basophils Percent Auto 0.5 % (0-2); Eosinophils Absolute Auto 0.1 X10*3/uL (0.0-0.4); Hematocrit 41.5 % (37.0-47.0); Hemoglobin 13.3 g/dl (12.0-16.0); Imm Gran Abs Auto 0.02 X10*3/uL (0.00-0.03); Imm Gran Pct Auto 0.3 % (0.0-0.4); Lymphocytes Absolute Auto 2.9 X10*3/uL (1.2-4.9); Lymphocytes Percent Auto 36.7 % (20-40); Mean Corpuscular Hemoglobin 28.4 pg (27.0-33.0); Mean Corpuscular Volume 88.7 fL (80.0-98.0); Mean Platelet Volume 10.5 fL (9.4-12.3); Monocytes Absolute Auto 0.5 X10*3/uL (0.1-1.2); Monocytes Percent Auto 6.3 % (2-11); Neutrophils Absolute Auto 4.4 x10*3/uL (2.0-8.3); Neutrophils Percent Auto 55.2 % (45-73); Platelet Count 200 X10*3/uL (160-400); Red Blood Count 4.68 X10*6/uL (4.20-5.50); Red Cell Distribution Width 16.1 % (11.0-16.0); White Blood Count 7.9 X10*3/uL (4.8-10.8)
[2022-12-27 13:26] VITALS: BP 112/61; PULSE 64; RESP 18; O2SAT 98
[2022-12-27 13:30] LABS: D Dimer High Sensitivity < 150 NG/ML
[2022-12-27 13:35] LABS: Alanine Aminotransferase 19 U/L (0-31); Albumin Level 4.1 g/dL (3.5-5.0); Alkaline Phosphatase 88 U/L (39-117); Anion Gap 14 (12-20); Aspartate Amino Transferase 23 U/L (5-31); Bilirubin Total 0.4 mg/dL (0.0-1.0); Blood Urea Nitrogen 7 mg/dL (9-16); Calcium 9.6 mg/dL (8.4-10.2); Carbon Dioxide 27 mmol/L (22-29); Chloride 105 mmol/L (96-108); Creatinine Clr Calc Pharmacy 102.4; Estimated Glomerular Filt Rate > 60; Glucose Random 94 mg/dL (60-115); Potassium 4.6 mmol/L (3.3-5.1); Sodium 141 mmol/L (135-145); Total Protein 6.5 g/dL (6.5-8.0)
[2022-12-27 13:58] LABS: Troponin-I High Sensitivity < 2.7 ng/L (<3.5-17.0)
[2022-12-27 15:12] VITALS: BP 114/68; PULSE 64; RESP 18; TEMP 36.6; O2SAT 98
== END 2022-12-27 15:21 | disposition home or self-care (01) ==
PROVIDERS: Emergency Provider Emergency Medicine; PCP Family Medicine
DX: R07.89 Other chest pain (principal); M25.511 Pain in right shoulder; Z87.891 Personal history of nicotine dependence; Z79.899 Other long term (current) drug therapy
CPT/HCPCS: 36415; 71046; 80053; 84484; 85025; 85379; 93005; 99283; 99284

== ENCOUNTER 2023-03-10 11:14 | Outpatient (AMB) | payer MEDICAID, SELFPAY ==
--- NOTE | 2023-03-10 11:21 | A.OFFVIS_ITS ---
Intake VS Expanded 03/10/23 11:22 Height 5 ft 5 in Weight 229 lb 6.4 oz BMI 38.2 BP 114/66 Blood Pressure Location Rt brachial Blood Pressure Position Sitting Pulse 70 Pulse Source Pulse Oximeter Temp 97.8 F Temperature Source Temporal Artery Scan Pulse Oximetry 97 Oxygen Delivery Method Room Air Body Fat 101.8 Body Fat Percentage 44.4 Free Fat Mass 127.4 Muscle Mass 90.6 Visceral Mass 13.0 Water Mass 90.6 BMR 1,780 Intake Visit Reasons: (OV) PO GBP 11/18/17 Allergies amoxicillin [AMOXICILLIN] Allergy (Severe, Verified 03/10/23 11:26) ANAPHYLAXIS codeine [CODEINE] Allergy (Severe, Verified 03/10/23 11:26) ANAPHYLAXIS Sulfa (Sulfonamide Antibiotics) [SULFA (SULFONAMIDE ANTIBIOTICS)] Allergy (Mild, Verified 03/10/23 11:26) Rash, hives, rash Medication List - Last Reconciled 03/10/23 by Lea Guzman PA-C albuterol sulfate 90 mcg/actuation 1 inh inhalation QID PRN budesonide-formoterol 160-4.5 mcg/actuation (Symbicort) 1 puff inhalation BID 30 days calcium citrate-vitamin D3 315 mg-5 mcg (200 unit) (Calcium Citrate + D) 1 tab PO DAILY diclofenac sodium 1% (Voltaren Arthritis Pain) 2 grams topical QID PRN epinephrine (EpiPen 2-Juan Luis) 0.3 mg (0.3 mL) IM Q10M PRN etanercept (Enbrel SureClick) 50 mg subcut QWEEK gabapentin 600 mg PO TID 30 days levonorgestrel (Mirena) 1 device intrauterine DAILY metformin ER 250 mg (1/2 x 500 mg) PO BID omeprazole 20 mg PO BID polyethylene glycol 3350 (Miralax) 17 grams PO DAILY HPI HPI Comments History of Present Illness Details Pt is now 5+ years from [place]. 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 States for a couple of years has had increased difficulty swallowing and epigastric after some meals. Notices may or may not have pain withcertain foods. No Emesis, diarrhea or constipation. 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 OR cereal bar 12 pm - light and fit [place] yogurt with 1/4 cup granola OR cc (1/2 - 3/4 cup) with berries 3pm - Ozery multi grain cracker, nut butter spread and 2-3 strawberries. 5:30 pm - 3 oz protein, 3-4 oz vegetables, 2 oz of brown rice or potatoes 8pm - cereal bar (180 calories and 4 g protien) with calcium Exercising - none Post op complications: had anastomatic uler in 2017 ALPESH: never DM on meds HTN:resolved Hyperlipidemia: never GERD: 9 How bad is the heartburn ?0 Heartburn while lying down ?0 Heartburn when standing up ?0 Heartburn after meals ?0 Does heartburn change your diet ?0 Does heartburn wake you up from sleep ?0 Do you have difficulty swallowing ?--5--4 Do you have pain with swallowing -? If you take medicine for your reflux, does this affect your daily life ?0 Satisfaction with present condition - Not satisfied [facility] Medical History Abnormal findings on esophagogastroduodenoscopy (EGD) Ankylosing spondylitis Asthma Bronchitis Cellulitis Chronic headaches Concussion Diabetes mellitus GERD (gastroesophageal reflux disease) History of COVID-19 Knee pain, right Menopause Morbid obesity with BMI of 40.0-44.9, adult Obstructive sleep apnea Tubal ligation evaluation Surgical History (Updated 03/10/23 @ 12:35 by Lea Guzman PA-C) Gastric bypass status for obesity H/O lumpectomy History of cholecystectomy History of esophagogastroduodenoscopy (EGD) History of Krystian-en-Y gastric bypass Hx laparoscopic cholecystectomy Hx of colonoscopy Hx of tubal ligation Status post insertion of nerve stimulator Family History Father Ankylosing spondylitis of site in spine DM (diabetes mellitus) Alzheimer disease COPD (chronic obstructive pulmonary disease) Skin cancer Mother RA (rheumatoid arthritis) Son No problems noted. Maternal Grandfather Prostate cancer Bone cancer Social History Household Members: Spouse Housing: House Are you a primary veterinarian laboratory animal care to a significant other at home: No Do you presently have visiting nurse or other home services: No Alcohol intake: current Alcohol intake frequency: holidays/special occasions only Patient Tobacco Use Status: Former Tobacco user Quit Date: 1987 Tobacco use type: Cigarette and Cigar Years Smoked: 4 e-Cigarette/Vaping Use: Never Used Second Hand Smoke Exposure: No Substance Use Type: Marijuana service: No Current occupational status: employed Current occupational exposures/hazards: No Cognitive needs: No Hearing needs: No Vision needs: No Physical Exam Vital Signs: Last Vital Signs Temp 97.8 F 03/10/23 11:22 Pulse 70 03/10/23 11:22 BP 114/66 03/10/23 11:22 Pulse Ox 97 03/10/23 11:22 Oxygen Delivery Method Room Air 03/10/23 11:22 BMI result Body Mass Index 38.2 GI Inspection: Yes scar (all well healed) Palpation (GI): Soft to palpation, nontender, no hernias and no masses Assessment & Plan Assessment & Plan (1) Obesity (BMI 30-39.9): Code(s): E66.9 - Obesity, unspecified Plan: Pt has returned after a few years and is having epigastric pain after eating - mostly dinner. No other GI symptoms, EGD done May 2022 - no ulcer (had one in past) but does have small sliding HH. Her meal plan is deficient in protien (less than 60 grams per day), she is eating and drinking at the same time, uses a straw and with her history of binge eating is feelinf very triggered by her weight regain and concerns about bingeing. We discussed addressing this in multiple ways. 1. Increase protein to 100 grams per sday 2.Carafate bid until symptoms improve 3. No using straws for next few weeks 4. Eating more slowly ( marlene now in 10 - 15 mintues) 5. appt 6. RD appt Meal plan: 8am 30 gram shake - over 45 minutes 9am -Iced coffee - with a few ounces of her shake 12pm- yogurt with 1/4 c homemade healthy granola 3pm - 20 gram snack. Protien bar? 6pm - 3 oz protein, 3oz veg and 2 oz fruit We did not discuss exercise at this meeting. Next appt with me in 1 month, will consider repeat EGD at that time prn. Patient is obese and is not considered stable at this time. I spent 40 minutes in total with patient reviewing/updating records, examining the patient and counseling the patient on weight management as detailed above. (2) Binge eating disorder: Code(s): F50.81 - Binge eating disorder (3) Gastric bypass status for obesity: Code(s): Z98.84 - Bariatric surgery status Orders: Orders Hemoglobin A1c Today Z98.890 - Other specified postprocedural states Vitamin B12 and Folate Today Z98.84 - Bariatric surgery status Lipid Panel Today E66.9 - Obesity, unspecified PTHI Today Z90.3 - Acquired absence of stomach [part of] TSH reflex Free T4 Today Z98.890 - Other specified postprocedural states Vitamin A Today Z98.84 - Bariatric surgery status Vitamin B1 Today Z98.84 - Bariatric surgery status Vitamin D 25-OH Total Today Z90.3 - Acquired absence of stomach [part of] Zinc Today Z98.84 - Bariatric surgery status Medications: New sucralfate (Carafate) 10 mL PO BID 420 mL 1RF Coding Level of Care Code Est Pt Level 5 (78892) Diagnoses Obesity (BMI 30-39.9) E66.9 Binge eating disorder F50.81 Gastric bypass status for obesity Z98.84
[2023-03-10 11:22] VITALS: BP 114/66; PULSE 70; TEMP 36.6; O2SAT 97; BMI 38.2
== END 2023-03-10 12:44 | disposition home or self-care (01) ==
PROVIDERS: PCP Family Medicine; Visit Provider Physician Assistant
DX: E66.9 Obesity, unspecified (principal); Z68.38 Body mass index [BMI] 38.0-38.9, adult; F50.81 Binge eating disorder; Z98.84 Bariatric surgery status
CPT/HCPCS: 99215

== ENCOUNTER 2023-03-10 11:14 | Outpatient (REF) | payer MEDICAID, SELFPAY ==
[2023-03-10 14:19] LABS: Estimated Average Glucose 128 mg/dL; Hemoglobin A1C 149.6948 umol/L; Hemoglobin A1c % 6.1 %
[2023-03-10 14:47] LABS: Cholesterol 177 mg/dL; HDL Cholesterol 56 mg/dL; LDL Cholesterol Calculated 99 mg/dl; Triglycerides 112 mg/dL
[2023-03-10 14:56] LABS: TSH reflex Free T4 2.66 uIU/mL (0.32-4.0)
[2023-03-10 15:20] LABS: Vitamin B12 622 pg/mL (200-900)
[2023-03-10 15:31] LABS: Vitamin D 25-OH Total 49.2 ng/mL (>30)
[2023-03-12 23:33] LABS: Calcium (PTHI) 9.5 mg/dL (8.6-10.4); PTHI 44 pg/mL (16-77)
[2023-03-13 15:34] LABS: Zinc 55 mcg/dL (60-130)
[2023-03-15 18:24] LABS: Vitamin A 45 mcg/dL (38-98)
[2023-03-16 04:38] LABS: Vitamin B1 88 nmol/L (8-30)
== END 2023-03-10 11:15 | disposition home or self-care (01) ==
LOC: HO.LAB 11:14
PROVIDERS: PCP Family Medicine; Visit Provider Physician Assistant
DX: F50.81 Binge eating disorder (principal); E66.9 Obesity, unspecified; Z98.84 Bariatric surgery status; Z98.890 Other specified postprocedural states; Z90.3 Acquired absence of stomach [part of]
CPT/HCPCS: 36415; 80061; 82306; 82607; 82746; 83036; 83970; 84425; 84443; 84590; 84630; 99215

== ENCOUNTER 2023-03-26 11:03 | Outpatient (AMB) | payer OTHER, SELFPAY ==
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
== END 2023-03-26 14:03 | disposition home or self-care (01) ==
PROVIDERS: PCP Family Medicine; Visit Provider Counselor Mental Health
DX: F50.81 Binge eating disorder (principal); E66.9 Obesity, unspecified; Z68.38 Body mass index [BMI] 38.0-38.9, adult
CPT/HCPCS: 90791

== ENCOUNTER → 2023-03-26 11:03 | Outpatient (BNVA) | payer OTHER, SELFPAY | PROVIDERS: PCP Family Medicine; Visit Provider Counselor Mental Health ==

== ENCOUNTER 2023-04-01 10:59 | Outpatient (REF) | payer OTHER, SELFPAY ==
[2023-04-01 13:47] LABS: MANUAL DIFF FLAG NO
[2023-04-01 13:59] LABS: Basophils Percent Auto 0.5 % (0-2); Eosinophils Absolute Auto 0.1 X10*3/uL (0.0-0.4); Eosinophils Percent Auto 0.9 % (0-4); Hematocrit 42.3 % (37.0-47.0); Hemoglobin 13.5 g/dl (12.0-16.0); Imm Gran Abs Auto 0.03 X10*3/uL (0.00-0.03); Imm Gran Pct Auto 0.3 % (0.0-0.4); Lymphocytes Absolute Auto 2.7 X10*3/uL (1.2-4.9); Lymphocytes Percent Auto 30.6 % (20-40); Mean Corpuscular HGB Conc 31.9 g/dl (31.0-35.0); Mean Corpuscular Hemoglobin 30.4 pg (27.0-33.0); Mean Corpuscular Volume 95.3 fL (80.0-98.0); Mean Platelet Volume 11.7 fL (9.4-12.3); Monocytes Absolute Auto 0.6 X10*3/uL (0.1-1.2); Monocytes Percent Auto 6.6 % (2-11); Neutrophils Absolute Auto 5.4 x10*3/uL (2.0-8.3); Neutrophils Percent Auto 61.1 % (45-73); Platelet Count 221 X10*3/uL (160-400); Red Blood Count 4.44 X10*6/uL (4.20-5.50); Red Cell Distribution Width 12.3 % (11.0-16.0); White Blood Count 8.8 X10*3/uL (4.8-10.8)
[2023-04-01 14:14] LABS: Alanine Aminotransferase 12 U/L (0-31); Albumin Level 4.3 g/dL (3.5-5.0); Alkaline Phosphatase 77 U/L (39-117); Anion Gap 12 (12-20); Aspartate Amino Transferase 19 U/L (5-31); Bilirubin Total 0.4 mg/dL (0.0-1.0); Blood Urea Nitrogen 17 mg/dL (9-16); C Reactive Protein 2.06 mg/dL (< or = 0.50); Calcium 9.7 mg/dL (8.4-10.2); Carbon Dioxide 29 mmol/L (22-29); Chloride 104 mmol/L (96-108); Estimated Glomerular Filt Rate > 60; Glucose Random 99 mg/dL (60-115); Potassium 4.1 mmol/L (3.3-5.1); Sodium 141 mmol/L (135-145); Total Protein 7.3 g/dL (6.5-8.0)
[2023-04-01 14:34] LABS: Erythrocyte Sedimentation Rate 17 MM/HR (0-20)
== END 2023-04-01 11:00 | disposition home or self-care (01) ==
LOC: HO.HMGCLDS 10:59
PROVIDERS: PCP Family Medicine; Visit Provider Nurse Practitioner Family
DX: M47.819 Spondylosis without myelopathy or radiculopathy, site unspecified (principal)
CPT/HCPCS: 36415; 80053; 85025; 85652; 86140

== ENCOUNTER 2023-04-04 13:24 | Outpatient (AMB) | payer OTHER, SELFPAY ==
--- NOTE | 2023-04-04 13:29 | A.OFFVIS_ITS ---
Intake Vital Signs 04/04/23 13:37 Height 5 ft 5 in Weight 226 lb 10.163 oz BMI 37.7 BP 138/78 Blood Pressure Location Rt brachial Position Sitting Pulse 78 Pulse Source Pulse Oximeter Temp 97.5 F Temp Source Skin Pulse Oximetry (%) 98 Oxygen Delivery Method Room Air Intake Visit Reasons: spondyloarthropathy Intake Note: Here for spondyloarthropathy c/o hand pain Allergies amoxicillin [AMOXICILLIN] Allergy (Severe, Verified 04/04/23 13:34) ANAPHYLAXIS codeine [CODEINE] Allergy (Severe, Verified 04/04/23 13:34) ANAPHYLAXIS Sulfa (Sulfonamide Antibiotics) [SULFA (SULFONAMIDE ANTIBIOTICS)] Allergy (Mild, Verified 04/04/23 13:34) Rash, hives, rash Medication List - Last Reconciled 04/04/23 by Renny Guzman MD albuterol sulfate 90 mcg/actuation 1 inh inhalation QID PRN budesonide-formoterol 160-4.5 mcg/actuation (Symbicort) 1 puff inhalation BID 30 days calcium citrate-vitamin D3 315 mg-5 mcg (200 unit) (Calcium Citrate + D) 1 tab PO DAILY diclofenac sodium 1% (Voltaren Arthritis Pain) 2 grams topical QID PRN epinephrine (EpiPen 2-Juan Luis) 0.3 mg (0.3 mL) IM Q10M PRN etanercept (Enbrel SureClick) 50 mg subcut QWEEK gabapentin 600 mg PO TID 30 days levonorgestrel (Mirena) 1 device intrauterine DAILY metformin ER 250 mg (1/2 x 500 mg) PO BID omeprazole 20 mg PO BID polyethylene glycol 3350 (Miralax) 17 grams PO DAILY sucralfate (Carafate) 10 mL PO BID zinc acetate (Galzin) 25 mg PO DAILY HPI HPI Comments History of Present Illness Details This is a 53-year-old female with non radiographic axSpA who presents for follow-up. Was last seen by Tonia Carlos 11/14. Doing well overall in terms of her joint pain and stiffness. She gets morning stiffness of her hands lasting about 1 hour. Occasionally takes Tylenol. She mentions that she has been getting GI upset recently and she went back to weight management and she was advised to start drinking protein shakes, avoiding carbohydrates. She has been having pain on the outside of her left hip. She also has numbness along the outer aspect of her right thigh, worse with walking and lying in bed at night. Better when sitting. FOR[facility]LY [facility] Medical History (Updated 04/04/23 @ 14:14 by Renny Guzman MD) Abnormal findings on esophagogastroduodenoscopy (EGD) Ankylosing spondylitis Asthma Bronchitis Cellulitis Chronic headaches Concussion Diabetes mellitus GERD (gastroesophageal reflux disease) History of COVID-19 Knee pain, right Menopause Morbid obesity with BMI of 40.0-44.9, adult Obstructive sleep apnea Tubal ligation evaluation Surgical History Gastric bypass status for obesity H/O lumpectomy History of cholecystectomy History of esophagogastroduodenoscopy (EGD) History of Krystian-en-Y gastric bypass Hx laparoscopic cholecystectomy Hx of colonoscopy Hx of tubal ligation Status post insertion of nerve stimulator Family History Father Ankylosing spondylitis of site in spine DM (diabetes mellitus) Alzheimer disease COPD (chronic obstructive pulmonary disease) Skin cancer RA (rheumatoid arthritis) Mother RA (rheumatoid arthritis) Son No problems noted. Maternal Grandfather Prostate cancer Bone cancer Social History Household Members: Spouse Housing: House Are you a primary home health care case manager to a significant other at home: No Do you presently have visiting nurse or other home services: No Alcohol intake: current Alcohol intake frequency: holidays/special occasions only Patient Tobacco Use Status: Former Tobacco user Quit Date: 1987 Tobacco use type: Cigarette and Cigar Years Smoked: 4 e-Cigarette/Vaping Use: Never Used Second Hand Smoke Exposure: No Substance Use Type: Marijuana service: No Current occupational status: employed Current occupational exposures/hazards: No Cognitive needs: No Hearing needs: No Vision needs: No Review of Systems Musc Reports back pain, Reports arthralgias, Reports numbness and Reports stiffness Neuro Reports numbness Physical Exam Vital Signs: Last Vital Signs Temp 97.5 F 04/04/23 13:37 Pulse 78 04/04/23 13:37 BP 138/78 04/04/23 13:37 Pulse Ox 98 04/04/23 13:37 Oxygen Delivery Method Room Air 04/04/23 13:37 BMI result Body Mass Index 37.7 Const General: cooperative, healthy appearing and comfortable Nutritional Appearance: obese morbidly obese Orientation/consciousness: patient oriented x3 Limitations: no limitations HEENT Head: Yes normocephalic and Yes atraumatic Resp Effort & Inspection: normal respiratory effort and able to speak in complete sentences Neuro General: patient oriented x3 Extrem Other: No active synovitis Mild osteoarthritic changes of both hands with early Zeke's nodes Mild deformity of her right little finger related to an old trauma Negative Fabere test bilaterally Left trochanteric bursa area tenderness Negative Scotty's test on the left Results Reviewed Results Reviewed: MRI pelvis 2017? Impression ?no acute osseous abnormality.?? No MRI evidence of sacroiliitis? Lumbar spondylosis? Rounded T2 hyperintense focus right lateral aspect body of the uterus appearing to be in continue T with endometrial stripe.? He is incompletely assessed on the current images.? Further assessment with dedicated contrast-enhanced MRI of the female pelvis or pelvic ultrasound recommend Assessment & Plan Assessment & Plan (1) Spondyloarthropathy: Comment: HLA B27 negative Enbrel: 12/2018- present Methotrexate: January 2021- January 2021 Gi upset after a few doses. Code(s): M47.819 - Spondylosis without myelopathy or radiculopathy, site unspecified Plan: Per previous notes: Patient has non radiographic spondyloarthropathy with inflammatory back pain and history of peripheral arthritis, enthesitis, elevated inflammatory markers which all improved after starting Enbrel . 53-year-old female with non radiographic axSpA returns for follow-up. Doing well overall. I do not see any active synovitis on exam. Continue Enbrel 50 mg once weekly Patient has chronically elevated CRP but it seems that it had normalized after she lost 160 lb after bariatric surgery. Her CRP went back up again after she gained 60 lb. It is possible that her elevated CRP is related to her weight. Labs before next visit in 4 months (2) Greater trochanteric pain syndrome of left lower extremity: Code(s): M25.552 - Pain in left hip Plan: I gave patient a printout of home exercises to do for greater trochanteric pain syndrome Plan I spent 26 minutes reviewing patient's chart, evaluating patient, ordering diagnostic workup, counseling patient and documenting in the chart Orders: Orders Comprehensive Met. Panel 4 Months M47.819 - Spondylosis without myelopathy or radiculopathy, site unspecified C Reactive Protein 4 Months M47.819 - Spondylosis without myelopathy or radiculopathy, site unspecified Complete Blood Count Auto Diff 4 Months M47.819 - Spondylosis without myelopathy or radiculopathy, site unspecified Erythrocyte Sedimentation Rate 4 Months M47.819 - Spondylosis without myelopathy or radiculopathy, site unspecified Hepatitis A,B,C Profile 4 Months Z11.59 - Encounter for screening for other viral diseases T Spot TB 4 Months Z11.7 - Encounter for testing for latent tuberculosis infection Coding Level of Care Code Est Pt Level 4 (73924) Diagnoses Spondyloarthropathy M47.819 Greater trochanteric pain syndrome of left lower extremity M25.552
[2023-04-04 13:37] VITALS: BP 138/78; PULSE 78; TEMP 36.4; O2SAT 98; BMI 37.7
== END 2023-04-04 14:06 | disposition home or self-care (01) ==
PROVIDERS: PCP Family Medicine; Visit Provider Student in an Organized Health Care Education/Training Program
DX: M47.819 Spondylosis without myelopathy or radiculopathy, site unspecified (principal); M25.552 Pain in left hip
CPT/HCPCS: 99214

== ENCOUNTER → 2023-04-04 13:24 | Outpatient (BNVA) | payer OTHER, SELFPAY | PROVIDERS: PCP Family Medicine; Visit Provider Student in an Organized Health Care Education/Training Program | DX: M45.9 Ankylosing spondylitis of unspecified sites in spine (principal); M47.816 Spondylosis without myelopathy or radiculopathy, lumbar region; M70.62 Trochanteric bursitis, left hip; Z90.49 Acquired absence of other specified parts of digestive tract; Z98.84 Bariatric surgery status; Z96.82 Presence of neurostimulator | CPT/HCPCS: 99212 ==

== ENCOUNTER 2023-04-09 10:46 | Outpatient (AMB) | payer OTHER, SELFPAY ==
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
== END 2023-04-09 11:50 | disposition home or self-care (01) ==
PROVIDERS: PCP Family Medicine; Visit Provider Counselor Mental Health
DX: F50.81 Binge eating disorder (principal); E66.9 Obesity, unspecified
CPT/HCPCS: 90834

== ENCOUNTER → 2023-04-09 10:46 | Outpatient (BNVA) | payer OTHER, SELFPAY | PROVIDERS: PCP Family Medicine; Visit Provider Counselor Mental Health ==

== ENCOUNTER → 2023-04-10 10:19 | Outpatient (BNVA) | payer OTHER, SELFPAY | PROVIDERS: PCP Family Medicine; Visit Provider Dietitian, Registered | DX: E66.9 Obesity, unspecified (principal) | CPT/HCPCS: 97803 ==

== ENCOUNTER 2023-04-17 08:00 | Outpatient (REF) | payer OTHER, SELFPAY | END 2023-04-17 08:01 | disposition home or self-care (01) | LOC: HO.MAMMO 08:00 | PROVIDERS: PCP Family Medicine; Visit Provider Family Medicine | DX: Z12.31 Encounter for screening mammogram for malignant neoplasm of breast (principal) | CPT/HCPCS: 77063; 77067 ==

== ENCOUNTER → 2023-04-17 08:15 | Outpatient (BNV) | payer OTHER, SELFPAY | PROVIDERS: PCP Family Medicine; Visit Provider Radiology Diagnostic Radiology | DX: Z12.31 Encounter for screening mammogram for malignant neoplasm of breast (principal) | CPT/HCPCS: 77063; 77067 ==

== ENCOUNTER 2023-04-24 14:43 | Outpatient (AMB) | payer OTHER, SELFPAY ==
[2023-04-24 14:45] VITALS: BP 121/57; PULSE 75; TEMP 36; O2SAT 97; BMI 36.4
--- NOTE | 2023-04-24 14:45 | MHC.OFFVISWM ---
Intake VS Expanded 04/24/23 14:45 Height 5 ft 5 in Weight 219 lb BMI 36.4 BP 121/57 L Blood Pressure Location Rt brachial Blood Pressure Position Sitting Pulse 75 Pulse Source Pulse Oximeter Temp 96.8 F Temperature Source Tympanic Pulse Oximetry 97 Oxygen Delivery Method Room Air Body Fat 92.6 Body Fat Percentage 42.3 Free Fat Mass 126.4 Muscle Mass 120.0 Visceral Mass 12.0 Water Mass 90.0 BMR 1,750 Intake Visit Reasons: (OV) PO GBP 11/18/17 Allergies amoxicillin [AMOXICILLIN] Allergy (Severe, Verified 04/24/23 14:51) ANAPHYLAXIS codeine [CODEINE] Allergy (Severe, Verified 04/24/23 14:51) ANAPHYLAXIS Sulfa (Sulfonamide Antibiotics) [SULFA (SULFONAMIDE ANTIBIOTICS)] Allergy (Mild, Verified 04/24/23 14:51) Rash, hives, rash HPI HPI Comments History of Present Illness Details pt is now 5+ years s/p GBP, had recent weight gain and epigastric pain. Was seen last month at 229.4 lbs and meal and exercise plans changes - has lost 10 lbs since then. She is feeling better and recognizing what food choices don't work for her. 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 8pm- built puff Exercise - started exercise hurt her knee and hopes to restart within a week or two. FOR[facility] Medical History (Updated 04/09/23 @ 11:50 by Bita Contreras) Abnormal findings on esophagogastroduodenoscopy (EGD) Ankylosing spondylitis Asthma Bronchitis Cellulitis Chronic headaches Concussion Diabetes mellitus GERD (gastroesophageal reflux disease) History of COVID-19 Knee pain, right Menopause Morbid obesity with BMI of 40.0-44.9, adult Obstructive sleep apnea Tubal ligation evaluation Surgical History (Reviewed 04/24/23 @ 14:53 by Riya Corbin [facility]) Gastric bypass status for obesity H/O lumpectomy History of cholecystectomy History of esophagogastroduodenoscopy (EGD) History of Krystian-en-Y gastric bypass Hx laparoscopic cholecystectomy Hx of colonoscopy Hx of tubal ligation Status post insertion of nerve stimulator Family History Father Ankylosing spondylitis of site in spine DM (diabetes mellitus) Alzheimer disease COPD (chronic obstructive pulmonary disease) Skin cancer RA (rheumatoid arthritis) Mother RA (rheumatoid arthritis) Son No problems noted. Maternal Grandfather Prostate cancer Bone cancer Social History Household Members: Spouse Housing: House Are you a primary day care assistant to a significant other at home: No Do you presently have visiting nurse or other home services: No Alcohol intake: current Alcohol intake frequency: holidays/special occasions only Patient Tobacco Use Status: Former Tobacco user Quit Date: 1987 Tobacco use type: Cigarette and Cigar Years Smoked: 4 e-Cigarette/Vaping Use: Never Used Second Hand Smoke Exposure: No Substance Use Type: Marijuana service: No Current occupational status: employed Current occupational exposures/hazards: No Cognitive needs: No Hearing needs: No Vision needs: No Physical Exam Vital Signs: Last Vital Signs Temp 96.8 F 04/24/23 14:45 Pulse 75 04/24/23 14:45 BP 121/57 L 04/24/23 14:45 Pulse Ox 97 04/24/23 14:45 Oxygen Delivery Method Room Air 04/24/23 14:45 BMI result Body Mass Index 36.4 Assessment & Plan Assessment & Plan (1) Obesity (BMI 30-39.9): Code(s): E66.9 - Obesity, unspecified Plan: Substitutions for built bars - 2 hb eggs or a yogurt, 2 TBL PB May add 1/4 c berries into 1 shake per day. Exericse - will restart walking outside, 2 mile in 30 minutes. 3d/ ST - TBP . Mayra Genco - 15 minute abd Carafate bid 1 more month, then stop and continue pantoprazole only for one month. Next appt 2.5 months with me Patient is obese and is not considered stable at this time. I spent 30 minutes in total with patient reviewing/updating records, examining the patient and counseling the patient on weight management as detailed above. (2) Gastric bypass status for obesity: Code(s): Z98.84 - Bariatric surgery status Medications: New pantoprazole 20 mg PO BID 60 tabs 1RF Coding Level of Care Code Est Pt Level 4 (26812) Diagnoses Obesity (BMI 30-39.9) E66.9 Gastric bypass status for obesity Z98.84
== END 2023-04-24 15:33 | disposition home or self-care (01) ==
PROVIDERS: PCP Family Medicine; Visit Provider Physician Assistant
DX: E66.9 Obesity, unspecified (principal); Z68.36 Body mass index [BMI] 36.0-36.9, adult; Z90.3 Acquired absence of stomach [part of]; Z98.84 Bariatric surgery status
CPT/HCPCS: 99214

== ENCOUNTER → 2023-04-24 14:43 | Outpatient (BNVA) | payer OTHER, SELFPAY | PROVIDERS: PCP Family Medicine; Visit Provider Physician Assistant | DX: E66.9 Obesity, unspecified (principal); Z68.36 Body mass index [BMI] 36.0-36.9, adult; Z98.84 Bariatric surgery status | CPT/HCPCS: 99212 ==

== ENCOUNTER 2023-07-29 09:28 | Outpatient (REF) | payer OTHER, SELFPAY ==
[2023-07-29 10:22] LABS: MANUAL DIFF FLAG NO
[2023-07-29 10:54] LABS: Basophils Percent Auto 0.5 % (0-2); Eosinophils Absolute Auto 0.1 X10*3/uL (0.0-0.4); Eosinophils Percent Auto 1.1 % (0-4); Hematocrit 40.3 % (37.0-47.0); Hemoglobin 13.2 g/dl (12.0-16.0); Imm Gran Abs Auto 0.02 X10*3/uL (0.00-0.03); Imm Gran Pct Auto 0.3 % (0.0-0.4); Lymphocytes Absolute Auto 2.2 X10*3/uL (1.2-4.9); Lymphocytes Percent Auto 32.9 % (20-40); Mean Corpuscular HGB Conc 32.8 g/dl (31.0-35.0); Mean Corpuscular Volume 91.6 fL (80.0-98.0); Mean Platelet Volume 11.6 fL (9.4-12.3); Monocytes Absolute Auto 0.4 X10*3/uL (0.1-1.2); Monocytes Percent Auto 6.4 % (2-11); Neutrophils Absolute Auto 3.9 x10*3/uL (2.0-8.3); Neutrophils Percent Auto 58.8 % (45-73); Platelet Count 198 X10*3/uL (160-400); Red Cell Distribution Width 12.6 % (11.0-16.0); White Blood Count 6.6 X10*3/uL (4.8-10.8)
[2023-07-29 11:31] LABS: Erythrocyte Sedimentation Rate 18 MM/HR (0-20)
[2023-07-29 12:34] LABS: Alanine Aminotransferase 13 U/L (0-31); Albumin Level 4.1 g/dL (3.5-5.0); Alkaline Phosphatase 81 U/L (39-117); Anion Gap 13 (12-20); Aspartate Amino Transferase 18 U/L (5-31); Bilirubin Total 0.5 mg/dL (0.0-1.0); Blood Urea Nitrogen 18 mg/dL (9-16); C Reactive Protein 1.02 mg/dL (< or = 0.50); Calcium 9.8 mg/dL (8.4-10.2); Carbon Dioxide 26 mmol/L (22-29); Chloride 106 mmol/L (96-108); Estimated Glomerular Filt Rate > 60; Glucose Random 98 mg/dL (60-115); Potassium 4.3 mmol/L (3.3-5.1); Sodium 141 mmol/L (135-145)
[2023-07-30 08:24] LABS: HBS Num1 5.12 mIU/mL (0-7.99); HBc Num1 0.07 S/CO (0.00-0.79); HBsAGNum1 0.34 S/CO (0.00-0.99); Hepatitis A Antibody IgM 0.11 Index (0-0.79); Hepatitis B Core Antibody Nonreactive (Nonreactive); Hepatitis B Surface Antigen Negative (Negative); ~HepC Num1 0.08 S/CO (0.00-0.79); ~Hepatitis A Antibody IgM Nonreactive (Nonreactive); ~Hepatitis B Surface Antibody NONREACTIVE (Nonreactive); ~Hepatitis C Antibody Nonreactive (Nonreactive)
[2023-07-31 16:19] LABS: TS Negative Control Passed; TS Panel A 0; TS Panel B 1; TS Positive Control Passed; TSpotTB Negative (Negative)
== END 2023-07-29 09:29 | disposition home or self-care (01) ==
LOC: HO.HMGCLDS 09:28
PROVIDERS: PCP Family Medicine; Visit Provider Student in an Organized Health Care Education/Training Program
DX: Z11.7 Encounter for testing for latent tuberculosis infection (principal); Z11.59 Encounter for screening for other viral diseases; M47.819 Spondylosis without myelopathy or radiculopathy, site unspecified
CPT/HCPCS: 36415; 80053; 85025; 85652; 86140; 86481; 86704; 86706; 86709; 86803; 87340

== ENCOUNTER 2023-07-31 15:36 | Outpatient (AMB) | payer OTHER, SELFPAY ==
--- NOTE | 2023-07-31 15:56 | MHC.OFFVIS ---
Intake Vital Signs 07/31/23 15:57 Height 5 ft 5 in Weight 209 lb 14.081 oz BMI 34.9 BP 110/72 Blood Pressure Location Rt brachial Position Sitting Pulse 82 Pulse Source Pulse Oximeter Temp 97 F Temp Source Skin Pulse Oximetry (%) 97 Oxygen Delivery Method Room Air Intake Visit Reasons: Intake Note: Pt last seen 04/04/23, presents today for follow up and test results. On enbrel weekly. Reports skin babcock after showering, has pictures. Also reports chest palpitations x 1 mo. 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: No Accompanied by: Self / Same As Patient Allergies amoxicillin [AMOXICILLIN] Allergy (Severe, Verified 07/31/23 15:56) ANAPHYLAXIS codeine [CODEINE] Allergy (Severe, Verified 07/31/23 15:56) ANAPHYLAXIS Sulfa (Sulfonamide Antibiotics) [SULFA (SULFONAMIDE ANTIBIOTICS)] Allergy (Mild, Verified 07/31/23 15:56) Rash, hives, rash Medication List - Last Reconciled 07/31/23 by Renny Guzman MD albuterol sulfate 90 mcg/actuation 1 inh inhalation QID PRN budesonide-formoterol 160-4.5 mcg/actuation (Symbicort) 1 puff inhalation BID 30 days calcium citrate-vitamin D3 315 mg-5 mcg (200 unit) (Calcium Citrate + D) 1 tab PO DAILY diclofenac sodium 1% (Voltaren Arthritis Pain) 2 grams topical QID PRN epinephrine (EpiPen 2-Juan Luis) 0.3 mg (0.3 mL) IM Q10M PRN etanercept (Enbrel SureClick) 50 mg subcut QWEEK gabapentin 600 mg PO TID 30 days levonorgestrel (Mirena) 1 device intrauterine DAILY metformin ER 250 mg (1/2 x 500 mg) PO BID pantoprazole 40 mg PO DAILY sucralfate (Carafate) 10 mL PO QIDACHS zinc acetate (Galzin) 25 mg PO DAILY HPI HPI Comments History of Present Illness Details 53-year-old female with non radiographic axial spa returns for follow-up. Last seen 03/2023. On Enbrel SureClick 50 mg once weekly. She states that sometimes she has problems with the mechanism of the Enbrel SureClick pens. She has been doing fairly well overall. She did some of the home exercises for left hip trochanteric bursitis and feels that her hip pain is less frequent. States that recently she has been having palpitation. She states that she has had palpitations before and was evaluated by worm raiser and was told that her evaluation was unremarkable. Initial history: This is a 53-year-old female with non radiographic axSpA who presents for follow-up. Was last seen by Tonia Carlos 11/14. Doing well overall in terms of her joint pain and stiffness. She gets morning stiffness of her hands lasting about 1 hour. Occasionally takes Tylenol. She mentions that she has been getting GI upset recently and she went back to weight management and she was advised to start drinking protein shakes, avoiding carbohydrates. She has been having pain on the outside of her left hip. She also has numbness along the outer aspect of her right thigh, worse with walking and lying in bed at night. Better when sitting. [facility]MERLY [facility], [facility] Medical History Ankylosing spondylitis Bronchitis History of COVID-19 Knee pain, right Chronic headaches Morbid obesity with BMI of 40.0-44.9, adult Abnormal findings on esophagogastroduodenoscopy (EGD) Tubal ligation evaluation Cellulitis Concussion Ankylosing spondylitis Obstructive sleep apnea Asthma GERD (gastroesophageal reflux disease) Diabetes mellitus Menopause Surgical History History of esophagogastroduodenoscopy (EGD) Hx of colonoscopy Status post insertion of nerve stimulator History of cholecystectomy Gastric bypass status for obesity H/O lumpectomy Hx of tubal ligation Hx laparoscopic cholecystectomy History of Krystian-en-Y gastric bypass Family History Father Ankylosing spondylitis of site in spine DM (diabetes mellitus) Alzheimer disease COPD (chronic obstructive pulmonary disease) Skin cancer RA (rheumatoid arthritis) Mother RA (rheumatoid arthritis) Son No problems noted. Maternal Grandfather Prostate cancer Bone cancer Social History Household Members: Spouse Housing: House Are you a primary manager urgent care to a significant other at home: No Do you presently have visiting nurse or other home services: No Alcohol intake: current Alcohol intake frequency: holidays/special occasions only Patient Tobacco Use Status: Former Tobacco user Quit Date: 1987 Tobacco use type: Cigarette and Cigar Years Smoked: 4 e-Cigarette/Vaping Use: Never Used Second Hand Smoke Exposure: No Substance Use Type: Marijuana service: No Current occupational status: employed Current occupational exposures/hazards: No Cognitive needs: No Hearing needs: No Vision needs: No Review of Systems Card Details: Palpitations Musc Reports arthralgias Physical Exam Vital Signs: Last Vital Signs Temp 97 F 07/31/23 15:57 Pulse 82 07/31/23 15:57 BP 110/72 07/31/23 15:57 Pulse Ox 97 07/31/23 15:57 Oxygen Delivery Method Room Air 07/31/23 15:57 BMI result Body Mass Index 34.9 Const General: cooperative, healthy appearing and comfortable Nutritional Appearance: obese morbidly obese Orientation/consciousness: patient oriented x3 Limitations: no limitations HEENT Head: Yes normocephalic and Yes atraumatic Resp Effort & Inspection: normal respiratory effort and able to speak in complete sentences Neuro General: patient oriented x3 Extrem Other: No active synovitis Mild osteoarthritic changes of both hands with early Zeke's nodes Mild deformity of her right little finger related to an old trauma Negative Fabere test bilaterally Minimal Left trochanteric bursa area tenderness Negative Scotty's test on the left Results Reviewed Results Reviewed: MRI pelvis 2017? Impression ?no acute osseous abnormality.?? No MRI evidence of sacroiliitis? Lumbar spondylosis? Rounded T2 hyperintense focus right lateral aspect body of the uterus appearing to be in continue T with endometrial stripe.? He is incompletely assessed on the current images.? Further assessment with dedicated contrast-enhanced MRI of the female pelvis or pelvic ultrasound recommend Assessment & Plan Assessment & Plan (1) Spondyloarthropathy: Comment: HLA B27 negative Enbrel: 12/2018- present effective Methotrexate: January 2021- January 2021 Gi upset after a few doses. Code(s): M47.819 - Spondylosis without myelopathy or radiculopathy, site unspecified Plan: Per previous notes: Patient has non radiographic spondyloarthropathy with inflammatory back pain and history of peripheral arthritis, enthesitis, elevated inflammatory markers which all improved after starting Enbrel . 53-year-old female with non radiographic axSpA returns for follow-up. Doing well overall. I do not see any active synovitis on exam. Patient has chronically elevated CRP but it seems that it had normalized after she lost 160 lb after bariatric surgery. Her CRP went back up again after she gained 60 lb. It is possible that her elevated CRP is related to her weight. ?She does mention that that she has some difficulties with the Enbrel SureClick pen mechanism. I would like her to continue with Enbrel 50 mg weekly. I would like to check whether Enbrel Mini cartridge with auto touch autoinjector with the authorized Labs before next visit in 4 months (2) Greater trochanteric pain syndrome of left lower extremity: Code(s): M25.552 - Pain in left hip Plan: Improved with home exercise (3) Palpitations: Code(s): R00.2 - Palpitations Plan: Follow-up with worm raiser or PCP Plan I spent 26 minutes reviewing patient's chart, evaluating patient, ordering diagnostic workup, counseling patient and documenting in the chart Coding Level of Care Code Est Pt Level 4 (19862) Diagnoses Spondyloarthropathy M47.819 Greater trochanteric pain syndrome of left lower extremity M25.552 Palpitations R00.2
[2023-07-31 15:57] VITALS: BP 110/72; PULSE 82; TEMP 36.1; O2SAT 97; BMI 34.9
== END 2023-07-31 16:27 | disposition home or self-care (01) ==
PROVIDERS: PCP Family Medicine; Visit Provider Student in an Organized Health Care Education/Training Program
DX: M47.819 Spondylosis without myelopathy or radiculopathy, site unspecified (principal); M25.552 Pain in left hip; R00.2 Palpitations
CPT/HCPCS: 99214

== ENCOUNTER → 2023-07-31 15:36 | Outpatient (BNVA) | payer OTHER, SELFPAY | PROVIDERS: PCP Family Medicine; Visit Provider Student in an Organized Health Care Education/Training Program | DX: M47.819 Spondylosis without myelopathy or radiculopathy, site unspecified (principal); M25.552 Pain in left hip; R00.2 Palpitations | CPT/HCPCS: 99212 ==

== ENCOUNTER 2023-08-08 08:42 | Outpatient (AMB) | payer OTHER, SELFPAY ==
--- NOTE | 2023-08-08 08:45 | A.OFFVIS_ITS ---
Intake VS Expanded 08/08/23 09:07 BP 114/55 L Blood Pressure Location Rt brachial Blood Pressure Position Sitting Pulse 83 Pulse Source Pulse Oximeter Temp 97.1 F Temperature Source Tympanic Pulse Oximetry 95 Oxygen Delivery Method Room Air Height 5 ft 5 in Weight 206 lb 12.8 oz BMI 34.4 Body Fat % 41.4 Body Fat Mass 86.2 Fat Free Mass 121.2 Visceral Fat Rating 11.0 Body Water % 41.7 Body Water Mass 86.2 Muscle Mass/Score 115.0 Basal Metabolic Rate/Score 1,674 Intake Visit Reasons: (OV) PO GBP 11/18/17 Allergies amoxicillin [AMOXICILLIN] Allergy (Severe, Verified 08/08/23 09:03) ANAPHYLAXIS codeine [CODEINE] Allergy (Severe, Verified 08/08/23 09:03) ANAPHYLAXIS Sulfa (Sulfonamide Antibiotics) [SULFA (SULFONAMIDE ANTIBIOTICS)] Allergy (Mild, Verified 08/08/23 09:03) Rash, hives, rash Medication List - Last Reconciled 08/08/23 by Lea Guzman PA-C albuterol sulfate 90 mcg/actuation 1 inh inhalation QID PRN budesonide-formoterol 160-4.5 mcg/actuation (Symbicort) 1 puff inhalation BID 30 days calcium citrate-vitamin D3 315 mg-5 mcg (200 unit) (Calcium Citrate + D) 1 tab PO DAILY diclofenac sodium 1% (Voltaren Arthritis Pain) 2 grams topical QID PRN Enbrel Mini (etanercept) 50 mg subcut QWEEK NS epinephrine (EpiPen 2-Juan Luis) 0.3 mg (0.3 mL) IM Q10M PRN gabapentin 600 mg PO TID 30 days levonorgestrel (Mirena) 1 device intrauterine DAILY metformin ER 250 mg (1/2 x 500 mg) PO BID brwdrbrtkkpv-mty-johq-FA-vit K 45 mg iron- 800 mcg-120 mcg (Bariatric Multivitamins) caps PO pantoprazole 40 mg PO DAILY sucralfate (Carafate) 10 mL PO QIDACHS HPI HPI Comments History of Present Illness Details Pt is now 5.5 years, has lost 13 lbs since March. Wakes at 6am Takes meds with carafate and pantoprazole 7am - Premier or Quest shakes RTD - firs t sips and has pain in LUQ, pauses drinking thne able to finish shake without pain 8am - regular [id number] oz coffee with paige gar free creamer over 1 hour - no pain carafate at 12:30pm 1 pm- Built bar over 30 minutes - no roopa n may have some flavored , salted almonds - 20 nuts 6pm - 3oz protein (cueva seared or roasted ) and 3 oz vegetable (steamed or roasted) - can't finish this because has the same pain or gets full. This pain is more severe and does not resolve. Normally finishes about 4 oz in total. Pain resolves once done eating. May have 4 oz of south [place] yogurt 5-6 raspberries with hungry Exercise - none, can't getmotivated to restart [facility] Medical History Ankylosing spondylitis Bronchitis History of COVID-19 Knee pain, right Chronic headaches Morbid obesity with BMI of 40.0-44.9, adult Abnormal findings on esophagogastroduodenoscopy (EGD) Tubal ligation evaluation Cellulitis Concussion Ankylosing spondylitis Obstructive sleep apnea Asthma GERD (gastroesophageal reflux disease) Diabetes mellitus Menopause Surgical History History of esophagogastroduodenoscopy (EGD) Hx of colonoscopy Status post insertion of nerve stimulator History of cholecystectomy Gastric bypass status for obesity H/O lumpectomy Hx of tubal ligation Hx laparoscopic cholecystectomy History of Krystian-en-Y gastric bypass Family History Father Ankylosing spondylitis of site in spine DM (diabetes mellitus) Alzheimer disease COPD (chronic obstructive pulmonary disease) Skin cancer RA (rheumatoid arthritis) Mother RA (rheumatoid arthritis) Son No problems noted. Maternal Grandfather Prostate cancer Bone cancer Social History Household Members: Spouse Housing: House Are you a primary home care and home health aides teacher to a significant other at home: No Do you presently have visiting nurse or other home services: No Alcohol intake: current Alcohol intake frequency: holidays/special occasions only Patient Tobacco Use Status: Former Tobacco user Quit Date: 1987 Tobacco use type: Cigarette and Cigar Years Smoked: 4 e-Cigarette/Vaping Use: Never Used Second Hand Smoke Exposure: No Substance Use Type: Marijuana service: No Current occupational status: employed Current occupational exposures/hazards: No Cognitive needs: No Hearing needs: No Vision needs: No Physical Exam Vital Signs: Last Vital Signs Temp 97.1 F 08/08/23 09:07 Pulse 83 08/08/23 09:07 BP 114/55 L 08/08/23 09:07 Pulse Ox 95 08/08/23 09:07 Oxygen Delivery Method Room Air 08/08/23 09:07 BMI result Body Mass Index 34.4 Assessment & Plan Assessment & Plan (1) Dysphagia: Code(s): R13.10 - Dysphagia, unspecified Plan: Pt is 5.5 years s/p GBP and has dysphagia, belching and early satiety to solid foods only. Has barium swallow at [facility] [place] 2023 - 4 cm hiatal hernia noted. Her symptoms have not changed despite PPI and carafate qid. Hgb 14 and stable. Gastric ulcer is not suspected at this time. Will order UGI to be done here to assess prescense of HH (rare after GBP). If present, will discuss with Dr Hong may need surgical repair. Decrease caffeine to 8 oz Decrease nuts to 10 Decrease carafate to bid Restart exericse - Pramod x 30 minutes> 4d/ week - is all patient agrees to. Next appt with me after UGI. Patient is morbidly obese and is not considered stable at this time. I spent 30 minutes in total with patient reviewing/updating records, examining the patient and counseling the patient on weight management as detailed above. (2) Obesity (BMI 30-39.9): Code(s): E66.9 - Obesity, unspecified (3) Belching: Code(s): R14.2 - Eructation Plan see above Coding Level of Care Code Est Pt Level 4 (07371) Diagnoses Dysphagia R13.10 Obesity (BMI 30-39.9) E66.9 Belching R14.2
[2023-08-08 09:07] VITALS: BP 114/55; PULSE 83; TEMP 36.2; O2SAT 95; BMI 34.4
== END 2023-08-08 09:40 | disposition home or self-care (01) ==
PROVIDERS: PCP Family Medicine; Visit Provider Physician Assistant
DX: E66.9 Obesity, unspecified (principal); Z68.34 Body mass index [BMI] 34.0-34.9, adult; R13.10 Dysphagia, unspecified; R14.2 Eructation
CPT/HCPCS: 99214

== ENCOUNTER → 2023-08-08 08:42 | Outpatient (BNVA) | payer OTHER, SELFPAY | PROVIDERS: PCP Family Medicine; Visit Provider Physician Assistant | DX: E66.9 Obesity, unspecified (principal); R13.10 Dysphagia, unspecified; R14.2 Eructation; Z68.34 Body mass index [BMI] 34.0-34.9, adult | CPT/HCPCS: 99212 ==

== ENCOUNTER 2023-08-08 16:23 | Outpatient (AMB) | payer OTHER, SELFPAY ==
[2023-08-08 16:29] VITALS: BP 112/66; PULSE 68; O2SAT 97; BMI 34.7
--- NOTE | 2023-08-08 16:29 | A.OFFPC_ITS ---
Vital Signs 08/08/23 16:29 Height 5 ft 5 in Weight 208 lb 6 oz BMI 34.7 BP 112/66 Blood Pressure Location Lt brachial Position Sitting Pulse 68 Pulse Source Pulse Oximeter Pulse Oximetry (%) 97 Oxygen Delivery Method Room Air Intake Visit Reasons: f/u diabetes Intake Note: Patient is here for follow up on diabetes, Allergies amoxicillin [AMOXICILLIN] Allergy (Severe, Verified 08/08/23 16:31) ANAPHYLAXIS codeine [CODEINE] Allergy (Severe, Verified 08/08/23 16:31) ANAPHYLAXIS Sulfa (Sulfonamide Antibiotics) [SULFA (SULFONAMIDE ANTIBIOTICS)] Allergy (Mild, Verified 08/08/23 16:31) Rash, hives, rash Medication List - Last Reconciled 08/08/23 by Ron Morales MD albuterol sulfate 90 mcg/actuation 1 inh inhalation QID PRN budesonide-formoterol 160-4.5 mcg/actuation (Symbicort) 1 puff inhalation BID 30 days calcium citrate-vitamin D3 315 mg-5 mcg (200 unit) (Calcium Citrate + D) 1 tab PO DAILY diclofenac sodium 1% (Voltaren Arthritis Pain) 2 grams topical QID PRN Enbrel Mini (etanercept) 50 mg subcut QWEEK NS epinephrine (EpiPen 2-Juan Luis) 0.3 mg (0.3 mL) IM Q10M PRN gabapentin 600 mg PO TID 30 days levonorgestrel (Mirena) 1 device intrauterine DAILY metformin ER 250 mg (1/2 x 500 mg) PO BID egkivfuetdwg-foi-gokt-FA-vit K 45 mg iron- 800 mcg-120 mcg (Bariatric Multivitamins) caps PO pantoprazole 40 mg PO DAILY sucralfate (Carafate) 10 mL PO QIDACHS Tobacco use date assessed: 08/08/23 Dental Screening Dental Screen Date: 08/08/23 Did you have a dental visit in the last 12 months?: No Did you have a dental problem in the last 6 months where you did not have access to dental care?: No Was dental information given to patient?: Patient has dentist HPI f/u diabetes HPI Details 53 y/o female presents to f/u diabetes. A1c today 08/08/23 5.7%. She is on metformin 250mg b.i.d. She reports she has gone back to weight management and has been eating a lot less. Up to date with diabetic eye exam. [facility] Medical History (Reviewed 08/08/23 @ 16:34 by Tawana Hillman [facility]) Ankylosing spondylitis Bronchitis History of COVID-19 Knee pain, right Chronic headaches Morbid obesity with BMI of 40.0-44.9, adult Abnormal findings on esophagogastroduodenoscopy (EGD) Tubal ligation evaluation Cellulitis Concussion Ankylosing spondylitis Obstructive sleep apnea Asthma GERD (gastroesophageal reflux disease) Diabetes mellitus Menopause Surgical History (Reviewed 08/08/23 @ 16:34 by Tawana Hillman [facility]) History of esophagogastroduodenoscopy (EGD) Hx of colonoscopy Status post insertion of nerve stimulator History of cholecystectomy Gastric bypass status for obesity H/O lumpectomy Hx of tubal ligation Hx laparoscopic cholecystectomy History of Krystian-en-Y gastric bypass Family History Father Ankylosing spondylitis of site in spine DM (diabetes mellitus) Alzheimer disease COPD (chronic obstructive pulmonary disease) Skin cancer RA (rheumatoid arthritis) Mother RA (rheumatoid arthritis) Son No problems noted. Maternal Grandfather Prostate cancer Bone cancer Social History (Reviewed 08/08/23 @ 16:34 by Tawana Hillman [facility]) Household Members: Spouse Housing: House Are you a primary family day care worker to a significant other at home: No Do you presently have visiting nurse or other home services: No Alcohol intake: current Alcohol intake frequency: holidays/special occasions only Patient Tobacco Use Status: Former Tobacco user Quit Date: 1987 Tobacco use type: Cigarette and Cigar Years Smoked: 4 e-Cigarette/Vaping Use: Never Used Second Hand Smoke Exposure: No Substance Use Type: Marijuana service: No Current occupational status: employed Current occupational exposures/hazards: No Cognitive needs: No Hearing needs: No Vision needs: No Questionnaire Thrive Questionnaire Date Thrive assessed: 09/13/21 JANE-7 AMB Questionnaire JANE-7 Date JANE - 7 assessed: 01/02/23 Source: Developed by Drs. Jose Delgado, Lu Corona, Jung Ruby and colleagues, with an educational wily from [employer]. Physical exam (Primary Care) Vital Signs: Last Vital Signs Pulse 68 08/08/23 16:29 BP 112/66 08/08/23 16:29 Pulse Ox 97 08/08/23 16:29 Oxygen Delivery Method Room Air 08/08/23 16:29 BMI result Body Mass Index 29.1 Tobacco/Smoking Status: Tobacco use Status Tobacco use date assessed 08/08/23 08/08/23 16:34 Patient Tobacco Use Status Former Tobacco user 08/08/23 16:34 Tobacco use type Cigarette,Cigar 08/08/23 16:34 e-Cigarette/Vaping Use Never Used 08/08/23 16:34 Thrive Assessment: Date of Thrive Assessment Date Thrive assessed 09/13/21 08/08/23 16:34 Assessment and Plan Assessment & Plan (1) Diabetes: Code(s): E11.9 - Type 2 diabetes mellitus without complications Plan: A1c?now?5.7%.??Good?control.??Goal?is?less?than?7.0% Continue?current?medication She?has?been?working?on?weight?loss?and?I?encouraged?her?to?continue?the Up-to-date?with?eye?exam?which?showed?no?diabetic?retinopathy (2) Back pain: Code(s): M54.9 - Dorsalgia, unspecified Plan: Controlled?with?spinal?stimulator Coding Level of Care Code Est Pt Level 3 (46789) Diagnoses Diabetes E11.9 Back pain M54.9
== END 2023-08-08 17:14 | disposition home or self-care (01) ==
PROVIDERS: PCP Family Medicine; Visit Provider Family Medicine
DX: E11.9 Type 2 diabetes mellitus without complications (principal); M54.9 Dorsalgia, unspecified
CPT/HCPCS: 83036; 99213

== ENCOUNTER → 2023-08-19 08:37 | Outpatient (BNV) | payer OTHER, SELFPAY | PROVIDERS: PCP Family Medicine; Visit Provider Radiology Diagnostic Radiology | DX: R13.10 Dysphagia, unspecified (principal) | CPT/HCPCS: 74246 ==

== ENCOUNTER → 2023-08-19 23:59 | Outpatient (REF) | payer OTHER, SELFPAY ==
--- NOTE | ~2023-08-19 | FL_ITS ---
EXAMINATION: XR FLUOROSCOPY UPPER GI WITH AIR CLINICAL INFORMATION: Dysphasia, a dynamic dysphasia with foods, things getting stuck distally , problems with solids only. COMPARISON: 03/05/2018 TECHNIQUE: Fluoroscopic air contrast upper GI examination was performed utilizing standard techniques with thin and thick barium and effervescent granules. Numerous spot images were obtained. Several fluoroscopic image hold cine sequences were also obtained. FINDINGS: Lateral cine images of the oropharynx and hypopharynx demonstrate normal swallow mechanism with normal epiglottic inversion and soft palate elevation. No tracheal penetration, glottic or subglottic aspiration identified. No nasopharyngeal reflux present. Hypopharyngeal structures appear normal without evidence of mass or diverticulum. There was no significant cricopharyngeal achalasia. Dual and single contrast images of the esophagus demonstrate normal caliber, contour, and mucosal pattern. Feline esophagus noted briefly. No evidence of stricture, mass, or ulcerations identified. Esophageal peristalsis was normal. There is a small type I sliding hiatus hernia. Just inferior to the hiatus hernia, there appears to be a benign moderate stricture which never fully opens on any view, just above the gastric pouch (RF #1-6, image 108 of 161). This is felt to possibly represent a benign stricture based upon reflux or surgery. Dual contrast and single contrast images of the stomach demonstrated a gastric pouch with a normal appearance, and normal appearance of a gastrojejunostomy. No strictures or dilatation. Normal appearance of the gastrojejunostomy. The imaged proximal jejunum has a normal fold pattern and caliber. There is both a thoracic and cervical spinal stimulator. There are cholecystectomy clips present. FLUOROSCOPY TIME: 4 minutes 28 seconds Number of Spot Images: 12 Number of cines obtained: 9 DOSE AREA PRODUCT: [id number] uGy-m2 (microgray-meter squared) FL/FL upper GI w air IMPRESSION: 1. Patient is status post gastric bypass. The gastric pouch, and gastrojejunostomy appear normal. 2. There is a small type I sliding hiatus hernia. There is mild gastroesophageal reflux. 3. Just below the hiatus hernia, there appears to be a moderate stricture, short segment, which never fully opens on this examination. Suspect a benign stricture either based upon the reflux or surgery. See above for details.
== END | disposition home or self-care (01) ==
LOC: HO.XRAY
PROVIDERS: PCP Family Medicine; Visit Provider Physician Assistant
DX: R13.10 Dysphagia, unspecified (principal); R14.2 Eructation; Z98.84 Bariatric surgery status
CPT/HCPCS: 74246

== ENCOUNTER 2023-09-03 13:03 | Day surgery (SDC) | payer MEDICARE, MEDICAID, SELFPAY ==
--- NOTE | 2023-08-29 23:52 | MHC.SHP ---
Pre-Procedural Eval Section A Date of Service: 08/29/23 The patient is an INPATIENT: No The History & Physical has been completed within 30 days and I have reviewed it.: Yes Section B Chief Complaint: Morbid (severe) obesity due to excess calories Details of Present Illness: Epigastric pain Relevant Family History (Specify if Yes): No Relevant Social History: None Present Medications: None Medical History: No relevant PMH History of Previous Operations: Relevant previous surgery/procedure and date(s) (laparoscopic gastric bypass) Allergies: Allergies Allergy/AdvReac Type Severity Reaction Status Date / Time amoxicillin [AMOXICILLIN] Allergy Severe ANAPHYLAXIS Verified 08/08/23 16:31 codeine [CODEINE] Allergy Severe ANAPHYLAXIS Verified 08/08/23 16:31 Sulfa (Sulfonamide Allergy Mild Rash, Verified 08/08/23 16:31 Antibiotics) hives, rash [SULFA (SULFONAMIDE ANTIBIOTICS)] Review of Systems Sugical H&P ROS: Negative: Constitution, Cardiovascular, Respiratory, Neurological, Psychiatric, Hem-Onc, Allergic/Immunologic, Genitourinary, Musculoskeletal, Integumentary, Endocrine and Eyes/Ears/Nose/Throat and Yes, Specify: Gastrointestinal (abdominal pain) Exam Surgical H&P Exam: Normal: HEENT, Normal: Heart, Normal: Lungs, Normal: Extremities, Normal: Abdomen, Normal: Skin and Normal: Neurological Plan Diagnosis/Plan: Unchanged (EGD to assess for anastomotic ulcer. Risks for perforation and bleeding were discussed with patient. She is in agreement with the plan) I have reviewed the history and physical and performed a pertinent physical examination on my patient. No changes have occurred unless specified. Time Spent With Patient Time: Total time managing care of this patient today ____ minutes.
--- NOTE | 2023-09-02 10:18 | P.CONAN_ITS ---
Documented by User: Lauren Martinez NP 09/02/23 10:19 HPI - Anesthesia Eval Consult details Narrative: 53yo F for Upper Endoscopy PMFSH Active Problems Active Problems: All Active Problems (Updated 08/08/23 @ 17:04 by Tucker Azul) Back pain (Acute) Belching (Acute) Dysphagia (Acute) Palpitations (Acute) Greater trochanteric pain syndrome of left lower extremity (Acute) Gastric bypass status for obesity (Acute) Fatigue (Acute) Pharyngitis (Acute) URI (upper respiratory infection) (Acute) Normochromic anemia (Acute) Bronchitis (Acute) Sprain of cervical neck (Acute) Overweight (BMI 25.0-29.9) (Acute) Migraine (Acute) Nausea (Acute) Spondyloarthropathy (Acute) Chest pain (Acute) Tendinopathy of left rotator cuff (Acute) Tendinopathy of right rotator cuff (Acute) Cervicalgia (Acute) Upper back pain (Acute) Vertigo (Acute) Thoracic degenerative disc disease (Acute) Neck mass (Acute) Adjustment disorder, unspecified (Acute) Binge eating disorder (Acute) Allergic reaction (Acute) Laboratory examination ordered as part of a routine general medical examination (Acute) Obesity (BMI 30-39.9) (Acute) Annual physical exam (Acute) Elevated fasting blood sugar (Acute) Screening for colon cancer (Acute) Breast cancer screening by mammogram (Acute) Screening for cervical cancer (Acute) Anemia (Acute) Obesity (BMI 30-39.9) (Acute) Mild anemia (Acute) Elevated TSH (Acute) Elevated erythrocyte sedimentation rate (Acute) Right anterior knee pain (Acute) Fluid in right knee joint (Acute) Varicose veins of right lower extremity with inflammation (Acute) Lymphedema (Acute) Adult general medical exam (Acute) Diabetes (Acute) Anxiety (Acute) GERD (gastroesophageal reflux disease) (Acute) Knee pain, right (Acute) Chronic headaches (Acute) Ankylosing spondylitis (Acute) Asthma (Acute) Menopause (Acute) Past Medical History Medical History Ankylosing spondylitis Bronchitis History of COVID-19 Knee pain, right Chronic headaches Morbid obesity with BMI of 40.0-44.9, adult Abnormal findings on esophagogastroduodenoscopy (EGD) Tubal ligation evaluation Cellulitis Concussion Ankylosing spondylitis Obstructive sleep apnea Asthma GERD (gastroesophageal reflux disease) Diabetes mellitus Menopause Family History Family History Father Ankylosing spondylitis of site in spine DM (diabetes mellitus) Alzheimer disease COPD (chronic obstructive pulmonary disease) Skin cancer RA (rheumatoid arthritis) Mother RA (rheumatoid arthritis) Son No problems noted. Maternal Grandfather Prostate cancer Bone cancer Family history of problems with anesthesia: No Surgical History Surgical History History of esophagogastroduodenoscopy (EGD) Hx of colonoscopy Status post insertion of nerve stimulator History of cholecystectomy Gastric bypass status for obesity H/O lumpectomy Hx of tubal ligation Hx laparoscopic cholecystectomy History of Krystian-en-Y gastric bypass History of Problems with Anesthesia: No Social History Social History Household Members: Spouse Housing: House Are you a primary career development coordinator/teacher to a significant other at home: No Do you presently have visiting nurse or other home services: No Alcohol intake: current Alcohol intake frequency: holidays/special occasions only Patient Tobacco Use Status: Former Tobacco user Quit Date: 1987 Tobacco use type: Cigarette and Cigar Years Smoked: 4 e-Cigarette/Vaping Use: Never Used Second Hand Smoke Exposure: No Use of substances other than those prescribed or required for medical reasons: No Substance Use Type: Marijuana Are you DNR?: No Advance Directives: No Advance Directives Information Provided: Yes service: No Current occupational status: employed Current occupational exposures/hazards: No Cognitive needs: No Hearing needs: No Vision needs: No Meds Allergies Allergy/AdvReac Type Severity Reaction Status Date / Time amoxicillin [AMOXICILLIN] Allergy Severe ANAPHYLAXIS Verified 09/03/23 13:38 codeine [CODEINE] Allergy Severe ANAPHYLAXIS Verified 09/03/23 13:38 Sulfa (Sulfonamide Allergy Mild Rash, Verified 09/03/23 13:38 Antibiotics) hives, rash [SULFA (SULFONAMIDE ANTIBIOTICS)] Home Medications Medication Instructions Recorded Confirmed Last Taken Type calcium citrate 315 mg-vitamin D3 1 tab PO DAILY 06/08/20 08/08/23 Unknown History 5 mcg (200 unit) tablet (Calcium Citrate + D) levonorgestrel 21 mcg/24 hours (8 1 device intrauterine DAILY 06/28/20 08/08/23 Unknown History yrs) 52 mg intrauterine device (Mirena) diclofenac sodium 1 % topical gel 2 g topical QID PRN Pain 03/28/22 08/08/23 Unknown History (Voltaren Arthritis Pain) pantoprazole 40 mg tablet,delayed 40 mg PO DAILY 07/31/23 09/03/23 09/03/23 History release lixjmjaj-[id number] 45 mg-folic cap PO 08/08/23 08/08/23 Unknown History acid 800 mcg-vit K 120 mcg capsule (Bariatric Multivitamins) Exam Pertinent Lab Results Pertinent Lab Results: Laboratory Tests 07/29/23 09:42 WBC 6.6 Hgb 13.2 Hct 40.3 Plt Count 198 Sodium 141 Potassium 4.3 Chloride 106 Carbon Dioxide 26 BUN 18 H Creatinine 0.75 Narrative Narrative: EKG 12/2022 Vent. Rate : 068 BPM Atrial Rate : 068 BPM P-R Int : 126 ms QRS Dur : 068 ms QT Int : 356 ms P-R-T Axes : 007 019 009 degrees QTc Int : 378 ms Normal sinus rhythm Normal ECG When compared with ECG of 26-AUG-2022 16:37, No significant change was found Assessment and Plan Assessment Anesthesia Assessment: Chart Reviewed Final Anesthetic Review Family History of Problems with Anesthesia: No History of Problems with Anesthesia: No Documented by User: Sofi Blackman MD 09/03/23 13:50 [facility] Past Medical History Medical History Ankylosing spondylitis Bronchitis History of COVID-19 Knee pain, right Chronic headaches Morbid obesity with BMI of 40.0-44.9, adult Abnormal findings on esophagogastroduodenoscopy (EGD) Tubal ligation evaluation Cellulitis Concussion Ankylosing spondylitis Obstructive sleep apnea Asthma GERD (gastroesophageal reflux disease) Diabetes mellitus Menopause Family History Family History Father Ankylosing spondylitis of site in spine DM (diabetes mellitus) Alzheimer disease COPD (chronic obstructive pulmonary disease) Skin cancer RA (rheumatoid arthritis) Mother RA (rheumatoid arthritis) Son No problems noted. Maternal Grandfather Prostate cancer Bone cancer Surgical History Surgical History History of esophagogastroduodenoscopy (EGD) Hx of colonoscopy Status post insertion of nerve stimulator History of cholecystectomy Gastric bypass status for obesity H/O lumpectomy Hx of tubal ligation Hx laparoscopic cholecystectomy History of Krystian-en-Y gastric bypass Social History Social History Household Members: Spouse Housing: House Are you a primary career development coordinator/teacher to a significant other at home: No Do you presently have visiting nurse or other home services: No Alcohol intake: current Alcohol intake frequency: holidays/special occasions only Patient Tobacco Use Status: Former Tobacco user Quit Date: 1987 Tobacco use type: Cigarette and Cigar Years Smoked: 4 e-Cigarette/Vaping Use: Never Used Second Hand Smoke Exposure: No Use of substances other than those prescribed or required for medical reasons: No Substance Use Type: Marijuana Are you DNR?: No Advance Directives: No Advance Directives Information Provided: Yes service: No Current occupational status: employed Current occupational exposures/hazards: No Cognitive needs: No Hearing needs: No Vision needs: No Meds Allergies Allergy/AdvReac Type Severity Reaction Status Date / Time amoxicillin [AMOXICILLIN] Allergy Severe ANAPHYLAXIS Verified 09/03/23 13:38 codeine [CODEINE] Allergy Severe ANAPHYLAXIS Verified 09/03/23 13:38 Sulfa (Sulfonamide Allergy Mild Rash, Verified 09/03/23 13:38 Antibiotics) hives, rash [SULFA (SULFONAMIDE ANTIBIOTICS)] Home Medications Medication Instructions Recorded Confirmed Last Taken Type calcium citrate 315 mg-vitamin D3 1 tab PO DAILY 06/08/20 08/08/23 Unknown History 5 mcg (200 unit) tablet (Calcium Citrate + D) levonorgestrel 21 mcg/24 hours (8 1 device intrauterine DAILY 06/28/20 08/08/23 Unknown History yrs) 52 mg intrauterine device (Mirena) diclofenac sodium 1 % topical gel 2 g topical QID PRN Pain 03/28/22 08/08/23 Unknown History (Voltaren Arthritis Pain) pantoprazole 40 mg tablet,delayed 40 mg PO DAILY 07/31/23 09/03/23 09/03/23 History release oxoezals-vwgpjbkx-jvzn 45 mg-folic cap PO 08/08/23 08/08/23 Unknown History acid 800 mcg-vit K 120 mcg capsule (Bariatric Multivitamins) Exam Airway Mallampati Class: II TM Dist: >3cm Neck ROM: Full Loose/Missing/Broken Teeth: No Heart: RRR Lungs: CTA Assessment and Plan Assessment Anesthesia Assessment: Anesthesia Plan Discussed Final Anesthetic Review NPO: Yes ASA Class: II Final Preanesthetic Review: Meds/Allgs Chart Reviewed, Consent Obtained/Reviewed and Anes Risks/Benef Reviewed Patient Risk: Low Procedure Risk: Intermediate Anesthetic Plan Anesthetic Plan: MAC: Disposition: Standard PACU
--- NOTE | 2023-09-03 12:33 | P.BOP_ITS ---
Brief Operative Note Date of Service: 09/03/23 Pre-op diagnosis: Epigastric abdominal pain, s/p gastric bypass Post-op diagnosis: same Procedure: PROCEDURE DATE: ?09/03/2023 PREOPERATIVE DIAGNOSIS: Epigastric abdominal pain, s/p gastric bypass POSTOPERATIVE DIAGNOSIS: ?Same as above. 1) Small to moderate diaphragmatic hernia PROCEDURE: [id number] Surgeon: ?Vaughn Vila M.D.. Ph.D. Ingot Caster: ?None ? Anesthesia: IV sedation Estimated blood loss: ?Minimal FINDINGS AND PROCEDURE: ? OPERATIVE INDICATIONS: ?The patient is a 53 year old female known to me who underwent a laparoscopic gastric bypass by me. The patient has been complaining for epigastric pain.? Based on this information I recommended an upper endoscopy to evaluate the patient's symptoms and rule out an anastomotic ulcer.? Risks and complications of the surgery were discussed with the patient in advance particularly the possibility of perforation or bleeding that may require surgical intervention. The patient understood the risks and was in agreement with the plan. ? PROCEDURE: After informed consent was obtained by the patient, the patient was ?transferred to the Operating Room and was placed in the supine position.? After successful induction of IV sedation, a mouth block was placed and the patient was placed in the left lateral decubitus position. An upper endoscopy was performed next, the oropharynx and esophagus appeared within the normal limits. There was a 3-4cm hiatal hernia.? The z-line was smooth. The small pouch was entered, appeared to be of normal size. There was no gastritis and the gastrojejunostomy was patent. There was no anastomotic ulcer.? At that point the scope was advanced into the proximal small intestine (proximal Krystian limb) which appeared to be normal as well. The Krystian limb and the pouch were decompressed and the scope was withdrawn from the patient's mouth. The patient was awaken and was transferred in stable condition to the Recovery Room for further care. I was present and performed all steps of the procedure. There were no residents to assist with this case. Vaughn Vila M.D., Ph.D. Surgeon: Bjorn Vila MD Anesthesia: MAC Was an Ingot Caster used for this Procedure?: No Estimated blood loss (mL): 0 IV fluids (mL): 400 Urine output (mL): 0 (No Frias to record output) Pathology: none sent Condition: stable Disposition: PACU
[2023-09-03 13:11] VITALS: BMI 32.8
[2023-09-03] MEDS: Lactated Ringers 1,000 ML 80 ML IVCONT (13:33)
[2023-09-03 13:37] VITALS: BP 111/60; PULSE 76; RESP 16; TEMP 36.3; O2SAT 95
[2023-09-03 13:39] LABS: Glucose, Whole Blood 102 mg/dL (60-115)
[2023-09-03 14:05] VITALS: BP 97/62; PULSE 79; RESP 12; TEMP 36.6; O2SAT 95
[2023-09-03 14:20] VITALS: BP 110/69; PULSE 75; RESP 14; O2SAT 96
[2023-09-03 14:35] VITALS: BP 114/67; PULSE 71; RESP 18; TEMP 36.3; O2SAT 97
== END 2023-09-03 15:20 | disposition home or self-care (01) ==
LOC: HO.SSS 13:04
PROVIDERS: PCP Family Medicine; Visit Provider Surgery
PROC: 0DJ08ZZ Inspection of Upper Intestinal Tract, Via Natural or Artificial Opening Endoscopic (ICD-10-PCS; CPT 43235; principal; 2023-09-03 14:30)
DX: R10.13 Epigastric pain (principal); K44.9 Diaphragmatic hernia without obstruction or gangrene; K21.9 Gastro-esophageal reflux disease without esophagitis; E66.01 Morbid (severe) obesity due to excess calories; Z68.34 Body mass index [BMI] 34.0-34.9, adult; Z98.84 Bariatric surgery status; M45.9 Ankylosing spondylitis of unspecified sites in spine; R51.9 Headache, unspecified; J45.909 Unspecified asthma, uncomplicated; E11.9 Type 2 diabetes mellitus without complications; G47.33 Obstructive sleep apnea (adult) (pediatric); Z79.84 Long term (current) use of oral hypoglycemic drugs; Z79.899 Other long term (current) drug therapy; Z96.82 Presence of neurostimulator; Z88.1 Allergy status to other antibiotic agents; Z88.2 Allergy status to sulfonamides; Z88.5 Allergy status to narcotic agent; Z90.49 Acquired absence of other specified parts of digestive tract; Z86.16 Personal history of COVID-19; Z87.891 Personal history of nicotine dependence
CPT/HCPCS: 43235; 82947; J1596; J2250; J2704

== ENCOUNTER → 2023-09-03 13:03 | Outpatient (BNV) | payer MEDICARE, SELFPAY | PROVIDERS: PCP Family Medicine; Visit Provider Surgery | DX: R10.13 Epigastric pain (principal) | CPT/HCPCS: 43235 ==

== ENCOUNTER 2023-09-14 18:07 | Emergency (ER) | payer MEDICARE, MEDICAID, SELFPAY ==
--- NOTE | ~2023-09-14 | CT_ITS ---
EXAMINATION: CT ABDOMEN AND PELVIS WITHOUT CONTRAST CLINICAL INFORMATION: Left-sided flank pain COMPARISON: CT enterography 07/01/2022 TECHNIQUE: Multidetector volumetric imaging was performed from the superior aspect of the liver through the pubic symphysis. Sagittal and coronal reformatted images were obtained on the technologist's workstation. This CT examination was performed using dose optimization techniques as appropriate, variously including the following: *Automated exposure control *Adjustment of mA and/or kV according to patient size (this includes techniques or standardized protocols for targeted exams where dose is matched to indication/reason for exam; i.e. extremities or head) *Use of iterative reconstruction technique DLP: 734 mGy-cm FINDINGS: LUNG BASES: The visualized lung bases are unremarkable. LIVER, GALLBLADDER, AND BILIARY TREE: The liver is normal in size, shape, and attenuation. No focal hepatic lesion or biliary ductal dilatation is present. Status post cholecystectomy. PANCREAS: Unremarkable. SPLEEN: Unremarkable. ADRENAL GLANDS: Unremarkable. KIDNEYS AND URETERS: The kidneys are normal in size, shape, and attenuation. There is a 3 mm nonobstructing right mid renal calculus. No left-sided calculi are present. No hydronephrosis, hydroureter, or ureteral calculi seen. No perinephric stranding. A benign left lower pole 1.0 cm Bosniak class I renal cyst is noted which requires no additional imaging or follow up. No solid renal masses are seen. BLADDER: Unremarkable. GASTROINTESTINAL TRACT: Status post gastric bypass. A small hiatal hernia is present. The small and large bowel are unremarkable. The appendix is unremarkable. ABDOMINAL WALL: No significant hernia is appreciated. Surgical cresencio are present in the left upper quadrant abutting the abdominal wall. A spinal stimulator is present with the generator in the right buttock. Leads are seen in the epidural space entering at T11-T12, beyond the [id number]. LYMPH NODES: No retroperitoneal lymphadenopathy. VASCULAR: Unremarkable. Circumaortic left renal vein. PELVIC VISCERA: The uterus and adnexa are unremarkable. And IUD is present within the uterus in good position OSSEOUS STRUCTURES: There is a scoliosis convex to left with degenerative changes present in the spine. No bony destructive lesions are seen. CT/CT abdomen pelvis wo IV con IMPRESSION: 1. A cause for the patient's left-sided flank pain has not been found. 2. Incidental note made of a 3 mm nonobstructing right renal calculus, cholecystectomy, gastric bypass, IUD and degenerative changes in the spine. Fleischner guidelines were followed.
[2023-09-14 18:22] VITALS: BP 124/65; PULSE 71; RESP 18; TEMP 36.1; O2SAT 97; BMI 34.8
[2023-09-14 18:40] LABS: Appearance Urine Clear; Color Urine Yellow; Glucose Urine UA Negative (Negative); Leukocyte Esterase Urine Trace (Negative); Nitrite Urine Negative (Negative); Specific Gravity - Urine <= 1.005 (1.005-1.025); UMIC TRIGGER UACC YES; Urine Blood Negative (Negative); Urine Ketones Negative (Negative); Urine Protein Negative (Neg-Trace)
[2023-09-14 18:44] LABS: Bacteria Urine None Seen (None Seen); Hyaline Casts Urine 0-2 /LPF (0-2); RBC Urine 0-2 /HPF (0-2); Squamous Epithelial Cell Urine 0-2 /HPF (0-2); WBC Urine 0-5 /HPF (0-5)
--- NOTE | 2023-09-14 19:09 | ED_ITS ---
HPI - Abdominal Pain General Chief Complaint: Back Pain/Injury Stated Complaint: abd/back pain on left side Time Seen by Provider: 09/14/23 18:35 Source: patient, family and old records reviewed Mode of arrival: ambulatory Limitations: no limitations History of Present Illness HPI narrative: 53 yo female with PMH of renal colic, danita en y gastric bypass 5 year ago at [facility], spinal stimulator thoracic/cervical, migraines, DM, GERD, anxiety, anemia here with c/o L flank pain starting abruptly today with mild nausea. Cannot get comfortable, no trauma, no fevers, no diarrhea. MD elicited complaint: abdominal pain and flank pain Pertinent past history: kidney stones Onset (ago): day(s) (few) Pain Consistency: constant Location: L flank Severity: severe Quality: stabbing Radiation: L flank Migration to: no migration Exacerbating factors: nothing Relieving factors: nothing Context: history of similar episodes Associated symptoms: nausea Related Data Home Medications Medication Instructions Recorded Confirmed calcium citrate 315 mg-vitamin D3 1 tab PO DAILY 06/08/20 08/08/23 5 mcg (200 unit) tablet (Calcium Citrate + D) levonorgestrel 21 mcg/24 hours (8 1 device intrauterine DAILY 06/28/20 08/08/23 yrs) 52 mg intrauterine device (Mirena) diclofenac sodium 1 % topical gel 2 g topical QID PRN Pain 03/28/22 08/08/23 (Voltaren Arthritis Pain) pantoprazole 40 mg tablet,delayed 40 mg PO DAILY 07/31/23 09/03/23 release ipzfpspf-spljrhan-soao 45 mg-folic cap PO 08/08/23 08/08/23 acid 800 mcg-vit K 120 mcg capsule (Bariatric Multivitamins) Previous Rx's Medication Instructions Recorded epinephrine 0.3 mg/0.3 mL 0.3 mg (0.3 mL) IM Q10M PRN 11/21/20 injection, auto-injector (EpiPen anaphylaxis #2 ea 2-Juan Luis) albuterol sulfate 90 mcg/actuation 1 inh inhalation QID PRN shortness 08/26/22 aerosol inhaler of breath or wheezing #8.5 grams budesonide-formoterol HFA 160 1 puff inhalation BID 30 days 11/04/22 mcg-4.5 mcg/actuation aerosol #10.2 grams inhaler (Symbicort) gabapentin 600 mg tablet 600 mg PO TID 30 days #90 tabs 01/29/23 sucralfate 100 mg/mL oral 10 ml PO QIDACHS #420 mL 07/14/23 suspension (Carafate) Enbrel Mini 50 mg/mL (1 mL) 50 mg subcut QWEEK #4 mL 08/05/23 subcutaneous cartridge (etanercept) metformin 500 mg tablet,extended 250 mg (1/2 x 500 mg) PO BID #90 09/09/23 release 24 hr tabs cyclobenzaprine 10 mg tablet 10 mg PO TID PRN muscle spasm #20 09/14/23 tabs lidocaine 5 % topical patch 1 patch topical DAILY #30 ea 09/14/23 Allergies Allergy/AdvReac Type Severity Reaction Status Date / Time amoxicillin [AMOXICILLIN] Allergy Severe ANAPHYLAXIS Verified 09/14/23 18:28 codeine [CODEINE] Allergy Severe ANAPHYLAXIS Verified 09/14/23 18:28 Sulfa (Sulfonamide Allergy Mild Rash, Verified 09/14/23 18:28 Antibiotics) hives, rash [SULFA (SULFONAMIDE ANTIBIOTICS)] Review of Systems Review of Systems Constitutional : No Weight loss, No Fever, No Chills ENT/Mouth : No sore throat, No Rhinorrhea Eyes: No Swelling, No Redness Cardiovascular : No Chest Pain, No SOB, NoEdema Respiratory : No Cough, No Sputum, No Wheezing Gastrointestinal : Positive Nausea, no Vomiting, no Diarrhea, positive abdominal Pain, No Hematochezia, No Melena Genitourinary : No Dysuria, No Urinary Frequency, No Hematuria, No Urgency Musculoskeletal : No joint pain, No Myalgias, No Joint Swelling Skin : No Skin Lesions, No rash Neuro : No Weakness, No Numbness, No Dizziness, No Headache Psych : No Anxiety/Panic, No Depression All other systems reviewed and are negative. [facility] Past Medical History Attestation statement: The following information was validated with the patient. Source: old records reviewed Onset Date is defined in the Problem List Problems that require an onset date and time if occurred within 24 hrs of arrival to the ED Aortic Dissection and Rupture; Neurologic impairment; Cardiopulmonary Arrest; Endotracheal Intubation; Insertion or Replacement of Mechanical Circulatory Assist Device Medical History Ankylosing spondylitis Bronchitis History of COVID-19 Knee pain, right Chronic headaches Morbid obesity with BMI of 40.0-44.9, adult Abnormal findings on esophagogastroduodenoscopy (EGD) Tubal ligation evaluation Cellulitis Concussion Ankylosing spondylitis Obstructive sleep apnea Asthma GERD (gastroesophageal reflux disease) Diabetes mellitus Menopause Surgical History History of esophagogastroduodenoscopy (EGD) Hx of colonoscopy Status post insertion of nerve stimulator History of cholecystectomy Gastric bypass status for obesity H/O lumpectomy Hx of tubal ligation Hx laparoscopic cholecystectomy History of Danita-en-Y gastric bypass Family History Family History Father Ankylosing spondylitis of site in spine DM (diabetes mellitus) Alzheimer disease COPD (chronic obstructive pulmonary disease) Skin cancer RA (rheumatoid arthritis) Mother RA (rheumatoid arthritis) Son No problems noted. Maternal Grandfather Prostate cancer Bone cancer Social History Social History Household Members: Spouse Housing: House Are you a primary urgent care physician to a significant other at home: No Do you presently have visiting nurse or other home services: No Alcohol intake: current Alcohol intake frequency: holidays/special occasions only Alcohol type: wine and hard liquor Patient Tobacco Use Status: Former Tobacco user Quit Date: 1987 Tobacco use type: Cigarette and Cigar Years Smoked: 4 e-Cigarette/Vaping Use: Never Used Second Hand Smoke Exposure: No Substance Use Type: Marijuana service: No Current occupational status: employed Current occupational exposures/hazards: No Cognitive needs: No Hearing needs: No Vision needs: No Physical Exam ED Vital Signs: Vital Signs - 24 hr 09/14/23 18:22 09/14/23 19:11 09/14/23 21:53 Temperature 97 F 98.1 F Pulse Rate 71 83 Respiratory Rate 18 17 16 Blood Pressure 124/65 120/71 Pulse Oximetry 97 97 Oxygen Delivery Method Room Air Room Air 09/14/23 22:01 Temperature 98.2 F Pulse Rate 84 Respiratory Rate 16 Blood Pressure 114/67 Pulse Oximetry 99 Oxygen Delivery Method Room Air BMI result Body Mass Index 34.8 Appearance: Alert. Oriented X3. Mild acute distress. Appears uncomfortable and in pain Eyes: Pupils equal, round and reactive to light. ENT: Pharynx normal. Neck: Normal inspection. Neck supple. CVS: Normal heart rate and rhythm. Pulses normal. Respiratory: No respiratory distress. Breath sounds normal. Abdomen: Soft and nontender. Has mild L CVA ttp Skin: Skin warm and dry. Normal skin color. Normal skin turgor. Extremities: No lower extremity edema. No calf ttp Neuro: Oriented X 3. No motor deficit. No sensory deficit. Medical Decision Making Medical Decision Making [facility] Narrative: 53 yo female with PMH of renal colic, danita en y gastric bypass 5 year ago at [facility], spinal stimulator thoracic/cervical, migraines, DM, GERD, anxiety, anemia here with abrupt onset L flank pain unsure if this reminds her of her prior renal colic at this time will obtain basic labs, IV morphine for pain, CT scan for renal colic, colitis, overall abdomen is benign so SBO or hernia seems unlikely and she is not having n/v or obstructive symptoms clinically. Differential Diagnosis Differential Diagnoses: The differential diagnosis associated with the presentation includes strain, renal colic, colitis Admission/Observation Consideration of admission/observation: Escalation of care including admission/observation considered pain improved, labs, UA and CT scan no acute findings is feeling better no hypoxia tachycardia to suggest VTE Lab Data [facility] Lab Attestation statement: I reviewed the patient's lab results. 09/14/23 19:07 09/14/23 19:07 Labs: Lab Results 09/14/23 09/14/23 Range/Units 18:32 19:07 WBC 8.1 (4.8-10.8) X10*3/uL RBC 4.29 (4.20-5.50) X10*6/uL Hgb 13.0 (12.0-16.0) g/dl Hct 38.5 (37.0-47.0) % MCV 89.7 (80.0-98.0) fL MCH 30.3 (27.0-33.0) pg MCHC 33.8 (31.0-35.0) g/dl RDW 12.5 (11.0-16.0) % Plt Count 187 (160-400) X10*3/uL MPV 10.7 (9.4-12.3) fL Immature Gran % (Auto) 0.1 (0.0-0.4) % Neut % (Auto) 46.7 (45-73) % Lymph % (Auto) 44.0 H (20-40) % [place] % (Auto) 7.0 (2-11) % Eos % (Auto) 1.7 (0-4) % Baso % (Auto) 0.5 (0-2) % Lymph # (Auto) 3.5 (1.2-4.9) X10*3/uL [place] # (Auto) 0.6 (0.1-1.2) X10*3/uL Eos # (Auto) 0.1 (0.0-0.4) X10*3/uL Baso # (Auto) 0.0 (0.0-0.2) X10*3/uL Abs Immat Gran (auto) 0.01 (0.00-0.03) X10*3/uL Absolute Neuts (auto) 3.8 (2.0-8.3) x10*3/uL Absolute Nucleated RBC 0.000 (0.0-0.012) X10*3/uL Nucleated RBC % (auto) 0.0 (0.0-0.2) /100WBC Sodium 140 (135-145) mmol/L Potassium 4.9 (3.3-5.1) mmol/L Chloride 105 (96-108) mmol/L Carbon Dioxide 30 H (22-29) mmol/L Anion Gap 10 L (12-20) BUN 18 H (9-16) mg/dL Creatinine 0.81 (0.5-1.4) mg/dL Estim Creat Clear Calc 92.6 Estimated GFR > 60 Random Glucose 120 H (60-115) mg/dL Calcium 9.3 (8.4-10.2) mg/dL Magnesium 2.1 (1.6-2.6) mg/dL Total Bilirubin 0.3 (0.0-1.0) mg/dL Direct Bilirubin 0.1 (0.0-0.5) mg/dL AST 23 (5-31) U/L ALT 12 (0-31) U/L Alkaline Phosphatase 74 (39-117) U/L Total Protein 7.1 (6.5-8.0) g/dL Albumin 4.1 (3.5-5.0) g/dL Lipase 16 (8-78) U/L Urine Color Yellow Urine Appearance Clear Urine pH 6.0 (5.0-9.0) Ur Specific [place] <= 1.005 (1.005-1.025) Urine Protein Negative (Neg-Trace) mg/dL Urine Glucose (UA) Negative (Negative) mg/dL Urine Ketones Negative (Negative) mg/dL Urine Blood Negative (Negative) Urine Nitrite Negative (Negative) Ur Leukocyte Esterase Trace H (Negative) Urine RBC 0-2 (0-2) /HPF Urine WBC 0-5 (0-5) /HPF Ur Squamous Epith Cells 0-2 (0-2) /HPF Urine Bacteria None Seen (None Seen) Hyaline Casts 0-2 (0-2) /LPF Independent Interpretation I performed an independent interpretation of an: CT Scan (no acute findings) Radiology Impression Discussion of test interpretation with radiology: I have reviewed the radiologist's reading. External Record Review External record reviewed: Inpatient record Prescription Management I considered prescription management with: Pain Medication and Other Medications Administered Discontinued Medications Generic Name Dose Route Start Last Admin Trade Name Ricardoq PRN Reason Stop Dose Admin Cyclobenzaprine HCl 10 mg 09/14/23 21:33 09/14/23 21:49 Cyclobenzaprine Hcl 10 Mg Tablet PO 09/14/23 21:34 10 mg ONCE ONE Administration Sodium Chloride 1,000 mls @ 999 mls/hr 09/14/23 19:45 09/14/23 20:46 Ns IV 09/14/23 20:45 Infused .Q1H1M KANDICE Infusion Lidocaine 1 patch 09/14/23 21:33 09/14/23 21:49 Lidocaine 4 % Patch Adh..Patch TRANSDERMA 09/14/23 21:34 1 patch ONCE ONE Administration Protocol Morphine Sulfate 4 mg 09/14/23 18:55 09/14/23 19:11 Morphine Sulfate 4 Mg/Ml Cartridge IVPUSH 09/14/23 18:56 4 mg ONCE ONE Administration Protocol Ondansetron HCl 4 mg 09/14/23 18:55 09/14/23 19:11 Ondansetron Hcl 4 Mg/2 Ml Vial IVPUSH 09/14/23 18:56 4 mg ONCE ONE Administration Critical Care Time Critical Care Time Critical Care Time: Yes Total Critical Care Time: 35 Attestation: pain improved with IV Morphine, repeat pain assessment I attest to this time spent taking care of the patient Discharge Plan Discharge Clinical Impression: Acute left flank pain Patient Disposition: Home, Self-Care Instructions: Flank Pain (ED) Additional Instructions: labs reassuring, urine no infection CT scan no acute cause of pain. return for fevers, vomiting, worsening pain, rash or any other concern CT/CT abdomen pelvis wo IV con IMPRESSION: 1. A cause for the patient's left-sided flank pain has not been found. 2. Incidental note made of a 3 mm nonobstructing right renal calculus, cholecystectomy, gastric bypass, IUD and degenerative changes in the spine. Fleischner guidelines were followed. Prescriptions: New cyclobenzaprine 10 mg tablet 10 mg PO TID PRN (Reason: muscle spasm) Qty: 20 0RF lidocaine 5 % adhesive patch,medicated 1 patch topical DAILY Qty: 30 0RF Rx Instructions: leave on most painful area for up to 12 hrs No Action budesonide-formoterol [Symbicort] 160-4.5 mcg/actuation HFA aerosol inhaler 1 puff inhalation BID 30 Days Qty: 10.2 3RF gabapentin 600 mg tablet 600 mg PO TID 30 Days Qty: 90 8RF sucralfate [Carafate] 100 mg/mL suspension 10 ml PO QIDACHS Qty: 420 2RF Enbrel Mini 50 mg/mL (1 mL) cartridge 50 mg subcut QWEEK Qty: 4 2RF metformin 500 mg tablet extended release 24 hr 250 mg PO BID Qty: 90 0RF epinephrine [EpiPen 2-Juan Luis] 0.3 mg/0.3 mL auto-injector 0.3 mg IM Q10M PRN (Reason: anaphylaxis) Qty: 2 0RF Rx Instructions: for 2 doses albuterol sulfate 90 mcg/actuation HFA aerosol inhaler 1 inh inhalation QID PRN (Reason: shortness of breath or wheezing) Qty: 8.5 0RF Mirena 20 mcg/24 hours (5 yrs) 52 mg intrauterine device 1 device intrauterine DAILY calcium citrate-vitamin D3 [Calcium Citrate + D] 315 mg-5 mcg (200 unit) tablet 1 tab PO DAILY diclofenac sodium [Voltaren Arthritis Pain] 1 % gel 2 g topical QID PRN (Reason: Pain) Rx Instructions: apply to single elbow, wrist or hand; for hand includes palm/fingers/back of hand Bariatric Multivitamins 45 mg iron- 800 mcg-120 mcg capsule PO pantoprazole 40 mg tablet,delayed release (DR/EC) 40 mg PO DAILY Interventions: ED Discharge Assessment Last Done: 09/14/23 22:12 Discharge Date/Time: 09/14/23 22:13
[2023-09-14 19:11] VITALS: RESP 17
[2023-09-14 19:11] LABS: MANUAL DIFF FLAG NO
[2023-09-14] MEDS: Morphine Sulfate 4 MG/ML CARTRIDGE IVPUSH (19:11)
[2023-09-14] MEDS: ondansetron HCL 4 MG/2 ML VIAL IVPUSH (19:11)
[2023-09-14 19:12] LABS: Basophils Percent Auto 0.5 % (0-2); Eosinophils Absolute Auto 0.1 X10*3/uL (0.0-0.4); Eosinophils Percent Auto 1.7 % (0-4); Hematocrit 38.5 % (37.0-47.0); Imm Gran Abs Auto 0.01 X10*3/uL (0.00-0.03); Imm Gran Pct Auto 0.1 % (0.0-0.4); Lymphocytes Absolute Auto 3.5 X10*3/uL (1.2-4.9); Mean Corpuscular HGB Conc 33.8 g/dl (31.0-35.0); Mean Corpuscular Hemoglobin 30.3 pg (27.0-33.0); Mean Corpuscular Volume 89.7 fL (80.0-98.0); Mean Platelet Volume 10.7 fL (9.4-12.3); Monocytes Absolute Auto 0.6 X10*3/uL (0.1-1.2); Neutrophils Absolute Auto 3.8 x10*3/uL (2.0-8.3); Neutrophils Percent Auto 46.7 % (45-73); Platelet Count 187 X10*3/uL (160-400); Red Blood Count 4.29 X10*6/uL (4.20-5.50); Red Cell Distribution Width 12.5 % (11.0-16.0); White Blood Count 8.1 X10*3/uL (4.8-10.8)
[2023-09-14 19:31] LABS: Alanine Aminotransferase 12 U/L (0-31); Albumin Level 4.1 g/dL (3.5-5.0); Alkaline Phosphatase 74 U/L (39-117); Anion Gap 10 (12-20); Aspartate Amino Transferase 23 U/L (5-31); Bilirubin Direct 0.1 mg/dL (0.0-0.5); Bilirubin Total 0.3 mg/dL (0.0-1.0); Blood Urea Nitrogen 18 mg/dL (9-16); Calcium 9.3 mg/dL (8.4-10.2); Carbon Dioxide 30 mmol/L (22-29); Chloride 105 mmol/L (96-108); Creatinine Clr Calc Pharmacy 92.6; Estimated Glomerular Filt Rate > 60; Glucose Random 120 mg/dL (60-115); Lipase 16 U/L (8-78); Magnesium 2.1 mg/dL (1.6-2.6); Potassium 4.9 mmol/L (3.3-5.1); Sodium 140 mmol/L (135-145); Total Protein 7.1 g/dL (6.5-8.0)
[2023-09-14] MEDS: 0.9 % Sodium Chloride 1,000 ML 999 ML IV (19:45)
[2023-09-14] MEDS: Cyclobenzaprine HCl 10 MG TABLET PO (21:49)
[2023-09-14] MEDS: Lidocaine 4 % Patch ADH..PATCH 1 PATCH TRANSDERMA (21:49)
[2023-09-14 21:53] VITALS: BP 120/71; PULSE 83; RESP 16; TEMP 36.7; O2SAT 97
[2023-09-14 22:01] VITALS: BP 114/67; PULSE 84; RESP 16; TEMP 36.8; O2SAT 99
== END 2023-09-14 22:13 | disposition home or self-care (01) ==
PROVIDERS: Emergency Provider Emergency Medicine; PCP Family Medicine
DX: R10.9 Unspecified abdominal pain (principal); M54.50 Low back pain, unspecified; R11.0 Nausea; Z98.84 Bariatric surgery status; Z79.899 Other long term (current) drug therapy
CPT/HCPCS: 36415; 74176; 80048; 80076; 81001; 83690; 83735; 85025; 96361; 96374; 96375; 99284; 99285; J2270; J2405

== ENCOUNTER 2023-09-16 13:26 | Outpatient (AMB) | payer MEDICARE, SELFPAY ==
--- NOTE | 2023-09-16 12:32 | A.OFFPC_ITS ---
Vital Signs 3 09/16/23 13:35 Height 5 ft 5 in Weight 210 lb 4 oz BMI 35.0 BP 119/59 L Blood Pressure Location Rt brachial Position Sitting Respiration 12 Pulse 69 Pulse Source Pulse Oximeter Temp 97.2 F Temp Source Temporal Artery Scan Pulse Oximetry (%) 97 Oxygen Delivery Method Room Air Intake Visit Reasons: [facility], abdominal pain, still in pain Intake Note: Patient reports she is here for her hospital discharge follow up and she is still experiencing L abdominal pain. Supervisor Finish End Required: No Accompanied by: Self / Same As Patient Allergies amoxicillin [AMOXICILLIN] Allergy (Severe, Verified 09/16/23 13:48) ANAPHYLAXIS codeine [CODEINE] Allergy (Severe, Verified 09/16/23 13:48) ANAPHYLAXIS Sulfa (Sulfonamide Antibiotics) [SULFA (SULFONAMIDE ANTIBIOTICS)] Allergy (Mild, Verified 09/16/23 13:48) Rash, hives, rash Medication List - Last Reconciled 09/16/23 by Sommer Cross, PIERCER OPERATOR- albuterol sulfate 90 mcg/actuation 1 inh inhalation QID PRN budesonide-formoterol 160-4.5 mcg/actuation (Symbicort) 1 puff inhalation BID 30 days calcium citrate-vitamin D3 315 mg-5 mcg (200 unit) (Calcium Citrate + D) 1 tab PO DAILY cyclobenzaprine 10 mg PO TID PRN diclofenac sodium 1% (Voltaren Arthritis Pain) 2 grams topical QID PRN Enbrel Mini (etanercept) 50 mg subcut QWEEK NS epinephrine (EpiPen 2-Juan Luis) 0.3 mg (0.3 mL) IM Q10M PRN gabapentin 600 mg PO TID 30 days levonorgestrel (Mirena) 1 device intrauterine DAILY lidocaine 5% 1 patch topical DAILY metformin ER 250 mg (1/2 x 500 mg) PO BID [id number]-ksv-qjei-FA-vit K 45 mg iron- 800 mcg-120 mcg (Bariatric Multivitamins) caps PO pantoprazole 40 mg PO DAILY Tobacco use date assessed: 09/16/23 HPI HPI Comments 2 History of Present Illness0 Details CT scan and labs from ED visit 09/14/23 reviewed by me: CT/CT abdomen pelvis wo IV con IMPRESSION: 1. A cause for the patient's left-sided flank pain has not been found. 2. Incidental note made of a 3 mm nonob structing right renal calculus, cholecystectomy, gastric bypass, IUD and degenerative changes in the spine. Here today for hospital discharge follow-up. Patient was seen at [facility] Emergency room 09/14/2023. Her chief complaint was left flank pain. Documentation reviewed. CT imaging done along with labs. No cause found. Today she reports that she continues to have pain her left flank Did take muscle relaxer last night - admits to decreased pain and able to sleep. However, today the pain is there. It doesnt feel muscular. It is still there but not as bad. Does have an implant on L side - placed about 2.5 years ago. No routine f/u at this time [facility] Denies fever, chills, n/v/d/ reports normal appetite and bowel movements. Reports that she was given a script for lidocaine 5% patches while she was at the ED but insurance requires prior authorization. Had an EGD done 2 weeks ago. This was done for abdominal pain. Reports normal pathology. This is not available to me to review. [facility] Medical History Ankylosing spondylitis Bronchitis History of COVID-19 Knee pain, right Chronic headaches Morbid obesity with BMI of 40.0-44.9, adult Abnormal findings on esophagogastroduodenoscopy (EGD) Tubal ligation evaluation Cellulitis Concussion Ankylosing spondylitis Obstructive sleep apnea Asthma GERD (gastroesophageal reflux disease) Diabetes mellitus Menopause Surgical History History of esophagogastroduodenoscopy (EGD) Hx of colonoscopy Status post insertion of nerve stimulator History of cholecystectomy Gastric bypass status for obesity H/O lumpectomy Hx of tubal ligation Hx laparoscopic cholecystectomy History of Krystian-en-Y gastric bypass Family History Father Ankylosing spondylitis of site in spine DM (diabetes mellitus) Alzheimer disease COPD (chronic obstructive pulmonary disease) Skin cancer RA (rheumatoid arthritis) Mother RA (rheumatoid arthritis) Son No problems noted. Maternal Grandfather Prostate cancer Bone cancer Social History Household Members: Spouse Housing: House Are you a primary md do resident urgent care to a significant other at home: No Do you presently have visiting nurse or other home services: No Alcohol intake: current Alcohol intake frequency: holidays/special occasions only Alcohol type: wine and hard liquor Patient Tobacco Use Status: Former Tobacco user Quit Date: 1987 Tobacco use type: Cigarette and Cigar Years Smoked: 4 e-Cigarette/Vaping Use: Never Used Second Hand Smoke Exposure: No Substance Use Type: Marijuana service: No Current occupational status: employed Current occupational exposures/hazards: No Cognitive needs: No Hearing needs: No Vision needs: No Questionnaire Thrive Questionnaire Date Thrive assessed: 09/13/21 JANE-7 AMB Questionnaire JANE-7 Date JANE - 7 assessed: 01/02/23 Source: Developed by Drs. Jose Delgado, Lu Corona, Jung Ruby and colleagues, with an educational wily from [employer]. Review of Systems Const All systems reviewed & are unremarkable except as noted in HPI and below Physical exam (Primary Care) Vital Signs: Last Vital Signs Temp 97.2 F 09/16/23 13:35 Pulse 69 09/16/23 13:35 Resp 12 09/16/23 13:35 BP 119/59 L 09/16/23 13:35 Pulse Ox 97 09/16/23 13:35 Oxygen Delivery Method Room Air 09/16/23 13:35 BMI result Body Mass Index 35.0 Tobacco/Smoking Status: Tobacco use Status Tobacco use date assessed 09/16/23 09/16/23 13:38 Patient Tobacco Use Status Former Tobacco user 09/16/23 13:38 Tobacco use type Cigarette,Cigar 09/16/23 13:38 e-Cigarette/Vaping Use Never Used 09/16/23 12:33 Thrive Assessment: Date of Thrive Assessment Date Thrive assessed 09/13/21 09/16/23 12:33 Const Other: awake alert NAD MMM RRR LS CTAB Abd soft BS WNL x 4 quads. Tender w/ deep palpation over LUQ, over rib cage/costochondral area. No rebound or hepatosplenomegaly. No peritoneal signs. No CVAT bilat. GI Abdomen image: 2 1. pain w deep palp Assessment and Plan Assessment & Plan (1) Hospital discharge follow-up: Code(s): Z09 - Encounter for follow-up examination after completed treatment for conditions other than malignant neoplasm (2) Left flank pain: Code(s): R10.9 - Unspecified abdominal pain Plan really does not appear to be flank pain. Rather more superficial. As she did have some benefit from the muscle relaxer, it could be MS in nature. Also the fact it occured while performing a deep stretch. Labs and imaging reassuring. The only other thing that may be causing this - perhaps is her implantable device ... however this has been there for > 2 years, so unlikely. as this time, will have her take muscle relaxer and try lidocaine patch. new rx sent to pharmacy as previous required PA. I will try to touch base w/ Pain MD or PCP to see if they have any other ideas for the cause of her pain. At this time, unknown etiology. Total time spent caring for the patient today was 60 minutes. This includes time spent before the visit reviewing the chart, time spent during the visit, and time spent after the visit on documentation Medications: New 2 lidocaine 5% leave on most painful area for up to 12 hrs 1 patch topical DAILY 30 days 30 ea 0RF Coding Level of Care Code Est Pt Level 5 (73501) Diagnoses Hospital discharge follow-up Z09 Left flank pain R10.9
[2023-09-16 13:35] VITALS: BP 119/59; PULSE 69; RESP 12; TEMP 36.2; O2SAT 97; BMI 35.0
== END 2023-09-16 15:03 | disposition home or self-care (01) ==
PROVIDERS: PCP Family Medicine; Visit Provider Nurse Practitioner Family
DX: R10.9 Unspecified abdominal pain (principal); Z09 Encounter for follow-up examination after completed treatment for conditions other than malignant neoplasm
CPT/HCPCS: 99215

== ENCOUNTER 2023-09-25 14:00 | Outpatient (AMB) | payer MEDICARE, SELFPAY ==
--- NOTE | 2023-09-25 14:03 | A.OFFVIS_ITS ---
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 Intake Note: NPV Curriculum Counselor Required: No Accompanied by: Self / Same As Patient Allergies amoxicillin [AMOXICILLIN] Allergy (Severe, Verified 09/25/23 14:05) ANAPHYLAXIS codeine [CODEINE] Allergy (Severe, Verified 09/25/23 14:05) ANAPHYLAXIS Sulfa (Sulfonamide Antibiotics) [SULFA (SULFONAMIDE ANTIBIOTICS)] Allergy (Mild, Verified 09/25/23 14:05) Rash, hives, rash Medication List - Last Reconciled 09/25/23 by Desmond Casey MD albuterol sulfate 90 mcg/actuation 1 inh inhalation QID PRN calcium citrate-vitamin D3 315 mg-5 mcg (200 unit) (Calcium Citrate + D) 1 tab PO DAILY cyclobenzaprine 10 mg PO TID PRN diclofenac sodium 1% (Voltaren Arthritis Pain) 2 grams topical QID PRN Enbrel Mini (etanercept) 50 mg subcut QWEEK NS epinephrine (EpiPen 2-Juan Luis) 0.3 mg (0.3 mL) IM Q10M PRN gabapentin 600 mg PO TID 30 days levonorgestrel (Mirena) 1 device intrauterine DAILY lidocaine 5% 1 patch topical DAILY lidocaine 5% 1 patch topical DAILY 30 days metformin ER 250 mg (1/2 x 500 mg) PO BID vlpquyggndje-keh-omsf-FA-vit K 45 mg iron- 800 mcg-120 mcg (Bariatric Multivitamins) caps PO pantoprazole 40 mg PO DAILY HPI HPI Comments History of Present Illness Details Cary is here for evaluation of palpitations. She was last seen in . At that time, she had atypical chest pain and some palpitations and workup was rather unremarkable. She states that these days the palpitations are quite bothersome. They can happen any time. On most weeks, she gets some many times. Can last for few seconds to few minutes. Nothing prolonged beyond that. Otherwise, no clear-cut anginal-type chest pains. With activity, she may feel some shortness of breath but she feels it is because of her weight and possibly some deconditioning. Otherwise, no documented coronary disease or myocardial infarction or cardiomyopathy. [facility] Medical History Ankylosing spondylitis Bronchitis History of COVID-19 Knee pain, right Chronic headaches Morbid obesity with BMI of 40.0-44.9, adult Abnormal findings on esophagogastroduodenoscopy (EGD) Tubal ligation evaluation Cellulitis Concussion Ankylosing spondylitis Obstructive sleep apnea Asthma GERD (gastroesophageal reflux disease) Diabetes mellitus Menopause Surgical History History of esophagogastroduodenoscopy (EGD) Hx of colonoscopy Status post insertion of nerve stimulator History of cholecystectomy Gastric bypass status for obesity H/O lumpectomy Hx of tubal ligation Hx laparoscopic cholecystectomy History of Krystian-en-Y gastric bypass Family History Father Ankylosing spondylitis of site in spine DM (diabetes mellitus) Alzheimer disease COPD (chronic obstructive pulmonary disease) Skin cancer RA (rheumatoid arthritis) Mother RA (rheumatoid arthritis) Son No problems noted. Maternal Grandfather Prostate cancer Bone cancer Social History Household Members: Spouse Housing: House Are you a primary career resource technician to a significant other at home: No Do you presently have visiting nurse or other home services: No Alcohol intake: current Alcohol intake frequency: holidays/special occasions only Alcohol type: wine and hard liquor Patient Tobacco Use Status: Former Tobacco user Quit Date: 1987 Tobacco use type: Cigarette and Cigar Years Smoked: 4 e-Cigarette/Vaping Use: Never Used Second Hand Smoke Exposure: No Substance Use Type: Marijuana service: No Current occupational status: employed Current occupational exposures/hazards: No Cognitive needs: No Hearing needs: No Vision needs: No Review of Systems Const Denies chills, Denies daytime sleepiness, Denies fatigue, Denies fever(s), Denies frequent falls, Denies night sweats, Denies snoring, Denies weakness, Denies weight gain and Denies weight loss Eyes Denies loss of vision ENT Denies dizziness and Denies hearing loss Card Denies chest pain, Denies chest pain with activity, Denies syncope, Denies rapid heart rate, Denies edema, Denies claudication, Denies leg edema, Denies lightheadedness, Denies dyspnea, Denies dyspnea on exertion and Denies orthopnea Resp Denies cough, Denies excessive phlegm production, Denies dyspnea, Denies dyspnea on exertion, Denies snoring and Denies wheezing GI Denies abdominal pain, Denies hematochezia, Denies change in bowel habits, Denies change in stool character, Denies heartburn, Denies nausea and Denies vomiting Denies hematuria, Denies urinary frequency and Denies dysuria Musc Denies arthralgias, Denies muscle weakness, Denies numbness and Denies tingling Skin/Breast Denies nail changes and Denies rash Neuro Denies Abnormal speech present, Denies dizziness, Denies syncope, Denies frequent falls, Denies loss of vision, Denies memory loss, Denies numbness, Denies tingling and Denies weakness Psych Denies depression and Denies memory loss Endo Denies fatigue Aller/Immun Denies wheezing Physical Exam Vital Signs: Last Vital Signs Pulse 68 09/25/23 14:04 BP 106/70 09/25/23 14:04 BMI result Body Mass Index 34.5 Const General: comfortable and no acute distress Orientation/consciousness: patient oriented x3 HEENT Other: Unremarkable Head: Yes normal to inspection Neck Neck: Yes normal visual inspection Chest Chest palpation & inspection: normal inspection of the chest Resp Auscultation: clear to auscultation bilaterally Cardio Palpation: normal PMI Heart sounds: S1 normal heart sound present, S2 normal heart sound present, no gallops, no murmurs and no rubs GI Palpation (GI): Soft to palpation Back/Spine/Pelvis Other: unremarkable Skin General skin exam: no rashes or lesions noted Neuro General: patient oriented x3 Speech: No Abnormal speech present Extrem General: Yes normal to inspection Psych Mental Status: mental status grossly normal Assessment & Plan Assessment & Plan (1) Palpitations: Code(s): R00.2 - Palpitations Plan EKG from last year shows underlying sinus rhythm at 68/Min; no significant ST-T changes and otherwise unremarkable. Normal [place] and corrected QT. Symptoms of frequent palpitations. Workup in the past was unremarkable. We will get another echocardiogram and 7 day Holter for further evaluation. Follow-up after this. Otherwise, mainly reassurance. Orders: Orders ECG 7 day holter monitor Today R00.2 - Palpitations CA echo transthoracic complete Today R00.2 - Palpitations Medications: Changed From cyclobenzaprine 10 mg PO TID PRN 20 tabs 0RF muscle spasm To cyclobenzaprine 10 mg PO TID PRN Coding Level of Care Code New Pt Level 3 (52672) Diagnoses Palpitations R00.2
[2023-09-25 14:04] VITALS: BP 106/70; PULSE 68; BMI 34.5
== END 2023-09-25 14:22 | disposition home or self-care (01) ==
PROVIDERS: PCP Family Medicine; Visit Provider Internal Medicine
DX: R00.2 Palpitations (principal)
CPT/HCPCS: 99203

== ENCOUNTER → 2023-09-25 14:00 | Outpatient (BNVA) | payer MEDICARE, OTHER, SELFPAY | PROVIDERS: PCP Family Medicine; Visit Provider Internal Medicine | DX: R00.2 Palpitations (principal) | CPT/HCPCS: 99202 ==

== ENCOUNTER 2023-09-30 08:26 | Outpatient (AMB) | payer OTHER, SELFPAY ==
--- NOTE | 2023-09-30 08:34 | A.OFFVIS_ITS ---
Intake Vital Signs 09/30/23 08:40 Height 5 ft 5 in Weight 204 lb BMI 33.9 BP 103/58 L Blood Pressure Location Lt brachial Position Sitting Pulse 88 Intake Visit Reasons: Abdominal pain Intake Note: Patient new problem abdominal pain consult. Patient cc: nauseas, stabbing left flank abdominal pain is worse after eating radiating to her groins, gassy and some diarrhea. 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 She is unable to take oral iron. Patient states that she no longer has. She has IUD. No other source of bleeding. Will send her to see hematology for questioning iron infusion. Iron study and ferritin ordered. GERD (gastroesophageal reflux disease) Continue avoiding dietary triggers and late night snacking. Continue pantoprazole 40 mg half an hour before breakfast. I will add low-dose H2 rox at bedtime. Patient was encouraged to eat smaller meals. Postprandial epigastric pain Postprandial epigastric pain occasionally. Patient reports that she still might get epigastric pain after eating certain food, however she has not noted is that is any food in particular. Discussed with patient eating smaller meals and more often. We also will work on getting to move her bowels better. I will send a script for MiraLax to help her eliminate bowels better. Patient was encouraged to going get her blood work done. I were ordered lab work in January. Patient forgot to get it done. I will also add pancreatic elastase to rule out pancreatic insufficiency. I will see her in 3 months, sooner on as needed basis. Patient is agreeable to this plan and verbalizes understanding of instructions. She was given the opportunity to ask questions and all questions answered. ? Thank you for allowing me to participate in her care Plan Orders Orders Pancreatic Elastase-1 Today R10.9 Vitamin B12 and Folate Today R19.7 Vitamin D 25-OH (D2 and D3) Today E55.9 Transglutaminase IgA Today R10.9 Transglutaminase Ab IgG Today R10.9 Ferritin Today R74.8 IRON PROFILE Today K92.2 Referrals Hematology & Oncology Referral D64.9 Medications New famotidine (Pepcid) 20 mg PO BEDTIME 30 tabs 3RF K21.9 polyethylene glycol 3350 (Miralax) 17 grams PO DAILY 510 grams 2RF Refilled pantoprazole 40 mg PO DAILY 90 tabs 3RF TODAY'S VISIT Patient is here today for requested visit. Two weeks ago patient was seen in the ER for left lumbar and flank pain. CT scan done and did not show any acute processes. Patient had no leukocytosis. Patient continues to have left abdominal pain. Patient reports occasional postprandial loose stools. Patient denies melena, hematochezia, unintentional weight loss or ribbon like stools. Last colonoscopy was done and showed no diverticulosis and no polyps. Calprotectin was done and was negative. Patient had elevated CRP, diagnosed with osteoarthritis. Patient reports that the pain does not radiate anywhere, feels like spasm in the left upper quadrant. Patient reports that the pain is worse after eating although she experience the pain there all the time. Even today when patient is sitting she is holding her left side, feeling crampy. Patient is not on any particular diet at this time. Currently taking pantopra zole every morning. Her symptoms of acid reflux are suppressed. Patient no longer is having epigastric pain, dysphagia. Patient denies odynophagia or dyspepsia. [facility] Medical History Ankylosing spondylitis Bronchitis History of COVID-19 Knee pain, right Chronic headaches Morbid obesity with BMI of 40.0-44.9, adult Abnormal findings on esophagogastroduodenoscopy (EGD) Tubal ligation evaluation Cellulitis Concussion Ankylosing spondylitis Obstructive sleep apnea Asthma GERD (gastroesophageal reflux disease) Diabetes mellitus Menopause Surgical History History of esophagogastroduodenoscopy (EGD) Hx of colonoscopy Status post insertion of nerve stimulator History of cholecystectomy Gastric bypass status for obesity H/O lumpectomy Hx of tubal ligation Hx laparoscopic cholecystectomy History of Krystian-en-Y gastric bypass Family History Father Ankylosing spondylitis of site in spine DM (diabetes mellitus) Alzheimer disease COPD (chronic obstructive pulmonary disease) Skin cancer RA (rheumatoid arthritis) Mother RA (rheumatoid arthritis) Son No problems noted. Maternal Grandfather Prostate cancer Bone cancer Social History Household Members: Spouse Housing: House Are you a primary primary care nurse practitioner to a significant other at home: No Do you presently have visiting nurse or other home services: No Alcohol intake: current Alcohol intake frequency: holidays/special occasions only Alcohol type: wine and hard liquor Patient Tobacco Use Status: Former Tobacco user Quit Date: 1987 Tobacco use type: Cigarette and Cigar Years Smoked: 4 e-Cigarette/Vaping Use: Never Used Second Hand Smoke Exposure: No Substance Use Type: Marijuana service: No Current occupational status: employed Current occupational exposures/hazards: No Cognitive needs: No Hearing needs: No Vision needs: No Review of Systems Const Denies weight gain and Denies weight loss ENT Reports no additional complaints, Denies dysphagia and Denies odynophagia Card Reports no additional complaints Resp Reports no additional complaints GI Reports abdominal pain (LUQ, left lumbar), Denies belching, Denies melena, Reports bloating, Denies change in bowel habits, Reports GI cramping, Denies dysphagia, Denies excessive flatus, Denies dyspepsia, Denies heartburn, Denies diarrhea, Reports loose stools, Denies nausea, Denies odynophagia and Denies vomiting Reports no additional complaints Musc Reports no additional complaints Neuro Reports no additional complaints Psych Reports no additional complaints Endo Reports no additional complaints Physical Exam Vital Signs: Last Vital Signs Pulse 88 09/30/23 08:40 BP 103/58 L 09/30/23 08:40 BMI result Body Mass Index 33.9 Const General: healthy appearing, no acute distress and well developed Nutritional Appearance: obese Orientation/consciousness: patient oriented x3 Resp Effort & Inspection: normal respiratory effort, able to speak in complete sentences, no tracheal deviation and symmetric chest movement Auscultation: clear to auscultation bilaterally Cardio Rate: regular rate GI Inspection: Yes normal to inspection, No distended and Yes obesity Palpation (GI): Soft to palpation, not firm, nontender and No hepatosplenomegaly present Auscultation: normal bowel sounds General: Yes no CVA tenderness Back/Spine/Pelvis Back: no CVA tenderness Skin General skin exam: elasticity normal, turgor normal and dry skin Neuro General: patient oriented x3 Psych Appearance: grossly normal Mental Status: mental status grossly normal Assessment & Plan Assessment & Plan (1) LUQ cramping: Code(s): R10.12 - Left upper quadrant pain (2) Postprandial diarrhea: Code(s): K52.9 - Noninfective gastroenteritis and colitis, unspecified Plan Patient previously had normal fecal calprotectin, however that was couple years ago and we will retest again. Her symptoms are worse, patient has postprandial loose stools. Will order CT enterography. Will rule out colitis, diverticulitis, ileitis versus pain caused by diverticuli. Colonoscopy in April of [address] did not mention diverticulosis. CT enterography was done in June of 2022 showed constipation and no other abnormalities. Patient can take Citrucel to help her bulk stools as well as to stool softeners every evening. Patient can take dicyclomine to help with cramps up to 3 times a day. However patient was educated to call the office if she will be constipated. Patient is aware that she needs to prep before going for CT enterography. Discussed with patient low FODMAP diet. List of food recommended as well as list of food to avoid given to patient. I will see patient in 4 weeks, sooner on as needed basis. Patient is agreeable to this plan and verbalizes understanding of instructions. She was given the opportunity to ask questions and all questions answered. Thank you for allowing me to participate in her care Orders: Orders CT enterography Today K52.9 - Noninfective gastroenteritis and colitis, unspecified, R10.12 - Left upper quadrant pain Calprotectin, Fecal Today R15.9 - Full incontinence of feces Medications: New polyethylene glycol 3350 (Miralax) As directed by gastroenterology department at [facility] 238 grams PO ONCE 238 grams 0RF Z12.11 - Encounter for screening for malignant neoplasm of colon dicyclomine 10 mg PO BID PRN 90 caps 2RF abdominal discomfort K58.9 - Irritable bowel syndrome without diarrhea bisacodyl (Dulcolax (bisacodyl)) take 2 tabs at noon the day before your colonoscopy 10 mg (2 x 5 mg) PO ONCE 1 day 2 tabs 0RF Z12.11 - Encounter for screening for malignant neoplasm of colon docusate sodium 200 mg (2 x 100 mg) PO BEDTIME 180 caps 3RF K59.00 - Constipation, unspecified methylcellulose (laxative) (Citrucel) 500 mg PO DAILY 30 tabs 2RF K59.00 - Constipation, unspecified Coding Level of Care Code Est Pt Level 4 (34793) Diagnoses LUQ cramping R10.12 Postprandial diarrhea K52.9 Time Spent (min) 40 Comment 20 minutes spent with patient and additional 15 minutes spent reviewing her records
[2023-09-30 08:40] VITALS: BP 103/58; PULSE 88; BMI 33.9
== END 2023-09-30 09:04 | disposition home or self-care (01) ==
PROVIDERS: PCP Family Medicine; Visit Provider Nurse Practitioner Family
DX: R10.12 Left upper quadrant pain (principal); K52.9 Noninfective gastroenteritis and colitis, unspecified
CPT/HCPCS: 99214

== ENCOUNTER → 2023-09-30 08:26 | Outpatient (BNVA) | payer OTHER, SELFPAY | PROVIDERS: PCP Family Medicine; Visit Provider Nurse Practitioner Family ==

== ENCOUNTER 2023-10-15 08:17 | Outpatient (AMB) | payer OTHER, SELFPAY ==
--- NOTE | 2023-10-15 08:18 | MHC.OFFVIS ---
Intake Vital Signs 10/15/23 08:24 Height 5 ft 5 in Weight 209 lb BMI 34.8 BP 108/58 L Blood Pressure Location Lt brachial Position Sitting Respiration 16 Pulse 70 Pulse Source Pulse Oximeter Pulse Oximetry (%) 97 Oxygen Delivery Method Room Air Intake Visit Reasons: Medication Discussion - Confirmed Intake Note: Patient came in for medication discussion. Reports pain 11/01. Allergies amoxicillin [AMOXICILLIN] Allergy (Severe, Verified 10/15/23 08:24) ANAPHYLAXIS codeine [CODEINE] Allergy (Severe, Verified 10/15/23 08:24) ANAPHYLAXIS Sulfa (Sulfonamide Antibiotics) [SULFA (SULFONAMIDE ANTIBIOTICS)] Allergy (Mild, Verified 10/15/23 08:24) Rash, hives, rash HPI HPI Comments History of Present Illness Details Cary is back in my office with request to change the doses of her gabapentin. She previously was on gabapentin 600 mg 3 times a day however she admits that during the daytime she forgets to take her mid day dose. I offered her to change her prescription to 600 mg twice a day. She reports that she can easily get overstimulated, she believes that when the battery charge is stronger she receives stronger stimulation. I recommended her to get into contact with Cindy a new rep of [employer]. I recommended her nevertheless to keep charging the battery regularly. Otherwise she is doing very well she reports very minimal pain good activities of daily living and good social interactions. Prior: very pleasant 50 years old female who presents in my office with complains on the pain in thoracic spine.? Previously she was seen in this office in [address] Glass for cervical pain and lower back pain.? She was treated in [facility] for cervicalgia and received what appears to be by her reports intra-articular facet joint injections in the cervical spine with no effect. ? She went for the implant of of spinal cord stimulator [employer] and Reported better mobility, better activities of daily living, better social interactions.? Her spinal cord stimulator was implanted in the cervical area C2-C3 interspace and she used mostly the top position electrode and never used the bottom 1 although there might be reasons to use the bottom electrode in the future to stimulate her lower cervical spine to alleviate her pain in bilateral shoulders. She reports that her pain sometimes is getting aggravated due to over stimulation and she would need to adjust the stimulation with [employer] patient access representative. [facility] Medical History Ankylosing spondylitis Bronchitis History of COVID-19 Knee pain, right Chronic headaches Morbid obesity with BMI of 40.0-44.9, adult Abnormal findings on esophagogastroduodenoscopy (EGD) Tubal ligation evaluation Cellulitis Concussion Ankylosing spondylitis Obstructive sleep apnea Asthma GERD (gastroesophageal reflux disease) Diabetes mellitus Menopause Surgical History History of esophagogastroduodenoscopy (EGD) Hx of colonoscopy Status post insertion of nerve stimulator History of cholecystectomy Gastric bypass status for obesity H/O lumpectomy Hx of tubal ligation Hx laparoscopic cholecystectomy History of Krystian-en-Y gastric bypass Family History Father Ankylosing spondylitis of site in spine DM (diabetes mellitus) Alzheimer disease COPD (chronic obstructive pulmonary disease) Skin cancer RA (rheumatoid arthritis) Mother RA (rheumatoid arthritis) Son No problems noted. Maternal Grandfather Prostate cancer Bone cancer Social History Household Members: Spouse Housing: House Are you a primary child care director to a significant other at home: No Do you presently have visiting nurse or other home services: No Alcohol intake: current Alcohol intake frequency: holidays/special occasions only Alcohol type: wine and hard liquor Patient Tobacco Use Status: Former Tobacco user Quit Date: 1987 Tobacco use type: Cigarette and Cigar Years Smoked: 4 e-Cigarette/Vaping Use: Never Used Second Hand Smoke Exposure: No Substance Use Type: Marijuana service: No Current occupational status: employed Current occupational exposures/hazards: No Cognitive needs: No Hearing needs: No Vision needs: No Review of Systems Const All systems reviewed & are unremarkable except as noted in HPI and below ENT Reports Normal hearing present Neuro Reports Normal hearing present and Denies Sensory deficit (Neuro) Physical Exam Eyes Pupils: Equal, round and reactive pupils present EOM: EOMs intact bilaterally Chest Chest palpation & inspection: normal inspection of the chest Resp Effort & Inspection: normal respiratory effort, able to speak in complete sentences, normal respiratory pattern, no audible wheezes and no cough Cardio Jugular venous distension: no JVD Back/Spine/Pelvis Other: tenderness on palpation in paraspinal spinal region in thoracic spine. Loading test is positive. She denies Valsalva maneuver positive for pain increase. She denies incontinence with bowel or bladder. She denies urinary retention. Neuro Cranial nerves: Yes Equal, round and reactive pupils present and Yes Normal hearing present Sensory Exam: No Sensory deficit (Neuro) Psych Speech and movement: Normal speech and movement present Affect: normal affect Attitude: cooperative Results Reviewed Results Reviewed: On the MRI of the thoracic spine normal anatomic alignment normal home motion is marrow signal throughout no suspicious marrow edema moderate to advanced degenerative disc disease from T4-T10. Degenerative loss of T8 and T7 vertebra 30 % and 15% respectively. Vertebral body heights are otherwise well maintained. Moderate dorsal epidural lipomatosis tissues from T1-T9 partially effacing the thecal sac. No significant 0 abnormalities of the thoracic spinal cord. The conus medullaris terminates at L1-L2. No significant abnormalities of the paraspinal musculature. Limited evaluation of intrathoracic structures without significant abnormalities. The descending thoracic aorta is of normal contour and caliber. Axial spinal level: Mild posterior disc herniation from T1-T4 from T5-T7 and at T11-T12. There is a [id number] multilevel facet arthropathy worse on the lower thoracic spine. There is no overt neural foraminal stenosis there is no spinal canal stenosis. Assessment & Plan Assessment & Plan (1) Ankylosing spondylitis: Code(s): M45.9 - Ankylosing spondylitis of unspecified sites in spine (2) Thoracic degenerative disc disease: Code(s): M51.34 - Other intervertebral disc degeneration, thoracic region (3) Upper back pain: Code(s): M54.9 - Dorsalgia, unspecified Plan History of implant of spinal cord stimulator [employer] which demonstrated excellent results. She has sometimes feel pain increase due to over stimulation. The spinal cord stimulator is than adjusted to with lower numbers. Cindy number is provided to the patient just in case she needs to get into contact with [employer] patient access representative. I will change the prescription of gabapentin for her from 300 mg t.i.d. to 600 mg b.i.d.. I will do so with 11 refills. Next appointment as needed. Medications: Changed From gabapentin 600 mg PO TID 30 days 90 tabs 8RF To gabapentin 600 mg PO BID 30 days 60 tabs 11RF Coding Level of Care Code Est Pt Level 3 (45760) Diagnoses Ankylosing spondylitis M45.9 Thoracic degenerative disc disease M51.34 Upper back pain M54.9
[2023-10-15 08:24] VITALS: BP 108/58; PULSE 70; RESP 16; O2SAT 97; BMI 34.8
== END 2023-10-15 08:29 | disposition home or self-care (01) ==
PROVIDERS: PCP Family Medicine; Visit Provider Anesthesiology
DX: M45.9 Ankylosing spondylitis of unspecified sites in spine (principal); M51.34 Other intervertebral disc degeneration, thoracic region; M54.9 Dorsalgia, unspecified
CPT/HCPCS: 99213

== ENCOUNTER → 2023-10-15 08:17 | Outpatient (BNVA) | payer MEDICARE, SELFPAY | PROVIDERS: PCP Family Medicine; Visit Provider Anesthesiology ==

== ENCOUNTER → 2023-10-21 08:42 | Outpatient (REF) | payer MEDICARE, SELFPAY ==
--- NOTE | 2023-10-21 08:47 | HM_ITS ---
* Total monitoring time 7 days. * Underlying rhythm is sinus with an average rate of 75/Min. * Rare supraventricular ectopy. * Rare ventricular ectopy. * No significant pauses or AV blocks. * Palpitations in patient diary correlates with supraventricular, ventricular ectopy, mild sinus tachycardia. MTDD
--- NOTE | 2023-10-21 08:47 | CA_ITS ---
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 The calculated ejection fraction is 60% by biplane method. - No obvious valvular pathology seen on this study. Findings Left Ventricle Normal left ventricular cavity size. There is normal left ventricular wall thickness. The left ventricular systolic function is normal. The calculated ejection fraction is 60% by biplane method. There is no evidence of regional wall motion abnormalities. Diastolic function is normal for age. LV peak GLS -18.3%. Right Ventricle Normal right ventricular cavity size and systolic function. Atria Both atria are normal in size. Aortic Valve There is a normal trileaflet aortic valve. There is no aortic valve stenosis. There is no aortic valve regurgitation. Mitral Valve The mitral valve appears normal. There is no mitral valve regurgitation. There is no mitral valve stenosis. Pulmonic Valve The pulmonic valve is likely normal. Tricuspid Valve Normal tricuspid valve structure. There is mild tricuspid valve regurgitation. There is no evidence of pulmonary hypertension. Great Vessels The asc aorta is normal in size. Venous The inferior vena cava is normal in size and collapses greater than 50% with inspiration. Pericardium/Pleural There is no evidence of pericardial effusion. Prior Study Comparison No significant change compared to prior study dated: 07/02/2018. Recommendations, Care & Conclusions No obvious valvular pathology seen on this study. Measurements 2D Linear Measurements IVSd: 1.00 0.6-0.9/0.6-1.0 cm LVIDd: 4.28 3.9-5.3/4.2-5.9 cm LVIDd Index: 2.14 2.4-3.2/2.2-3.1 cm/m2 LVIDs: 2.84 2.0-3.6 cm LVPWd: 0.79 0.7-1.1 cm LA Diam: 3.40 2.7-3.8/3.0-4.0 cm LAIDs Index: 1.70 1.5-2.3 cm/m2 LV Mass: 151.52 67-162/88-224 g LV Mass Index: 75.76 43-95/49-115 g/m2 LVOT Diam: 2.00 3.0+(-)1.3 cm 2D Systolic Function EF 4C: 60.20 >55% EF 2C: 58.50 >55% EF BiP: 60.40 >55% Mitral Valve MV Pk E: 0.74 MV PK A: 0.43 MV Decel Time: 261.00 E/A: 1.70 E'Lateral: 9.90 E'Medial: 6.96 E/E' Med: 10.60 E/E' Lat: 7.40 PHT: 76.00 MVA PHT: 2.89 Decel Addison: 2.82 Aortic Valve AoV Pk Octavio: 1.39 AoV Mn Octavio: 0.97 AoV VTI: 0.30 AoV Pk Grad: 8.00 Aov Mn Grad: 4.00 COLTON Cont.VTI: 2.76 LVOT LVOT Pk Octavio: 1.27 LVOT Mn Octavio: 0.78 LVOT VTI: 0.27 LVOT Pk Grad: 6.00 LVOT Mn Grad: 3.00 LVOT Diam: 2.00 LVOT Area: 3.14 Diastolic Function MV Pk E: 0.74 MV Pk A: 0.43 E/A: 1.70 E'Medial: 6.96 E/E' Med: 10.60 E' Laterial: 9.90 E/E' Lat: 7.40 Right Ventricle TAPSE (mm): 23.60 TVS' Octavio: 10.80 Tricuspid Valve TR Pk Octavio: 2.02 TR Pk Grad: 16.00 RA Press: 8.00 RVSP: 24.00 Great Vessels Aorta Sinus of Valsalva: 2.88 2.0-3.[address] [place]: 2.58 1.7-3.4 cm Ao Asc: 3.40 2.1-3.4 cm Updated in Other Vendor System with Status of Final Desmond Casey MD electronically signed on 10/22/2023 9:35:05 AM with status of Final
== END ==
LOC: HO.CARD 08:42
PROVIDERS: PCP Family Medicine; Visit Provider Internal Medicine
DX: R00.2 Palpitations (principal)
CPT/HCPCS: 93242; 93306; 93356

== ENCOUNTER → 2023-10-21 08:47 | Outpatient (BNV) | payer MEDICARE, SELFPAY | PROVIDERS: PCP Family Medicine; Visit Provider Internal Medicine | DX: I47.10 Supraventricular tachycardia, unspecified (principal) | CPT/HCPCS: 93244; 93306 ==

== ENCOUNTER 2023-11-04 08:24 | Outpatient (REF) | payer MEDICARE, SELFPAY ==
[2023-11-04 09:01] LABS: MANUAL DIFF FLAG NO
[2023-11-04 09:19] LABS: Basophils Percent Auto 0.6 % (0-2); Eosinophils Absolute Auto 0.1 X10*3/uL (0.0-0.4); Eosinophils Percent Auto 1.3 % (0-4); Hematocrit 41.1 % (37.0-47.0); Hemoglobin 13.7 g/dl (12.0-16.0); Imm Gran Abs Auto 0.01 X10*3/uL (0.00-0.03); Imm Gran Pct Auto 0.1 % (0.0-0.4); Lymphocytes Absolute Auto 2.6 X10*3/uL (1.2-4.9); Lymphocytes Percent Auto 39.3 % (20-40); Mean Corpuscular HGB Conc 33.3 g/dl (31.0-35.0); Mean Corpuscular Hemoglobin 30.5 pg (27.0-33.0); Mean Corpuscular Volume 91.5 fL (80.0-98.0); Mean Platelet Volume 10.4 fL (9.4-12.3); Monocytes Absolute Auto 0.5 X10*3/uL (0.1-1.2); Monocytes Percent Auto 6.8 % (2-11); Neutrophils Absolute Auto 3.5 x10*3/uL (2.0-8.3); Neutrophils Percent Auto 51.9 % (45-73); Platelet Count 202 X10*3/uL (160-400); Red Blood Count 4.49 X10*6/uL (4.20-5.50); Red Cell Distribution Width 12.4 % (11.0-16.0); White Blood Count 6.7 X10*3/uL (4.8-10.8)
[2023-11-04 10:07] LABS: Alanine Aminotransferase 11 U/L (0-31); Albumin Level 4.1 g/dL (3.5-5.0); Alkaline Phosphatase 85 U/L (39-117); Anion Gap 10 (12-20); Aspartate Amino Transferase 19 U/L (5-31); Bilirubin Total 0.5 mg/dL (0.0-1.0); Blood Urea Nitrogen 9 mg/dL (9-16); Calcium 9.4 mg/dL (8.4-10.2); Carbon Dioxide 27 mmol/L (22-29); Chloride 109 mmol/L (96-108); Cholesterol 181 mg/dL (<200); Estimated Glomerular Filt Rate > 60; Glucose Fasting 126 mg/dL (60-99); HDL Cholesterol 60 mg/dL (>40); LDL Cholesterol Calculated 103 mg/dL (<100); Potassium 4.2 mmol/L (3.3-5.1); Sodium 142 mmol/L (135-145); Triglycerides 94 mg/dL (<150)
== END 2023-11-04 08:25 | disposition home or self-care (01) ==
LOC: HO.LAB 08:24
PROVIDERS: PCP Family Medicine; Visit Provider Nurse Practitioner Family
DX: Z00.00 Encounter for general adult medical examination without abnormal findings (principal); Z13.6 Encounter for screening for cardiovascular disorders
CPT/HCPCS: 36415; 80053; 80061; 84443; 85025

== ENCOUNTER 2023-11-04 09:46 | Outpatient (REF) | payer MEDICARE, SELFPAY ==
[2023-11-04 16:17] LABS: Appearance Urine Turbid; Color Urine Dark Yellow; Glucose Urine UA Negative (Negative); Leukocyte Esterase Urine Moderate (2+) (Negative); Nitrite Urine Negative (Negative); PH 5.5 (5.0-9.0); Specific Gravity - Urine >= 1.030 (1.005-1.025); UMIC TRIGGER UA YES; Urine Blood Negative (Negative); Urine Ketones Negative (Negative); Urine Protein Negative (Neg-Trace)
[2023-11-04 16:57] LABS: Bacteria Urine 4+ (None Seen); Calcium Oxalate Crystals Urine Present; Hyaline Casts Urine 0-2 /LPF (0-2); RBC Urine 0-2 /HPF (0-2); Squamous Epithelial Cell Urine >20 /HPF (0-2); WBC Urine 21-50 /HPF (0-5)
[2023-11-04 17:33] LABS: Microalbum/Creatinine Ratio Ur 4.8 ug/mg cr (<30)
== END 2023-11-04 09:47 | disposition home or self-care (01) ==
LOC: HO.HMGCLNP 09:46
PROVIDERS: Visit Provider Family Medicine
DX: I10 Essential (primary) hypertension (principal)
CPT/HCPCS: 81001; 82043; 82570

== ENCOUNTER 2023-11-10 08:13 | Outpatient (REF) | payer MEDICARE, SELFPAY ==
--- NOTE | ~2023-11-10 | CT_ITS ---
EXAMINATION: CT ENTEROGRAPHY ABDOMEN AND PELVIS WITH CONTRAST CLINICAL INFORMATION: Left upper quadrant pain COMPARISON: 02/13/2024 TECHNIQUE: Study performed with oral VoLumen (1350 mL) and 480 mL of water to distend the abdomen. The patient was injected with 85 mL Omnipaque 350 intravenous contrast which was administered without adverse effect. Coronal and sagittal reformatted images were obtained at the technologist's workstation. This CT examination was performed using dose optimization techniques as appropriate, variously including the following: *Automated exposure control *Adjustment of mA and/or kV according to patient size (this includes techniques or standardized protocols for targeted exams where dose is matched to indication/reason for exam; i.e. extremities or head) *Use of iterative reconstruction technique DLP: 610 mGy-cm FINDINGS: GASTROINTESTINAL FINDINGS: Stomach: Patient is status post gastric bypass surgery with well-functioning anastomosis and limited distention of the gastric pouch. There is no wall thickening. There is small hiatal hernia. Small intestine: Jejunojejunal anastomosis in the left lower abdomen related to gastric bypass surgery and is well functioning. There is no obstruction. The rest of small bowel loops are unremarkable. Large intestine: Well-distended and normal in appearance. No perirectal changes demonstrated. The appendix is unremarkable. Additional findings: No abnormal enhancement of the vasa recta or significant mesenteric or retroperitoneal lymphadenopathy is seen. No abdominal abscess or fistulous tract demonstrated. ABDOMINAL AND PELVIC CT FINDINGS: Liver, gallbladder, biliary tract: Liver is homogeneous without masses or ductal dilatation. Gallbladder is surgically absent. CBD is not dilated. Pancreas: Unremarkable Spleen: Spleen is not enlarged, unremarkable Adrenal glands and kidneys: Adrenal glands reveals no nodularity or masses. Both kidneys are normal without hydronephrosis, but with stable punctate right nephrolithiasis and there are no masses. There is an exophytic 1 cm cyst in the lower pole of left kidney Ureters and bladder: Ureters are not dilated and urinary bladder is well distended without masses or stones. Lymphovascular structures: There is no evidence of lymphadenopathy. The abdominal aorta is not dilated and IVC is unremarkable. Bones: There are multilevel degenerative changes with narrowing cough L3-L4, L5-S1 intervertebral disc spaces with vacuum phenomenon. There is levoscoliosis of lumbar spine. Lung bases: Unremarkable CT/CT enterography IMPRESSION: 1. Status post gastric bypass surgery without evidence of complications. 2. Status post cholecystectomy. 3. Right nephrolithiasis. 4. Small left renal cyst. 5. 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
[2023-11-10] MEDS: iohexoL 350 MG/ML 100 ML INFUS..BTL 85 ML IV (10:39)
[2023-11-10] MEDS: Sorbitol/Mannit/Xanth Imaging 500 ML LIQUID 1500 ML PO (10:42)
== END 2023-11-10 08:14 | disposition home or self-care (01) ==
LOC: HO.CT 08:13
PROVIDERS: PCP Family Medicine; Visit Provider Nurse Practitioner Family
DX: R10.12 Left upper quadrant pain (principal); K52.9 Noninfective gastroenteritis and colitis, unspecified
CPT/HCPCS: 74177; Q9967

== ENCOUNTER 2023-11-17 08:02 | Outpatient (AMB) | payer OTHER, SELFPAY ==
--- NOTE | 2023-11-17 08:11 | A.OFFVIS_ITS ---
Intake Vital Signs 11/17/23 08:18 Height 5 ft 5 in Weight 209 lb BMI 34.8 BP 126/59 L Blood Pressure Location Lt brachial Position Sitting Pulse 88 Pulse Source Pulse Oximeter Pulse Oximetry (%) 99 Oxygen Delivery Method Room Air Intake Visit Reasons: 4 week follow up Intake Note: Pt here for 4 weeks follow up, Cary reported abdominal pain, diarrhea 2- 3 times every morning and nausea. 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 Her symptoms are worse, patient has postprandial loose stools. Will order CT enterography. Will rule out colitis, diverticulitis, ileitis versus pain caused by diverticuli. Colonoscopy in April of 2022 did not mention diverticulosis. CT enterography was done in June of 2022 showed constipation and no other abnormalities. Patient can take Citrucel to help her bulk stools as well as to stool softeners every evening. Patient can take dicyclomine to help with cramps up to 3 times a day. However patient was educated to call the office if she will be constipated. Patient is aware that she needs to prep before going for CT enterography. Discussed with patient low FODMAP diet. List of food recommended as well as list of food to avoid given to patient. I will see patient in 4 weeks, sooner on as needed basis. Patient is agreeable to this plan and verbalizes understanding of instructions. She was given the opportunity to ask questions and all questions answered. ? Thank you for allowing me to participate in her care Orders Orders CT enterography Today K52.9, R10.12 Calprotectin, Fecal Today R15.9 Medications New polyethylene glycol 3350 (Miralax) As directed by gastroenterology department at [facility] 238 grams PO ONCE 238 grams 0RF Z12.11 dicyclomine 10 mg PO BID PRN 90 caps 2RF abdominal d iscomfort K58.9 bisacodyl (Dulcolax (bisacodyl)) take 2 tabs at noon the day before your colonoscopy 10 mg (2 x 5 mg) PO ONCE 1 day 2 tabs 0R F Z12.11 docusate sodium 200 mg (2 x 100 mg) PO BEDTIME 180 caps 3RF K59.00 methylcellulose (laxative) (Citrucel) 500 mg PO DAILY 30 tabs 2RF K59.00 TODAY'S VISIT: Patient is here today for follow-up and to discuss CT enterography results. Patient had normal study. Started taking Linzess reports to have several bowel movements in the morning. Patient states that she is having loose stools, sometimes unable to make it to the bathroom on time. Patient also reports left upper quadrant discomfort. Patient reports epigastric discomfort as willing and dyspepsia symptoms worse when patient wakes up in the morning. Patient currently is taking pantoprazole every morning before breakfast. Patient denies melena, hematochezia, unintentional weight loss or ribbon like stools. So far all the studies were negative. We ruled out IBD, pancreatic insufficiency. Most likely IBS, malabsorption due to bariatric surgery. [facility] Medical History Ankylosing spondylitis Bronchitis History of COVID-19 Knee pain, right Chronic headaches Morbid obesity with BMI of 40.0-44.9, adult Abnormal findings on esophagogastroduodenoscopy (EGD) Tubal ligation evaluation Cellulitis Concussion Ankylosing spondylitis Obstructive sleep apnea Asthma GERD (gastroesophageal reflux disease) Diabetes mellitus Menopause Surgical History History of esophagogastroduodenoscopy (EGD) Hx of colonoscopy Status post insertion of nerve stimulator History of cholecystectomy Gastric bypass status for obesity H/O lumpectomy Hx of tubal ligation Hx laparoscopic cholecystectomy History of Krystian-en-Y gastric bypass Family History Father Ankylosing spondylitis of site in spine DM (diabetes mellitus) Alzheimer disease COPD (chronic obstructive pulmonary disease) Skin cancer RA (rheumatoid arthritis) Mother RA (rheumatoid arthritis) Son No problems noted. Maternal Grandfather Prostate cancer Bone cancer Social History Household Members: Spouse Housing: House Are you a primary team primary care physician to a significant other at home: No Do you presently have visiting nurse or other home services: No Alcohol intake: current Alcohol intake frequency: holidays/special occasions only Alcohol type: wine and hard liquor Patient Tobacco Use Status: Former Tobacco user Quit Date: 1987 Tobacco use type: Cigarette and Cigar Years Smoked: 4 e-Cigarette/Vaping Use: Never Used Second Hand Smoke Exposure: No Substance Use Type: Marijuana service: No Current occupational status: employed Current occupational exposures/hazards: No Cognitive needs: No Hearing needs: No Vision needs: No Review of Systems Const Denies weight gain and Denies weight loss ENT Reports no additional complaints, Denies dysphagia and Denies odynophagia Card Reports no additional complaints Resp Reports no additional complaints GI Reports abdominal pain (LUQ), Denies belching, Denies melena, Reports bloating, Denies change in bowel habits, Denies dysphagia, Denies excessive flatus, Denies dyspepsia, Denies heartburn, Denies diarrhea, Reports loose stools, Denies nausea, Denies odynophagia and Denies vomiting Reports no additional complaints Musc Reports no additional complaints Neuro Reports no additional complaints Psych Reports no additional complaints Endo Reports no additional complaints Physical Exam Vital Signs: Last Vital Signs Pulse 88 11/17/23 08:18 BP 126/59 L 11/17/23 08:18 Pulse Ox 99 11/17/23 08:18 Oxygen Delivery Method Room Air 11/17/23 08:18 BMI result Body Mass Index 34.8 Const General: healthy appearing, no acute distress and well developed Nutritional Appearance: obese Orientation/consciousness: patient oriented x3 Resp Effort & Inspection: normal respiratory effort, able to speak in complete sentences, no tracheal deviation and symmetric chest movement Auscultation: clear to auscultation bilaterally Cardio Rate: regular rate GI Inspection: Yes normal to inspection, No distended and Yes obesity Palpation (GI): Soft to palpation, not firm, nontender and No hepatosplenomegaly present Auscultation: normal bowel sounds General: Yes no CVA tenderness Back/Spine/Pelvis Back: no CVA tenderness Skin General skin exam: elasticity normal, turgor normal and dry skin Neuro General: patient oriented x3 Psych Appearance: grossly normal Mental Status: mental status grossly normal Results Reviewed Results Reviewed: CT ENTEROGRAPHY FINDINGS: GASTROINTESTINAL FINDINGS: Stomach: Patient is status post gastric bypass surgery with well-functioning anastomosis and limited distention of the gastric pouch. There is no wall thickening. There is small hiatal hernia. Small intestine: Jejunojejunal anastomosis in the left lower abdomen related to gastric bypass surgery and is well functioning. There is no obstruction. The rest of small bowel loops are unremarkable. Large intestine: Well-distended and normal in appearance. No perirectal changes demonstrated. The appendix is unremarkable. Additional findings: No abnormal enhancement of the vasa recta or significant mesenteric or retroperitoneal lymphadenopathy is seen. No abdominal abscess or fistulous tract demonstrated. ABDOMINAL AND PELVIC CT FINDINGS: Liver, gallbladder, biliary tract: Liver is homogeneous without masses or ductal dilatation. Gallbladder is surgically absent. CBD is not dilated. Pancreas: Unremarkable Spleen: Spleen is not enlarged, unremarkable Adrenal glands and kidneys: Adrenal glands reveals no nodularity or masses. Both kidneys are normal without hydronephrosis, but with stable punctate right nephrolithiasis and there are no masses. There is an exophytic 1 cm cyst in the lower pole of left kidney Ureters and bladder: Ureters are not dilated and urinary bladder is well distended without masses or stones. Lymphovascular structures: There is no evidence of lymphadenopathy. The abdominal aorta is not dilated and IVC is unremarkable. Bones: There are multilevel degenerative changes with narrowing cough L3-L4, L5-S1 intervertebral disc spaces with vacuum phenomenon. There is levoscoliosis of lumbar spine. Lung bases: Unremarkable CT/CT enterography IMPRESSION: 1. Status post gastric bypass surgery without evidence of complications. 2. Status post cholecystectomy. 3. Right nephrolithiasis. 4. Small left renal cyst. 5. 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 Assessment & Plan Assessment & Plan (1) GERD (gastroesophageal reflux disease): Code(s): K21.9 - Gastro-esophageal reflux disease without esophagitis Qualifiers: Esophagitis presence: without esophagitis Qualified Code(s): K21.9 - Gastro-esophageal reflux disease without esophagitis (2) LUQ cramping: Code(s): R10.12 - Left upper quadrant pain (3) Postprandial abdominal bloating: Code(s): R14.0 - Abdominal distension (gaseous) Plan Patient will stop taking Linzess as it is making her symptoms worse. Patient can start taking sucralfate at bedtime. Avoid food high in fat. Patient is status post cholecystectomy and is aware that she needs to avoid certain foods. Continue pantoprazole daily. If patient continues with symptoms we can always try cholestyramine with meals. Patient was instructed to making sure that she empties her bowels completely when she does go to the bathroom. Negative exam. Normal enterography. Patient will return in the office in 3 months, sooner on as needed basis. Patient is agreeable to this plan and verbalizes understanding of instructions. She was given the opportunity to ask questions and all questions answered. Thank you for allowing me to participate in her care Medications: New sucralfate 10 mL PO BEDTIME 400 mL 3RF K21.9 - Gastro-esophageal reflux disease without esophagitis Discontinued linaclotide (Linzess) Discontinued Reason: Doctor's Order 145 mcg PO DAILY 30 caps 2RF Coding Level of Care Code Est Pt Level 4 (64605) Diagnoses Gastroesophageal reflux disease without esophagitis K21.9 Esophagitis presence: without esophagitis LUQ cramping R10.12 Postprandial abdominal bloating R14.0 Time Spent (min) 35 Comment 20 minutes spent with patient and additional 15 minutes spent reviewing her records
[2023-11-17 08:18] VITALS: BP 126/59; PULSE 88; O2SAT 99; BMI 34.8
== END 2023-11-17 08:38 | disposition home or self-care (01) ==
PROVIDERS: PCP Family Medicine; Visit Provider Nurse Practitioner Family
DX: K21.9 Gastro-esophageal reflux disease without esophagitis (principal); R10.12 Left upper quadrant pain; R14.0 Abdominal distension (gaseous)
CPT/HCPCS: 99214

== ENCOUNTER → 2023-11-17 08:02 | Outpatient (BNVA) | payer OTHER, SELFPAY | PROVIDERS: PCP Family Medicine; Visit Provider Nurse Practitioner Family ==

== ENCOUNTER 2023-11-18 07:39 | Outpatient (REF) | payer OTHER, SELFPAY ==
[2023-11-24 17:19] LABS: Calprotectin, Fecal 62 mcg/g
== END 2023-11-18 07:40 | disposition home or self-care (01) ==
LOC: HO.HMGCLNP 07:39
PROVIDERS: Nurse Practitioner Family; PCP Family Medicine; Visit Provider Family Medicine
DX: R15.9 Full incontinence of feces (principal)
CPT/HCPCS: 83993

== ENCOUNTER 2023-11-25 07:53 | Outpatient (AMB) | payer MEDICARE, SELFPAY ==
[2023-11-25 08:03] VITALS: BP 114/66; PULSE 95; RESP 13; TEMP 36.6; O2SAT 99; BMI 35.6
--- NOTE | 2023-11-25 08:03 | A.OFFPC_ITS ---
Vital Signs 11/25/23 08:03 Height 5 ft 5 in Weight 214 lb 4 oz BMI 35.6 BP 114/66 Blood Pressure Location Rt brachial Position Sitting Respiration 13 Pulse 95 Pulse Source Pulse Oximeter Temp 97.8 F Temp Source Temporal Artery Scan Pulse Oximetry (%) 99 Oxygen Delivery Method Room Air Intake Visit Reasons: Extended exam with f/u labs and health maint. [employer] Supervisor Required: No Accompanied by: Self / Same As Patient Allergies amoxicillin [AMOXICILLIN] Allergy (Severe, Verified 11/25/23 08:18) ANAPHYLAXIS codeine [CODEINE] Allergy (Severe, Verified 11/25/23 08:18) ANAPHYLAXIS Sulfa (Sulfonamide Antibiotics) [SULFA (SULFONAMIDE ANTIBIOTICS)] Allergy (Mild, Verified 11/25/23 08:18) Rash, hives, rash Medication List - Last Reconciled 11/25/23 by Renny Yu CNP albuterol sulfate 90 mcg/actuation 1 inh inhalation QID PRN bisacodyl (Dulcolax (bisacodyl)) 10 mg (2 x 5 mg) PO ONCE 1 day calcium citrate-vitamin D3 315 mg-5 mcg (200 unit) (Calcium Citrate + D) 1 tab PO DAILY cyclobenzaprine 10 mg PO TID PRN diclofenac sodium 1% (Voltaren Arthritis Pain) 2 grams topical QID PRN dicyclomine 10 mg PO BID PRN docusate sodium 200 mg (2 x 100 mg) PO BEDTIME Enbrel Mini (etanercept) 50 mg subcut QWEEK NS epinephrine (EpiPen 2-Juan Luis) 0.3 mg (0.3 mL) IM Q10M PRN gabapentin 600 mg PO BID 30 days levonorgestrel (Mirena) 1 device intrauterine DAILY lidocaine 5% 1 patch topical DAILY lidocaine 5% 1 patch topical DAILY 30 days metformin ER 250 mg (1/2 x 500 mg) PO BID cdsrupngjiah-bcf-torq-FA-vit K 45 mg iron- 800 mcg-120 mcg (Bariatric Multivitamins) caps PO nitrofurantoin monohyd/m-cryst 100 mg (Macrobid) 100 mg PO BID 7 days pantoprazole 40 mg PO DAILY 90 days polyethylene glycol 3350 (Miralax) 238 grams PO ONCE sucralfate 10 mL PO BEDTIME Tobacco use date assessed: 09/16/23 Dental Screening Dental Screen Date: 11/25/23 Did you have a dental visit in the last 12 months?: No Did you have a dental problem in the last 6 months where you did not have access to dental care?: No Was dental information given to patient?: Yes HPI HPI Comments History of Present Illness Details 53-year-old female presents for an [facility] physical exam and review of recent lab results She has history of obesity, asthma, diabetes, GERD, ankylosing spondylitis She admits to taking her medications as prescribed without adverse reactions She has been making Healthy dietary choices and occasionally go for short walks. She notes history of binge eating which has been controlled. She was followed by [facility] [place] [facility] and intends to reconnect with them She offers no complaints and denies acute symptoms at this time She is followed by [facility] [place] Last colonoscopy: 05/22/2022: No malignancy Last mammogram: 11/15/2022: No malignancy, due for another scan Last Pap smear test: A year ago with [facility], due for another test She notes that she is up-to-date on the flu and shingles vaccines She has not seen a dentist in over an year and plans on scheduling an appointment [facility] Medical History Ankylosing spondylitis Bronchitis History of COVID-19 Knee pain, right Chronic headaches Morbid obesity with BMI of 40.0-44.9, adult Abnormal findings on esophagogastroduodenoscopy (EGD) Tubal ligation evaluation Cellulitis Concussion Ankylosing spondylitis Obstructive sleep apnea Asthma GERD (gastroesophageal reflux disease) Diabetes mellitus Menopause Surgical History History of esophagogastroduodenoscopy (EGD) Hx of colonoscopy Status post insertion of nerve stimulator History of cholecystectomy Gastric bypass status for obesity H/O lumpectomy Hx of tubal ligation Hx laparoscopic cholecystectomy History of Krystian-en-Y gastric bypass Family History (Updated 11/25/23 @ 08:09 by PORSHA Pena) Father Ankylosing spondylitis of site in spine DM (diabetes mellitus) Alzheimer disease COPD (chronic obstructive pulmonary disease) Skin cancer RA (rheumatoid arthritis) Mother RA (rheumatoid arthritis) Son No problems noted. Maternal Grandfather Prostate cancer Bone cancer Social History Household Members: Spouse Housing: House Are you a primary animal caretaker supervisor to a significant other at home: No Do you presently have visiting nurse or other home services: No Alcohol intake: current Alcohol intake frequency: holidays/special occasions only Alcohol type: wine and hard liquor Patient Tobacco Use Status: Former Tobacco user Quit Date: 1987 Tobacco use type: Cigarette and Cigar Years Smoked: 4 e-Cigarette/Vaping Use: Never Used Second Hand Smoke Exposure: No Substance Use Type: Marijuana service: No Current occupational status: student Current occupational exposures/hazards: No Cognitive needs: No Hearing needs: No Vision needs: No Questionnaire PHQ-9 Over the last 2 weeks, how often have you been bothered by any of the following problems? 1. Little interest or pleasure in doing things: not at all 2. Feeling down, depressed, or hopeless: several days 3. Trouble falling or staying asleep, or sleeping too much: not at all 4. Feeling tired or having little energy: not at all 5. Poor appetite or overeating: several days 6. Feeling bad about yourself - or that you are a failure or have let yourself or your family down: not at all 7. Trouble concentrating on things, such as reading the newspaper or watching television: not at all 8. Moving or speaking so slowly that other people could have noticed. Or the opposite - being so fidgety or restless that you have been moving around a lot more than usual: not at all 9. Thoughts that you would be better off or of hurting yourself in some way: not at all Total score: 2 Depression Screening Interpretation: Negative Depression Screening Done: Yes 16302 - PHQ-9 Billing: Yes Source: Developed by Drs. Jose Delgado, Lu Corona, Jung Ruby and colleagues, with an educational wily from [employer]. Thrive Questionnaire Date Thrive assessed: 11/25/23 I am a: Patient What is your living situation today?: I have a steady place to live Within the past 12 months, did the food you bought not last and you didn't have the money to get more?: Never true Within the past 12 months, did you worry whether your food would run out before you got money to buy more?: Never true Do you have trouble paying for medicines?: No Do you have trouble getting transportation to medical appointments?: No Do you have trouble paying your heating and electricity bill?: No Do you have trouble taking care of your child, family member or friend?: No Do you have trouble with day-to-day activities such as bathing, preparing meals, shopping, managing finances, etc.?: No Are you currently unemployed and looking for a job?: No Are you interested in more education?: No Please select the resources that you would like help with: None Currently or been in a relationship where the following occur: no concerns reported THRIVE Score: 0 AUDIT C Alcohol Use Questionnaire (AUDIT-C) 1. How often do you have a drink containing alcohol?: Monthly or less 2. How many drinks containing alcohol do you have on a typical day when you are drinking?: 1 or 2 3. How often do you have six or more drinks on one occasion?: Never Total Score: 1 JANE-7 AMB Questionnaire JANE-7 Date JANE - 7 assessed: 11/25/23 Feeling nervous, anxious, or on edge: 1 = Several days Not being able to stop or control worryin = Not at all Worrying too much about different things: 1 = Several days Trouble relaxin = Not at all Being so restless that it is hard to sit still: 0 = Not at all Becoming easily annoyed or irritable: 1 = Several days Feeling afraid as if something awful might happen: 0 = Not at all Total JANE-7 score (0-4 normal; 5-9 mild; 10-14 moderate; 15-21 severe): 3 Source: Developed by Drs. Jose Delgado, Lu Corona, Jung Ruby and colleagues, with an educational wily from [employer]. JANE-7 Assessment Billing JANE-7 Assessment Tool: JANE-7 Assessment 42924 ACT Questionnaire In the past 4 weeks, how much of the time did your asthma keep you from getting as much done at work, school or at home?: None of the time During the past 4 weeks, how often have you had shortness of breath?: Not at all During the past 4 weeks, how often did your asthma symptoms wake you up at night or earlier than usual in the morning?: Not at all During the past 4 weeks, how often have you had to use your rescue inhaler or nebulizer medication?: Not at all How would you rate your asthma control during the past 4 weeks?: Completely controlled ACT Interpretation: Negative Score: 25 Review of Systems Const Details: Denies chills, Denies fatigue, Denies fever(s), Denies headache(s) and Denies weakness HEENT Denies change in vision, Denies dizziness, Denies headache(s), Denies hearing loss, Denies nasal congestion, Denies sinus pain, Denies sinus pressure and Denies sore throat Card Denies chest pain, Denies lightheadedness, Denies dyspnea and Denies other (palpitations) Resp Denies cough, Denies dyspnea and Denies wheezing GI Denies abdominal pain, Denies melena, Denies hematochezia, Denies change in bowel habits, Denies dyspepsia and Denies nausea Denies hematuria and Denies dysuria Musc Denies abnormal gait, Denies myalgias, Denies arthralgias, Denies numbness and Denies tingling Skin/Breast Denies rash, Denies unusual bruising and Denies wounds Neuro Denies abnormal gait, Denies dizziness, Denies headache(s), Denies memory loss, Denies numbness, Denies Sensory deficit (Neuro), Denies tingling and Denies weakness Psych Denies anxiety, Denies depression and Denies memory loss Endo Denies cold intolerance, Denies fatigue, Denies heat intolerance, Denies polydipsia and Denies polyuria Ray/Lymph Denies easy bleeding and Denies easy bruising Aller/Immun Denies wheezing Physical exam (Primary Care) Vital Signs: Last Vital Signs Temp 97.8 F 11/25/23 08:03 Pulse 95 11/25/23 08:03 Resp 13 11/25/23 08:03 BP 114/66 11/25/23 08:03 Pulse Ox 99 11/25/23 08:03 Oxygen Delivery Method Room Air 11/25/23 08:03 BMI result Body Mass Index 35.6 Tobacco/Smoking Status: Tobacco use Status Tobacco use date assessed 09/16/23 11/25/23 08:11 Patient Tobacco Use Status Former Tobacco user 11/25/23 08:11 Tobacco use type Cigarette,Cigar 11/25/23 08:11 e-Cigarette/Vaping Use Never Used 11/25/23 08:11 PHQ-9: PHQ-9 Score PHQ-9: Total score 2 11/25/23 08:45 Depression Screening Interpretation: Negative Thrive Assessment: Date of Thrive Assessment Date Thrive assessed 11/25/23 11/25/23 08:11 Currently or been in a relationship where the following occur: no concerns reported Const Other: General: no acute distress, well developed, alert and awake Nutritional Appearance: well nourished Orientation/consciousness: patient oriented x3 HENMT Head: Yes normocephalic and Yes atraumatic Ears: hearing grossly normal bilaterally and TM's normal bilaterally General nose exam: Normal external nose present and Normal nares present Mouth: Normal oral and palatal mucosa present and moist mucous membranes Teeth and gingiva: dentition normal Throat: Yes oropharynx normal Eyes Pupils: Equal, round and reactive pupils present and Pupil accommodation reflex normal EOM: EOMs intact bilaterally Neck Neck: Yes normal visual inspection, Yes no lymphadenopathy and Yes trachea midline Thyroid: Thyroid normal Carotids: no bruits Lymphatic: no lymphadenopathy noted Chest Chest palpation & inspection: normal inspection of the chest Resp Effort & Inspection: normal respiratory effort Auscultation: clear to auscultation bilaterally Cardio Rate: regular rate Rhythm: regular rhythm Heart sounds: S1 normal heart sound present, S2 normal heart sound present, no gallops, no murmurs and no rubs Bruits: no abdominal aortic bruits and no carotid bruits GI Palpation (GI): No Abdominal aortic bruit present, Soft to palpation, nontender, No hepatosplenomegaly present and No Rebound tenderness present Auscultation: normal bowel sounds General: Yes no CVA tenderness Back/Spine/Pelvis Back: no CVA tenderness Cervical Spine: cervical ROM normal and No Cervical spine tenderness Thoracic/Lumbar Spine: thoraco-lumbar ROM normal, No pain with thoraco-lumbar ROM, No thoracic spinal tenderness and No lumbar spinal tenderness Skin General: warm and dry. Normal skin color. Normal skin turgor Lesions: no lesions Rashes: no rashes Trauma: no lacerations or abrasions Wounds: no wounds Nails: normal Neuro General: patient oriented x3, gait normal and CN's II-XI intact bilaterally Cranial nerves: Yes Equal, round and reactive pupils present Cognition (Neuro): normal cognition Gait exam (Neuro): Normal gait present Motor exam (neuro): 5/5 motor strength present throughout Sensory Exam: No Sensory deficit (Neuro) Deep tendon reflexes (DTR's): Right patellar reflex intensity grade: 2+ and Left patellar reflex intensity grade: 2+ Extrem General: Yes normal to inspection, No edema and No calf tenderness Psych Appearance: grossly normal Affect: normal affect Attitude: cooperative Thought process: Normal thought process present Results AMB Hemoglobin A1c AMB Hemoglobin A1c 6.9 % Last Edit by Jane Callahan CMA on 11/25/23 08:47 Assessment and Plan Assessment & Plan (1) Annual physical exam: Code(s): Z00.00 - Encounter for general adult medical examination without abnormal findings Plan: Normal physical exam of a 53-year-old female No significant physical restrictions or limitations noted Recent labs reviewed with the patient, unremarkable findings except for elevated fasting glucose, 126 and LDL of 103, LDL goal is less that 70. Urinalysis was positive for UTI; she was treated Healthy diet and routine exercise encouraged Follow-up with PCP in 3 months for diabetes Return sooner with symptoms or concerns Verbalized understanding and agreed with treatment plan (2) Diabetes: Code(s): E11.9 - Type 2 diabetes mellitus without complications Plan: A1c today is 6.9%, within goal of less than 7.0%. Previous A1c was 5.7% Continue current treatment regimen ADA diet and routine exercise encouraged Follow-up with PCP in 3 months Verbalized understanding and agreed with the treatment plan (3) Elevated LDL cholesterol level: Code(s): E78.00 - Pure hypercholesterolemia, unspecified Plan: Ran LDL level is 103, above goal of less than 70 Advised to limit foods high in saturated fat and avoid foods high in trans fat Routine exercise encouraged Verbalized understanding and agreed with the plan Orders: Orders AMB Hemoglobin A1c Today E11.9 - Type 2 diabetes mellitus without complications Medications: Discontinued nitrofurantoin monohyd/m-cryst 100 mg (Macrobid) must administer with a meal/food Discontinued Reason: Patient no longer taking 100 mg PO BID 7 days 14 caps 0RF polyethylene glycol 3350 (Miralax) As directed by gastroenterology department at [facility] Discontinued Reason: Patient no longer taking 238 grams PO ONCE 238 grams 0RF Z12.11 - Encounter for screening for malignant neoplasm of colon dicyclomine Discontinued Reason: Patient no longer taking 10 mg PO BID PRN 90 caps 2RF abdominal discomfort K58.9 - Irritable bowel syndrome without diarrhea bisacodyl (Dulcolax (bisacodyl)) take 2 tabs at noon the day before your colonoscopy Discontinued Reason: Patient no longer taking 10 mg (2 x 5 mg) PO ONCE 1 day 2 tabs 0RF Z12.11 - Encounter for screening for malignant neoplasm of colon docusate sodium Discontinued Reason: Patient no longer taking 200 mg (2 x 100 mg) PO BEDTIME 180 caps 3RF K59.00 - Constipation, unspecified Coding Level of Care Code Est Pt Prev Care 40-64y(52790) Diagnoses Annual physical exam Z00.00 Diabetes E11.9 Elevated LDL cholesterol level E78.00 Additional Codes JANE-7 Assessment Billing - JANE-7 Assessment Tool: JANE-7 Assessment 13834 ([id number])
== END 2023-11-25 08:51 | disposition home or self-care (01) ==
PROVIDERS: PCP Family Medicine; Visit Provider Nurse Practitioner Family
DX: Z00.00 Encounter for general adult medical examination without abnormal findings (principal); E11.9 Type 2 diabetes mellitus without complications; E78.00 Pure hypercholesterolemia, unspecified
CPT/HCPCS: 83036; 99396

== ENCOUNTER 2023-12-01 09:32 | Outpatient (REF) | payer OTHER, SELFPAY ==
[2023-12-01 10:17] LABS: MANUAL DIFF FLAG NO
[2023-12-01 10:28] LABS: Basophils Absolute Auto 0.1 X10*3/uL (0.0-0.2); Basophils Percent Auto 0.9 % (0-2); Eosinophils Absolute Auto 0.1 X10*3/uL (0.0-0.4); Eosinophils Percent Auto 1.3 % (0-4); Hematocrit 39.5 % (37.0-47.0); Hemoglobin 12.9 g/dl (12.0-16.0); Imm Gran Abs Auto 0.01 X10*3/uL (0.00-0.03); Imm Gran Pct Auto 0.2 % (0.0-0.4); Lymphocytes Absolute Auto 2.4 X10*3/uL (1.2-4.9); Lymphocytes Percent Auto 44.9 % (20-40); Mean Corpuscular HGB Conc 32.7 g/dl (31.0-35.0); Mean Corpuscular Hemoglobin 30.2 pg (27.0-33.0); Mean Corpuscular Volume 92.5 fL (80.0-98.0); Mean Platelet Volume 10.5 fL (9.4-12.3); Monocytes Absolute Auto 0.4 X10*3/uL (0.1-1.2); Monocytes Percent Auto 6.7 % (2-11); Neutrophils Absolute Auto 2.5 x10*3/uL (2.0-8.3); Platelet Count 192 X10*3/uL (160-400); Red Blood Count 4.27 X10*6/uL (4.20-5.50); Red Cell Distribution Width 12.2 % (11.0-16.0); White Blood Count 5.4 X10*3/uL (4.8-10.8)
[2023-12-01 11:26] LABS: Erythrocyte Sedimentation Rate 11 MM/HR (0-20)
[2023-12-01 11:29] LABS: Alanine Aminotransferase 10 U/L (0-31); Albumin Level 4.1 g/dL (3.5-5.0); Alkaline Phosphatase 83 U/L (39-117); Anion Gap 9 (12-20); Aspartate Amino Transferase 15 U/L (5-31); Bilirubin Total 0.5 mg/dL (0.0-1.0); Blood Urea Nitrogen 7 mg/dL (9-16); C Reactive Protein 0.41 mg/dL (< or = 0.50); Calcium 9.6 mg/dL (8.4-10.2); Carbon Dioxide 30 mmol/L (22-29); Chloride 108 mmol/L (96-108); Estimated Glomerular Filt Rate > 60; Glucose Random 97 mg/dL (60-115); Potassium 4.2 mmol/L (3.3-5.1); Sodium 143 mmol/L (135-145); Total Protein 6.7 g/dL (6.5-8.0)
== END 2023-12-01 09:33 | disposition home or self-care (01) ==
LOC: HO.HMGCLDS 09:32
PROVIDERS: PCP Family Medicine; Visit Provider Student in an Organized Health Care Education/Training Program
DX: M47.819 Spondylosis without myelopathy or radiculopathy, site unspecified (principal)
CPT/HCPCS: 36415; 80053; 85025; 85652; 86140

== ENCOUNTER 2023-12-02 13:32 | Outpatient (AMB) | payer OTHER, SELFPAY ==
--- NOTE | 2023-12-02 13:37 | A.OFFVIS_ITS ---
Intake Vital Signs 12/02/23 13:40 Height 5 ft 5 in BMI Reason not done Patient refused/unable BP 108/58 L Blood Pressure Location Rt brachial Position Sitting Pulse 57 Pulse Source Pulse Oximeter Pulse Oximetry (%) 94 Oxygen Delivery Method Room Air Comment Pt declined scale, states weight is 214lbs Intake Visit Reasons: /cm Intake Note: Patient last seen 07/31/23 presents today for follow up and test results. Chief Controller Station Required: No Accompanied by: Self / Same As Patient Allergies amoxicillin [AMOXICILLIN] Allergy (Severe, Verified 12/02/23 13:41) ANAPHYLAXIS codeine [CODEINE] Allergy (Severe, Verified 12/02/23 13:41) ANAPHYLAXIS Sulfa (Sulfonamide Antibiotics) [SULFA (SULFONAMIDE ANTIBIOTICS)] Allergy (Mild, Verified 12/02/23 13:41) Rash, hives, rash Medication List - Last Reconciled 12/02/23 by Renny Guzman MD albuterol sulfate 90 mcg/actuation 1 inh inhalation QID PRN calcium citrate-vitamin D3 315 mg-5 mcg (200 unit) (Calcium Citrate + D) 1 tab PO DAILY cyclobenzaprine 10 mg PO TID PRN Enbrel Mini (etanercept) 50 mg subcut QWEEK NS epinephrine (EpiPen 2-Juan Luis) 0.3 mg (0.3 mL) IM Q10M PRN gabapentin 600 mg PO BID 30 days levonorgestrel (Mirena) 1 device intrauterine DAILY lidocaine 5% 1 patch topical DAILY lidocaine 5% 1 patch topical DAILY 30 days metformin ER 250 mg (1/2 x 500 mg) PO BID vgasgnnagipp-zmd-rgot-FA-vit K 45 mg iron- 800 mcg-120 mcg (Bariatric Multivitamins) caps PO pantoprazole 40 mg PO DAILY 90 days sucralfate 10 mL PO BEDTIME HPI HPI Comments History of Present Illness Details 53-year-old female with non radiographic axial spa returns for follow- up. Last seen 07/2023. Last visit Enbrel SureClick was switched to Enbrel mini cartilage. She states that these work a little better for her. She feels well overall. States that she gets intermittent right knee pain. Over the last 2 years she was told that she has a torn meniscus in the right knee and received a couple of steroid injections which did provide some relief. Last injection was about a year ago. She states that she continues to have intermittent right knee pain but not severe. She would ice it and apply Voltaren gel. Voltaren gel does help. Initial history: This is a 53-year-old female with non radiographic axSpA who presents for follow-up. Was last seen by Tonia Carlos 11/14. Doing well overall in terms of her joint pain and stiffness. She gets morning stiffness of her hands lasting about 1 hour. Occasionally takes Tylenol. She mentions that she has been getting GI upset recently and she went back to weight management and she was advised to start drinking protein shakes, avoiding carbohydrates. She has been having pain on the outside of her left hip. She also has numbness along the outer aspect of her right thigh, worse with walking and lying in bed at night. Better when sitting. [facility] Medical History (Updated 12/02/23 @ 14:07 by Renny Guzman MD) Elevated erythrocyte sedimentation rate Ankylosing spondylitis Bronchitis History of COVID-19 Knee pain, right Chronic headaches Morbid obesity with BMI of 40.0-44.9, adult Abnormal findings on esophagogastroduodenoscopy (EGD) Tubal ligation evaluation Cellulitis Concussion Ankylosing spondylitis Obstructive sleep apnea Asthma GERD (gastroesophageal reflux disease) Diabetes mellitus Menopause Surgical History History of esophagogastroduodenoscopy (EGD) Hx of colonoscopy Status post insertion of nerve stimulator History of cholecystectomy Gastric bypass status for obesity H/O lumpectomy Hx of tubal ligation Hx laparoscopic cholecystectomy History of Krystian-en-Y gastric bypass Family History Father Ankylosing spondylitis of site in spine DM (diabetes mellitus) Alzheimer disease COPD (chronic obstructive pulmonary disease) Skin cancer RA (rheumatoid arthritis) Mother RA (rheumatoid arthritis) Son No problems noted. Maternal Grandfather Prostate cancer Bone cancer Social History Household Members: Spouse Housing: House Are you a primary critical care unit manager to a significant other at home: No Do you presently have visiting nurse or other home services: No Alcohol intake: current Alcohol intake frequency: holidays/special occasions only Alcohol type: wine and hard liquor Patient Tobacco Use Status: Former Tobacco user Quit Date: 1987 Tobacco use type: Cigarette and Cigar Years Smoked: 4 e-Cigarette/Vaping Use: Never Used Second Hand Smoke Exposure: No Substance Use Type: Marijuana service: No Current occupational status: student Current occupational exposures/hazards: No Cognitive needs: No Hearing needs: No Vision needs: No Review of Systems Musc Reports arthralgias Physical Exam Vital Signs: Last Vital Signs Pulse 57 12/02/23 13:40 BP 108/58 L 12/02/23 13:40 Pulse Ox 94 12/02/23 13:40 Oxygen Delivery Method Room Air 12/02/23 13:40 Const General: cooperative, healthy appearing and comfortable Nutritional Appearance: obese morbidly obese Orientation/consciousness: patient oriented x3 Limitations: no limitations HEENT Head: Yes normocephalic and Yes atraumatic Mouth: moist mucous membranes Resp Effort & Inspection: normal respiratory effort and able to speak in complete sentences Auscultation: clear to auscultation bilaterally Cardio Rate: regular rate Rhythm: regular rhythm Skin General skin exam: no rashes or lesions noted Neuro General: patient oriented x3 Extrem Other: No active synovitis Mild osteoarthritic changes of both hands with early Zeke's nodes Mild deformity of her right little finger related to an old trauma Minimal right knee warmth and pain with full extension Negative straight leg raise test bilaterally Negative Fabere test bilaterally Results Reviewed Results Reviewed: MRI pelvis 2017? Impression ?no acute osseous abnormality.?? No MRI evidence of sacroiliitis? Lumbar spondylosis? Rounded T2 hyperintense focus right lateral aspect body of the uterus appearing to be in continue T with endometrial stripe.? He is incompletely assessed on the current images.? Further assessment with dedicated contrast-enhanced MRI of the female pelvis or pelvic ultrasound recommend Assessment & Plan Assessment & Plan (1) Spondyloarthropathy: Comment: HLA B27 negative Enbrel: 12/2018- present effective. Switched from SureClick to cartilage Mini (due difficulty with mechanism) 07/2023 Methotrexate: January 2021- January 2021 Gi upset after a few doses. Code(s): M47.819 - Spondylosis without myelopathy or radiculopathy, site unspecified Plan: Per previous notes: Patient has non radiographic spondyloarthropathy with inflammatory back pain and history of peripheral arthritis, enthesitis, elevated inflammatory markers which all improved after starting Enbrel . 53-year-old female with non radiographic axSpA returns for follow-up. Doing well overall. I do not see any active synovitis on exam. Continue Enbrel 50 mg weekly Labs before next visit in 4 months (2) Osteoarthritis of right knee: Code(s): M17.11 - Unilateral primary osteoarthritis, right knee Qualifiers: Osteoarthritis type: primary Qualified Code(s): M17.11 - Unilateral primary osteoarthritis, right knee Plan: Patient was told that she has a torn meniscus over the last 2 years and she received a couple of cortisone injections which do help. Last injection was about a year ago. She continues to have intermittent right knee pain. She has used Voltaren gel in the past and it has helped. Advised patient to use Voltaren gel as needed (3) High risk medication use: Code(s): Z79.899 - Other buttermaker continuous churn (current) drug therapy Plan: Advised patient to seek medical care [facility] if patient has an infection and advised patient to stop the medication until the infection is resolved. Plan I spent 26 minutes reviewing patient's chart, evaluating patient, ordering diagnostic workup, counseling patient and documenting in the chart Orders: Orders Complete Blood Count Auto Diff 4 Months M47.819 - Spondylosis without myelopathy or radiculopathy, site unspecified C Reactive Protein 4 Months M47.819 - Spondylosis without myelopathy or radiculopathy, site unspecified Erythrocyte Sedimentation Rate 4 Months M47.819 - Spondylosis without myelopathy or radiculopathy, site unspecified Comprehensive Met. Panel 4 Months M47.819 - Spondylosis without myelopathy or radiculopathy, site unspecified Coding Level of Care Code Est Pt Level 4 (74192) Diagnoses Spondyloarthropathy M47.819 Primary osteoarthritis of right knee M17.11 Osteoarthritis type: primary High risk medication use Z79.899
[2023-12-02 13:40] VITALS: BP 108/58; PULSE 57; O2SAT 94
== END 2023-12-02 14:04 | disposition home or self-care (01) ==
PROVIDERS: PCP Family Medicine; Visit Provider Student in an Organized Health Care Education/Training Program
DX: M47.819 Spondylosis without myelopathy or radiculopathy, site unspecified (principal); M17.11 Unilateral primary osteoarthritis, right knee; Z79.899 Other long term (current) drug therapy
CPT/HCPCS: 99214

== ENCOUNTER → 2023-12-02 13:32 | Outpatient (BNVA) | payer OTHER, SELFPAY | PROVIDERS: PCP Family Medicine; Visit Provider Student in an Organized Health Care Education/Training Program ==

== ENCOUNTER 2023-12-16 12:56 | Outpatient (AMB) | payer OTHER, SELFPAY ==
[2023-12-16 13:15] VITALS: BP 135/63; PULSE 75; O2SAT 97; BMI 35.6
--- NOTE | 2023-12-16 13:15 | A.OFFVIS_ITS ---
Vital Signs 12/16/23 13:15 Height 5 ft 5 in Weight 214 lb BMI 35.6 BP 135/63 Blood Pressure Location Lt brachial Pulse 75 Pulse Source Pulse Oximeter Pulse Oximetry (%) 97 Oxygen Delivery Method Room Air Intake Visit Reasons: fu after echo & 7 day holter Intake Note: follow up after echo and holter pt feels good Allergies amoxicillin [AMOXICILLIN] Allergy (Severe, Verified 12/02/23 13:41) ANAPHYLAXIS codeine [CODEINE] Allergy (Severe, Verified 12/02/23 13:41) ANAPHYLAXIS Sulfa (Sulfonamide Antibiotics) [SULFA (SULFONAMIDE ANTIBIOTICS)] Allergy (Mild, Verified 12/02/23 13:41) Rash, hives, rash HPI Comments Details: 53-year-old female presents today for a follow-up after testing. She reports she has been doing well. She still gets palpitations. They started back in 2017 and have been increasing recently. They last seconds sometimes up to minutes. 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 [facility] Medical History Elevated erythrocyte sedimentation rate Ankylosing spondylitis Bronchitis History of COVID-19 Knee pain, right Chronic headaches Morbid obesity with BMI of 40.0-44.9, adult Abnormal findings on esophagogastroduodenoscopy (EGD) Tubal ligation evaluation Cellulitis Concussion Ankylosing spondylitis Obstructive sleep apnea Asthma GERD (gastroesophageal reflux disease) Diabetes mellitus Menopause Surgical History History of esophagogastroduodenoscopy (EGD) Hx of colonoscopy Status post insertion of nerve stimulator History of cholecystectomy Gastric bypass status for obesity H/O lumpectomy Hx of tubal ligation Hx laparoscopic cholecystectomy History of Krystian-en-Y gastric bypass Family History Father Ankylosing spondylitis of site in spine DM (diabetes mellitus) Alzheimer disease COPD (chronic obstructive pulmonary disease) Skin cancer RA (rheumatoid arthritis) Mother RA (rheumatoid arthritis) Son No problems noted. Maternal Grandfather Prostate cancer Bone cancer Social History Household Members: Spouse Housing: House Are you a primary intensive care specialist to a significant other at home: No Do you presently have visiting nurse or other home services: No Alcohol intake: current Alcohol intake frequency: holidays/special occasions only Alcohol type: wine and hard liquor Patient Tobacco Use Status: Former Tobacco user Quit Date: 1987 Tobacco use type: Cigarette and Cigar Years Smoked: 4 e-Cigarette/Vaping Use: Never Used Second Hand Smoke Exposure: No Substance Use Type: Marijuana service: No Current occupational status: student Current occupational exposures/hazards: No Cognitive needs: No Hearing needs: No Vision needs: No Review of Systems Const Denies weakness ENT Denies dizziness Card Denies chest pain, Denies chest pain with activity, Denies syncope, Denies rapid heart rate, Denies pedal edema, Denies edema, Denies leg edema, Denies lightheadedness, Denies palpitations, Denies dyspnea, Denies dyspnea on exertion and Denies orthopnea Resp Denies cough, Denies dyspnea and Denies dyspnea on exertion GI Denies hematochezia and Denies change in stool character Musc Denies abnormal gait, Denies muscle cramps, Denies muscle weakness, Denies numbness, Denies radiating pain into limb and Denies tingling Neuro Denies abnormal gait, Denies dizziness, Denies syncope, Denies numbness, Denies tingling and Denies weakness Endo Denies palpitations Physical Exam Vital Signs: Last Vital Signs Pulse 75 12/16/23 13:15 BP 135/63 12/16/23 13:15 Pulse Ox 97 12/16/23 13:15 Oxygen Delivery Method Room Air 12/16/23 13:15 BMI result Body Mass Index 35.6 Results Reviewed Results Reviewed: Holter * Total monitoring time 7 days. * Underlying rhythm is sinus with an average rate of 75/Min. * Rare supraventricular ectopy. * Rare ventricular ectopy. * No significant pauses or AV blocks. * Palpitations in patient diary correlates with supraventricular, ventricular ectopy, mild sinus tachycardia. Echo Conclusions: - The left ventricular systolic function is normal. The calculated ejection fraction is 60% by biplane method. - No obvious valvular pathology seen on this study. Assessment & Plan Assessment & Plan (1) Palpitations: Code(s): R00.2 - Palpitations Category: Medical Plan Echocardiogram showing 60% ejection fraction with no obvious valvular pathology seen. Holter showed rare ectopy. Reduction of caffeine and stress mitigation di scussed as she would like to avoid additional medications if needed. Patient is going to inform us if these do not decrease in frequency or become worse. Coding Level of Care Code Est Pt Level 3 (45785) Diagnoses Palpitations R00.2
== END 2023-12-16 13:55 | disposition home or self-care (01) ==
PROVIDERS: PCP Family Medicine; Visit Provider Nurse Practitioner
DX: R00.2 Palpitations (principal)
CPT/HCPCS: 93010; 99213

== ENCOUNTER → 2023-12-16 12:56 | Outpatient (BNVA) | payer OTHER, SELFPAY | PROVIDERS: PCP Family Medicine; Visit Provider Nurse Practitioner | DX: R00.2 Palpitations (principal) | CPT/HCPCS: 93005 ==

== ENCOUNTER 2024-02-11 15:55 | Outpatient (AMB) | payer OTHER, SELFPAY ==
--- NOTE | 2024-02-11 16:05 | MHC.OFFWIV ---
Intake Vital Signs 02/11/24 16:06 Height 5 ft 5 in Weight 218 lb BMI 36.3 BP 110/66 Blood Pressure Location Rt brachial Position Sitting Pulse 68 Pulse Source Pulse Oximeter Temp 98.3 F Temp Source Oral Pulse Oximetry (%) 98 Oxygen Delivery Method Room Air Intake Visit Reasons: EP muscle spasm back Intake Note: pt is here c/o muscle spasm in back. Started earlier today getting up from a sofa Patient Tobacco Use Status: Former Tobacco user Allergies amoxicillin [AMOXICILLIN] Allergy (Severe, Verified 02/11/24 16:05) ANAPHYLAXIS codeine [CODEINE] Allergy (Severe, Verified 02/11/24 16:05) ANAPHYLAXIS Sulfa (Sulfonamide Antibiotics) [SULFA (SULFONAMIDE ANTIBIOTICS)] Allergy (Mild, Verified 02/11/24 16:05) Rash, hives, rash Do you need a note to return to daycare/school/sports/work: No HPI HPI Comments History of Present Illness Details Patient is a 53-year-old female complaining of right-sided low back pain with movement. She states she did not experience any kind of trauma or fall but states she was sitting on a couch she was unfamiliar with, she said she was sitting at the edge of the couch for a long period of time and when she went to stand up, her back was very stiff and in pain. She denies any loss of her bladder or bowels. [facility] Medical History Elevated erythrocyte sedimentation rate Ankylosing spondylitis Bronchitis History of COVID-19 Knee pain, right Chronic headaches Morbid obesity with BMI of 40.0-44.9, adult Abnormal findings on esophagogastroduodenoscopy (EGD) Tubal ligation evaluation Cellulitis Concussion Ankylosing spondylitis Obstructive sleep apnea Asthma GERD (gastroesophageal reflux disease) Diabetes mellitus Menopause Surgical History History of esophagogastroduodenoscopy (EGD) Hx of colonoscopy Status post insertion of nerve stimulator History of cholecystectomy Gastric bypass status for obesity H/O lumpectomy Hx of tubal ligation Hx laparoscopic cholecystectomy History of Krystian-en-Y gastric bypass Family History Father Ankylosing spondylitis of site in spine DM (diabetes mellitus) Alzheimer disease COPD (chronic obstructive pulmonary disease) Skin cancer RA (rheumatoid arthritis) Mother RA (rheumatoid arthritis) Son No problems noted. Maternal Grandfather Prostate cancer Bone cancer Social History Household Members: Spouse Housing: House Are you a primary tree care foreman to a significant other at home: No Do you presently have visiting nurse or other home services: No Alcohol intake: current Alcohol intake frequency: holidays/special occasions only Alcohol type: wine and hard liquor Patient Tobacco Use Status: Former Tobacco user Tobacco use type: Cigarette and Cigar Years Smoked: 4 e-Cigarette/Vaping Use: Never Used Second Hand Smoke Exposure: No Substance Use Type: Marijuana service: No Current occupational status: student Current occupational exposures/hazards: No Cognitive needs: No Hearing needs: No Vision needs: No Review of Systems Const All systems reviewed & are unremarkable except as noted in HPI and below Physical Exam Vital Signs: Last Vital Signs Temp 98.3 F 02/11/24 16:06 Pulse 68 02/11/24 16:06 BP 110/66 02/11/24 16:06 Pulse Ox 98 02/11/24 16:06 Oxygen Delivery Method Room Air 02/11/24 16:06 BMI result Body Mass Index 36.3 Const General: cooperative, healthy appearing and in distress (looks uncomfortable) mild Orientation/consciousness: patient oriented x3 Limitations: no limitations Eyes General: appearance normal, both eyes and all related structures Neck Neck: Yes normal visual inspection Back/Spine/Pelvis Back: No back tenderness Cervical Spine: cervical ROM normal and No Cervical spine tenderness Thoracic/Lumbar Spine: thoracic and lumbar spine normal to inspection, pain with thoraco-lumbar ROM, paraspinal muscle tenderness on the right in the upper lumbar and in the mid lumbar, No thoracic spinal tenderness and No lumbar spinal tenderness Neuro General: patient oriented x3 Extrem General: Yes normal to inspection Assessment & Plan Assessment & Plan (1) Spasm of muscle of lower back: Code(s): M62.830 - Muscle spasm of back Plan: Recommended taking a muscle relaxer, educated patient on not drinking alcohol or driving a car when taking this medication. Recommended taking it before bed and only using it during the day if absolutely needed. Recommended using with Aleve, if no improvement she can follow-up with her PCP. Also advised if any loss of control of her bladder or bowels, she should go to the emergency department as soon as possible. Plan See above Medications: New cyclobenzaprine 5 mg PO TID PRN 15 tabs 0RF muscle spasm Coding Level of Care Code Est Pt Level 3 (08537) Diagnoses Spasm of muscle of lower back M62.830
[2024-02-11 16:06] VITALS: BP 110/66; PULSE 68; TEMP 36.8; O2SAT 98; BMI 36.3
== END 2024-02-11 16:51 | disposition home or self-care (01) ==
PROVIDERS: PCP Family Medicine; Visit Provider Physician Assistant
DX: M62.830 Muscle spasm of back (principal)
CPT/HCPCS: 99213

== ENCOUNTER 2024-06-12 10:16 | Outpatient (REF) | payer OTHER, SELFPAY ==
[2024-06-12 11:46] LABS: MANUAL DIFF FLAG NO
[2024-06-12 11:47] LABS: Basophils Percent Auto 0.6 % (0-2); Eosinophils Absolute Auto 0.1 X10*3/uL (0.0-0.4); Eosinophils Percent Auto 1.8 % (0-4); Hematocrit 41.4 % (37.0-47.0); Hemoglobin 13.6 g/dl (12.0-16.0); Imm Gran Abs Auto 0.01 X10*3/uL (0.00-0.03); Imm Gran Pct Auto 0.2 % (0.0-0.4); Lymphocytes Absolute Auto 2.3 X10*3/uL (1.2-4.9); Lymphocytes Percent Auto 34.8 % (20-40); Mean Corpuscular HGB Conc 32.9 g/dl (31.0-35.0); Mean Corpuscular Hemoglobin 30.1 pg (27.0-33.0); Mean Corpuscular Volume 91.6 fL (80.0-98.0); Mean Platelet Volume 11.1 fL (9.4-12.3); Monocytes Absolute Auto 0.4 X10*3/uL (0.1-1.2); Monocytes Percent Auto 5.9 % (2-11); Neutrophils Absolute Auto 3.8 x10*3/uL (2.0-8.3); Neutrophils Percent Auto 56.7 % (45-73); Platelet Count 225 X10*3/uL (160-400); Red Blood Count 4.52 X10*6/uL (4.20-5.50); Red Cell Distribution Width 12.1 % (11.0-16.0); White Blood Count 6.6 X10*3/uL (4.8-10.8)
[2024-06-12 11:56] LABS: Appearance Urine Clear; Color Urine Dark Yellow; Glucose Urine UA Negative (Negative); Leukocyte Esterase Urine Trace (Negative); Nitrite Urine Negative (Negative); PH 5.5 (5.0-9.0); Specific Gravity - Urine 1.025 (1.005-1.025); UMIC TRIGGER UA YES; Urine Blood Trace (Negative); Urine Ketones Trace mg/dL (Negative); Urine Protein Trace mg/dL (Neg-Trace)
[2024-06-12 12:07] LABS: Alanine Aminotransferase 10 U/L (0-31); Albumin Level 4.2 g/dL (3.5-5.0); Alkaline Phosphatase 107 U/L (39-117); Anion Gap 12 (12-20); Aspartate Amino Transferase 16 U/L (5-31); Bilirubin Total 0.5 mg/dL (0.0-1.0); Blood Urea Nitrogen 7 mg/dL (9-16); C Reactive Protein 1.45 mg/dL (< or = 0.50); Calcium 9.5 mg/dL (8.4-10.2); Carbon Dioxide 27 mmol/L (22-29); Chloride 106 mmol/L (96-108); Estimated Glomerular Filt Rate > 60; Glucose Random 132 mg/dL (60-115); Sodium 141 mmol/L (135-145); Total Protein 7.2 g/dL (6.5-8.0)
[2024-06-12 12:16] LABS: Bacteria Urine None Seen (None Seen); WBC Urine 0-5 /HPF (0-5)
[2024-06-12 12:23] LABS: Erythrocyte Sedimentation Rate 16 MM/HR (0-20)
== END 2024-06-12 10:17 | disposition home or self-care (01) ==
LOC: HO.HMGCLDS 10:16
PROVIDERS: PCP Family Medicine; Visit Provider Student in an Organized Health Care Education/Training Program
DX: M47.819 Spondylosis without myelopathy or radiculopathy, site unspecified (principal)
CPT/HCPCS: 36415; 80053; 81001; 81003; 85025; 85652; 86140

== ENCOUNTER 2024-06-15 11:45 | Outpatient (AMB) | payer OTHER, SELFPAY ==
[2024-06-15 11:47] VITALS: BP 124/70; PULSE 71; O2SAT 98; BMI 39.3
--- NOTE | 2024-06-15 11:47 | MHC.OFFWIV ---
Intake Vital Signs 06/15/24 11:47 Height 5 ft 5 in Weight 236 lb 2 oz BMI 39.3 BP 124/70 Blood Pressure Location Rt brachial Position Sitting Pulse 71 Pulse Source Pulse Oximeter Pulse Oximetry (%) 98 Oxygen Delivery Method Room Air Intake Visit Reasons: EP ? UTI Patient Tobacco Use Status: Former Tobacco user Allergies amoxicillin [AMOXICILLIN] Allergy (Severe, Verified 06/15/24 11:47) ANAPHYLAXIS codeine [CODEINE] Allergy (Severe, Verified 06/15/24 11:47) ANAPHYLAXIS Sulfa (Sulfonamide Antibiotics) [SULFA (SULFONAMIDE ANTIBIOTICS)] Allergy (Mild, Verified 06/15/24 11:47) Rash, hives, rash Medication List - Last Reconciled 06/15/[address] MD albuterol sulfate 90 mcg/actuation 1 inh inhalation QID PRN calcium citrate-vitamin D3 315 mg-5 mcg (200 unit) (Calcium Citrate + D) 1 tab PO DAILY Enbrel Mini (etanercept) 50 mg subcut QWEEK NS epinephrine (EpiPen 2-Juan Luis) 0.3 mg (0.3 mL) IM Q10M PRN gabapentin 600 mg PO BID 30 days levonorgestrel (Mirena) 1 device intrauterine DAILY metformin ER 250 mg (1/2 x 500 mg) PO BID 90 days ibxowjxanmiv-glp-dzcg-FA-vit K 45 mg iron- 800 mcg-120 mcg (Bariatric Multivitamins) 45 caps PO DAILY pantoprazole 40 mg PO DAILY 90 days Do you need a note to return to daycare/school/sports/work: No HPI EP ? UTI HPI Details Patient is a 54-year-old female came in today to be evaluated for possible urinary tract infection Patient says that couple of weeks ago she was seen in a different urgent care where she was found to have a urinary tract infection She was given antibiotic which caused diarrhea so she only took 2 doses She is having pressure-like sensation suprapubic There is no fever no chills no nausea no vomiting no back pain UA shows slight amount of blood Patient also have IUD for the past 8 years and has not been able to make appointment with OBGYN As she is having difficulty getting in with her primary care for referral I have placed a referral for the patient I have also sent Levaquin 250 mg to be taken once a day for 5 days with food. PFSH Medical History Elevated erythrocyte sedimentation rate Ankylosing spondylitis Bronchitis History of COVID-19 Knee pain, right Chronic headaches Morbid obesity with BMI of 40.0-44.9, adult Abnormal findings on esophagogastroduodenoscopy (EGD) Tubal ligation evaluation Cellulitis Concussion Ankylosing spondylitis Obstructive sleep apnea Asthma GERD (gastroesophageal reflux disease) Diabetes mellitus Menopause Surgical History History of esophagogastroduodenoscopy (EGD) Hx of colonoscopy Status post insertion of nerve stimulator History of cholecystectomy Gastric bypass status for obesity H/O lumpectomy Hx of tubal ligation Hx laparoscopic cholecystectomy History of Krystian-en-Y gastric bypass Family History Father Ankylosing spondylitis of site in spine DM (diabetes mellitus) Alzheimer disease COPD (chronic obstructive pulmonary disease) Skin cancer RA (rheumatoid arthritis) Mother RA (rheumatoid arthritis) Son No problems noted. Maternal Grandfather Prostate cancer Bone cancer Social History Household Members: Spouse Housing: House Are you a primary care management assistant to a significant other at home: No Do you presently have visiting nurse or other home services: No Alcohol intake: current Alcohol intake frequency: holidays/special occasions only Alcohol type: wine and hard liquor Patient Tobacco Use Status: Former Tobacco user Tobacco use type: Cigarette and Cigar Years Smoked: 4 e-Cigarette/Vaping Use: Never Used Second Hand Smoke Exposure: No Substance Use Type: Marijuana service: No Current occupational status: student Current occupational exposures/hazards: No Cognitive needs: No Hearing needs: No Vision needs: No Review of Systems Const All systems reviewed & are unremarkable except as noted in HPI and below Physical Exam Vital Signs: Last Vital Signs Pulse 71 06/15/24 11:47 BP 124/70 06/15/24 11:47 Pulse Ox 98 06/15/24 11:47 Oxygen Delivery Method Room Air 06/15/24 11:47 BMI result Body Mass Index 39.3 Const General: no acute distress Orientation/consciousness: patient oriented x3 Eyes General: appearance normal, both eyes and all related structures Resp Effort & Inspection: normal respiratory effort and able to speak in complete sentences GI Other: Mild suprapubic discomfort with pressure, no CVAT Neuro General: patient oriented x3 Psych Mental Status: mental status grossly normal Assessment & Plan Assessment & Plan (1) Hematuria: Code(s): R31.9 - Hematuria, unspecified Qualifiers: Hematuria type: other microscopic Qualified Code(s): R31.29 - Other microscopic hematuria Plan Patient is a 54-year-old female came in today to be evaluated for possible urinary tract infection Patient says that couple of weeks ago she was seen in a different urgent care where she was found to have a urinary tract infection She was given antibiotic which caused diarrhea so she only took 2 doses She is having pressure-like sensation suprapubic There is no fever no chills no nausea no vomiting no back pain UA shows slight amount of blood Patient also have IUD for the past 8 years and has not been able to make appointment with OBGYN As she is having difficulty getting in with her primary care for referral I have placed a referral for the patient Orders: Referrals [employer] Referral Z30.431 - Encounter for routine checking of intrauterine contraceptive device Medications: New levofloxacin 250 mg PO DAILY 5 tabs 0RF 5 days Coding Level of Care Code Est Pt Level 3 (94914) Diagnoses Other microscopic hematuria R31.29 Hematuria type: other microscopic
== END 2024-06-15 12:48 | disposition home or self-care (01) ==
PROVIDERS: PCP Family Medicine; Visit Provider Internal Medicine
DX: R31.29 Other microscopic hematuria (principal)

== ENCOUNTER → 2024-06-15 11:45 | Outpatient (BNVA) | payer OTHER, SELFPAY | PROVIDERS: PCP Family Medicine; Visit Provider Internal Medicine ==

== ENCOUNTER 2024-07-12 11:09 | Outpatient (AMB) | payer MEDICARE, SELFPAY ==
--- NOTE | 2024-07-12 12:02 | AM.OFFWIN_ITS ---
Intake Vital Signs 07/12/24 12:03 Height 5 ft 5 in Weight 244 lb BMI 40.6 BP 122/72 Blood Pressure Location Lt brachial Position Sitting Pulse 66 Pulse Source Pulse Oximeter Pulse Oximetry (%) 98 Oxygen Delivery Method Room Air Intake Visit Reasons: EP-rash rt underlid Intake Note: Patient here for rash under right side of lip that started yesterday morning. Patient Tobacco Use Status: Former Tobacco user Allergies amoxicillin [AMOXICILLIN] Allergy (Severe, Verified 07/12/24 12:03) ANAPHYLAXIS codeine [CODEINE] Allergy (Severe, Verified 07/12/24 12:03) ANAPHYLAXIS Sulfa (Sulfonamide Antibiotics) [SULFA (SULFONAMIDE ANTIBIOTICS)] Allergy (Mild, Verified 07/12/24 12:03) Rash, hives, rash Do you need a note to return to daycare/school/sports/work: No HPI EP-rash rt underlid HPI Details This note is constructed using voice recognition software. While every effort has been made to ensure accuracy, shoulder boner errors may have been included. The patient is a 54 year old female who presents to the clinic today with rash beneath her right lip since yesterday. She notes that she has had something similar a few years ago which was impetigo. She reports the area to be slightly itchy. She denies fever, chills cough, shortness of breath, or other URI symptoms. [facility] Medical History Elevated erythrocyte sedimentation rate Ankylosing spondylitis Bronchitis History of COVID-19 Knee pain, right Chronic headaches Morbid obesity with BMI of 40.0-44.9, adult Abnormal findings on esophagogastroduodenoscopy (EGD) Tubal ligation evaluation Cellulitis Concussion Ankylosing spondylitis Obstructive sleep apnea Asthma GERD (gastroesophageal reflux disease) Diabetes mellitus Menopause Surgical History History of esophagogastroduodenoscopy (EGD) Hx of colonoscopy Status post insertion of nerve stimulator History of cholecystectomy Gastric bypass status for obesity H/O lumpectomy Hx of tubal ligation Hx laparoscopic cholecystectomy History of Krystian-en-Y gastric bypass Family History Father Ankylosing spondylitis of site in spine DM (diabetes mellitus) Alzheimer disease COPD (chronic obstructive pulmonary disease) Skin cancer RA (rheumatoid arthritis) Mother RA (rheumatoid arthritis) Son No problems noted. Maternal Grandfather Prostate cancer Bone cancer Social History Household Members: Spouse Housing: House Are you a primary primary care provider to a significant other at home: No Do you presently have visiting nurse or other home services: No Alcohol intake: current Alcohol intake frequency: holidays/special occasions only Alcohol type: wine and hard liquor Patient Tobacco Use Status: Former Tobacco user Tobacco use type: Cigarette and Cigar Years Smoked: 4 e-Cigarette/Vaping Use: Never Used Second Hand Smoke Exposure: No Substance Use Type: Marijuana service: No Current occupational status: student Current occupational exposures/hazards: No Cognitive needs: No Hearing needs: No Vision needs: No Review of Systems Const All systems reviewed & are unremarkable except as noted in HPI and below Physical Exam Vital Signs: Last Vital Signs Pulse 66 07/12/24 12:03 BP 122/72 07/12/24 12:03 Pulse Ox 98 07/12/24 12:03 Oxygen Delivery Method Room Air 07/12/24 12:03 BMI result Body Mass Index 40.6 Const General: cooperative, healthy appearing, comfortable, no acute distress and well developed Orientation/consciousness: patient oriented x3 Limitations: no limitations Resp Effort & Inspection: normal respiratory effort and able to speak in complete sentences Skin Other: 1 x 1 cm area beneath right lip papules with erythematous base. No discharge, warmth. Neuro General: patient oriented x3 Assessment & Plan Assessment & Plan (1) Impetigo: Code(s): L01.00 - Impetigo, unspecified Plan: Mupirocin prescribed due to limited effected area. Advised follow up with worsening symptoms or failure to resolve. Plan See above for full details and plan. Medications: New mupirocin 2% 1 appl topical BID 5 days 15 grams 0RF Coding Level of Care Code Est Pt Level 3 (26322) Diagnoses Impetigo L01.00
[2024-07-12 12:03] VITALS: BP 122/72; PULSE 66; O2SAT 98; BMI 40.6
== END 2024-07-12 13:18 | disposition home or self-care (01) ==
PROVIDERS: PCP Family Medicine; Visit Provider Registered Nurse
DX: L01.00 Impetigo, unspecified (principal)

== ENCOUNTER → 2024-07-12 11:09 | Outpatient (BNVA) | payer MEDICARE, SELFPAY | PROVIDERS: PCP Family Medicine; Visit Provider Registered Nurse | DX: L01.00 Impetigo, unspecified (principal) | CPT/HCPCS: 99212 ==

== ENCOUNTER 2024-07-29 09:14 | Outpatient (AMB) | payer OTHER, SELFPAY ==
[2024-07-29 09:22] VITALS: BP 116/70
--- NOTE | 2024-07-29 09:22 | MHC.OFFVIS ---
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 Allergies amoxicillin [AMOXICILLIN] Allergy (Severe, Verified 07/29/24 09:23) ANAPHYLAXIS codeine [CODEINE] Allergy (Severe, Verified 07/29/24 09:23) ANAPHYLAXIS Sulfa (Sulfonamide Antibiotics) [SULFA (SULFONAMIDE ANTIBIOTICS)] Allergy (Mild, Verified 07/29/24 09:23) Rash, hives, rash Medication List - Last Reconciled 07/29/24 by Beronica Vizcaino CNM albuterol sulfate 90 mcg/actuation 1 inh inhalation QID PRN calcium citrate-vitamin D3 315 mg-5 mcg (200 unit) (Calcium Citrate + D) 1 tab PO DAILY Enbrel Mini (etanercept) 50 mg subcut QWEEK NS epinephrine (EpiPen 2-Juan Luis) 0.3 mg (0.3 mL) IM Q10M PRN gabapentin 600 mg PO BID 30 days levonorgestrel (Mirena) 1 device intrauterine DAILY metformin ER 250 mg (1/2 x 500 mg) PO BID 90 days hrphhizczkso-ecm-expo-FA-vit K 45 mg iron- 800 mcg-120 mcg (Bariatric Multivitamins) 45 caps PO DAILY mupirocin 2% 1 appl topical BID 5 days pantoprazole 40 mg PO DAILY 90 days Is last menstrual period known: No (IUD) HPI HPI 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 It has been well-controlled by the IUDs. 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 She has a 2 month standing complaint of lots more pelvic pressure sensation of pressure her labia she has had exams and has been treated for UTI though I do not see cultures in the system she was treated with various antibiotics with very degrees of ability to finish the medication according to the note of the last for urgent care visit. She had hematuria noted. The IUD in and of itself is not giving her any difficulty but she is not sure where this sensation is coming from. She feels she voids when she needs to void though she does have some urgency when she needs to void and she feels she voids completely and does not hold onto any residual. She does not feel she needs an exam today but she would like to get some answers She is diabetic she is on metformin she is working hard to try to eat healthier and incorporate exercise in her life.. [facility] Medical History Elevated erythrocyte sedimentation rate Ankylosing spondylitis Bronchitis History of COVID-19 Knee pain, right Chronic headaches Morbid obesity with BMI of 40.0-44.9, adult Abnormal findings on esophagogastroduodenoscopy (EGD) Tubal ligation evaluation Cellulitis Concussion Ankylosing spondylitis Obstructive sleep apnea Asthma GERD (gastroesophageal reflux disease) Diabetes mellitus Menopause Surgical History History of esophagogastroduodenoscopy (EGD) Hx of colonoscopy Status post insertion of nerve stimulator History of cholecystectomy Gastric bypass status for obesity H/O lumpectomy Hx of tubal ligation Hx laparoscopic cholecystectomy History of Krystian-en-Y gastric bypass Family History Father Ankylosing spondylitis of site in spine DM (diabetes mellitus) Alzheimer disease COPD (chronic obstructive pulmonary disease) Skin cancer RA (rheumatoid arthritis) Mother RA (rheumatoid arthritis) Son No problems noted. Maternal Grandfather Prostate cancer Bone cancer Social History Household Members: Spouse Housing: House Are you a primary critical care nurse practitioner to a significant other at home: No Do you presently have visiting nurse or other home services: No Alcohol intake: current Alcohol intake frequency: holidays/special occasions only Alcohol type: wine and hard liquor Patient Tobacco Use Status: Former Tobacco user Tobacco use type: Cigarette and Cigar Years Smoked: 4 e-Cigarette/Vaping Use: Never Used Second Hand Smoke Exposure: No Substance Use Type: Marijuana service: No Current occupational status: student Current occupational exposures/hazards: No Cognitive needs: No Hearing needs: No Vision needs: No Female Reproductive History Menstrual Age of Menarche: 12 Duration of menses: other control method: progestin IUCD (6 yrs ago) and permanent sterilization Total pregnancies: 1 Full term: 1 Date of last pap smear: 01/27/22 (negative,2020,negative) History of abnormal pap smear: Yes (hx abn.pap) Date of Mammogram: 04/17/23 (negative) Physical Exam Vital Signs: Last Vital Signs BP 116/70 07/29/24 09:22 Assessment & Plan Assessment & Plan (1) IUD check up: Code(s): Z30.431 - Encounter for routine checking of intrauterine contraceptive device Category: Medical (2) Hematuria: Code(s): R31.9 - Hematuria, unspecified Category: Medical Qualifiers: Hematuria type: other microscopic Qualified Code(s): R31.29 - Other microscopic hematuria (3) Pelvic pressure in female: Code(s): R10.2 - Pelvic and perineal pain Category: Medical (4) Menopause: Code(s): Z78.0 - Asymptomatic menopausal state Category: Medical (5) Screening for cervical cancer: Code(s): Z12.4 - Encounter for screening for malignant neoplasm of cervix Category: Medical Plan See HPI for full discussion. Patient is here is a new cons'ult to discuss taking out her IUD she believes it was placed in 2019 her 3rd for treatment of menorrhagia. It has been well-controlled by the IUDs. 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 She has a 2 month standing complaint of lots more pelvic pressure sensation of pressure her labia she has had exams and has been treated for UTI though I do not see cultures in the system she was treated with various antibiotics with very degrees of ability to finish the medication according to the note of the last for urgent care visit. She had hematuria noted. The IUD in and of itself is not giving her any difficulty but she is not sure where this sensation is coming from. She feels she voids when she needs to void though she does have some urgency when she needs to void and she feels she voids completely and does not hold onto any residual. She does not feel she needs an exam today but she would like to get some answers She is diabetic she is on metformin she is working hard to try to eat healthier and incorporate exercise in her life..' Discussed all of the above with the patient will repeat FSH as well as the TSH as her last 1 was elevated her last CBC was within normal limits I am ordering a clean-catch urine which can be done at the lab to more fully assess for UTI which she has been treated for. I am ordering a pelvic ultrasound and I am ordering it urgently so that we can assess if there is any issue going on with the IUD that requires it to be removed more urgently. We will have a full exam at her next visit and we will review the ultrasound findings and if need be remove the the IUD.. Orders: Orders Follicle Stimulating Hormone Today R10.2 - Pelvic and perineal pain, R31.29 - Other microscopic hematuria, Z30.431 - Encounter for routine checking of intrauterine contraceptive device, Z78.0 - Asymptomatic menopausal state Urine Culture Today R10.2 - Pelvic and perineal pain, R31.29 - Other microscopic hematuria, Z12.4 - Encounter for screening for malignant neoplasm of cervix, Z78.0 - Asymptomatic menopausal state US pelvic and transvaginal Today R10.2 - Pelvic and perineal pain, R31.29 - Other microscopic hematuria, Z30.431 - Encounter for routine checking of intrauterine contraceptive device TSH reflex Free T4 Today R10.2 - Pelvic and perineal pain, R31.29 - Other microscopic hematuria, Z30.431 - Encounter for routine checking of intrauterine contraceptive device, Z78.0 - Asymptomatic menopausal state Coding Level of Care Code New Pt Level 3 (77118) Diagnoses IUD check up Z30.431 Other microscopic hematuria R31.29 Hematuria type: other microscopic Pelvic pressure in female R10.2 Menopause Z78.0 Screening for cervical cancer Z12.4 Time Spent (min) 45 Comment 2 cr/35 speaking w pt/8charting/ordering
== END 2024-07-29 10:54 | disposition home or self-care (01) ==
LOC: HO.HWSM 09:14
PROVIDERS: PCP Family Medicine; Visit Provider Advanced Practice Midwife
DX: Z30.431 Encounter for routine checking of intrauterine contraceptive device (principal); R31.29 Other microscopic hematuria; R10.2 Pelvic and perineal pain; Z78.0 Asymptomatic menopausal state
CPT/HCPCS: 99203

== ENCOUNTER 2024-08-04 15:44 | Outpatient (REF) | payer OTHER, SELFPAY ==
--- NOTE | ~2024-08-04 | US_ITS ---
EXAMINATION: US PELVIS CLINICAL INFORMATION: IUD check, hematuria. COMPARISON: CT abdomen/pelvis 09/14/2023, CT enterography 11/10/2023. TECHNIQUE: Ultrasound of the pelvis is performed using both transabdominal and transvaginal transducers along with Doppler. Transvaginal imaging is performed due to inadequate visualization transabdominally. FINDINGS: Uterus: The uterus is retroverted and retroflexed measuring 5.4 x 2.0 x 3.2 cm. The double wall endometrial thickness is 3 mm. The uterus is smooth in contour and has normal myometrial echogenicity with the exception of an echogenic rounded mass measuring 2.1 x 1.1 x 1.8 cm which is likely a fibroid. In retrospect, a small mass measuring about this size can be seen on both the prior CT abdomen and pelvis and CT enterography. An IUD is present in the endometrial canal in good position. Some calcifications are seen in the cervix. Adnexa: Neither ovary could be seen. No free fluid is present in the pelvis. US/US pelvic and transvaginal IMPRESSION: 1. IUD in good position. 2. 2.1 cm uterine fibroid. 3. Neither ovary could be seen. Electronically signed by: Hossein Mariee MD 08/05/2024 10:39 AM [facility]
== END 2024-08-04 15:45 | disposition home or self-care (01) ==
LOC: HO.US 15:44
PROVIDERS: PCP Family Medicine; Visit Provider Advanced Practice Midwife
DX: Z30.431 Encounter for routine checking of intrauterine contraceptive device (principal); R10.2 Pelvic and perineal pain; R31.29 Other microscopic hematuria
CPT/HCPCS: 76830; 76856

== ENCOUNTER 2024-08-21 10:14 | Outpatient (REF) | payer OTHER, SELFPAY ==
[2024-08-21 12:25] LABS: TSH reflex Free T4 2.87 uIU/mL (0.32-4.0)
[2024-08-22 11:09] LABS: Follicle Stimulating Hormone 70.5 mIU/mL
== END 2024-08-21 10:15 | disposition home or self-care (01) ==
LOC: HO.HMGCLDS 10:14
PROVIDERS: PCP Family Medicine; Visit Provider Advanced Practice Midwife
DX: Z30.431 Encounter for routine checking of intrauterine contraceptive device (principal); R31.29 Other microscopic hematuria; R10.2 Pelvic and perineal pain; Z78.0 Asymptomatic menopausal state
CPT/HCPCS: 36415; 83001; 84443

== ENCOUNTER 2024-08-27 10:06 | Outpatient (AMB) | payer OTHER, SELFPAY ==
[2024-08-27 10:25] VITALS: BP 124/70; BMI 40.6
--- NOTE | 2024-08-27 10:25 | A.OFFVIS_ITS ---
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 (Annetta) Accompanied by: Self / Same As Patient Allergies amoxicillin [AMOXICILLIN] Allergy (Severe, Verified 08/27/24 10:31) ANAPHYLAXIS codeine [CODEINE] Allergy (Severe, Verified 08/27/24 10:31) ANAPHYLAXIS Sulfa (Sulfonamide Antibiotics) [SULFA (SULFONAMIDE ANTIBIOTICS)] Allergy (Mild, Verified 08/27/24 10:31) Rash, hives, rash Medication List - Last Reconciled 08/27/24 by Beronica Vizcaino CNM albuterol sulfate 90 mcg/actuation 1 inh inhalation QID PRN calcium citrate-vitamin D3 315 mg-5 mcg (200 unit) (Calcium Citrate + D) 1 tab PO DAILY Enbrel Mini (etanercept) 50 mg subcut QWEEK NS epinephrine (EpiPen 2-Juan Luis) 0.3 mg (0.3 mL) IM Q10M PRN gabapentin 600 mg PO BID 30 days levonorgestrel (Mirena) 1 device intrauterine DAILY metformin ER 250 mg (1/2 x 500 mg) PO BID 90 days geheytbyhmjo-lup-mnut-FA-vit K 45 mg iron- 800 mcg-120 mcg (Bariatric Multivitamins) 45 caps PO DAILY mupirocin 2% 1 appl topical BID 5 days pantoprazole 40 mg PO DAILY 90 days HPI HPI US follow up: Details: Patient is here for a review of her ultrasound she was given a separate appointment for her annual exam and pelvic exam which is coming this coming Friday. She says she still feels the pelvic pressure. 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 [facility] Medical History Elevated erythrocyte sedimentation rate Ankylosing spondylitis Bronchitis History of COVID-19 Knee pain, right Chronic headaches Morbid obesity with BMI of 40.0-44.9, adult Abnormal findings on esophagogastroduodenoscopy (EGD) Tubal ligation evaluation Cellulitis Concussion Ankylosing spondylitis Obstructive sleep apnea Asthma GERD (gastroesophageal reflux disease) Diabetes mellitus Menopause Surgical History History of esophagogastroduodenoscopy (EGD) Hx of colonoscopy Status post insertion of nerve stimulator History of cholecystectomy Gastric bypass status for obesity H/O lumpectomy Hx of tubal ligation Hx laparoscopic cholecystectomy History of Krystian-en-Y gastric bypass Family History Father Ankylosing spondylitis of site in spine DM (diabetes mellitus) Alzheimer disease COPD (chronic obstructive pulmonary disease) Skin cancer RA (rheumatoid arthritis) Mother RA (rheumatoid arthritis) Son No problems noted. Maternal Grandfather Prostate cancer Bone cancer Social History Household Members: Spouse Housing: House Are you a primary respiratory care technician to a significant other at home: No Do you presently have visiting nurse or other home services: No Alcohol intake: current Alcohol intake frequency: holidays/special occasions only Alcohol type: wine and hard liquor Patient Tobacco Use Status: Former Tobacco user Tobacco use type: Cigarette and Cigar Years Smoked: 4 e-Cigarette/Vaping Use: Never Used Second Hand Smoke Exposure: No Substance Use Type: Marijuana service: No Current occupational status: student Current occupational exposures/hazards: No Cognitive needs: No Hearing needs: No Vision needs: No Female Reproductive History Menstrual Age of Menarche: 12 Physical Exam Vital Signs: Last Vital Signs BP 124/70 08/27/24 10:25 BMI result Body Mass Index 40.6 Results Reviewed Results Reviewed: Patient: Cary Burgess MR#: [id number] : 1970 Acct:[id number] Age/Sex: 54 / F ADM Date: 08/04/24 Loc: HO.US Attending Dr: Beronica Vizcaino CNM Ordering Physician: Beronica Vizcaino CNM Date of Service: 08/04/24 Procedure(s): US pelvic and transvaginal Accession Number(s): [id number] cc: Ron Morales MD; Beronica Vizcaino CNM~ EXAMINATION: US PELVIS CLINICAL INFORMATION: IUD check, hematuria. COMPARISON: CT abdomen/pelvis 09/14/2023, CT enterography 11/10/2023. TECHNIQUE: Ultrasound of the pelvis is performed using both transabdominal and transvaginal transducers along with Doppler. Transvaginal imaging is performed due to inadequate visualization transabdominally. FINDINGS: Uterus: The uterus is retroverted and retroflexed measuring 5.4 x 2.0 x 3.2 cm. The double wall endometrial thickness is 3 mm. The uterus is smooth in contour and has normal myometrial echogenicity with the exception of an echogenic rounded mass measuring 2.1 x 1.1 x 1.8 cm which is likely a fibroid. In retrospect, a small mass measuring about this size can be seen on both the prior CT abdomen and pelvis and CT enterography. An IUD is present in the endometrial canal in good position. Some calcifications are seen in the cervix. Adnexa: Neither ovary could be seen. No free fluid is present in the pelvis. US/US pelvic and transvaginal IMPRESSION: 1. IUD in good position. 2. 2.1 cm uterine fibroid. 3. Neither ovary could be seen. Electronically signed by: Hossein Mariee MD 08/05/2024 10:39 AM [facility] Dictated By: Hossein Mariee MD Signed By: <Electronically signed by Hossein Mariee MD in OV> 08/05/24 1039 DD/ 1604 TD/TT: 08/04/24 1621 Dietary Assistant: Assessment & Plan Assessment & Plan (1) Menopause: Code(s): Z78.0 - Asymptomatic menopausal state Category: Medical (2) Pelvic pressure in female: Code(s): R10.2 - Pelvic and perineal pain Category: Medical (3) IUD (intrauterine device) in place: Code(s): Z97.5 - Presence of (intrauterine) contraceptive device Category: Medical Plan Day we reviewed the ultrasound and reviewed her symptoms and her history with the IUD. It is in the proper place and we reviewed possibility of removing it next week when we do her pelvic exam with her annual. I am going to leave that decision up to her at this point she thinks it has been in for about 6 years and was placed as a replacement for 1 to manage abnormal bleeding patterns. By her FSH she would be in the menopausal range though she notes that the FSH this time was lower than it had been previously and she has further into her menopausal years theoretically at this time. Reviewed the findings of the ultrasound in great detail and also correlated them with her previous CT scans that she had done to workup left abdominal pain last year. We will see her Friday for full pelvic exam. And during that time no also be either removing her IUD or leaving it alone for another year so. Also be paying attention to her pelvic floor musculature to see if that could account for her sensation of pressure. we did discuss Kegel's which she does. Coding Level of Care Code Est Pt Level 3 (09257) Diagnoses Menopause Z78.0 Pelvic pressure in female R10.2 IUD (intrauterine device) in place Z97.5
== END 2024-08-27 11:20 | disposition home or self-care (01) ==
PROVIDERS: PCP Family Medicine; Visit Provider Advanced Practice Midwife
DX: Z78.0 Asymptomatic menopausal state (principal); R10.2 Pelvic and perineal pain; Z97.5 Presence of (intrauterine) contraceptive device
CPT/HCPCS: 99213

== ENCOUNTER → 2024-08-27 10:06 | Outpatient (BNVA) | payer OTHER, SELFPAY | PROVIDERS: PCP Family Medicine; Visit Provider Advanced Practice Midwife ==

== ENCOUNTER 2024-08-30 11:16 | Outpatient (AMB) | payer OTHER, SELFPAY ==
[2024-08-30 11:19] VITALS: BP 120/70; BMI 40.6
--- NOTE | 2024-08-30 11:19 | MHC.OFFVIS ---
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 Student Development Advisor Required: No Student Development Advisor Services: Student Development Advisor Present Information Interpreted: clinical only Child Life Therapist: Child Life Therapist Present Allergies amoxicillin [AMOXICILLIN] Allergy (Severe, Verified 08/30/24 11:21) ANAPHYLAXIS codeine [CODEINE] Allergy (Severe, Verified 08/30/24 11:21) ANAPHYLAXIS Sulfa (Sulfonamide Antibiotics) [SULFA (SULFONAMIDE ANTIBIOTICS)] Allergy (Mild, Verified 08/30/24 11:21) Rash, hives, rash Medication List - Last Reconciled 08/30/24 by Beronica Vizcaino CNM albuterol sulfate 90 mcg/actuation 1 inh inhalation QID PRN calcium citrate-vitamin D3 315 mg-5 mcg (200 unit) (Calcium Citrate + D) 1 tab PO DAILY Enbrel Mini (etanercept) 50 mg subcut QWEEK NS epinephrine (EpiPen 2-Juan Luis) 0.3 mg (0.3 mL) IM Q10M PRN gabapentin 600 mg PO BID 30 days levonorgestrel (Mirena) 1 device intrauterine DAILY metformin ER 250 mg (1/2 x 500 mg) PO BID 90 days obcqpzcydkwz-mip-nkpb-FA-vit K 45 mg iron- 800 mcg-120 mcg (Bariatric Multivitamins) 45 caps PO DAILY mupirocin 2% 1 appl topical BID 5 days pantoprazole 40 mg PO DAILY 90 days Is last menstrual period known: No (IUD) HPI 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 She remembers perhaps about 5 or 6 years ago and last Pap in 2020 was negative negative HPV.. She was seen here recently for issues of pelvic pressure pelvic ultrasound was ordered and we reviewed it last week at her visit it showed as small 2 cm fibroid and the IUD that she has had for menorrhagia was in place. Additionally she has had 2 FSH is in the last couple of years those in the menopausal range including last fall. After discussion of everything she has decided today that she would like to remove the Mirena IUD that she has had this 1 is her 3rd and hope that she does not resume issues with bleeding. We have previously discussed that if she did that would need to be evaluated and worked up separately. She diabetic she is going to be making appointment with her primary care provider there have been discussions of the additional meds she is reluctant for some of the GLP products secondary to side effects. Her preferred method of exercise when she can is dancing Pramod. She has bad knees and that is challenging she does see a courier as well she has not had a mammogram in a while and is due. Plan today is to also re-evaluate her pelvic floor tone see if that might be a contributing factor with her pelvic pressure. [facility] Medical History (Updated 08/30/24 @ 12:11 by Beronica Vizcaino CNM) Elevated erythrocyte sedimentation rate Ankylosing spondylitis Bronchitis History of COVID-19 Knee pain, right Chronic headaches Morbid obesity with BMI of 40.0-44.9, adult Abnormal findings on esophagogastroduodenoscopy (EGD) Tubal ligation evaluation Cellulitis Concussion Ankylosing spondylitis Obstructive sleep apnea Asthma GERD (gastroesophageal reflux disease) Diabetes mellitus Menopause Surgical History History of esophagogastroduodenoscopy (EGD) Hx of colonoscopy Status post insertion of nerve stimulator History of cholecystectomy Gastric bypass status for obesity H/O lumpectomy Hx of tubal ligation Hx laparoscopic cholecystectomy History of Krystian-en-Y gastric bypass Family History Father Ankylosing spondylitis of site in spine DM (diabetes mellitus) Alzheimer disease COPD (chronic obstructive pulmonary disease) Skin cancer RA (rheumatoid arthritis) Mother RA (rheumatoid arthritis) Son No problems noted. Maternal Grandfather Prostate cancer Bone cancer Social History Household Members: Spouse Housing: House Are you a primary child care supervisor to a significant other at home: No Do you presently have visiting nurse or other home services: No Alcohol intake: current Alcohol intake frequency: holidays/special occasions only Alcohol type: wine and hard liquor Patient Tobacco Use Status: Former Tobacco user Tobacco use type: Cigarette and Cigar Years Smoked: 4 e-Cigarette/Vaping Use: Never Used Second Hand Smoke Exposure: No Substance Use Type: Marijuana service: No Current occupational status: student Current occupational exposures/hazards: No Cognitive needs: No Hearing needs: No Vision needs: No Female Reproductive History Menstrual Age of Menarche: 12 control method: progestin IUCD Total pregnancies: 1 Full term: 1 Date of last pap smear: 11/07/20 (negative) History of abnormal pap smear: Yes (hx abn.pap) Date of Mammogram: 04/17/23 (negative) Physical Exam Vital Signs: Last Vital Signs BP 120/70 08/30/24 11:19 BMI result Body Mass Index 40.6 Const Other: Some lower limb edema noted which patient says is connected with her lymphedema.. General: healthy appearing, comfortable, no acute distress, well developed and alert Nutritional Appearance: average body habitus and obese Orientation/consciousness: patient oriented x3 Limitations: no limitations HEENT Head: Yes normocephalic Neck Neck: Yes normal visual inspection Chest Chest palpation & inspection: normal inspection of the chest Breast/axilla inspection: normal inspection of the breasts and normal inspection of the axillae Breast/axilla palpation: normal palpation of the breasts and normal palpation of the axillae Resp Effort & Inspection: normal respiratory effort GI Inspection: Yes normal to inspection, No Abdominal wall edema and No distended Palpation (GI): Soft to palpation and nontender Other: Normal external exam vagina is pink and moist with normal healthy appearing clear mucus cervix appears nulliparous pink smooth closed with Mirena strings easily visible. Pap smear and testing done for gonorrhea chlamydia trichomoniasis bacterial vaginosis and yeast. At patient request and after full discussion of pros and cons and other potential issues patient confirmed she wanted the Mirena to be removed. This strings were grasped with a ring forceps and while the patient gave a cough the IUD was easily removed with no difficulty scant spotting resulted. Bimanual exam cervix nulliparous feeling the patient is multiparous small mobile nontender uterus difficult to palpate but nontender not enlarged adnexa nontender nonenlarged patient was able to do a couple of Kegel's with slightly increasing strength the 2nd time her overall moderate tone. She is going to endeavor to try to do more of these.. General: Yes bladder normal to palpation External Female Exam: normal external appearance and normal appearance of the urethra Speculum Exam - Vagina: normal appearance of the vagina, normal palpation and normal vaginal discharge Speculum Exam - Cervix: normal appearance of the cervix, normal palpation and nontender Bimanual exam- vagina & uterus: normal bimanual exam, normal palpation, uterine size normal, bladder normal to palpation, consistency normal, normal palpation, uterine mobility normal, uterine shape normal, No Cervical tenderness present, non-tender and no cervical motion tenderness Bimanual Exam- Adnexa, other: normal adnexae, no masses, normal and No adnexal tenderness Neuro General: patient oriented x3 Results Reviewed Results Reviewed: Name: Cary Burgess Age/Sex: 54/F : 1970 Unit#: [id number] Attend Dr: Beronica Vizcaino CNM Re08/21/24 Status: DEP REF Location: [facility] Disch: SPEC : [id number] SHAYNA: 08/21/24-1020 STATUS: COMP REQ : [id number] RECD: 08/21/24-[address]: Beronica Vizcaino CNM COMP: 08/22/24-110 ENTERED: 08/21/24-[address]: Ron Morales MD ORDERED: FSH Test Result Flag Reference FSH 70.5 mIU/mL Reference Range Follicular Phase 2.5-10.2 Mid-cycle Peak 3.1-17.7 Luteal Phase 1.5- 9.1 Postmenopausal 23.0-116.3 THIS TEST WAS PERFORMED AT: [facility] [address] [place] [id number] CHELSY MANCILLA MD Patient: Cary Burgess MMR#: [id number]: 1970Acct:[id number]/Sex: 54 / FADM Date: 08/04/24Loc: USAttending Dr: Beronica Vizcaino CNM Ordering Physician: Beronica Vizcaino CNM Date of Service: 08/04/24 Procedure(s): US pelvic and transvaginal Accession Number(s): [id number] cc: Ron Morales MD; Beronica Vizcaino CNM~ EXAMINATION: US PELVIS CLINICAL INFORMATION: IUD check, hematuria. COMPARISON: CT abdomen/pelvis 09/14/2023, CT enterography 11/10/2023. TECHNIQUE: Ultrasound of the pelvis is performed using both transabdominal and transvaginal transducers along with Doppler. Transvaginal imaging is performed due to inadequate visualization transabdominally. FINDINGS: Uterus: The uterus is retroverted and retroflexed measuring 5.4 x 2.0 x 3.2 cm. The double wall endometrial thickness is 3 mm. The uterus is smooth in contour and has normal myometrial echogenicity with the exception of an echogenic rounded mass measuring 2.1 x 1.1 x 1.8 cm which is likely a fibroid. In retrospect, a small mass measuring about this size can be seen on both the prior CT abdomen and pelvis and CT enterography. An IUD is present in the endometrial canal in good position. Some calcifications are seen in the cervix. Adnexa: Neither ovary could be seen. No free fluid is present in the pelvis. US/US pelvic and transvaginal IMPRESSION: 1. IUD in good position. 2. 2.1 cm uterine fibroid. 3. Neither ovary could be seen. Electronically signed by: Hossein Mariee MD 08/05/2024 10:39 AM EST Dictated By:Hossein Mariee MDSigned By:<Electronically signed by Hossein Mariee MD in OV>08/05/24 1039 DD/ 1604TD/TT: 08/04/24 1621Transcriptionist: SS Assessment & Plan Assessment & Plan (1) Menopause: Code(s): Z78.0 - Asymptomatic menopausal state Category: Medical (2) Diabetes mellitus: Code(s): E11.9 - Type 2 diabetes mellitus without complications Category: Medical (3) Screening for cervical cancer: Comment: History of HPV x1, ?2019;-Pap with negative HPV 2020 per patient. 08/30/2024 Pap done. Code(s): Z12.4 - Encounter for screening for malignant neoplasm of cervix Category: Medical (4) IUD check up: Comment: Removed her 3rd Mirena today 08/30/2024. Code(s): Z30.431 - Encounter for routine checking of intrauterine contraceptive device Category: Medical (5) Pelvic pressure in female: Comment: Moderate tone with Kegel patient is going to try to do prolonged Kegel's more often and also void before bladder is over full and if she continues to have feelings of pelvic pressure to seek referral for pelvic floor therapy. Weight loss also discussed. Code(s): R10.2 - Pelvic and perineal pain Category: Medical (6) Breast cancer screening: Code(s): Z12.39 - Encounter for other screening for malignant neoplasm of breast Category: Medical (7) Encounter for IUD removal: Comment: IUD removed 08/30/2024. Code(s): Z30.432 - Encounter for removal of intrauterine contraceptive device Category: Medical (8) Morbid obesity with BMI of 40.0-44.9, adult: Code(s): E66.01 - Morbid (severe) obesity due to excess calories; Z68.41 - Body mass index [BMI] 40.0-44.9, adult Category: Medical Plan -----Discussed in this visit the following: healthy balanced diet, regular and consistent exercise, getting recommended health screens, doing the best she can for her particular health concerns, kegel exercises, pap smear screening and followup recommendations, mammography screening and SBE, normal changes in cycles in her life stage--- . Reviewed her past experience reviewed her menopausal status and the labs and the ultrasound as before we had previously discussed that it would be her choice as to whether not she removed the Mirena IUD today for left it in for a little while longer for its full usefulness life. Given that she has most likely menopausal hopefully she will not have any future issues with abnormal bleeding so she made the decision to remove the Mirena today and see what happens. This was her 3rd and they were placed to manage abnormal bleeding pattern at her previous practice. Pap smear was done with HPV code testing testing for other infectious agents was done and discussed both normal and abnormal finding that could occur Discussed the challenges of managing weight especially with diabetes and she is going to be thinking about things as well as trying to be more active she likes Pramod and dancing but her knees do not. I am ordering a mammogram for her as she has not had 1 in a while. She will be following up with her primary care provider's. If all as well we will see her in 1 year. Orders: Orders Bacterial Vaginosis Panel Today N89.8 - Other specified noninflammatory disorders of vagina MM tomosynthesis screening BI Today E11.9 - Type 2 diabetes mellitus without complications, R10.2 - Pelvic and perineal pain, Z12.31 - Encounter for screening mammogram for malignant neoplasm of breast, Z12.39 - Encounter for other screening for malignant neoplasm of breast, Z12.4 - Encounter for screening for malignant neoplasm of cervix, Z30.431 - Encounter for routine checking of intrauterine contraceptive device, Z30.432 - Encounter for removal of intrauterine contraceptive device, Z78.0 - Asymptomatic menopausal state CT NG by PCR Today N89.8 - Other specified noninflammatory disorders of vagina Pap Smear Today Z01.419 - Encounter for gynecological examination (general) (routine) without abnormal findings Coding Level of Care Code Est Pt Prev Care 40-64y(64447) Diagnoses Menopause Z78.0 Diabetes mellitus E11.9 Screening for cervical cancer Z12.4 IUD check up Z30.431 Pelvic pressure in female R10.2 Breast cancer screening Z12.39 Encounter for IUD removal Z30.432 Morbid obesity with BMI of 40.0-44.9, adult E66.01; Z68.41
== END 2024-08-30 12:52 | disposition home or self-care (01) ==
LOC: HO.HWSM 11:16
PROVIDERS: PCP Family Medicine; Visit Provider Advanced Practice Midwife
DX: Z01.419 Encounter for gynecological examination (general) (routine) without abnormal findings (principal); E66.01 Morbid (severe) obesity due to excess calories; Z68.41 Body mass index [BMI] 40.0-44.9, adult; Z78.0 Asymptomatic menopausal state
CPT/HCPCS: 99396; 99459

== ENCOUNTER 2024-08-30 11:16 | Outpatient (REF) | payer OTHER, SELFPAY | END 2024-08-30 11:17 | disposition home or self-care (01) | LOC: HO.LAB 11:16 | PROVIDERS: PCP Family Medicine; Visit Provider Advanced Practice Midwife | DX: Z13.89 Encounter for screening for other disorder (principal) ==

== ENCOUNTER 2024-08-30 11:50 | Outpatient (REF) | payer OTHER, SELFPAY ==
[2024-08-31 10:37] LABS: HPV 16,18/45 See PAP report
[2024-08-31 13:30] LABS: Bacterial Vaginosis PCR NEGATIVE (Negative); Candida Group PCR NOT DETECTED (Not Detect); Candida glab krusei PCR NOT DETECTED (Not Detect); Trichomonas vaginalis PCR NOT DETECTED (Not Detect)
[2024-08-31 14:06] LABS: CT PCR NOT DETECTED (Not Detect.); NG PCR NOT DETECTED (Not Detect.)
== END 2024-08-30 11:51 | disposition home or self-care (01) ==
LOC: HO.LNP 11:50
PROVIDERS: Visit Provider Advanced Practice Midwife
DX: Z01.419 Encounter for gynecological examination (general) (routine) without abnormal findings (principal); N89.8 Other specified noninflammatory disorders of vagina
CPT/HCPCS: 81515; 87491; 87591; 87626; 88175

== ENCOUNTER 2024-09-06 07:11 | Outpatient (REF) | payer OTHER, SELFPAY | END 2024-09-06 07:12 | disposition home or self-care (01) | LOC: HO.MAMMO 07:11 | PROVIDERS: PCP Family Medicine; Visit Provider Advanced Practice Midwife | DX: Z12.31 Encounter for screening mammogram for malignant neoplasm of breast (principal) | CPT/HCPCS: 77063; 77067 ==

== ENCOUNTER → 2024-09-06 07:30 | Outpatient (BNV) | payer OTHER, SELFPAY | PROVIDERS: PCP Family Medicine; Visit Provider Internal Medicine | DX: Z12.31 Encounter for screening mammogram for malignant neoplasm of breast (principal) | CPT/HCPCS: 77063; 77067 ==

== ENCOUNTER 2024-09-06 14:52 | Outpatient (AMB) | payer OTHER, SELFPAY ==
--- NOTE | 2024-09-06 15:02 | A.OFFVIS_ITS ---
Vital Signs 09/06/24 15:03 Height 5 ft 5 in Weight 235 lb 14.314 oz BMI 39.3 BP 118/74 Blood Pressure Location Lt brachial Position Sitting Pulse 71 Pulse Source Pulse Oximeter Pulse Oximetry (%) 97 Oxygen Delivery Method Room Air Intake Visit Reasons: Intake Note: Patient last seen by Doctor Renny Guzman on 12/02/23. Presents today for follow up and test results. Patient would like refill of Enbrel mini. Allergies amoxicillin [AMOXICILLIN] Allergy (Severe, Verified 09/06/24 15:04) ANAPHYLAXIS codeine [CODEINE] Allergy (Severe, Verified 09/06/24 15:04) ANAPHYLAXIS Sulfa (Sulfonamide Antibiotics) [SULFA (SULFONAMIDE ANTIBIOTICS)] Allergy (Mild, Verified 09/06/24 15:04) Rash, hives, rash Medication List - Last Reconciled 09/06/24 by Renny Guzman MD albuterol sulfate 90 mcg/actuation 1 inh inhalation QID PRN calcium citrate-vitamin D3 315 mg-5 mcg (200 unit) (Calcium Citrate + D) 1 tab PO DAILY cetirizine (Allergy Relief (cetirizine)) 10 mg PO DAILY PRN Enbrel Mini (etanercept) 50 mg subcut QWEEK NS epinephrine (EpiPen 2-Juan Luis) 0.3 mg (0.3 mL) IM Q10M PRN gabapentin 600 mg PO BID 30 days levonorgestrel (Mirena) 1 device intrauterine DAILY metformin ER 250 mg (1/2 x 500 mg) PO BID 90 days klvpqbrdhift-znm-mfda-FA-vit K 45 mg iron- 800 mcg-120 mcg (Bariatric Multivitamins) 45 caps PO DAILY mupirocin 2% 1 appl topical BID 5 days pantoprazole 40 mg PO DAILY 90 days HPI Comments Details: 54-year-old female with non radiographic axial spa returns for follow-up. Last seen 11/2023. On Enbrel injections. she states that she feels about the same overall. She continues to have intermittent achy joints in her hands that she attributes to osteoarthritis. Denies any recent infections. Got the flu vaccine this season Initial history: This is a 53-year-old female with non radiographic axSpA who presents for follow-up. Was last seen by Tonia Carlos 11/14. Doing well overall in terms of her joint pain and stiffness. She gets morning stiffness of her hands lasting about 1 hour. Occasionally takes Tylenol. She mentions that she has been getting GI upset recently and she went back to weight management and she was advised to start drinking protein shakes, avoiding carbohydrates. She has been having pain on the outside of her left hip. She also has numbness along the outer aspect of her right thigh, worse with walking and lying in bed at night. Better when sitting. [facility] Medical History Elevated erythrocyte sedimentation rate Ankylosing spondylitis Bronchitis History of COVID-19 Knee pain, right Chronic headaches Morbid obesity with BMI of 40.0-44.9, adult Abnormal findings on esophagogastroduodenoscopy (EGD) Tubal ligation evaluation Cellulitis Concussion Ankylosing spondylitis Obstructive sleep apnea Asthma GERD (gastroesophageal reflux disease) Diabetes mellitus Menopause Surgical History History of esophagogastroduodenoscopy (EGD) Hx of colonoscopy Status post insertion of nerve stimulator History of cholecystectomy Gastric bypass status for obesity H/O lumpectomy Hx of tubal ligation Hx laparoscopic cholecystectomy History of Krystian-en-Y gastric bypass Family History Father Ankylosing spondylitis of site in spine DM (diabetes mellitus) Alzheimer disease COPD (chronic obstructive pulmonary disease) Skin cancer RA (rheumatoid arthritis) Mother RA (rheumatoid arthritis) Son No problems noted. Maternal Grandfather Prostate cancer Bone cancer Social History Household Members: Spouse Housing: House Are you a primary child care nurse to a significant other at home: No Do you presently have visiting nurse or other home services: No Alcohol intake: current Alcohol intake frequency: holidays/special occasions only Alcohol type: wine and hard liquor Patient Tobacco Use Status: Former Tobacco user Tobacco use type: Cigarette and Cigar Years Smoked: 4 e-Cigarette/Vaping Use: Never Used Second Hand Smoke Exposure: No Substance Use Type: Marijuana service: No Current occupational status: student Current occupational exposures/hazards: No Cognitive needs: No Hearing needs: No Vision needs: No Female Reproductive History Menstrual Age of Menarche: 12 Total pregnancies: 1 Full term: 1 Review of Systems Musc Reports arthralgias Physical Exam Vital Signs: Last Vital Signs Pulse 71 09/06/24 15:03 BP 118/74 09/06/24 15:03 Pulse Ox 97 09/06/24 15:03 Oxygen Delivery Method Room Air 09/06/24 15:03 BMI result Body Mass Index 39.3 Const General: cooperative, healthy appearing and comfortable Nutritional Appearance: obese morbidly obese Orientation/consciousness: patient oriented x3 Limitations: no limitations HEENT Head: Yes normocephalic and Yes atraumatic Mouth: moist mucous membranes Resp Effort & Inspection: normal respiratory effort and able to speak in complete sentences Auscultation: clear to auscultation bilaterally Cardio Rate: regular rate Rhythm: regular rhythm Skin General skin exam: no rashes or lesions noted Neuro General: patient oriented x3 Extrem Other: No wrist, swelling, tenderness or pain with full flexion-extension bilaterally Subtle puffiness of her fingers Mild osteoarthritic changes of both hands with early Zeke's nodes None that are tender Mild deformity of her right little finger related to an old trauma Negative straight leg raise test bilaterally Negative Fabere test bilaterally Assessment & Plan Assessment & Plan (1) Spondyloarthropathy: Comment: HLA B27 negative Enbrel: 12/2018- present effective. Switched from SureClick to cartilage Mini (due difficulty with mechanism) 07/2023 Methotrexate: January 2021- January 2021 Gi upset after a few doses. Code(s): M47.819 - Spondylosis without myelopathy or radiculopathy, site unspecified Category: Medical Plan: Per previous notes: Patient has non radiographic spondyloarthropathy with inflammatory back pain and history of peripheral arthritis, enthesitis, elevated inflammatory markers which all improved after starting Enbrel . 54-year-old female with non radiographic axSpA returns for follow-up. Doing well overall. I do not see any active synovitis on exam. Continue Enbrel 50 mg weekly Labs before next visit in 6 months (2) High risk medication use: Code(s): Z79.899 - Other nursing home (current) drug therapy Category: Medical Plan: Side effects of Enbrel were discussed with the patient in detail including increased risk of infection, demyelinating disease, reactivation of latent TB, possible increased risk of solid and skin tumors. Patient fully aware. Advised patient to seek medical care KJ if patient has an infection and advised patient to stop the medication until the infection is resolved. Plan I spent 26 minutes reviewing patient's chart, evaluating patient, ordering diagnostic workup, counseling patient and documenting in the chart Orders: Orders Complete Blood Count Auto Diff 6 Months M47.819 - Spondylosis without myelopathy or radiculopathy, site unspecified Comprehensive Met. Panel 6 Months M47.819 - Spondylosis without myelopathy or radiculopathy, site unspecified Erythrocyte Sedimentation Rate 6 Months M47.819 - Spondylosis without myelopathy or radiculopathy, site unspecified T Spot TB 6 Months Z11.7 - Encounter for testing for latent tuberculosis infection C Reactive Protein 6 Months M47.819 - Spondylosis without myelopathy or radiculopathy, site unspecified Hepatitis A,B,C Profile 6 Months Z11.59 - Encounter for screening for other viral diseases Medications: Refilled Enbrel Mini (etanercept) 50 mg subcut QWEEK 4 mL 5RF NS M45.A0 - Non- radiographic axial spondyloarthritis of unspecified sites in spine Coding Level of Care Code Est Pt Level 4 (43543) Diagnoses Spondyloarthropathy M47.819 High risk medication use Z79.899
[2024-09-06 15:03] VITALS: BP 118/74; PULSE 71; O2SAT 97; BMI 39.3
== END 2024-09-06 15:40 | disposition home or self-care (01) ==
PROVIDERS: PCP Family Medicine; Visit Provider Student in an Organized Health Care Education/Training Program
DX: M47.819 Spondylosis without myelopathy or radiculopathy, site unspecified (principal); Z79.899 Other long term (current) drug therapy
CPT/HCPCS: 99214

== ENCOUNTER 2024-09-15 15:31 | Outpatient (AMB) | payer OTHER, SELFPAY ==
--- NOTE | 2024-09-15 15:35 | MHC.OFFVIS ---
Vital Signs 09/15/24 15:36 Height 5 ft 5 in Weight 236 lb BMI 39.3 BP 138/78 Blood Pressure Location Lt brachial Position Sitting Respiration 16 Pulse 82 Pulse Source Pulse Oximeter Pulse Oximetry (%) 99 Oxygen Delivery Method Room Air Intake Visit Reasons: Medication Discussion Allergies amoxicillin [AMOXICILLIN] Allergy (Severe, Verified 09/06/24 15:04) ANAPHYLAXIS codeine [CODEINE] Allergy (Severe, Verified 09/06/24 15:04) ANAPHYLAXIS Sulfa (Sulfonamide Antibiotics) [SULFA (SULFONAMIDE ANTIBIOTICS)] Allergy (Mild, Verified 09/06/24 15:04) Rash, hives, rash HPI Comments Details: Cary is back in my office to request to refill gabapentin for her. She continues to take gabapentin 600 mg b.i.d.. She denies side effects of the medication. She denies suicidal ideations. I will refill gabapentin as previously was written for her. She reports very good results of the spinal cord stimulator Nevro. she is doing very well she reports very minimal pain good activities of daily living and good social interactions. Prior: very pleasant 50 years old female who presents in my office with complains on the pain in thoracic spine.? Previously she was seen in this office in [address] Glass for cervical pain and lower back pain.? She was treated in [facility] for cervicalgia and received what appears to be by her reports intra-articular facet joint injections in the cervical spine with no effect. ? She went for the implant of of spinal cord stimulator Nevro and Reported better mobility, better activities of daily living, better social interactions.? Her spinal cord stimulator was implanted in the cervical area C2-C3 interspace and she used mostly the top position electrode and never used the bottom 1 although there might be reasons to use the bottom electrode in the future to stimulate her lower cervical spine to alleviate her pain in bilateral shoulders. 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 [facility] Medical History Elevated erythrocyte sedimentation rate Ankylosing spondylitis Bronchitis History of COVID-19 Knee pain, right Chronic headaches Morbid obesity with BMI of 40.0-44.9, adult Abnormal findings on esophagogastroduodenoscopy (EGD) Tubal ligation evaluation Cellulitis Concussion Ankylosing spondylitis Obstructive sleep apnea Asthma GERD (gastroesophageal reflux disease) Diabetes mellitus Menopause Surgical History History of esophagogastroduodenoscopy (EGD) Hx of colonoscopy Status post insertion of nerve stimulator History of cholecystectomy Gastric bypass status for obesity H/O lumpectomy Hx of tubal ligation Hx laparoscopic cholecystectomy History of Krystian-en-Y gastric bypass Family History Father Ankylosing spondylitis of site in spine DM (diabetes mellitus) Alzheimer disease COPD (chronic obstructive pulmonary disease) Skin cancer RA (rheumatoid arthritis) Mother RA (rheumatoid arthritis) Son No problems noted. Maternal Grandfather Prostate cancer Bone cancer Social History Household Members: Spouse Housing: House Are you a primary managed care coordinator to a significant other at home: No Do you presently have visiting nurse or other home services: No Alcohol intake: current Alcohol intake frequency: holidays/special occasions only Alcohol type: wine and hard liquor Patient Tobacco Use Status: Former Tobacco user Tobacco use type: Cigarette and Cigar Years Smoked: 4 e-Cigarette/Vaping Use: Never Used Second Hand Smoke Exposure: No Substance Use Type: Marijuana service: No Current occupational status: student Current occupational exposures/hazards: No Cognitive needs: No Hearing needs: No Vision needs: No Female Reproductive History Menstrual Age of Menarche: 12 Review of Systems Const All systems reviewed & are unremarkable except as noted in HPI and below ENT Reports Normal hearing present Neuro Reports Normal hearing present and Denies Sensory deficit (Neuro) Physical Exam Vital Signs: Last Vital Signs Pulse 82 09/15/24 15:36 Resp 16 09/15/24 15:36 BP 138/78 09/15/24 15:36 Pulse Ox 99 09/15/24 15:36 Oxygen Delivery Method Room Air 09/15/24 15:36 BMI result Body Mass Index 39.3 Eyes Pupils: Equal, round and reactive pupils present EOM: EOMs intact bilaterally Chest Chest palpation & inspection: normal inspection of the chest Resp Effort & Inspection: normal respiratory effort, able to speak in complete sentences, normal respiratory pattern, no audible wheezes and no cough Cardio Jugular venous distension: no JVD Back/Spine/Pelvis Other: tenderness on palpation in paraspinal spinal region in thoracic spine. Loading test is positive. She denies Valsalva maneuver positive for pain increase. She denies incontinence with bowel or bladder. She denies urinary retention. Neuro Cranial nerves: Yes Equal, round and reactive pupils present and Yes Normal hearing present Sensory Exam: No Sensory deficit (Neuro) Psych Speech and movement: Normal speech and movement present Affect: normal affect Attitude: cooperative Assessment & Plan Assessment & Plan (1) Ankylosing spondylitis: Code(s): M45.9 - Ankylosing spondylitis of unspecified sites in spine Category: Medical (2) Thoracic degenerative disc disease: Code(s): M51.34 - Other intervertebral disc degeneration, thoracic region Category: Medical (3) Upper back pain: Code(s): M54.9 - Dorsalgia, unspecified Category: Medical Plan History of implant of spinal cord stimulator Nevro which demonstrated excellent results. I will continue her gabapentin 600 mg b.i.d.. I will do so with 11 refills. Next appointment as needed. Medications: Refilled gabapentin 600 mg PO BID 60 tabs 16RF 30 days Coding Level of Care Code Est Pt Level 3 (93462) Diagnoses Ankylosing spondylitis M45.9 Thoracic degenerative disc disease M51.34 Upper back pain M54.9
[2024-09-15 15:36] VITALS: BP 138/78; PULSE 82; RESP 16; O2SAT 99; BMI 39.3
== END 2024-09-15 15:51 | disposition home or self-care (01) ==
PROVIDERS: PCP Family Medicine; Visit Provider Anesthesiology
DX: M45.9 Ankylosing spondylitis of unspecified sites in spine (principal); M51.34 Other intervertebral disc degeneration, thoracic region; M54.9 Dorsalgia, unspecified
CPT/HCPCS: 99213

== ENCOUNTER → 2024-09-15 15:31 | Outpatient (BNVA) | payer OTHER, SELFPAY | PROVIDERS: PCP Family Medicine; Visit Provider Anesthesiology ==

== ENCOUNTER → 2024-09-29 15:35 | Outpatient (BNVA) | payer OTHER, SELFPAY | PROVIDERS: PCP Family Medicine ==

== ENCOUNTER 2024-09-29 15:50 | Outpatient (REF) | payer OTHER, SELFPAY ==
--- NOTE | ~2024-09-29 | XR_ITS ---
EXAMINATION: XR WRIST, LEFT CLINICAL INFORMATION: M25.539 - Pain in unspecified wrist COMPARISON: None available. TECHNIQUE: PA, lateral, oblique, and scaphoid views of the left wrist. FINDINGS: The bones and soft tissues are normal. No fracture. Alignment is anatomic with normal joint spaces. No erosions or abnormal soft tissue calcifications. XR/XR wrist LT w scaphoid IMPRESSION: Normal left wrist. Electronically signed by: Deangelo Ramachandran MD 09/29/2024 04:26 PM RISSA SHAFFER
== END 2024-09-29 15:51 | disposition home or self-care (01) ==
LOC: HO.HMGCX 15:50
PROVIDERS: PCP Family Medicine; Visit Provider Physician Assistant
DX: S63.502A Unspecified sprain of left wrist, initial encounter (principal); W18.30XA Fall on same level, unspecified, initial encounter; Y93.9 Activity, unspecified; Y92.9 Unspecified place or not applicable; Y99.9 Unspecified external cause status
CPT/HCPCS: 73110

== ENCOUNTER → 2024-09-29 15:53 | Outpatient (BNV) | payer OTHER, SELFPAY | PROVIDERS: PCP Family Medicine; Visit Provider Radiology Diagnostic Radiology | DX: M25.532 Pain in left wrist (principal) | CPT/HCPCS: 73110 ==

== ENCOUNTER 2024-10-20 09:02 | Outpatient (REF) | payer OTHER, SELFPAY ==
[2024-10-20 15:09] LABS: Influenza A PCR NEGATIVE (Negative); Influenza B PCR NEGATIVE (Negative); Resp Syncy Virus RNA Qual PCR NEGATIVE (Negative); SARS COV2 PCR INHOUSE NEGATIVE (Negative)
== END 2024-10-20 09:03 | disposition home or self-care (01) ==
LOC: HO.LNP 09:02
PROVIDERS: PCP Family Medicine; Visit Provider Physician Assistant
DX: J06.9 Acute upper respiratory infection, unspecified (principal)
CPT/HCPCS: 0241U

== ENCOUNTER 2024-10-20 09:02 | Outpatient (AMB) | payer OTHER, SELFPAY ==
[2024-10-20 09:06] VITALS: BP 124/80; PULSE 95; TEMP 37.4; O2SAT 95
--- NOTE | 2024-10-20 09:06 | MHC.OFFWIV ---
Intake Vital Signs 10/20/24 09:06 Weight 235 lb BP 124/80 Blood Pressure Location Rt brachial Position Sitting Pulse 95 Pulse Source Pulse Oximeter Temp 99.3 F Temp Source Oral Pulse Oximetry (%) 95 Oxygen Delivery Method Room Air Intake Visit Reasons: EP ? Bronchitis Intake Note: Patient here for cough, chest tightness, loss of voice and headaches that started . Patient Tobacco Use Status: Former Tobacco user Allergies amoxicillin [AMOXICILLIN] Allergy (Severe, Verified 10/20/24 09:07) ANAPHYLAXIS codeine [CODEINE] Allergy (Severe, Verified 10/20/24 09:07) ANAPHYLAXIS Sulfa (Sulfonamide Antibiotics) [SULFA (SULFONAMIDE ANTIBIOTICS)] Allergy (Mild, Verified 10/20/24 09:07) Rash, hives, rash Do you need a note to return to daycare/school/sports/work: Yes HPI HPI Comments History of Present Illness Details She presents to office with cough Hx of bronchitis in the past + cough with production of phlegm + headache, fatigue, chest heaviness Ongoing x 3-4 days Yesterday she woke up a lot worse She said this am + low grade fever this am; 99.7 No medicine for it She said + sore throat, worse with coughing No ear pain but + minor congestion She has inhaler but very infrequently uses so it is now [facility] Medical History Elevated erythrocyte sedimentation rate Ankylosing spondylitis Bronchitis History of COVID-19 Knee pain, right Chronic headaches Morbid obesity with BMI of 40.0-44.9, adult Abnormal findings on esophagogastroduodenoscopy (EGD) Tubal ligation evaluation Cellulitis Concussion Ankylosing spondylitis Obstructive sleep apnea Asthma GERD (gastroesophageal reflux disease) Diabetes mellitus Menopause Surgical History History of esophagogastroduodenoscopy (EGD) Hx of colonoscopy Status post insertion of nerve stimulator History of cholecystectomy Gastric bypass status for obesity H/O lumpectomy Hx of tubal ligation Hx laparoscopic cholecystectomy History of Krystian-en-Y gastric bypass Family History Father Ankylosing spondylitis of site in spine DM (diabetes mellitus) Alzheimer disease COPD (chronic obstructive pulmonary disease) Skin cancer RA (rheumatoid arthritis) Mother RA (rheumatoid arthritis) Son No problems noted. Maternal Grandfather Prostate cancer Bone cancer Social History Household Members: Spouse Housing: House Are you a primary healthcare recruiter to a significant other at home: No Do you presently have visiting nurse or other home services: No Alcohol intake: current Alcohol intake frequency: holidays/special occasions only Alcohol type: wine and hard liquor Patient Tobacco Use Status: Former Tobacco user Tobacco use type: Cigarette and Cigar Years Smoked: 4 e-Cigarette/Vaping Use: Never Used Second Hand Smoke Exposure: No Substance Use Type: Marijuana service: No Current occupational status: student Current occupational exposures/hazards: No Cognitive needs: No Hearing needs: No Vision needs: No Female Reproductive History Menstrual Age of Menarche: 12 Review of Systems Const Denies body aches, Reports chills, Reports fatigue, Reports fever(s) and Denies headache(s) ENT Denies otalgia, Denies headache(s), Reports nasal congestion, Denies nasal discharge, Denies sinus pain, Denies sinus pressure, Reports sore throat and Denies throat swelling Card Denies chest pain and Denies dyspnea on exertion Resp Denies change in phlegm color, Reports chest congestion, Reports cough, Reports pain with cough and Denies dyspnea on exertion GI Denies abdominal pain and Denies vomiting Musc Denies myalgias Neuro Denies headache(s) Endo Reports fatigue Aller/Immun Denies throat swelling Physical Exam Vital Signs: Last Vital Signs Temp 99.3 F 10/20/24 09:06 Pulse 95 10/20/24 09:06 BP 124/80 10/20/24 09:06 Pulse Ox 95 10/20/24 09:06 Oxygen Delivery Method Room Air 10/20/24 09:06 General: Non-toxic, NAD. Speaking full sentences. Skin: Warm dry throughout Eye: EOMI HENT: Airway patent. Uvula midline. No pharyngeal erythema or edema. No MEDICAL OFFICE REP. Bilateral canals clear. TM non-erythematous, non-bulging. No TM perforation or hemotympanum noted. No rhinorrhea noted Respiratory: CTA bilaterally. No wheezes, rales or rhonchi Cardiac: RRR. No murmur Neurology: Alert. No aphasia or facial droop. Gait without abnormality Psych: Good mood and affect Assessment & Plan Assessment & Plan (1) URI (upper respiratory infection): Code(s): J06.9 - Acute upper respiratory infection, unspecified Qualifiers: URI type: unspecified viral URI Qualified Code(s): J06.9 - Acute upper respiratory infection, unspecified Plan: Patient seen and evaluated. Lungs CTA No concern for bacterial bronchitis at this time WIll order and obtain rsv/covid/flu swab Discussed if + flu then she can be given tamiflu prescribed No additional medications for covid or rsv Tessalon for cough Increase fluids Albuterol inhaler refill given Patient gave verbal understanding and had no additional questions or concerns at time of discharge All questions answered Orders: Orders SARS-CoV2/FLU/RSV Today J06.9 - Acute upper respiratory infection, unspecified Medications: New benzonatate 200 mg PO BID-TID PRN 14 caps 0RF cough Refilled albuterol sulfate 90 mcg/actuation 1 inh inhalation QID PRN 8.5 grams 0RF shortness of breath or wheezing Coding Level of Care Code Est Pt Level 3 (28563) Diagnoses Viral upper respiratory tract infection J06.9 URI type: unspecified viral URI
== END 2024-10-20 09:28 | disposition home or self-care (01) ==
PROVIDERS: PCP Family Medicine; Visit Provider Physician Assistant
DX: J06.9 Acute upper respiratory infection, unspecified (principal)

== ENCOUNTER 2024-11-01 13:55 | Outpatient (REF) | payer OTHER, SELFPAY ==
--- NOTE | ~2024-11-01 | XR_ITS ---
EXAMINATION: XR WRIST, LEFT CLINICAL INFORMATION: M25.532 - Pain in left wrist COMPARISON: 09/29/2024. TECHNIQUE: PA, lateral, and oblique views of the left wrist. FINDINGS: The bones and soft tissues are normal. No fracture. Alignment is anatomic with normal joint spaces. No erosions or abnormal soft tissue calcifications. XR/XR wrist LT w scaphoid IMPRESSION: Normal left wrist. Electronically signed by: Deangelo Ramachandran MD 11/02/2024 01:10 PM EDT
== END 2024-11-01 13:56 | disposition home or self-care (01) ==
LOC: HO.HOSX 13:55
DX: M25.532 Pain in left wrist (principal)
CPT/HCPCS: 73110

== ENCOUNTER 2024-11-01 14:17 | Outpatient (AMB) | payer OTHER, SELFPAY ==
--- NOTE | 2024-11-01 14:37 | A.OFFVIS_ITS ---
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 Patient reports that she has had ongoing pain for about 6 weeks now. She explains that she did take a fall but her pain did not start until a few days after the fall. She has some mild numbness in the thumb. She has some non voluntary movement of the fingers with reaching above shoulder height. She has been wearing a thumb spice brace for about 4 weeks now, she feels that it helps her avoid movements that trigger pain, but overall it is aggravating to wear all the time. 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 Patient reports that she has had ongoing pain for about 6 weeks now. She explains that she did take a fall but her pain did not start until a few days after the fall. She has some mild numbness in the thumb. She has some non voluntary movement of the fingers with reaching above shoulder height. She has been wearing a thumb spice brace for about 4 weeks now, she feels that it helps her avoid movements that trigger pain, but overall it is aggravating to wear all the time. [facility] Medical History Elevated erythrocyte sedimentation rate Ankylosing spondylitis Bronchitis History of COVID-19 Knee pain, right Chronic headaches Morbid obesity with BMI of 40.0-44.9, adult Abnormal findings on esophagogastroduodenoscopy (EGD) Tubal ligation evaluation Cellulitis Concussion Ankylosing spondylitis Obstructive sleep apnea Asthma GERD (gastroesophageal reflux disease) Diabetes mellitus Menopause Surgical History History of esophagogastroduodenoscopy (EGD) Hx of colonoscopy Status post insertion of nerve stimulator History of cholecystectomy Gastric bypass status for obesity H/O lumpectomy Hx of tubal ligation Hx laparoscopic cholecystectomy History of Krystian-en-Y gastric bypass Family History Father Ankylosing spondylitis of site in spine DM (diabetes mellitus) Alzheimer disease COPD (chronic obstructive pulmonary disease) Skin cancer RA (rheumatoid arthritis) Mother RA (rheumatoid arthritis) Son No problems noted. Maternal Grandfather Prostate cancer Bone cancer Social History Household Members: Spouse Housing: House Are you a primary director of patient care to a significant other at home: No Do you presently have visiting nurse or other home services: No Alcohol intake: current Alcohol intake frequency: holidays/special occasions only Alcohol type: wine and hard liquor Patient Tobacco Use Status: Former Tobacco user Tobacco use type: Cigarette and Cigar Years Smoked: 4 e-Cigarette/Vaping Use: Never Used Second Hand Smoke Exposure: No Substance Use Type: Marijuana service: No Current occupational status: student Current occupational exposures/hazards: No Cognitive needs: No Hearing needs: No Vision needs: No Female Reproductive History Menstrual Age of Menarche: 12 Physical Exam Extrem Other: Patient is alert, oriented, and in no acute distress. Neuro: Normal sensation of the tips of all digits of the left hand at this time Vascular: Cap refill brisk Pain: Tenderness to palpation of the left anatomical snuffbox and scaphoid tubercle No other pain of the left wrist ROM: Patient was able to make a closed fist and extend all digits of the left hand fully Skin: No lacerations or abrasions. General: No ecchymosis, erythema, or evidence of infection. Psych: Appears grossly normal Affect normal Attitude cooperative Results Reviewed Results Reviewed: X-rays obtained in the office today and independently reviewed by me, Fahad Soler PA-C, demonstrate no radio evident fracture or acute bony abnormality of the left hand or wrist. Assessment & Plan Assessment & Plan (1) Tenderness of anatomical snuffbox: Code(s): M79.643 - Pain in unspecified hand Category: Medical Plan 1. Anatomical snuffbox tenderness of the left wrist after a fall Date of injury 10/12/2024 At this time, I feel it was pertinent to get a CT scan of the patient's left wrist to assess for potential occult scaphoid fracture CT scan ordered on an urgent basis Patient will follow-up with us after CT scan for results review and discussion of further treatment options if indicated In the meantime, patient should continue to wear the Velcro wrist splint like a cast except for when bathing Patient expresses understanding of this and is amenable to this plan Patient will follow-up after CT scan for results review and discussion of further treatment options, sooner with any acute concerns Orders: Orders XR wrist LT w scaphoid Today M25.532 - Pain in left wrist CT wrist LT wo IV con Today M79.643 - Pain in unspecified hand Coding Level of Care Code New Pt Level 3 (58823) Diagnoses Tenderness of anatomical snuffbox M79.647
== END 2024-11-01 15:14 | disposition home or self-care (01) ==
PROVIDERS: PCP Family Medicine
DX: M79.642 Pain in left hand (principal); M25.532 Pain in left wrist
CPT/HCPCS: 99203

== ENCOUNTER → 2024-11-01 14:36 | Outpatient (BNV) | payer OTHER, SELFPAY | PROVIDERS: Visit Provider Radiology Diagnostic Radiology | DX: M25.532 Pain in left wrist (principal) | CPT/HCPCS: 73110 ==

== ENCOUNTER 2024-11-10 15:23 | Outpatient (AMB) | payer OTHER, SELFPAY ==
--- NOTE | 2024-11-10 15:42 | MHC.PC.OV ---
Vital Signs 11/10/24 15:44 Height 5 ft 5 in Weight 236 lb 4 oz BMI 39.3 BP 116/64 Blood Pressure Location Rt brachial Position Sitting Respiration 14 Pulse 84 Pulse Source Pulse Oximeter Temp 97.9 F Temp Source Oral Pulse Oximetry (%) 96 Oxygen Delivery Method Room Air Intake Visit Reasons: f/u diabetes. Intake Note: patient is scheduled for dm follow up Finisher Plate Required: No Allergies amoxicillin [AMOXICILLIN] Allergy (Severe, Verified 11/10/24 15:42) ANAPHYLAXIS codeine [CODEINE] Allergy (Severe, Verified 11/10/24 15:42) ANAPHYLAXIS Sulfa (Sulfonamide Antibiotics) [SULFA (SULFONAMIDE ANTIBIOTICS)] Allergy (Mild, Verified 11/10/24 15:42) Rash, hives, rash Medication List - Last Reconciled 11/10/24 by Ron Morales MD albuterol sulfate 90 mcg/actuation 1 inh inhalation QID PRN calcium citrate-vitamin D3 315 mg-5 mcg (200 unit) (Calcium Citrate + D) 1 tab PO DAILY cetirizine (Allergy Relief (cetirizine)) 10 mg PO DAILY PRN Enbrel Mini (etanercept) 50 mg subcut QWEEK NS epinephrine (EpiPen 2-Juan Luis) 0.3 mg (0.3 mL) IM Q10M PRN gabapentin 600 mg PO BID 30 days metformin ER 250 mg (1/2 x 500 mg) PO BID 90 days pantoprazole 40 mg PO DAILY 90 days soy isofla-blk cohosh-mag bark 155 mg (Estroven) caps PO Tobacco use date assessed: 09/16/23 Dental Screening Dental Screen Date: 11/25/23 HPI f/u diabetes. HPI Details 54 y/o female presents to f/u diabetes. A1c today 11/10/24 is 6.7 She is on metformin 250mg b.i.d. [facility] Medical History Elevated erythrocyte sedimentation rate Ankylosing spondylitis Bronchitis History of COVID-19 Knee pain, right Chronic headaches Morbid obesity with BMI of 40.0-44.9, adult Abnormal findings on esophagogastroduodenoscopy (EGD) Tubal ligation evaluation Cellulitis Concussion Ankylosing spondylitis Obstructive sleep apnea Asthma GERD (gastroesophageal reflux disease) Diabetes mellitus Menopause Surgical History History of esophagogastroduodenoscopy (EGD) Hx of colonoscopy Status post insertion of nerve stimulator History of cholecystectomy Gastric bypass status for obesity H/O lumpectomy Hx of tubal ligation Hx laparoscopic cholecystectomy History of Krystian-en-Y gastric bypass Family History Father Ankylosing spondylitis of site in spine DM (diabetes mellitus) Alzheimer disease COPD (chronic obstructive pulmonary disease) Skin cancer RA (rheumatoid arthritis) Mother RA (rheumatoid arthritis) Son No problems noted. Maternal Grandfather Prostate cancer Bone cancer Social History Household Members: Spouse Housing: House Are you a primary personal care home administrator to a significant other at home: No Do you presently have visiting nurse or other home services: No Alcohol intake: current Alcohol intake frequency: holidays/special occasions only Alcohol type: wine and hard liquor Patient Tobacco Use Status: Former Tobacco user Tobacco use type: Cigarette and Cigar Years Smoked: 4 e-Cigarette/Vaping Use: Never Used Second Hand Smoke Exposure: No Substance Use Type: Marijuana service: No Current occupational status: student Current occupational exposures/hazards: No Cognitive needs: No Hearing needs: No Vision needs: No Female Reproductive History Menstrual Age of Menarche: 12 Questionnaire PHQ-9 Over the last 2 weeks, how often have you been bothered by any of the following problems? 1. Little interest or pleasure in doing things: not at all 2. Feeling down, depressed, or hopeless: not at all 3. Trouble falling or staying asleep, or sleeping too much: not at all 4. Feeling tired or having little energy: several days 5. Poor appetite or overeating: several days 6. Feeling bad about yourself - or that you are a failure or have let yourself or your family down: not at all 7. Trouble concentrating on things, such as reading the newspaper or watching television: not at all 8. Moving or speaking so slowly that other people could have noticed. Or the opposite - being so fidgety or restless that you have been moving around a lot more than usual: not at all 9. Thoughts that you would be better off or of hurting yourself in some way: not at all Total score: 2 Depression Screening Interpretation: Negative Depression Screening Done: Yes 61706 - PHQ-9 Billing: Yes Source: Developed by Drs. Jose Delgado, Lu Corona, Jung Ruby and colleagues, with an educational wily from [employer]. Thrive Questionnaire Date Thrive assessed: 11/03/24 I am a: Patient What is your living situation today?: I have a steady place to live Within the past 12 months, did the food you bought not last and you didn't have the money to get more?: Never true Within the past 12 months, did you worry whether your food would run out before you got money to buy more?: Never true Do you have trouble paying for medicines?: No Do you have trouble getting transportation to medical appointments?: No Do you have trouble paying your heating and electricity bill?: No Do you have trouble taking care of your child, family member or friend?: No Do you have trouble with day-to-day activities such as bathing, preparing meals, shopping, managing finances, etc.?: No Are you currently unemployed and looking for a job?: No Are you interested in more education?: No Please select the resources that you would like help with: None Currently or been in a relationship where the following occur: No concerns reported THRIVE Score: 0 AUDIT C Alcohol Use Questionnaire (AUDIT-C) 1. How often do you have a drink containing alcohol?: Monthly or less 2. How many drinks containing alcohol do you have on a typical day when you are drinking?: 1 or 2 3. How often do you have six or more drinks on one occasion?: Never Total Score: 1 JANE-7 AMB Questionnaire JANE-7 Date JANE - 7 assessed: 11/25/23 Feeling nervous, anxious, or on edge: 1 = Several days Not being able to stop or control worryin = Not at all Worrying too much about different things: 0 = Not at all Trouble relaxin = Not at all Being so restless that it is hard to sit still: 0 = Not at all Becoming easily annoyed or irritable: 1 = Several days Feeling afraid as if something awful might happen: 0 = Not at all Total JANE-7 score (0-4 normal; 5-9 mild; 10-14 moderate; 15-21 severe): 2 Source: Developed by Drs. Jose Delgado, Lu Corona, Jung Ruby and colleagues, with an educational wily from [employer]. Physical exam (Primary Care) Vital Signs: Last Vital Signs Temp 97.9 F 11/10/24 15:44 Pulse 84 11/10/24 15:44 Resp 14 11/10/24 15:44 BP 116/64 11/10/24 15:44 Pulse Ox 96 11/10/24 15:44 Oxygen Delivery Method Room Air 11/10/24 15:44 BMI result Body Mass Index 39.3 Tobacco/Smoking Status: Tobacco use Status Tobacco use date assessed 09/16/23 11/10/24 15:47 Patient Tobacco Use Status Former Tobacco user 11/10/24 15:47 Tobacco use type Cigarette,Cigar 11/10/24 15:47 e-Cigarette/Vaping Use Never Used 11/10/24 15:47 PHQ-9: PHQ-9 Score PHQ-9: Total score 2 11/10/24 15:47 Depression Screening Interpretation: Negative Thrive Assessment: Date of Thrive Assessment Date Thrive assessed 11/03/24 11/10/24 15:47 Currently or been in a relationship where the following occur: No concerns reported Results AMB Hemoglobin A1c AMB Hemoglobin A1c 6.7 % Last Edit by PORSHA Maldonado on 11/10/24 15:50 Results Reviewed Results Reviewed: Laboratory Last Values Hgb A1c (Clinic) 6.7 % (4.0-6.0) H 11/10/24 15:48 Coding Level of Care Code Est Pt Level 4 (33245) Diagnoses Diabetes E11.9 Breast cancer screening by mammogram Z12.31 Screening for cervical cancer Z12.4 Mild anemia D64.9 Additional Codes PHQ-9 - 09976 - PHQ-9 Billing: Yes ([id number]) Assessment & Plan Assessment & Plan (1) Diabetes: Code(s): E11.9 - Type 2 diabetes mellitus without complications Category: Medical Plan: A1c?is?6.7%?today.??Good?control.??Goal?is?less?than?7.0% Continue?diabetic?diet,?weight?control?and?I?encouraged?exercise. Continue?current?medication?regimen Patient?says?she?had?her?diabetic?eye?exam?recently.??She?will?have?the?report?forwarded?to?me.??Up-to-date (2) Breast cancer screening by mammogram: Code(s): Z12.31 - Encounter for screening mammogram for malignant neoplasm of breast Category: Medical Plan: Mammogram?in?August?showed?no?evidence?of?malignancy Continue?annual?screening (3) Screening for cervical cancer: Comment: History of HPV x1, ?2020;-Pap with negative HPV 2020 per patient. 08/30/2024 Pap done= negative with negative HPV. Code(s): Z12.4 - Encounter for screening for malignant neoplasm of cervix Category: Medical Plan: Followed?by?Erendira?Manuel?at?[facility] environmental protection forester. Up-to-date (4) Mild anemia: Code(s): D64.9 - Anemia, unspecified Category: Medical Plan: Mild?anemia?which?had?resolved?at?last?check Was?seen?by?Hematology-Oncology?and they?recommended?this?can?be?monitored?by?patient?myself Will?monitor?periodically Orders: Orders Complete Blood Count Auto Diff Today Z00.00 - Encounter for general adult medical examination without abnormal findings Microalbumin, Random (w Creat) Today I10 - Essential (primary) hypertension TSH reflex Free T4 Today Z00.00 - Encounter for general adult medical examination without abnormal findings Comprehensive [place]. Panel Fast Today Z00.00 - Encounter for general adult medical examination without abnormal findings Lipid Panel Today Z00.00 - Encounter for general adult medical examination without abnormal findings UA and rflx microscopic Today Z00.00 - Encounter for general adult medical examination without abnormal findings Vitamin D 25-OH Total Today E55.9 - Vitamin D deficiency, unspecified AMB Hemoglobin A1c Today E11.9 - Type 2 diabetes mellitus without complications
[2024-11-10 15:44] VITALS: BP 116/64; PULSE 84; RESP 14; TEMP 36.6; O2SAT 96; BMI 39.3
== END 2024-11-10 16:01 | disposition home or self-care (01) ==
LOC: HO.HMCFM 15:24
PROVIDERS: PCP Family Medicine; Visit Provider Family Medicine
DX: E11.9 Type 2 diabetes mellitus without complications (principal); Z12.31 Encounter for screening mammogram for malignant neoplasm of breast; Z12.4 Encounter for screening for malignant neoplasm of cervix; D64.9 Anemia, unspecified

== ENCOUNTER → 2024-11-10 15:23 | Outpatient (BNVA) | payer OTHER, SELFPAY | PROVIDERS: PCP Family Medicine; Visit Provider Family Medicine | DX: E11.9 Type 2 diabetes mellitus without complications (principal); D64.9 Anemia, unspecified; Z79.84 Long term (current) use of oral hypoglycemic drugs | CPT/HCPCS: 83036; 96127 ==

== ENCOUNTER 2024-11-22 07:33 | Outpatient (REF) | payer OTHER, SELFPAY ==
--- NOTE | ~2024-11-22 | CT_ITS ---
EXAMINATION: CT WRIST WITHOUT CONTRAST, LEFT CLINICAL INFORMATION: Concern for scaphoid fracture, pain with negative x-rays. COMPARISON: Radiographs left wrist 11/01/2024, 09/29/2024. TECHNIQUE: Spiral CT imaging of the left wrist performed in axial plane without contrast. Multiplanar reformatted images were constructed from the axial data set. This CT examination was performed using dose optimization techniques as appropriate, variously including the following: *Automated exposure control *Adjustment of mA and/or kV according to patient size (this includes techniques or standardized protocols for targeted exams where dose is matched to indication/reason for exam; i.e. extremities or head) *Use of iterative reconstruction technique FINDINGS: There is no definitive fracture, dislocation, or suspicious bone lesion. Carpal bones appear intact, anatomically aligned, with preserved joint spaces. Specifically, the scaphoid is intact without definitive fracture. The hamate is intact without fracture. Hamate hook is intact. The capitate is intact without fracture. The trapezoid and trapezium are intact without fracture. The triquetrum is intact without fracture. The pisiform is intact without fracture. The radius and the ulna are intact. The syndesmosis is normal. The imaged metacarpals are intact. No significant arthropathy identified. Joint spaces are preserved. The imaged musculature, soft tissues, gross tendinous structures are intact and normal in attenuation. No abnormal fluid collections seen. No definite wrist joint effusion. CT/CT wrist LT wo IV con IMPRESSION: 1. There is no discrete wrist fracture seen. There is no dislocation. There are normal-appearing soft tissues. 2. Should there be continued clinical concern, MRI is recommended. Electronically signed by: Deangelo Ramachandran MD 11/22/2024 09:04 AM EDT
== END 2024-11-22 07:34 | disposition home or self-care (01) ==
LOC: HO.CT 07:33
PROVIDERS: PCP Family Medicine
DX: M79.642 Pain in left hand (principal)
CPT/HCPCS: 73200

== ENCOUNTER → 2024-11-22 07:35 | Outpatient (BNV) | payer OTHER, SELFPAY | PROVIDERS: PCP Family Medicine; Visit Provider Radiology Diagnostic Radiology | DX: M25.532 Pain in left wrist (principal) | CPT/HCPCS: 73200 ==

== ENCOUNTER 2024-12-06 12:58 | Outpatient (AMB) | payer OTHER, SELFPAY ==
--- NOTE | 2024-12-06 13:00 | A.OFFVIS_ITS ---
Vital Signs 12/06/24 13:01 Height 5 ft 5 in Weight 230 lb BMI 38.3 Handedness Right Intake Visit Reasons: OV-Left wrist CT review Intake Note: Cary is a 54 year old right hand dominant female who presents today for a follow up for her left hand tenderness of anatomical snuffbox, DOI: 10/12/24. Patient is here today to review her left hand CT scan. CT scan done on 11/22/24 CT/CT wrist LT wo IV con IMPRESSION: 1. There is no discrete wrist fracture seen. There is no dislocation. There are normal-appearing soft tissues. 2. Should there be continued clinical concern, MRI is recommended. Allergies amoxicillin [AMOXICILLIN] Allergy (Severe, Verified 12/06/24 13:01) ANAPHYLAXIS codeine [CODEINE] Allergy (Severe, Verified 12/06/24 13:01) ANAPHYLAXIS Sulfa (Sulfonamide Antibiotics) [SULFA (SULFONAMIDE ANTIBIOTICS)] Allergy (Mild, Verified 12/06/24 13:01) Rash, hives, rash HPI HPI OV-Left wrist CT review: Details: Cary is a 54 year old right hand dominant female who presents today for a follow up for her left hand tenderness of anatomical snuffbox, DOI: 10/12/24. Patient is here today to review her left hand CT scan. CT scan done on 11/22/24 CT/CT wrist LT wo IV con IMPRESSION: 1. There is no discrete wrist fracture seen. There is no dislocation. There are normal-appearing soft tissues. 2. Should there be continued clinical concern, MRI is recommended. [facility] Medical History Elevated erythrocyte sedimentation rate Ankylosing spondylitis Bronchitis History of COVID-19 Knee pain, right Chronic headaches Morbid obesity with BMI of 40.0-44.9, adult Abnormal findings on esophagogastroduodenoscopy (EGD) Tubal ligation evaluation Cellulitis Concussion Ankylosing spondylitis Obstructive sleep apnea Asthma GERD (gastroesophageal reflux disease) Diabetes mellitus Menopause Surgical History History of esophagogastroduodenoscopy (EGD) Hx of colonoscopy Status post insertion of nerve stimulator History of cholecystectomy Gastric bypass status for obesity H/O lumpectomy Hx of tubal ligation Hx laparoscopic cholecystectomy History of Krystian-en-Y gastric bypass Family History Father Ankylosing spondylitis of site in spine DM (diabetes mellitus) Alzheimer disease COPD (chronic obstructive pulmonary disease) Skin cancer RA (rheumatoid arthritis) Mother RA (rheumatoid arthritis) Son No problems noted. Maternal Grandfather Prostate cancer Bone cancer Social History Household Members: Spouse Housing: House Are you a primary manager primary care to a significant other at home: No Do you presently have visiting nurse or other home services: No Alcohol intake: current Alcohol intake frequency: holidays/special occasions only Alcohol type: wine and hard liquor Patient Tobacco Use Status: Former Tobacco user Tobacco use type: Cigarette and Cigar Years Smoked: 4 e-Cigarette/Vaping Use: Never Used Second Hand Smoke Exposure: No Substance Use Type: Marijuana service: No Current occupational status: student Current occupational exposures/hazards: No Cognitive needs: No Hearing needs: No Vision needs: No Female Reproductive History Menstrual Age of Menarche: 12 Review of Systems Const All systems reviewed & are unremarkable except as noted in HPI and below Physical Exam Vital Signs: BMI result Body Mass Index 38.3 Extrem Other: Patient is alert, oriented, and in no acute distress. Neuro: Normal sensation of the tips of all digits of the left hand at this time Vascular: Cap refill brisk Pain: No further Tenderness to palpation of the left anatomical snuffbox and scaphoid tubercle There is slight tenderness to palpation of the left radial styloid Positive Isela on the left No other pain of the left wrist ROM: Patient was able to make a closed fist and extend all digits of the left hand fully Skin: No lacerations or abrasions. General: No ecchymosis, erythema, or evidence of infection. Psych: Appears grossly normal Affect normal Attitude cooperative Office Procedures AMB Tendon Injection Tendon Injection Details: Left de Quervain injection [id number] Tendon Sheath Injection All charges added?: Procedure code (CPT) selection complete Assessment & Plan Assessment & Plan (1) De Quervain's tenosynovitis, left: Code(s): M65.4 - Radial styloid tenosynovitis [de Quervain] Category: Medical Plan 1. De Quervain tenosynovitis, left Patient is educated about this condition Patient is educated about the treatment options available Patient would like to proceed with steroid injection at this time Injection #1: The risks and benefits of a steroid injection including but not limited to risk of damage to blood vessels, nerves, tendons, infection, skin bleaching, failure to improve symptoms, increased pain, and possible need for further injections or other intervention were discussed with the patient and the patient wishes to proceed with the steroid injection. Once consent was obtained, I aseptically prepped the area over the 1st dorsal compartment of the left thumb. I then injected the 1st dorsal compartment with a combination of 1 mL of dexamethasone (4mg/ml), and 1% lidocaine. The patient tolerated the procedure well with no complications and good resolution of their symptoms prior to leaving clinic. If the patient continues to have pain 6-8 weeks following this injection, they may call to schedule appointment to discuss alternative treatment options Orders: Orders OT Evaluation and Treatment Today M65.4 - Radial styloid tenosynovitis [de Quervain] Coding Level of Care Code Est Pt Level 3 (65861) Diagnoses De Quervain's tenosynovitis, left M65.4 CPT Codes Tendon Injection - Tendon Injection 1: [id number] Tendon Sheath Injection ([id number])
[2024-12-06 13:01] VITALS: BMI 38.3
== END 2024-12-06 13:32 | disposition home or self-care (01) ==
LOC: HO.HOS 12:58
PROVIDERS: PCP Family Medicine
DX: M65.4 Radial styloid tenosynovitis [de Quervain] (principal)
CPT/HCPCS: 20550; 99213

== ENCOUNTER → 2024-12-06 12:58 | Outpatient (BNVA) | payer OTHER, SELFPAY | PROVIDERS: PCP Family Medicine | DX: M65.4 Radial styloid tenosynovitis [de Quervain] (principal) | CPT/HCPCS: 20550; J1100; J2003 ==

== ENCOUNTER 2025-01-05 07:16 | Outpatient (RCR) | payer OTHER, SELFPAY ==
--- NOTE | 2024-12-10 08:22 | MHC.OT.EP ---
[address] [phone] Occupational Therapy Plan of Care Patient Name: Cary Burgess Date of Evaluation: 12/10/24 Diagnosis: Left De Quervain's Tenosynovitis Pain Location: Pain free at rest Some pain to palpate over 1st dorsal compartment Pain Score: 3 Pain Scale Used: Numeric (0 - 10) Aggravating Factors: Forceful use of left hand/wrist movements Alleviating Factors: No pain meds, no modalities, using thumb spica Assessment: 54 yo female reports fall onto her left hand a few months ago, developed pain in left radial wrist. She was seen at [facility] and given prefab thumb spica splint and cortisone injection, then referred to OT for cont'd management. On assessment today, she is pain free at rest and reports low/moderate pain with strenuous activities. She has (-) Finklestein's but does have discomfort with active thumb and wrist extension movements. Gross grasp is low B/L'ly (R 25lb and L 20lb) and she has intrinsic tightness in both hands. We will cont OT services for progression of strengthening w/ education on joint protection and activity modifcation. Frequency and Duration: The patient will be seen 2x/wk for 4 weeks Short Term Goals: Ind w/ orthosis wear Ind w/ HEP Progress to light strengthening [facility] Goals: Pt to demo ease w/ hook fist Pt to demo good follow through w/ joint protection Gross grasp R 30lb L 25lb QuickDASH score <25 pts Treatment Plan: Therapeutic Exercise Therapeutic Activity Home Exercise Program Splinting Patient Education Edema Control ADL Training Ultrasound Paraffin Fluidotherapy MHP Cold Packs Joint Mobilization Soft Tissue Mobilization Kinesiotaping Electronically Signed By: Kelly Del Rio, OTR/L CHT Please Sign and return to therapist. Thank you once again for your referral.
--- NOTE | 2025-01-13 13:33 | MHC.OT.DC ---
[address] [phone] F: [phone] Occupational Therapy Discharge Note Patient Name: Cary Burgess Provider: Fahad Soler PA-C Diagnosis: Left De Quervain's Tenosynovitis Date of Evaluation: 12/10/24 Date of Discharge: 01/05/25 Treatments to Date: 9 Discharge Summary: Cary was referred to OT w/ left De Quervain's tendinitis. She was initially noting improvements in pain s/p cortisone injection, but has been unable to maintain gains and now still with moderate pain and relying on neoprene orthosis more for comfort. We have trialed therapy with modalities, joint protection, activity modification and exercise program, but not helping much at this point. 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 No further therapy indicated at this time due to inability to make progress, recommend follow up back w/ ortho. Electronically Signed By: Kelly Del Rio, OTR/L CHT Please Sign and return to therapist, thank you for your referral.
== END 2025-01-13 13:33 | disposition home or self-care (01) ==
LOC: HO.OT 07:16
PROVIDERS: PCP Family Medicine
DX: M65.4 Radial styloid tenosynovitis [de Quervain] (principal)
CPT/HCPCS: 97033; 97110; 97140; 97165

== ENCOUNTER 2025-01-07 15:02 | Outpatient (AMB) | payer OTHER, SELFPAY ==
--- NOTE | 2025-01-07 15:06 | MHC.OFFWIV ---
Intake Vital Signs 01/07/25 15:11 BMI Reason not done Patient refused/unable BP 110/70 Blood Pressure Location Lt brachial Position Sitting Pulse 80 Pulse Source Pulse Oximeter Pulse Oximetry (%) 95 Oxygen Delivery Method Room Air Intake Visit Reasons: EP muscle spasm in back Intake Note: Patient here for back spasm that has been present for about 2 days. Patient Tobacco Use Status: Former Tobacco user Allergies amoxicillin [AMOXICILLIN] Allergy (Severe, Verified 01/07/25 15:10) ANAPHYLAXIS codeine [CODEINE] Allergy (Severe, Verified 01/07/25 15:10) ANAPHYLAXIS Sulfa (Sulfonamide Antibiotics) [SULFA (SULFONAMIDE ANTIBIOTICS)] Allergy (Mild, Verified 01/07/25 15:10) Rash, hives, rash Do you need a note to return to daycare/school/sports/work: No HPI HPI Comments History of Present Illness Details This is a 54-year-old female with a past medical history of gastroesophageal reflux disease, gastric bypass surgery, ankylosing spondylitis, osteoarthritis and mhe-jgvdvmi-[id number] diabetes presenting for evaluation of right-sided low back pain that she has had since Friday. Patient denies any injury or trauma preceding the onset of her symptoms and states that she woke up with the pain. Patient denies any radiation of pain into her buttock or right leg. Patient has used Doans tablets without relief of her discomfort. [facility] Medical History Elevated erythrocyte sedimentation rate Ankylosing spondylitis Bronchitis History of COVID-19 Knee pain, right Chronic headaches Morbid obesity with BMI of 40.0-44.9, adult Abnormal findings on esophagogastroduodenoscopy (EGD) Tubal ligation evaluation Cellulitis Concussion Ankylosing spondylitis Obstructive sleep apnea Asthma GERD (gastroesophageal reflux disease) Diabetes mellitus Menopause Surgical History History of esophagogastroduodenoscopy (EGD) Hx of colonoscopy Status post insertion of nerve stimulator History of cholecystectomy Gastric bypass status for obesity H/O lumpectomy Hx of tubal ligation Hx laparoscopic cholecystectomy History of Krystian-en-Y gastric bypass Family History Father Ankylosing spondylitis of site in spine DM (diabetes mellitus) Alzheimer disease COPD (chronic obstructive pulmonary disease) Skin cancer RA (rheumatoid arthritis) Mother RA (rheumatoid arthritis) Son No problems noted. Maternal Grandfather Prostate cancer Bone cancer Social History Household Members: Spouse Housing: House Are you a primary resident care assistant to a significant other at home: No Do you presently have visiting nurse or other home services: No Alcohol intake: current Alcohol intake frequency: holidays/special occasions only Alcohol type: wine and hard liquor Patient Tobacco Use Status: Former Tobacco user Tobacco use type: Cigarette and Cigar Years Smoked: 4 e-Cigarette/Vaping Use: Never Used Second Hand Smoke Exposure: No Substance Use Type: Marijuana service: No Current occupational status: student Current occupational exposures/hazards: No Cognitive needs: No Hearing needs: No Vision needs: No Female Reproductive History Menstrual Age of Menarche: 12 Review of Systems Const All systems reviewed & are unremarkable except as noted in HPI and below Reports as per HPI Eyes Reports as per HPI ENT Reports no additional complaints Card Reports no additional complaints Resp Reports no additional complaints GI Reports no additional complaints Reports no additional complaints Musc Reports back pain (right low back pain), Denies arthralgias, Denies numbness and Denies tingling Skin/Breast Reports system reviewed and no additional complaints, except as documented Neuro Reports no additional complaints, Denies numbness and Denies tingling Psych Reports no additional complaints Endo Reports no additional complaints Ray/Lymph Reports no additional complaints Aller/Immun Reports no additional complaints Physical Exam Vital Signs: Last Vital Signs Pulse 80 01/07/25 15:11 BP 110/70 01/07/25 15:11 Pulse Ox 95 01/07/25 15:11 Oxygen Delivery Method Room Air 01/07/25 15:11 Const General: cooperative, healthy appearing, comfortable, no acute distress and well developed Nutritional Appearance: well nourished Orientation/consciousness: patient oriented x3 Limitations: no limitations Back/Spine/Pelvis Thoracic/Lumbar Spine: thoraco-lumbar ROM normal, pain with thoraco-lumbar ROM, paraspinal muscle tenderness on the right in the mid lumbar and in the lower lumbar, No thoracic spinal tenderness and No lumbar spinal tenderness Sacroiliac joints: bilaterally nontender Sacrum: no tenderness Coccyx: no tenderness Skin General skin exam: no rashes or lesions noted Neuro General: patient oriented x3 Psych Appearance: grossly normal Mental Status: mental status grossly normal Insight: Good insight present (Psych) Judgement: Good judgement present (Psych) Assessment & Plan Assessment & Plan (1) Lumbar strain: Comment: Patient's history coupled with her examination is consistent with a right lumbar strain. Given this patient's previous gastric bypass surgery, NSAIDs are deferred at this time. We will treat with acetaminophen and cyclobenzaprine. Code(s): S39.012A - Strain of muscle, fascia and tendon of lower back, initial encounter Qualifiers: Encounter type: initial encounter Qualified Code(s): S39.012A - Strain of muscle, fascia and tendon of lower back, initial encounter Plan: Tylenol 500 mg t.i.d., cyclobenzaprine 5-10 mg t.i.d. times 7-10 days. Patient is encouraged to use gentle stretching and walking as tolerated Medications: New cyclobenzaprine 5 mg PO TID 30 tabs 0RF Coding Level of Care Code Est Pt Level 3 (85608) Diagnoses Strain of lumbar region, initial encounter S39.012A Encounter type: initial encounter Time Spent (min) 20
[2025-01-07 15:11] VITALS: BP 110/70; PULSE 80; O2SAT 95
== END 2025-01-07 15:54 | disposition home or self-care (01) ==
PROVIDERS: PCP Family Medicine; Visit Provider Physician Assistant
DX: S39.012A Strain of muscle, fascia and tendon of lower back, initial encounter (principal)

== ENCOUNTER → 2025-01-07 15:02 | Outpatient (BNVA) | payer OTHER, SELFPAY | PROVIDERS: PCP Family Medicine; Visit Provider Physician Assistant | DX: Z13.89 Encounter for screening for other disorder (principal) ==

== ENCOUNTER 2025-02-24 09:05 | Outpatient (AMB) | payer OTHER, SELFPAY ==
--- NOTE | 2025-02-24 09:18 | MHC.OFFVIS ---
Intake Visit Reasons: OV: De Quervain's tenosynovitis, left inj 12/06/24 Intake Note: Cary is a 54 year old right hand dominant woman who presents today for her De Quervain's tenosynovitis, left. Patient received an injection for the left side on 11/26/24 and reports she would like to discuss other treatments. The injection offered her little relief for just about 1-2 weeks and the brace offered mild support. She started OT and reports this has helped her. Patient is a diabtetic. Allergies amoxicillin (AMOXICILLIN) Allergy (Severe, Verified 02/24/25 09:24) ANAPHYLAXIS codeine (CODEINE) Allergy (Severe, Verified 02/24/25 09:24) ANAPHYLAXIS Sulfa (Sulfonamide Antibiotics) (SULFA (SULFONAMIDE ANTIBIOTICS)) Allergy (Mild, Verified 02/24/25 09:24) Rash, hives, rash HPI HPI OV: De Quervain's tenosynovitis, left inj 12/06/24: Details: Cary is a 54 year old right hand dominant woman who presents today for her De Quervain's tenosynovitis, left. Patient received an injection for this on 11/26/24 and reports she would like to discuss other treatments. The injection offered her little relief for just about 1-2 weeks and the brace offered mild support. She started OT and reports this has helped her. Would like to explore repeat left sided injection today. Patient is a diabtetic. [facility] Medical History Elevated erythrocyte sedimentation rate Ankylosing spondylitis Bronchitis History of COVID-19 Knee pain, right Chronic headaches Morbid obesity with BMI of 40.0-44.9, adult Abnormal findings on esophagogastroduodenoscopy (EGD) Tubal ligation evaluation Cellulitis Concussion Ankylosing spondylitis Obstructive sleep apnea Asthma GERD (gastroesophageal reflux disease) Diabetes mellitus Menopause Surgical History History of esophagogastroduodenoscopy (EGD) Hx of colonoscopy Status post insertion of nerve stimulator History of cholecystectomy Gastric bypass status for obesity H/O lumpectomy Hx of tubal ligation Hx laparoscopic cholecystectomy History of Krystian-en-Y gastric bypass Family History Father Ankylosing spondylitis of site in spine DM (diabetes mellitus) Alzheimer disease COPD (chronic obstructive pulmonary disease) Skin cancer RA (rheumatoid arthritis) Mother RA (rheumatoid arthritis) Son No problems noted. Maternal Grandfather Prostate cancer Bone cancer Social History Household Members: Spouse Housing: House Are you a primary career technical education instructor to a significant other at home: No Do you presently have visiting nurse or other home services: No Alcohol intake: current Alcohol intake frequency: holidays/special occasions only Alcohol type: wine and hard liquor Patient Tobacco Use Status: Former Tobacco user Tobacco use type: Cigarette and Cigar Years Smoked: 4 e-Cigarette/Vaping Use: Never Used Second Hand Smoke Exposure: No Substance Use Type: Marijuana service: No Current occupational status: student Current occupational exposures/hazards: No Cognitive needs: No Hearing needs: No Vision needs: No Female Reproductive History Menstrual Age of Menarche: 12 Review of Systems Const All systems reviewed & are unremarkable except as noted in HPI and below Physical Exam Extrem Other: Patient is alert, oriented, and in no acute distress. Neuro: Normal sensation of the tips of all digits of the left hand at this time Vascular: Cap refill brisk Pain: There is slight tenderness to palpation of the left radial styloid Positive Isela on the left No other pain of the left wrist ROM: Patient was able to make a closed fist and extend all digits of the left hand fully Skin: No lacerations or abrasions. General: No ecchymosis, erythema, or evidence of infection. Psych: Appears grossly normal Affect normal Attitude cooperative Office Procedures AMB Tendon Injection Tendon Injection [id number] Tendon Sheath Injection All charges added?: Procedure code (CPT) selection complete Assessment & Plan Assessment & Plan (1) De Quervain's tenosynovitis, left: Code(s): M65.4 - Radial styloid tenosynovitis [de Quervain] Category: Medical Plan 1. De Quervain tenosynovitis, left Patient is educated about this condition Patient is educated about the treatment options available Patient would like to proceed with steroid injection at this time Injection #1: The risks and benefits of a steroid injection including but not limited to risk of damage to blood vessels, nerves, tendons, infection, skin bleaching, failure to improve symptoms, increased pain, and possible need for further injections or other intervention were discussed with the patient and the patient wishes to proceed with the steroid injection. Once consent was obtained, I aseptically prepped the area over the 1st dorsal compartment of the left thumb. I then injected the 1st dorsal compartment with a combination of 1 mL of dexamethasone (4mg/ml), and 1% lidocaine. The patient tolerated the procedure well with no complications and good resolution of their symptoms prior to leaving clinic. If the patient continues to have pain 6-8 weeks following this injection, they may call to schedule appointment to discuss alternative treatment options Coding Level of Care Code Est Pt Level 3 (39286) Diagnoses De Quervain's tenosynovitis, left M65.4 CPT Codes Tendon Injection - Tendon Injection 1: [id number] Tendon Sheath Injection ([id number])
--- OUTSIDE RECORDS SUMMARY | 2025-02-24 09:21 | XMS_ITS | Patient Health Record ---
[facility] Address [address] [place] [address] Care Team Providers Care Tree Feller Operator Name Role Phone Walter Gomez MD Primary Care Provider Anurag Wright Unavailable [phone] Allergies Allergen (clinical drug ingredient) Drug/Non Drug Allergy documented on EMR Reaction Allergy Type Onset Date Status sulfa rash Drug Allergy Active adhesive tape rash Drug Allergy Act radha Reason For Referral No Information Medications Medication SIG (Take, Route, Frequency, Duration) Notes Start Date End Date Status Omeprazole Active Problems Problem Type SNOMED Code ICD Code Onset Dates Problem Status W/U Status Risk Notes Problem Achilles Tendonitis Bursitis (726.71) Active confirmed Problem Calcaneal spur (96633323) Calcaneal spur (726.73) Active confirmed Plan Of Treatment Pending Test Test Name Order Date X ray : Foot, left 3V 05/25/2013 X ray : Foot, right 3V 05/25/2013 Insurance Providers Payer Name Payer Address Payer Phone Subscriber Number Group Number Insured Name Patient Relationship to Insured Coverage Start Date Coverage End Date [facility] [address] [place] [facility] [address] [id number] Cary Banerjee Self - patient is the insured Medical (General) History Medical History History ICD Code chicken pox asthma back, hip, knee pain headaches/migraines reflux Surgical History Surgery Date(Month/Year) cholecystectomy 1992 lumpectomy 2007 & 2009 tubal ligation 1998
== END 2025-02-24 09:48 | disposition home or self-care (01) ==
LOC: HO.HOS 09:06
PROVIDERS: PCP Family Medicine
DX: M65.4 Radial styloid tenosynovitis [de Quervain] (principal)
CPT/HCPCS: 20550; 99213

== ENCOUNTER → 2025-02-24 09:05 | Outpatient (BNVA) | payer OTHER, SELFPAY | PROVIDERS: PCP Family Medicine | DX: M65.4 Radial styloid tenosynovitis [de Quervain] (principal) | CPT/HCPCS: 20550; J1100; J2003 ==

== ENCOUNTER 2025-03-09 07:45 | Outpatient (REF) | payer OTHER, SELFPAY ==
--- OUTSIDE RECORDS SUMMARY | 2025-03-09 07:49 | XMS_ITS | Patient Health Record ---
Author Organization [facility] Address [address] [place] [address] Care Team Providers Care Receiving Supervisor Name Role Phone Walter Gomez MD Primary Care Provider Anurag Wright Unavailable [phone] Allergies Allergen (clinical drug ingredient) Drug/Non Drug [...] Bursitis (726.71) Active confirmed Problem Calcaneal spur (80325246) Calcaneal spur (726.73) Active confirmed Plan Of Treatment Pending Test Test Name Order Date X ray : Foot, left 3V 05/25/2013 X ray : Foot, right 3V 05/25/2013 Insurance Providers Payer Name Payer Address Payer Phone Subscriber Number Group Number Insured Name Patient Relationship to Insured Coverage Start Date Coverage End Date [facility] [address] [facility] [address] [id number] Cary Banerjee Self - patient is the insured Medical (General) History Medical History History ICD Code chicken pox asthma back, hip, knee pain headaches/migraines reflux Surgical History Surgery Date(Month/Year) cholecystectomy 1992 lumpectomy 2007 & 2009 tubal ligation 1998
[2025-03-09 08:44] LABS: Baso%MD 0.6 %; Eos%MD 1.9 %; Hematocrit 39.5 % (37.0-47.0); Hemoglobin 13.1 g/dl (12.0-16.0); IG%MD 0.2 %; Lymph%MD 31.6 %; Mean Corpuscular HGB Conc 33.2 g/dl (31.0-35.0); Mean Corpuscular Hemoglobin 29.4 pg (27.0-33.0); Mean Corpuscular Volume 88.8 fL (80.0-98.0); Mono%MD 6.5 %; NRBC Abs Auto 0.000 X10*3/uL (0.0-0.012); NRBC Pct Auto 0.0 /100WBC (0.0-0.2); Neut%MD 59.2 %; Platelet Count 221 X10*3/uL (160-400); Red Blood Count 4.45 X10*6/uL (4.20-5.50); White Blood Count 8.5 X10*3/uL (4.8-10.8)
[2025-03-09 09:10] LABS: Basophils Abs Manual 0.1 X10*3/uL (0.0-0.2); Basophils Percent Manual 1 % (0-2); Eosinophils Absolute Manual 0.2 X10*3/uL (0.0-0.4); Eosinophils Percent Manual 2 % (0-4); Lymphocytes Absolute Manual 2.6 X10*3/uL (1.2-4.9); Lymphocytes Percent Manual 31 % (20-40); Monocytes Absolute Manual 0.6 X10*3/uL (0.1-1.2); Monocytes Percent Manual 7 % (2-11); Neutrophils Percent Manual 59 % (45-73)
[2025-03-09 09:11] LABS: RBC Morphology NORMAL
[2025-03-09 09:15] LABS: Alanine Aminotransferase 20 U/L (0-31); Albumin Level 4.2 g/dL (3.5-5.0); Alkaline Phosphatase 115 U/L (39-117); Anion Gap 12 (12-20); Aspartate Amino Transferase 30 U/L (5-31); Blood Urea Nitrogen 6 mg/dL (9-16); Calcium 9.4 mg/dL (8.4-10.2); Carbon Dioxide 25 mmol/L (22-29); Chloride 109 mmol/L (96-108); Cholesterol 191 mg/dL (<200); Estimated Glomerular Filt Rate > 60; HDL Cholesterol 62 mg/dL (>40); Potassium 4.2 mmol/L (3.3-5.1); Sodium 142 mmol/L (135-145); Total Protein 7.1 g/dL (6.5-8.0); Triglycerides 110 mg/dL (<150)
[2025-03-09 09:30] LABS: HBS Num1 3.20 mIU/mL (0-7.99); HBc Num1 0.04 S/CO (0.00-0.79); HBsAGNum1 0.38 S/CO (0.00-0.99); Hepatitis A Antibody IgM 0.14 Index (0-0.79); Hepatitis B Surface Antigen Negative (Negative); ~HepC Num1 0.09 S/CO (0.00-0.79); ~Hepatitis A Antibody IgM Nonreactive (Nonreactive); ~Hepatitis B Surface Antibody NONREACTIVE (Nonreactive); ~Hepatitis C Antibody Nonreactive (Nonreactive)
[2025-03-09 10:17] LABS: Appearance Urine Cloudy; Glucose Urine UA Negative (Negative); PH 5.5 (5.0-9.0); Specific Gravity - Urine 1.020 (1.005-1.025); UMIC TRIGGER UA YES
[2025-03-09 10:24] LABS: Free T4 (Free Thyroxine) 1.03 ng/dL (0.71-1.85)
[2025-03-09 10:35] LABS: Other Crystals Urine Present
[2025-03-09 11:24] LABS: Microalbum/Creatinine Ratio Ur 12.8 ug/mg cr (<30)
[2025-03-09 14:45] LABS: Band Neutrophils Percent 0 % (3-5); Neutrophils Absolute Manual 5.0 X10*3/uL (2.0-8.3)
[2025-03-12 08:27] LABS: TS Negative Control Passed; TS Panel A 0; TS Panel B 2; TS Positive Control Passed; TSpotTB Negative (Negative)
== END 2025-03-09 07:46 | disposition home or self-care (01) ==
LOC: HO.LAB 07:45
PROVIDERS: Absent Provider Student in an Organized Health Care Education/Training Program; PCP Family Medicine; Visit Provider Family Medicine
DX: Z00.00 Encounter for general adult medical examination without abnormal findings (principal); M17.11 Unilateral primary osteoarthritis, right knee; I10 Essential (primary) hypertension; E55.9 Vitamin D deficiency, unspecified; Z11.1 Encounter for screening for respiratory tuberculosis
CPT/HCPCS: 36415; 80053; 80061; 81001; 81003; 82043; 82306; 82570; 84439; 84443; 85007; 85027; 85652; 86140; 86481; 86704; 86706; 86709; 86803; 87340

== ENCOUNTER 2025-03-11 07:19 | Outpatient (AMB) | payer OTHER, SELFPAY ==
--- OUTSIDE RECORDS SUMMARY | 2025-03-11 07:22 | XMS_ITS | Patient Health Record ---
Author Organization [facility] Address [address] [place] [address] Care Team Providers Care Information Assurance Specialist Name Role Phone Walter Gomez MD Primary Care Provider Anurag Wright Unavailable [phone] Allergies Allergen (clinical drug ingredient) Drug/Non Drug [...] Status W/U Status Risk Notes Problem Achilles bursitis (325218720) Achilles Tendonitis Bursitis (726.71) Active confirmed Problem Calcaneal spur (23084097) Calcaneal spur (726.73) Active confirmed Plan Of Treatment Pending Test Test Name Order Date X ray : Foot, left 3V 05/25/2013 X ray : Foot, right 3V 05/25/2013 Insurance Providers Payer Name Payer Address Payer Phone Subscriber Number Group Number Insured Name Patient Relationship to Insured Coverage Start Date Coverage End Date [facility] [address] [place] [address] [id number] Cary Banerjee Self - patient is the insured Medical (General) History Medical History History ICD Code chicken pox asthma back, hip, knee pain headaches/migraines reflux Surgical History Surgery Date(Month/Year) cholecystectomy 1992 lumpectomy 2007 & 2009 tubal ligation 1998
--- NOTE | 2025-03-11 07:27 | A.OFFVIS_ITS ---
Vital Signs 03/11/25 07:32 Height 5 ft 5 in Weight 241 lb 13.553 oz BMI 40.2 BP 112/72 Blood Pressure Location Rt radial Position Sitting Pulse 87 Pulse Source Pulse Oximeter Pulse Oximetry (%) 98 Oxygen Delivery Method Room Air Intake Visit Reasons: Intake Note: Patient presents for follow up. Allergies amoxicillin (AMOXICILLIN) Allergy (Severe, Verified 03/11/25 07:31) ANAPHYLAXIS codeine (CODEINE) Allergy (Severe, Verified 03/11/25 07:31) ANAPHYLAXIS Sulfa (Sulfonamide Antibiotics) (SULFA (SULFONAMIDE ANTIBIOTICS)) Allergy (Mild, Verified 03/11/25 07:31) Rash, hives, rash HPI Comments Details: Patient is a 55 y.o. female with asthma, GERD, diabetes, hyperlipidemia, migraines, adjustment disorder, anxiety, polyarticular osteoarthritis including degenerative spine disease and ankylosing spondylitis here today for follow up Interval History: Patient last seen 09/06/[address] Guzman - On Enbrel - No new complaints, felt the same - Continued intermittent achy joints in her hands 2/2 OA Since then had a mechanical fall in 10/2024 with injury to her left wrist Had imaging including CT but ultimately diagnosed with tenodinitis Today, - Still having wrist pain. s/p steroid injection x and is now exploring surgical release options with hand surgery - Hands still achy with associated AM stiffness for about 1 hour - Right hip pain especially when laying on the right side at nights Rheumatologic History: Non radiographic HLA B27 negative ank spond - inflammatory back pain and history of peripheral arthritis, enthesitis, elevated inflammatory markers HLA B27 negative Enbrel: 12/2018- present effective. Switched from SureClick to cartilage Mini (due difficulty with mechanism) 07/2023 Methotrexate: January 2021- January 2021 Gi upset after a few doses. Initial history: This is a 53-year-old female with non radiographic axSpA who presents for follow-up. Was last seen by Tonia Carlos 11/14. Doing well overall in terms of her joint pain and stiffness. She gets morning stiffness of her hands lasting about 1 hour. Occasionally takes Tylenol. She mentions that she has been getting GI upset recently and she went back to weight management and she was advised to start drinking protein shakes, avoiding carbohydrates. She has been having pain on the outside of her left hip. She also has numbness along the outer aspect of her right thigh, worse with walking and lying in bed at night. Better when sitting. Current Rheumatology Medication(s): Enbrel 50mg SC weekly PFSH Medical History Elevated erythrocyte sedimentation rate Ankylosing spondylitis Bronchitis History of COVID-19 Knee pain, right Chronic headaches Morbid obesity with BMI of 40.0-44.9, adult Abnormal findings on esophagogastroduodenoscopy (EGD) Tubal ligation evaluation Cellulitis Concussion Ankylosing spondylitis Obstructive sleep apnea Asthma GERD (gastroesophageal reflux disease) Diabetes mellitus Menopause Surgical History History of esophagogastroduodenoscopy (EGD) Hx of colonoscopy Status post insertion of nerve stimulator History of cholecystectomy Gastric bypass status for obesity H/O lumpectomy Hx of tubal ligation Hx laparoscopic cholecystectomy History of Krystian-en-Y gastric bypass Family History Father Ankylosing spondylitis of site in spine DM (diabetes mellitus) Alzheimer disease COPD (chronic obstructive pulmonary disease) Skin cancer RA (rheumatoid arthritis) Mother RA (rheumatoid arthritis) Son No problems noted. Maternal Grandfather Prostate cancer Bone cancer Social History Household Members: Spouse Housing: House Are you a primary health care consultant to a significant other at home: No Do you presently have visiting nurse or other home services: No Alcohol intake: current Alcohol intake frequency: holidays/special occasions only Alcohol type: wine and hard liquor Patient Tobacco Use Status: Former Tobacco user Tobacco use type: Cigarette and Cigar Years Smoked: 4 e-Cigarette/Vaping Use: Never Used Second Hand Smoke Exposure: No Substance Use Type: Marijuana service: No Current occupational status: student Current occupational exposures/hazards: No Cognitive needs: No Hearing needs: No Vision needs: No Female Reproductive History Menstrual Age of Menarche: 12 Review of Systems Const Details: Review of Systems Constitutional: Denies fever, chills, weight loss ENT: Denies vision changes, eye pain or eye redness, dental caries, dry mouth GI: Denies nausea, vomiting, diarrhea, abdominal pain, change in BM Pulm: Denies SOB, DAVE, hemoptysis, wheezing Cards: Denies chest pain, palpitations Skin: Denies Raynaud's, rash, nail changes, photosensitivity, BOX WORKER: Denies headaches, weakness, paresthesias, recurrent falls MSK: as per HPI All other systems reviewed and are unremarkable except noted above Physical Exam Exam Exam: Vital signs reviewed Physical Examination CONSTITUITIONAL Patient alert and cooperative. Well appearing and in no apparent painful distress MSK Hands * Right Hand: Able to make a fist. No swelling of palpation of these joints. TTP of the 3rd and 4th PIP. No deformities noted. * Left Hand: Able to make a fist. No swelling or tenderness to palpation of these joints. No deformities noted. Wrists * Right Wrist: Full ROM. 70 degrees of wrist flexion, 80 degrees of wrist extension. No swelling or TTP * Left Wrist: In a brace, not examined Elbows * Right Elbow: Full ROM. No swelling or TTP. No TTP of the medial and lateral epicondyles * Left Elbow: Full ROM. No swelling or TTP. No TTP of the medial and lateral epicondyles Shoulders * Right shoulder: Full ROM. No swelling noted. No TTP of the AC joint, subacromial bursa or posterior shoulder * Left shoulder: Full ROM. No swelling noted. No TTP of the AC joint, subacromial bursa or posterior shoulder Hips * Right hip: Good ROM. No pain elicited with hip flexion/internal rotation/external rotation * Left hip: Good ROM. No pain elicited with hip flexion/internal rotation/external rotation Hip bursa: TTP bilaterally. R>L Knees * Right knee: Full ROM. No swelling noted. No TTP of the knee joint lie or pes anserine bursa * Left knee: Full ROM. No swelling noted. No TTP of the knee joint lie or pes anserine bursa. Ankles * Right ankle: Good ankle dorsiflexion and plantar flexion. No swelling. No TTP of the ankle joint * Left ankle: Good ankle dorsiflexion and plantar flexion. No swelling. No TTP of the ankle joint Feet * Right foot: Negative squeeze test * Left foot: Negative squeeze test Tender points? * No tenderness to palpation of the bilateral trapezius, supraspinatus, anterior costochondral junctions, bilateral suboccipital muscle insertions SKIN No rashes Vital Signs: Last Vital Signs Pulse 87 03/11/25 07:32 BP 112/72 03/11/25 07:32 Pulse Ox 98 03/11/25 07:32 Oxygen Delivery Method Room Air 03/11/25 07:32 BMI result Body Mass Index 40.2 Results Reviewed Results Reviewed: Laboratory Tests 06/12/24 03/09/25 10:23 08:05 WBC 8.5 RBC 4.45 Hgb 13.1 Hct 39.5 Plt Count 221 ESR 16 23 H Sodium 142 Potassium 4.2 Chloride 109 H Carbon Dioxide 25 BUN 6 L Creatinine 0.88 AST 30 ALT 20 Alkaline Phosphatase 115 C-Reactive Protein 1.45 H 1.85 H 25-OH Vitamin D Total 31.0 Laboratory Tests 07/29/23 03/09/25 09:42 08:05 Hepatitis A IgM Ab Nonreactive Hep Bs Antigen Negative Hep Bs Antibody NONREACTIVE Hep B Core Total Ab Nonreactive Hepatitis C Ab (EIA) Nonreactive TB Test (T-Spot) Com Negative Pending Assessment & Plan Assessment & Plan (1) Spondyloarthropathy: Comment: HLA B27 negative Enbrel: 12/2018- present effective. Switched from SureClick to cartilage Mini (due difficulty with mechanism) 07/2023 Methotrexate: January 2021- January 2021 Gi upset after a few doses. Code(s): M47.819 - Spondylosis without myelopathy or radiculopathy, site unspecified Category: Medical Plan: #Ankylosing spondylitis, non radiographic Patient is a 55 y.o. female with non radiographic ankylosing spondylitis here today for follow up. Currently on Enbrel monotherapy. Doing well. No active synovitis or enthesitis Has chronically elevated inflammatory markers which has been attributed to diet and weight. Discussed with patient that we can consider trying to Take 15mg for 7 days then 10mg for 7 days then 5mg for 7 days then stop Take 15mg for 10 days then 10mg for 10 days then 5mg for 10 days and decrease the frequency of the Enbrel in the future Plan - Enbrel 50mg SC - RTC 6 months - Labs before visit: CBC, CMP, ESR, CRP (2) Trochanteric bursitis of right hip: Code(s): M70.61 - Trochanteric bursitis, right hip Plan: #Trochanteric bursitis Patient with outer hip pain Exercises given (3) Encounter for monitoring of etanercept therapy: Code(s): Z51.81 - Encounter for therapeutic drug level monitoring; Z79.620 - nursing home (current) use of immunosuppressive biologic Plan: #Long-term Use of TNF Inhibitors: Enbrel Discussed with the patient the benefits and risks of TNF inhibitors for the management of the rheumatic condition Benefits include reduce pain, maintenance of remission and reduction of flares as well as progression of the disease Risks include injection sites/infusion reactions, serious infections (such as bacterial infections, opportunistic infections), malignancy, delaminating syndromes, autoimmune phenomena, CHF exacerbations, palmar plantar psoriasis and cytopenias Recommended rotating injection sites, and holding medication during and for up to 1 week after resolution of a febrile illness or open skin wound Plan I spent 32 minutes reviewing the record and labs, taking a history, examining the patient, discussing the treatment plan, ordering diagnostic work up and documenting in the medical record Coding Level of Care Code Est Pt Level 4 (14229) Complex EM visit Add On G2211 Diagnoses Spondyloarthropathy M47.819 Trochanteric bursitis of right hip M70.61 Encounter for monitoring of etanercept therapy Z51.81; Z79.620
[2025-03-11 07:32] VITALS: BP 112/72; PULSE 87; O2SAT 98; BMI 40.2
== END 2025-03-11 08:13 | disposition home or self-care (01) ==
LOC: HO.RHE 07:20
PROVIDERS: PCP Family Medicine; Visit Provider Student in an Organized Health Care Education/Training Program
DX: M47.819 Spondylosis without myelopathy or radiculopathy, site unspecified (principal); M70.61 Trochanteric bursitis, right hip; Z51.81 Encounter for therapeutic drug level monitoring; Z79.620 Long term (current) use of immunosuppressive biologic
CPT/HCPCS: 99214

== ENCOUNTER 2025-04-06 08:43 | Outpatient (AMB) | payer OTHER, SELFPAY ==
--- NOTE | 2025-04-06 08:49 | MHC.OFFVIS ---
Vital Signs 04/06/25 08:50 Height 5 ft 5 in Weight 241 lb BMI 40.1 Intake Visit Reasons: OV: De Quervain's tenosynovitis, left inj 02/24/25 Intake Note: Cary is a 55 year old right hand dominant female who presents today for follow up of her left De Quervain's tenosynovitis. Patient has had two injections, 12/06/24 and 02/24/25. Patient reports the last injection did not provide much relief. She continues having pain on the radial aspect of the left wrist. She is not taking any pain meds at this time, Tylenol does not help and cannot take NSAID's. She would like to discuss surgery today. History of Diabetes Mellitus, last A1C 6.7% 11/10/24. Allergies amoxicillin (AMOXICILLIN) Allergy (Severe, Verified 04/06/25 08:50) ANAPHYLAXIS codeine (CODEINE) Allergy (Severe, Verified 04/06/25 08:50) ANAPHYLAXIS Sulfa (Sulfonamide Antibiotics) (SULFA (SULFONAMIDE ANTIBIOTICS)) Allergy (Mild, Verified 04/06/25 08:50) Rash, hives, rash HPI HPI OV: De Quervain's tenosynovitis, left inj 02/24/25: Details: Cary is a 55 year old right hand dominant female who presents today for follow up of her left De Quervain's tenosynovitis. Patient has had two injections, 12/06/24 and 02/24/25. Patient reports the last injection did not provide much relief. She continues having pain on the radial aspect of the left wrist. She is not taking any pain meds at this time, Tylenol does not help and cannot take NSAID's. She would like to discuss surgery today. History of Diabetes Mellitus, last A1C 6.7% 11/10/24. [facility] Medical History Elevated erythrocyte sedimentation rate Ankylosing spondylitis Bronchitis History of COVID-19 Knee pain, right Chronic headaches Morbid obesity with BMI of 40.0-44.9, adult Abnormal findings on esophagogastroduodenoscopy (EGD) Tubal ligation evaluation Cellulitis Concussion Ankylosing spondylitis Obstructive sleep apnea Asthma GERD (gastroesophageal reflux disease) Diabetes mellitus Menopause Surgical History History of esophagogastroduodenoscopy (EGD) Hx of colonoscopy Status post insertion of nerve stimulator History of cholecystectomy Gastric bypass status for obesity H/O lumpectomy Hx of tubal ligation Hx laparoscopic cholecystectomy History of Krystian-en-Y gastric bypass Family History Father Ankylosing spondylitis of site in spine DM (diabetes mellitus) Alzheimer disease COPD (chronic obstructive pulmonary disease) Skin cancer RA (rheumatoid arthritis) Mother RA (rheumatoid arthritis) Son No problems noted. Maternal Grandfather Prostate cancer Bone cancer Social History Household Members: Spouse Housing: House Are you a primary pharmacy care coordinator to a significant other at home: No Do you presently have visiting nurse or other home services: No Alcohol intake: current Alcohol intake frequency: holidays/special occasions only Alcohol type: wine and hard liquor Patient Tobacco Use Status: Former Tobacco user Tobacco use type: Cigarette and Cigar Years Smoked: 4 e-Cigarette/Vaping Use: Never Used Second Hand Smoke Exposure: No Substance Use Type: Marijuana service: No Current occupational status: student Current occupational exposures/hazards: No Cognitive needs: No Hearing needs: No Vision needs: No Female Reproductive History Menstrual Age of Menarche: 12 Review of Systems Const All systems reviewed & are unremarkable except as noted in HPI and below Physical Exam Vital Signs: BMI result Body Mass Index 40.1 Extrem Other: Patient is alert, oriented, and in no acute distress. Neuro: Normal sensation of the tips of all digits of the left hand at this time Vascular: Cap refill brisk Pain: There is slight tenderness to palpation of the left radial styloid Positive Isela on the left No other pain of the left wrist ROM: Patient was able to make a closed fist and extend all digits of the left hand fully Skin: No lacerations or abrasions. General: No ecchymosis, erythema, or evidence of infection. Psych: Appears grossly normal Affect normal Attitude cooperative Assessment & Plan Assessment & Plan (1) De Quervain's tenosynovitis, left: Code(s): M65.4 - Radial styloid tenosynovitis [de Quervain] Category: Medical Plan 1. De Quervain tenosynovitis, left I educated the patient about the condition. I discussed both operative and nonoperative treatment options. The patient would like to proceed with surgery. The risks and benefits of operative treatment were discussed with the patient and the patient wishes to proceed with surgery. These risks include, but are not limited to, risk of damage to blood vessels, nerves, tendons, infection, recurrence, incomplete relief of preoperative symptoms, persistent pain, possible need for further surgery, and the risks associated with regional blocks and/or anesthesia. Plan is to take the patient to the operating room at some point in the next few weeks for the following procedures: 1. Left 1st dorsal compartment release under local All of the preoperative paperwork including the consent was discussed today. All of the patient's questions were answered in the clinic today. The patient understands that they will be in contact with our surgical oncologist to discuss scheduling their procedure. Patient reports diabetes, last A1c 6.7 Denies blood thinners, asthma, heart issues, lung issues, kidney issues, or current smoking. Coding Level of Care Code Est Pt Level 4 (66712) Diagnoses De Quervain's tenosynovitis, left M65.4
[2025-04-06 08:50] VITALS: BMI 40.1
--- OUTSIDE RECORDS SUMMARY | 2025-04-06 08:59 | XMS_ITS | Patient Health Record ---
Author Organization [facility] Address [address] [place] [address] Care Team Providers Care Engineering Designer Name Role Phone Walter Gomez MD Primary Care Provider Anurag Wright Unavailable [phone] Allergies Allergen (clinical drug ingredient) Drug/Non Drug [...] Bursitis (726.71) Active confirmed Problem Calcaneal spur (97968097) Calcaneal spur (726.73) Active confirmed Plan Of Treatment Pending Test Test Name Order Date X ray : Foot, left 3V 05/25/2013 X ray : Foot, right 3V 05/25/2013 Insurance Providers Payer Name Payer Address Payer Phone Subscriber Number Group Number Insured Name Patient Relationship to Insured Coverage Start Date Coverage End Date [facility] [address] [place] [facility] [id number] Cary Banerjee Self - patient is the insured Medical (General) History Medical History History ICD Code chicken pox asthma back, hip, knee pain headaches/migraines reflux Surgical History Surgery Date(Month/Year) cholecystectomy 1992 lumpectomy 2007 & 2009 tubal ligation 1998
== END 2025-04-06 09:25 | disposition home or self-care (01) ==
LOC: HO.HOS 08:44
PROVIDERS: PCP Family Medicine
DX: M65.4 Radial styloid tenosynovitis [de Quervain] (principal)
CPT/HCPCS: 99214

== ENCOUNTER 2025-05-12 06:12 | Day surgery (SDC) | payer OTHER, SELFPAY ==
--- OUTSIDE RECORDS SUMMARY | 2025-05-04 17:33 | XMS_ITS | Patient Health Record ---
Author Organization [facility] Address [address] [place] [address] Care Team Providers Care Swing Tender Name Role Phone Walter Gomez MD Primary Care Provider Anurag Wright Unavailable [phone] Allergies Allergen (clinical drug ingredient) Drug/Non Drug [...] W/U Status Risk Notes Problem Achilles bursitis (212339781) Achilles Tendonitis Bursitis (726.71) Active confirmed Problem Calcaneal spur ([id number]) Calcaneal spur (726.73) Active confirmed Plan Of Treatment Pending Test Test Name Order Date X ray : Foot, left 3V 05/25/2013 X ray : Foot, right 3V 05/25/2013 Insurance Providers Payer Name Payer Address Payer Phone Subscriber Number Group Number Insured Name Patient Relationship to Insured Coverage Start Date Coverage End Date [facility] [address] [place] [address] [phone] [id number] Cary Banerjee Self - patient is the insured Medical (General) History Medical History History ICD Code chicken pox asthma back, hip, knee pain headaches/migraines reflux Surgical History Surgery Date(Month/Year) cholecystectomy 1992 lumpectomy 2007 & 2009 tubal ligation 1998
[2025-05-12 06:50] VITALS: BP 128/65; PULSE 81; RESP 16; TEMP 36.4; O2SAT 94; BMI 40.7
--- NOTE | 2025-05-12 07:46 | MHC.SHP ---
Pre-Procedural Eval Section A - 24 Hr Update-Section A only Date of Service: 05/12/25 The patient is an INPATIENT: No Changes since office visit: No Cold of Flu in the past 2 weeks, No New Medical Problems, No Changes in Medication and No Patient answered all questions The patient has been examined within 24 hours of the surgical procedure. The History & Physical has been completed within 30 days and I have reviewed it.: Yes Section B - Complete if H&P > 30 days Chief Complaint: Radial styloid tenosynovitis [de Quervain] Allergies: Allergies Allergy/AdvReac Type Severity Reaction Status Date / Time amoxicillin (AMOXICILLIN) Allergy Severe ANAPHYLAXIS Verified 05/12/25 06:54 codeine (CODEINE) Allergy Severe ANAPHYLAXIS Verified 05/12/25 06:54 Sulfa (Sulfonamide Allergy Mild Rash, Verified 05/12/25 06:54 Antibiotics) (SULFA hives, rash (SULFONAMIDE ANTIBIOTICS)) Plan Diagnosis/Plan: Unchanged I have reviewed the history and physical and performed a pertinent physical examination on my patient. No changes have occurred unless specified. Time Spent With Patient Time: Total time managing care of this patient today ____ minutes.
--- NOTE | 2025-05-12 07:48 | W.PM.OPN ---
Operative Note Operative Note Date of Service: 05/12/25 Narrative: Operative Note Preop diagnosis: 1. Left DeQuervain's tenosynovitis Postop diagnosis: 1. Left DeQuervain's tenosynovitis Procedure: 1. Left 1st dorsal compartment release Surgeon: Tonia Almonte MD Skidder Lever Operator: Fahad LUDWIG Anesthesia: local block using 1% lidocaine with epinephrine Findings: Thickened 1st dorsal compartment. EBL: Less than 5 mL Tourniquet time: None Specimens: None Complications: None Disposition: Brought to recovery room in stable condition Plan: Follow-up for 7-10 days for wound check and suture removal Indications: The patient is 55 years old, with left DeQuervain's tenosynovitis that has been unresponsive to nonoperative management. The risks and benefits of operative treatment including but not limited to risk of damage to blood vessels, nerves, tendons, infection, persistent pain, persistent symptoms, recurrence or possible need for additional surgery were discussed with the patient and the patient wishes to proceed with surgery. Procedure: Once consent was obtained a local block was performed in the preop area using a combination of 1% lidocaine with epinephrine. The patient was then brought back to the operating suite and placed on the operative table in supine position. The left upper extremity was prepped and draped in a standard surgical fashion. Once assured that we had a good block, a 1.5 cm longitudinal incision was made centered over the 1st dorsal compartment as it passed over the radial styloid of the left wrist. The incision was made through the skin to the subcutaneous tissues using a #15 blade. Careful dissection was made down to the level of the 1st dorsal compartment using tenotomy scissors, with care being taken to protect the nearby branches of the superficial radial nerve. Once the 1st dorsal compartment was exposed, A longitudinal incision was made in the 1st dorsal compartment 1st using a #15 blade, then using tenotomy scissors under direct visualization. The 1st dorsal compartment was noted to be thickened. Following our release, we saw smooth gliding abductor pollicis longus and extensor pollicis brevis tendons. Once satisfied with our 1st dorsal compartment release the wound was copiously irrigated with normal saline and hemostasis was obtained with a brief period of local pressure. The subcutaneous layer was closed with some 4-0 Vicryl suture, and the skin edges were reapproximated with some 5.0 nylon suture material. A sterile dressing was applied. The patient appears to have tolerated the procedure well and with no complications. All digits were well vascularized at the conclusion of the case.
[2025-05-12 09:05] VITALS: BP 144/78; PULSE 66; RESP 16; O2SAT 98
== END 2025-05-12 09:05 ==
PROVIDERS: PCP Family Medicine; Visit Provider Orthopaedic Surgery
PROC: (CPT 25000; principal; 2025-05-12 08:10)
DX: M65.4 Radial styloid tenosynovitis [de Quervain] (principal); M25.532 Pain in left wrist; E11.9 Type 2 diabetes mellitus without complications; R70.0 Elevated erythrocyte sedimentation rate; R51.9 Headache, unspecified; J45.909 Unspecified asthma, uncomplicated; G47.33 Obstructive sleep apnea (adult) (pediatric); M45.9 Ankylosing spondylitis of unspecified sites in spine; E66.01 Morbid (severe) obesity due to excess calories; Z68.41 Body mass index [BMI] 40.0-44.9, adult; Z88.1 Allergy status to other antibiotic agents; Z88.2 Allergy status to sulfonamides; Z88.5 Allergy status to narcotic agent; Z98.84 Bariatric surgery status; K21.9 Gastro-esophageal reflux disease without esophagitis; Z96.82 Presence of neurostimulator; Z98.890 Other specified postprocedural states; Z87.891 Personal history of nicotine dependence
CPT/HCPCS: 25000; J0165; J2003

== ENCOUNTER → 2025-05-12 06:12 | Outpatient (BNV) | payer OTHER, SELFPAY | PROVIDERS: PCP Family Medicine; Visit Provider Orthopaedic Surgery | DX: M65.4 Radial styloid tenosynovitis [de Quervain] (principal) | CPT/HCPCS: 25000 ==

== ENCOUNTER 2025-05-25 08:18 | Outpatient (AMB) | payer OTHER, SELFPAY ==
[2025-05-25 08:23] VITALS: BMI 40.6
--- NOTE | 2025-05-25 08:23 | MHC.OFFVIS ---
Vital Signs 05/25/25 08:23 Height 5 ft 5 in Weight 244 lb BMI 40.6 Intake Visit Reasons: PO-Lt RETIREMENT Release 05/12/25 Intake Note: Cary is a 55 year old right hand dominant female who presents today post-operatively status post Left First Dorsal Compartment Release performed by Dr. Almonte on 05/12/25. Patient reports a burning tingling sensation on the dorsal aspect of the left thumb. She is taking Tylenol PRN with relief. Allergies amoxicillin (AMOXICILLIN) Allergy (Severe, Verified 05/25/25 08:23) ANAPHYLAXIS codeine (CODEINE) Allergy (Severe, Verified 05/25/25 08:23) ANAPHYLAXIS Sulfa (Sulfonamide Antibiotics) (SULFA (SULFONAMIDE ANTIBIOTICS)) Allergy (Mild, Verified 05/25/25 08:23) Rash, hives, rash HPI HPI PO-Lt RETIREMENT Release 05/12/25: Details: Cary is a 55 year old right hand dominant female who presents today post-operatively status post Left First Dorsal Compartment Release performed by Dr. Almonte on 05/12/25. Patient reports a burning tingling sensation on the dorsal aspect of the left thumb. She is taking Tylenol PRN with relief. [facility] Medical History Elevated erythrocyte sedimentation rate Ankylosing spondylitis Bronchitis History of COVID-19 Knee pain, right Chronic headaches Morbid obesity with BMI of 40.0-44.9, adult Abnormal findings on esophagogastroduodenoscopy (EGD) Tubal ligation evaluation Cellulitis Concussion Ankylosing spondylitis Obstructive sleep apnea Asthma GERD (gastroesophageal reflux disease) Diabetes mellitus Menopause Surgical History History of esophagogastroduodenoscopy (EGD) Hx of colonoscopy Status post insertion of nerve stimulator History of cholecystectomy Gastric bypass status for obesity H/O lumpectomy Hx of tubal ligation Hx laparoscopic cholecystectomy History of Krystian-en-Y gastric bypass Family History Father Ankylosing spondylitis of site in spine DM (diabetes mellitus) Alzheimer disease COPD (chronic obstructive pulmonary disease) Skin cancer RA (rheumatoid arthritis) Mother RA (rheumatoid arthritis) Son No problems noted. Maternal Grandfather Prostate cancer Bone cancer Social History Household Members: Spouse Housing: House Are you a primary customer care assistant to a significant other at home: No Do you presently have visiting nurse or other home services: No Alcohol intake: current Alcohol intake frequency: holidays/special occasions only Alcohol type: wine and hard liquor Patient Tobacco Use Status: Former Tobacco user Tobacco use type: Cigarette and Cigar Years Smoked: 4 e-Cigarette/Vaping Use: Never Used Second Hand Smoke Exposure: No Substance Use Type: Marijuana service: No Current occupational status: student Current occupational exposures/hazards: No Cognitive needs: No Hearing needs: No Vision needs: No Female Reproductive History Menstrual Age of Menarche: 12 Physical Exam Vital Signs: BMI result Body Mass Index 40.6 Extrem Other: Patient is alert, oriented, and in no acute distress. Neuro: Normal sensation of the tips of all digits of the left hand at this time Vascular: Cap refill brisk Pain: Minimal tenderness to palpation noted about the incision site over the 1st dorsal compartment of the left wrist Minimally positive Isela test on the left ROM: Patient is able to make a closed fist and extend all digits of the left hand fully and without difficulty Skin: No lacerations or abrasions. General: No ecchymosis, erythema, or evidence of infection. Psych: Appears grossly normal Affect normal Attitude cooperative Assessment & Plan Assessment & Plan (1) De Quervain's tenosynovitis, left: Code(s): M65.4 - Radial styloid tenosynovitis [de Quervain] Category: Medical Plan Status post left 1st dorsal compartment release on the left DOS 05/12/2025 Patient appears to be recovering well postoperatively Patient is educated about the typical recovery course OT order placed for range of motion and gentle strengthening of the left wrist in the setting of de Quervain tenosynovitis status post left 1st dorsal compartment release Patient is offered a comfort cool brace, but states she already has 1 Follow-up as needed with any acute concerns Orders: Orders OT Evaluation and Treatment Today M65.4 - Radial styloid tenosynovitis [de Quervain] Coding Level of Care Code Global (59970) Diagnoses De Quervain's tenosynovitis, left M65.4
--- OUTSIDE RECORDS SUMMARY | 2025-05-25 08:47 | XMS_ITS | Patient Health Record ---
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 Name Role Phone Walter Gomez MD Primary Care Provider Anurag Wright Unavailable [phone] Allergies Allergen (clinical drug ingredient) Drug/Non Drug [...] W/U Status Risk Notes Problem Achilles bursitis (921487611) Achilles Tendonitis Bursitis (726.71) Active confirmed Problem Calcaneal spur (01227972) Calcaneal spur (726.73) Active confirmed Plan Of Treatment Pending Test Test Name Order Date X ray : Foot, left 3V 05/25/2013 X ray : Foot, right 3V 05/25/2013 Insurance Providers Payer Name Payer Address Payer Phone Subscriber Number Group Number Insured Name Patient Relationship to Insured Coverage Start Date Coverage End Date [facility] [address] [place] [address] [phone] [id number] Cary Banerjee Self - patient is the insured Medical (General) History Medical History History ICD Code chicken pox asthma back, hip, knee pain headaches/migraines reflux Surgical History Surgery Date(Month/Year) cholecystectomy 1992 lumpectomy 2007 & 2009 tubal ligation 1998
== END 2025-05-25 08:48 | disposition home or self-care (01) ==
LOC: HO.HOS 08:19
PROVIDERS: PCP Family Medicine
DX: M65.4 Radial styloid tenosynovitis [de Quervain] (principal)
CPT/HCPCS: 99024

== ENCOUNTER 2025-06-17 16:11 | Outpatient (AMB) | payer OTHER, SELFPAY ==
--- NOTE | 2025-06-17 16:14 | MHC.PC.OV ---
Vital Signs 06/17/25 16:22 Height 5 ft 5 in Weight 245 lb 8 oz BMI 40.8 BP 116/80 Blood Pressure Location Lt brachial Position Sitting Respiration 16 Pulse 75 Pulse Source Pulse Oximeter Temp 97.4 F Temp Source Temporal Artery Scan Pulse Oximetry (%) 97 Oxygen Delivery Method Room Air Intake Visit Reasons: Reschedule f/u diabetes, chronic conditions Intake Note: Cary presents in the office today to follow up to diabetes and other chronic conditions. Needs a new Epi Pen. Allergies amoxicillin (AMOXICILLIN) Allergy (Severe, Verified 06/17/25 16:18) ANAPHYLAXIS codeine (CODEINE) Allergy (Severe, Verified 06/17/25 16:18) ANAPHYLAXIS Sulfa (Sulfonamide Antibiotics) (SULFA (SULFONAMIDE ANTIBIOTICS)) Allergy (Mild, Verified 06/17/25 16:18) Rash, hives, rash Medication List - Last Reconciled 06/17/25 by Ron Morales MD albuterol sulfate 90 mcg/actuation 1 inh inhalation QID PRN cetirizine (Allergy Relief (cetirizine)) 10 mg PO DAILY PRN Enbrel Mini (etanercept) 50 mg subcut QWEEK NS epinephrine (EpiPen 2-Juan Luis) 0.3 mg (0.3 mL) IM Q10M PRN gabapentin 600 mg PO BID 30 days glipizide ER 5 mg PO QAM 30 days pantoprazole 40 mg PO DAILY 90 days soy isofla-blk cohosh-mag bark 155 mg (Estroven) caps PO Tobacco use date assessed: 06/17/25 Dental Screening Dental Screen Date: 06/17/25 Did you have a dental visit in the last 12 months?: No Did you have a dental problem in the last 6 months where you did not have access to dental care?: No Was dental information given to patient?: Patient has dentist HPI Reschedule f/u diabetes, chronic conditions HPI Details 55 y/o female presents to f/u diabetes. A1c today 06/17/25 6.2%. She is on glipizide 5mg daily. Reviewed labs drawn 03/09/25. TSH elevated 4.07. Free T4 1.03 ng/dL. [facility] Medical History Elevated erythrocyte sedimentation rate Ankylosing spondylitis Bronchitis History of COVID-19 Knee pain, right Chronic headaches Morbid obesity with BMI of 40.0-44.9, adult Abnormal findings on esophagogastroduodenoscopy (EGD) Tubal ligation evaluation Cellulitis Concussion Ankylosing spondylitis Obstructive sleep apnea Asthma GERD (gastroesophageal reflux disease) Diabetes mellitus Menopause Surgical History History of esophagogastroduodenoscopy (EGD) Hx of colonoscopy Status post insertion of nerve stimulator History of cholecystectomy Gastric bypass status for obesity H/O lumpectomy Hx of tubal ligation Hx laparoscopic cholecystectomy History of Krystian-en-Y gastric bypass Family History Father Ankylosing spondylitis of site in spine DM (diabetes mellitus) Alzheimer disease COPD (chronic obstructive pulmonary disease) Skin cancer RA (rheumatoid arthritis) Mother RA (rheumatoid arthritis) Son No problems noted. Maternal Grandfather Prostate cancer Bone cancer Social History (Updated 06/17/25 @ 16:20 by Cherelle Martinez CMA) Household Members: Spouse Housing: House Are you a primary healthcare consulting manager to a significant other at home: No Do you presently have visiting nurse or other home services: No Alcohol intake: current Alcohol intake frequency: holidays/special occasions only Alcohol type: wine and hard liquor Patient Tobacco Use Status: Former Tobacco user Tobacco use type: Cigarette and Cigar Years Smoked: 4 e-Cigarette/Vaping Use: Never Used Second Hand Smoke Exposure: No Substance Use Type: Marijuana service: No Current occupational status: student Current occupational exposures/hazards: No Cognitive needs: No Hearing needs: No Vision needs: No Female Reproductive History Menstrual Age of Menarche: 12 Questionnaire Thrive Questionnaire Date Thrive assessed: 11/03/24 I am a: Patient What is your living situation today?: I have a steady place to live Within the past 12 months, did the food you bought not last and you didn't have the money to get more?: Never true Within the past 12 months, did you worry whether your food would run out before you got money to buy more?: Never true Do you have trouble paying for medicines?: No Do you have trouble getting transportation to medical appointments?: No Do you have trouble paying your heating and electricity bill?: No Do you have trouble taking care of your child, family member or friend?: No Do you have trouble with day-to-day activities such as bathing, preparing meals, shopping, managing finances, etc.?: No Are you currently unemployed and looking for a job?: No Are you interested in more education?: No Please select the resources that you would like help with: None Currently or been in a relationship where the following occur: No concerns reported THRIVE Score: 0 JANE-7 AMB Questionnaire JANE-7 Date JANE - 7 assessed: 11/25/23 Source: Developed by Drs. Jose Delgado, Lu Corona, Jung Ruby and colleagues, with an educational wily from [employer]. Review of Systems Const Denies chills, Denies fatigue, Denies fever(s), Denies headache(s) and Denies weakness ENT Denies dizziness and Denies headache(s) Card Denies dyspnea Resp Denies cough, Denies dyspnea, Denies wheezing and Denies other (shortness of breath) Musc Denies numbness and Denies tingling Neuro Denies dizziness, Denies headache(s), Denies numbness, Denies tingling and Denies weakness Psych Denies anxiety and Denies depression Endo Denies fatigue Aller/Immun Denies wheezing Physical exam (Primary Care) Vital Signs: Last Vital Signs Temp 97.4 F 06/17/25 16:22 Pulse 75 06/17/25 16:22 Resp 16 06/17/25 16:22 BP 116/80 06/17/25 16:22 Pulse Ox 97 06/17/25 16:22 Oxygen Delivery Method Room Air 06/17/25 16:22 BMI result Body Mass Index 40.8 Tobacco/Smoking Status: Tobacco use Status Tobacco use date assessed 06/17/25 06/17/25 16:22 Patient Tobacco Use Status Former Tobacco user 06/17/25 16:20 Tobacco use type Cigarette,Cigar 06/17/25 16:20 e-Cigarette/Vaping Use Never Used 06/17/25 16:20 Thrive Assessment: Date of Thrive Assessment Date Thrive assessed 11/03/24 06/17/25 16:16 Currently or been in a relationship where the following occur: No concerns reported Const General: well developed; No acute distress Nutritional Appearance: well nourished Orientation/consciousness: patient oriented x3 HENMT Head: Yes normocephalic and Yes atraumatic Eyes General: appearance normal, both eyes and all related structures Pupils: Equal, round and reactive pupils present EOM: EOMs intact bilaterally Resp Effort & Inspection: normal respiratory effort Auscultation: clear to auscultation bilaterally Cardio Rate: regular rate Rhythm: regular rhythm Heart sounds: S1 normal heart sound present, S2 normal heart sound present, no gallops, no murmurs and no rubs Neuro General: patient oriented x3 and gait normal Cranial nerves: Yes Equal, round and reactive pupils present Psych Affect: normal affect Results AMB Hemoglobin A1c AMB Hemoglobin A1c 6.2 % Last Edit by Cherelle Martinez CMA on 06/17/25 16:29 Results Reviewed Results Reviewed: Laboratory Last Values Hgb A1c (Clinic) 6.2 % (4.0-6.0) H 06/17/25 16:25 Coding Level of Care Code Est Pt Level 3 (04624) Diagnoses Diabetes mellitus E11.9 Elevated TSH R79.89 Assessment & Plan Assessment & Plan (1) Diabetes mellitus: Code(s): E11.9 - Type 2 diabetes mellitus without complications Category: Medical Plan: A1c 6.2% today. Good control. Goal Is less than 7.0% Continue current medication Continue diabetic diet Encouraged exercise (2) Elevated TSH: Code(s): R79.89 - Other specified abnormal findings of blood chemistry Category: Medical Plan Reviewed lab work with patient. Very slight elevation in TSH with normal T4. She has had slight elevation in TSH before a couple of years ago. Reassured patient that this is unlikely represent a hypothyroid state and we will simply repeat lab work. Orders: Orders AMB Hemoglobin A1c Today E11.9 - Type 2 diabetes mellitus without complications
[2025-06-17 16:22] VITALS: BP 116/80; PULSE 75; RESP 16; TEMP 36.3; O2SAT 97; BMI 40.8
--- OUTSIDE RECORDS SUMMARY | 2025-06-17 17:14 | XMS_ITS | Patient Health Record ---
[facility] Address [address] [place] [address] Care Team Providers Care Ems Director Name Role Phone Walter Gomez MD Primary Care Provider Anurag Wright Unavailable [phone] Allergies Allergen (clinical drug ingredient) Drug/Non Drug [...] W/U Status Risk Notes Problem Achilles bursitis (089068428) Achilles Tendonitis Bursitis (726.71) Active confirmed Problem Calcaneal spur (79526856) Calcaneal spur (726.73) Active confirmed Plan Of Treatment Pending Test Test Name Order Date X ray : Foot, left 3V 05/25/2013 X ray : Foot, right 3V 05/25/2013 Insurance Providers Payer Name Payer Address Payer Phone Subscriber Number Group Number Insured Name Patient Relationship to Insured Coverage Start Date Coverage End Date [facility] [address] [place] [address] [phone] [id number] Cary Banerjee Self - patient is the insured Medical (General) History Medical History History ICD Code chicken pox asthma back, hip, knee pain headaches/migraines reflux Surgical History Surgery Date(Month/Year) cholecystectomy 1992 lumpectomy 2007 & 2009 tubal ligation 1998
== END 2025-06-17 17:10 | disposition home or self-care (01) ==
LOC: HO.HMCFM 16:12
PROVIDERS: PCP Family Medicine; Visit Provider Family Medicine
DX: E11.9 Type 2 diabetes mellitus without complications (principal); R79.89 Other specified abnormal findings of blood chemistry

== ENCOUNTER → 2025-06-17 16:11 | Outpatient (BNVA) | payer OTHER, SELFPAY | PROVIDERS: PCP Family Medicine; Visit Provider Family Medicine | DX: E11.9 Type 2 diabetes mellitus without complications (principal); R79.89 Other specified abnormal findings of blood chemistry | CPT/HCPCS: 83036 ==

== ENCOUNTER 2025-07-11 07:25 | Outpatient (RCR) | payer OTHER, SELFPAY ==
--- NOTE | 2025-06-17 07:46 | MHC.OT.EP ---
[facility] Office [address] [phone] F: [phone] F: [phone] Occupational Therapy Plan of Care Patient Name: Cary Burgess Date of Evaluation: 06/17/25 Diagnosis: First Dorsal Compartment Release Pain Location: Low pain at rest Moderate pain w/ stretching/straining position Pain Score: 1 Pain Scale Used: Numeric (0 - 10) Aggravating Factors: Stretching, straining, reaching Alleviating Factors: Ice occasionally Assessment: 55 yo female w/ hx of De Quervain's tenosynovitis, was seen in OT spring 2024 w/ no significant progress with conservative treatment or cortisone injections at [facility]. She is now post-op HALF-WAY release w/ Dr Almonte 05/12/25. On assessment today, scar is healing well, some adhesion, but low pain. She does have some increased sensitivity over superficial radial sensory nerve. Range and strength are good and I anticipate she will do well w/ course of therapy for scar management, desensitization and progression of functional strength. Frequency and Duration: The patient will be seen 2x/wk for 3 weeks Short Term Goals: Ind w/ AROM exersises Ind w/ pinch strengthening Ind w/ scar management Assisted Goals: QD score <25 pts Ind w/ progression of strengthening Wrist flex <55 degrees Treatment Plan: Therapeutic Exercise Therapeutic Activity Home Exercise Program Patient Education Desensitization/Sensory Re-ed Edema Control ADL Training Paraffin Fluidotherapy MHP Cold Packs Joint Mobilization Soft Tissue Mobilization Kinesiotaping Electronically Signed By: Kelly Del Rio OTR/L CHT Please Sign and return to therapist. Thank you once again for your referral.
--- NOTE | 2025-07-11 09:49 | MHC.OT.DC ---
[facility] Office [address] [phone] F: [phone] F: [phone] Occupational Therapy Discharge Note Patient Name: Cary Burgess Provider: Fahad Soler PA-C Diagnosis: Left first Dorsal Compartment Release Date of Surgery: 05/12/25 Date of Evaluation: 06/17/25 Date of Discharge: 07/11/25 Treatments to Date: 5 Discharge Status: Achieved Goals Improved Function Independent with HEP Discharge Summary: Cary is about 9 weeks post-op left first dorsal compartment release. Currently she has low pain overall and pleased with surgery results. She is doing well w/ scar management and reports decreased nerve hypersensitivity. She has progressed well through strengthening and some difficulty only with reaching behind back. Ind w/ home program and self management, no further services needed at this time. Electronically Signed By: ARIES Mendez/Kaye CHT Reviewed/agree with student documentation: Therapist: Please Sign and return to therapist, thank you for your referral.
== END 2025-07-11 09:50 | disposition home or self-care (01) ==
LOC: HO.OT 07:25
PROVIDERS: PCP Family Medicine
DX: M65.4 Radial styloid tenosynovitis [de Quervain] (principal)
CPT/HCPCS: 97110; 97140; 97165